=== PATIENT | female | born 1995 | race Hispanic/Latino ===

== ENCOUNTER 2017-08-25 13:44 | Emergency (ER) | payer SELFPAY ==
[2017-08-25 14:23] LABS: Urine Blood 2+ (NEG); Urine Glucose NEGATIVE (NEG); Urine Protein NEGATIVE (NEG)
[2017-08-25 14:30] LABS: Urine Bacteria >50 /HPF (<20); Urine Culture Reflex Order REFLEXED; Urine RBC >50 /HPF (NONE SEEN)
[2017-08-25 15:49] LABS: Absolute Lymphocytes (CBC) 2.7 K/uL (0.7-4.9); Absolute Monocytes 0.4 K/uL (0.1-1.3); Absolute Neutrophil 4.4 K/uL (1.8-8.0); Basophils % 0.5 % (0-1.3); Eosinophils % 3.4 % (0-4.4); Hematocrit 40.7 % (36.0-45.0); Lymphocytes % 34.9 % (15.3-44.8); MCH 29.3 pg (27.0-35.0); MCV 87.6 fL (80-100); MPV 9.2 fL (7.6-11.3); Monocytes % 4.8 % (3.3-12.3); RBC Red Blood Cell Count 4.64 M/uL (3.86-4.86)
[2017-08-25 15:58] LABS: Bicarbonate 26 mEq/L (21-31); Glucose Level 83 mg/dL (65-120); Potassium 3.8 mEq/L (3.6-5.0); Sodium Level 138 mEq/L (135-145)
[2017-08-25 15:59] LABS: BUN Blood Urea Nitrogen 5 mg/dL (6-20); Glomerular Filtration Rate > 90 mL/min (=/>90)
[2017-08-25 16:28] LABS: Urine Bacteria NONE SEEN /HPF (<20); Urine Culture Reflex Order NOT NEEDED; Urine RBC NONE SEEN /HPF (NONE SEEN)
--- NOTE | 2017-08-25 16:31 | EDPHYS ---
Physician Documentation [facility] Name: Rossana Monge Age: 21 yrs Sex: Female : 1995 Arrival Date: 08/25/2017 Time: 13:45 Bed 15 Private MD: ED Physician Ck Liu HPI: 08/25 14:12 This 21 yrs old Female presents to ER via Ambulatory with complaints of rh1 Vaginal Bleeding. 14:12 The patient presents with vaginal bleeding that is moderate, with clots, 1 regular rh1 tampon per hour for the past 2 days, today has "lightened up" and used 1 tampon, reports not currently bleeding. Onset: The symptoms/episode began/occurred 3 day(s) ago. Modifying factors: The symptoms are alleviated by nothing, the symptoms are aggravated by nothing. Associated signs and symptoms: Pertinent positives: cramping, Pertinent negatives: constipation, diarrhea, dyspareunia, dysuria, fever, nausea, urinary frequency, vaginal discharge, vomiting. Severity of symptoms: At their worst the symptoms were mild, in the emergency department the symptoms are unchanged. The patient is sexually active. The patient has not experienced similar symptoms in the past. The patient has not recently seen a physician. Pt. reports LMP 07/25/17, and 3 days ago began with vaginal bleeding. Reports heavier than usual, but she will intermittently have periods that are heavier than others, and felt that this was routine. Bleeding had improved, when today at 1200 after wiping she had approx. 1 cm "piece of meat come out." Reports it was not similar to previous blood clots that she has had out. She was concerned she may be miscarrying, had negative test at home.. 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 - Social history:: Smoking status: Patient/guardian denies using tobacco. ROS: 14:12 Constitutional: Negative for fever, chills, and weight loss. rh1 14:12 ENT: Positive for rhinorrhea, sinus congestion, ongoing for the past 1 week, overall improving. 14:12 Cardiovascular: Negative for chest pain, edema, palpitations. 14:12 Respiratory: Positive for cough, ongoing intermittently for the past 1 week, overall improving, Negative for dyspnea on exertion, shortness of breath, wheezing. 14:12 Abdomen/GI: Negative for abdominal pain, nausea, vomiting, and diarrhea. 14:12 Back: Negative for decreased range of motion, pain at rest, pain with movement, radiated pain. 14:12 : Positive for vaginal bleeding, Negative for urinary symptoms, small amounts, vaginal discharge, vaginal itching. 14:12 Neuro: Negative for altered mental status, dizziness, syncope, near syncope. 14:12 All other systems are negative. Exam: 14:12 Constitutional: This is a well developed, well nourished patient who is awake, alert, rh1 and in no acute distress. Head/Face: Normocephalic, atraumatic. Neck: Trachea midline, and no cervical lymphadenopathy. Supple, full range of motion without nuchal rigidity. No Meningismus. Chest/axilla: Normal chest wall appearance and motion. Nontender with no deformity. No lesions are appreciated. Cardiovascular: Regular rate and rhythm with a normal S1 and S2. No gallops, murmurs, or rubs. No JVD. No pulse deficits. Respiratory: Lungs have equal breath sounds bilaterally, clear to auscultation. No rales, rhonchi or wheezes noted. No increased work of breathing. 14:12 Back: No spinal tenderness. No costovertebral tenderness. Full range of motion. Skin: Warm, dry with normal turgor. Normal color with no rashes, no lesions, and no evidence of cellulitis. MS/ Extremity: Pulses equal, no cyanosis. Neurovascular intact. Full, normal range of motion. 14:12 Abdomen/GI: Inspection: abdomen appears normal, bruising, is not seen, distension, is not seen, Bowel sounds: normal, in all quadrants, active, all quadrants, Palpation: soft, in all quadrants, mild abdominal tenderness, in the suprapubic area, involuntary guarding, is not appreciated, Indicators: McBurney's point is not tender, Porter's sign is negative, Rovsing's sign is negative, Liver: no appreciated palpable abnormalities. 14:12 Neuro: Orientation: is normal, to person, place \\T\\ time. Mentation: is normal, lucid, able to follow commands, Motor: is normal, moves all fours, Gait: is steady, at a normal pace, without difficulty. 15:18 : Pelvic Exam: External exam: is normal, no appreciated Bartholin's cyst, no rh1 erythema, not excoriated, no lesions, Speculum exam: scant bleeding, blood clots in vaginal vault, no tissue in cervix is seen, no tissue in vagina is seen, bimanual exam reveals normal findings, no cervical motion tenderness, uterine tenderness, no adnexa tenderness or masses bilaterally, discharge, bloody, small amount, the nurse was present for the exam. Vital Signs: 13:51 BP 119 / 76; Pulse 74; Resp 19; Temp 97.5; Pulse Ox 100% on R/A; la1 15:00 BP 115 / 72; Pulse 69; Resp 18; Pulse Ox 99% on R/A; ph 16:30 BP 117 / 70; Pulse 72; Resp 18; Temp 98.0; Pulse Ox 98% on R/A; ph MDM: 14:12 Patient medically screened. rh1 16:30 Data reviewed: vital signs, nurses notes, lab test result(s), and as a result, I will rh1 discharge patient. Data interpreted: Pulse oximetry: on room air is 99 %. Interpretation: normal. Counseling: I had a detailed discussion with the patient and/or guardian regarding: the historical points, exam findings, and any diagnostic results supporting the discharge/admit diagnosis, lab results, the need for outpatient follow up, an OB/Gyne specialist, to return to the emergency department if symptoms worsen or persist or if there are any questions or concerns that arise at home. 08/25 13:56 Order name: UA MICROSCOPIC rh1 08/25 14:20 Order name: Urine Dipstick--Ancillary (enter results) bd 08/25 14:20 Order name: Urine --Ancillary (enter results) bd 08/25 14:21 Order name: CBC with Diff rh1 08/25 14:21 Order name: BMP rh1 08/25 14:23 Order name: Urine --Ancillary; Complete Time: 14:27 EDMS 08/25 13:56 Order name: Straight Cath; Complete Time: 15:34 rh1 08/25 13:56 Order name: Urine Test (obtain specimen); Complete Time: 15:34 rh1 08/25 14:23 Order name: Urine Dipstick-Ancillary; Complete Time: 14:27 EDCO 08/25 14:31 Order name: Urine Microscopic Only; Complete Time: 14:38 EDMS 08/25 15:52 Order name: CBC with Automated Diff; Complete Time: 15:58 EDMS 08/25 15:58 Order name: Basic Metabolic Panel; Complete Time: 16:09 EDCO 08/25 16:28 Order name: Urine Microscopic Only; Complete Time: 16:55 EDCO 08/25 16:44 Order name: Urinalysis; Complete Time: 16:55 EDMS 08/25 14:21 Order name: Pelvic Exam Setup; Complete Time: 15:34 rh1 Administered Medications: No medications were administered Disposition: 17:54 Co-signature as Attending Physician, Ck Liu MD. rn Disposition: 08/25/17 16:31 Discharged to Home. Impression: Other abnormal uterine and vaginal bleeding. - Condition is Stable. - Discharge Instructions: Dysmenorrhea. - Medication Reconciliation Form, Thank You Letter, Antibiotic Education, Prescription Opioid Use form. - Follow up: Private Physician; When: 1 - 2 days; Reason: Recheck today's complaints, Continuance of care, Re-evaluation by your physician. Follow up: Emergency Department; When: As needed; Reason: Fever > 102 F, If symptoms return, Trouble breathing, Worsening of condition. - Problem is new. - Symptoms have improved. Signatures: Dispatcher [employer] [facility] Ck Liu MD MD rn Attema, Lee, RN RN la1 Betty Interiano RN RN ph Jones, Rachel, JESSICA OPERATION SPECIALIST rh1 Corrections: (The following items were deleted from the chart) 14:35 14:12 Pt. reports LMP 07/25/17, and 3 days ago began with vaginal bleeding. Reports rh1 heavier than usual, but she will intermittently have periods that are heavier than others, and felt that this was routine. Bleeding had improved, when today at 1200 after wiping she had approx. 1 cm "piece of meat come out." Reports it was not similar to previous blood clots that she has had out. . rh1
--- NOTE | 2017-08-25 16:31 | ER ---
Nurse's Notes [facility] Name: Rossana Monge Age: 21 yrs Sex: Female : 1995 Arrival Date: 08/25/2017 Time: 13:45 Bed 15 Private MD: Diagnosis: Other abnormal uterine and vaginal bleeding Presentation: 08/25 13:50 Presenting complaint: Patient states: LMP 08/02/17, have been having more bleeding than la1 normal menstrual and today I passed something that was about the size of a quarter and I want to know if I am having a miscarriage. Transition of care: patient was not received from another setting of care. Onset of symptoms was August 25, 2017. Care prior to arrival: None. 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 - Social history:: Smoking status: Patient/guardian denies using tobacco. Screenin:28 Abuse screen: Denies threats or abuse. Denies injuries from another. Nutritional ph screening: No deficits noted. Tuberculosis screening: No symptoms or risk factors identified. Fall Risk None identified. Assessment: 14:27 General: Appears in no apparent distress. comfortable, slender, well groomed, Behavior ph is calm, cooperative, appropriate for age. Pain: Denies pain. Neuro: Level of Consciousness is awake, alert, obeys commands, Oriented to person, place, time, situation, Denies weakness dizziness. Cardiovascular: Capillary refill < 3 seconds in bilateral fingers Patient's skin is warm and dry. Respiratory: Airway is compromised Respiratory effort is even, unlabored. GI: No signs and/or symptoms were reported involving the gastrointestinal system. : Reports vaginal bleeding that is with clots, heavy flow Denies cramping pain. Derm: Skin is intact, is healthy with good turgor, Skin is pink, warm \T\ dry. Musculoskeletal: Circulation, motion, and sensation intact. Range of motion: intact in all extremities. 15:34 Reassessment: Patient appears in no apparent distress at this time. Patient and/or ph family updated on plan of care and expected duration. Pain level reassessed. Patient is alert, oriented x 3, equal unlabored respirations, skin warm/dry/pink. Awaiting lab results, no complaints at this time. 16:30 Reassessment: Patient appears in no apparent distress at this time. Patient and/or ph family updated on plan of care and expected duration. Pain level reassessed. Patient is alert, oriented x 3, equal unlabored respirations, skin warm/dry/pink. Pt resting quietly, awaiting discharge. Vital Signs: 13:51 BP 119 / 76; Pulse 74; Resp 19; Temp 97.5; Pulse Ox 100% on R/A; la1 15:00 BP 115 / 72; Pulse 69; Resp 18; Pulse Ox 99% on R/A; ph 16:30 BP 117 / 70; Pulse 72; Resp 18; Temp 98.0; Pulse Ox 98% on R/A; ph ED Course: 13:45 Patient arrived in ED. as 13:51 Triage completed. la1 13:52 Arm band placed on left wrist. la1 13:53 Betty Interiano, JOSEPH is Primary Nurse. ph 13:56 Eladia Beltran, CATTLE INSPECTOR is PHCP. rh1 13:56 Ck Liu MD is Attending Physician. rh1 14:28 Patient has correct armband on for positive identification. Placed in gown. Bed in low ph position. Call light in reach. Side rails up X 1. Pulse ox on. NIBP on. Warm blanket given. 15:10 Inserted saline lock: 20 gauge in right antecubital area, using aseptic technique. ph Blood collected. 15:20 Assist provider with pelvic exam: Set up pelvic tray. Performed by Eladia Beltran NP ph Patient tolerated well. 15:25 Straight cath inserted, using sterile technique, 16 Fr. Specimen obtained. Returned ph clear yellow urine. Patient tolerated well. 16:43 IV discontinued, intact, bleeding controlled, No redness/swelling at site. Pressure ph dressing applied. Administered Medications: No medications were administered Outcome: 16:31 Discharge ordered by MD. rh1 16:44 Patient left the ED. ph 16:44 Discharged to home ambulatory. ph 16:44 Condition: good 16:44 Discharge instructions given to patient, Instructed on discharge instructions, follow up and referral plans. Demonstrated understanding of instructions, follow-up care. Addendum: 08/28/2017 09:19 Addendum: Culture Results: Positive urine culture. Patient was not prescribed i w antibiotics at discharge. Report given to JOSE ALBERTO for further evaluation and then to reel assembler for follow up with patient. Phone call Attempt #1 pt did not answer, voice mail not set up yet. Signatures: Soraida Escalera Irene, RN RN Adan Braga RN RN la1 Betty Interiano RN RN Eladia Beltran, JESSICA CATTLE INSPECTOR 1
[2017-08-25 16:43] LABS: Urine Appearance CLEAR; Urine Bilirubin NEGATIVE (NEG); Urine Blood TRACE (NEG); Urine Color YELLOW; Urine Glucose NEGATIVE (NEG); Urine Microscopic Reflex NO UMIC; Urine Protein NEGATIVE (NEG); Urine Urobilinogen 0.2 mg/dL (0.2-1.0)
[2017-08-25 17:02] VITALS: TEMP 97.5
[2017-08-25 17:05] VITALS: BP 115/72; O2SAT 99
== END 2017-08-25 16:44 | disposition home or self-care (01) ==
LOC: ER 13:44
DX: N93.8 Other specified abnormal uterine and vaginal bleeding (principal)
CPT/HCPCS: 36415; 51702; 80048; 81003; 81015; 81025; 85025; 87077; 87086; 87088; 87186; 99284

== ENCOUNTER 2018-10-19 19:31 | Emergency (ER) | payer SELFPAY ==
--- OUTSIDE RECORDS SUMMARY | 2018-10-19 19:37 | XMS REPORT ---
:1995 Author Organization e[employer] Care Team Providers Name Role Phone Paul Danielito Provider Role Unavailable Allergies, Adverse Reactions, Alerts Substance Reaction Event Type N.K.D.A. Info Not Available Non Drug Allergy Encounters Encounter Location Date Unknown [facility] [place] November 27, 2013 Consult [facility] [place] May 06, 2014 Problems Problem Type Condition ICD-9 Code Onset Dates Condition Status Assessment Fever, unspecified 780.60 Active Assessment Viral infection 079.99 Active Problem H. pylori infection 041.86 Active Medications Medication Code System Code Instructions Start Date End Date Status Dosage Bromfed DM MULTUM 3501 2 mg-10 mg-30 mg/5 May 06, 2014 Active 10 mL mL orally 4 times a day ibuprofen MULTUM 68877 800 mg orally 3 May 06, 2014 Active 1 tab(s) times a day Social History Social History Element Qualifiers Date Reported Drug use: denied. May 06, 2014 Caffeine: no. May 06, 2014 Tobacco Use: . Status: Never Smoker May 06, 2014 Family history Qualifier Description Comment Date Reported Spouse alive Comment not available May 06, 2014 Father alive Comment not available May 06, 2014 Vital Signs Date/Time: May 06, 2014 Height 64 in Blood Pressure Diastolic 77 mm Hg Blood Pressure Systolic 108 mm Hg Oximetry 95 % Temperature 98.6 F Weight 166 lbs Summary Purpose eClinicalWorks Submission
--- OUTSIDE RECORDS SUMMARY | 2018-10-19 19:37 | XMS REPORT ---
:1995 Author Organization [employer] Care Team Providers Name Role Phone PaulDanielito Provider Role Unavailable Encounters Encounter Location Date Unknown [facility] [place] November 27, 2013 Medications Medication Code System Code Instructions Start Date End Date Status Dosage pantoprazole MULTUM 76855 40 mg orally once November 27, Active 1 tab(s) a day 2013 omeprazole MULTUM 18149 40 mg orally once November 23, Inactive 1 cap(s) a day 2013 Social History Social History Element Qualifiers Date Reported Drug use: denied. November 23, 2013 Caffeine: no. November 23, 2013 Tobacco Use: . Status: Never Smoker November 23, 2013 Summary Purpose eClinicalWorks Submission
--- OUTSIDE RECORDS SUMMARY | 2018-10-19 19:37 | XMS REPORT | Continuity of Care Document ---
:1995 Author Organization Interface Problems Problem Status Onset Classification Date Comments Source Date Reported Discharge 11/12/19 11/14/2016 [facility] Diagnosis: 17 Menorrhagia Discharge 11/12/19 11/14/2016 [facility] Diagnosis: 17 Menstrual cramps Discharge 11/12/19 11/14/2016 [facility] Diagnosis: 17 Ovarian cyst, right Discharge 11/12/19 11/14/2016 [facility] Diagnosis: 17 Dysfunctional uterine bleeding ABDOMINAL PAIN Active 11/10/19 [facility] 17 Discharge 05/14/20 05/17/2016 [facility] Diagnosis: 16 related nausea, antepartum Discharge 05/14/20 05/17/2016 [facility] Diagnosis: 16 Vaginal bleeding in Discharge 05/14/20 05/17/2016 [facility] Diagnosis: Acute 16 cystitis during , antepartum Discharge 05/14/20 05/17/2016 [facility] Diagnosis: 16 Infection of urinary tract during . Discharge 05/14/20 05/17/2016 [facility] Diagnosis: 28 16 weeks gestation of 32WKS Active 05/13/20 [facility] GEST/ABDOMINAL 16 PAIN FEVER Active 02/21/20 [facility] 15 ACUTE Active 12/22/19 [facility] PYELONEPHRITIS 15 VOMITING Active 12/22/19 [facility] 15 FEVER / LOWER Active 10/31/19 [facility] BACK PAIN 15 Acute upper Active Diagnosis 07/11/2015 Outpatient respiratory Clinical infection, Care unspecified Nicotine Active Diagnosis 09/15/2015 Outpatient dependence, Clinical cigarettes, Care uncomplicated H. pylori Active Problem 09/15/2015 Outpatient infection Clinical Care Acute vaginitis Active Diagnosis 09/15/2015 Outpatient Clinical Care Female pelvic Active Diagnosis 09/15/2015 Outpatient inflammatory Clinical disease, Care unspecified Amenorrhea, Active Diagnosis 09/15/2015 Outpatient unspecified Clinical Care Fever, Active Diagnosis 05/13/2014 Outpatient unspecified Clinical Care Viral infection Active Diagnosis 05/13/2014 Outpatient Clinical Care UTI (<span Resolved Problem 11/14/2016 [facility] ID="[id number]"> Confirmed</span>) Vaginal bleeding Resolved Problem 11/14/2016 [facility] in Infection of Active Problem 11/14/2016 [facility] urinary tract during . PYELONEPHRITIS Active [facility] NOS Medications Medication Details Route Status Patient Ordering Order Source Instructions Provider Date Acetaminophen 300 1 - 2 tab, Active MG / Codeine PO, Q4H, PRN 2016 [facility] Phosphate 30 MG Pain, X 4 Oral Tablet day, # 50 [Tylenol with tab, 0 Codeine #3] Refill(s) Zofran 8 mg, Route: Inactive IVP, Drug 2016 [facility] form: INJ, ONCE, Dosing Weight 68.182, kg, Priority: STAT, Start date: 11/10/16 22:00:00 CDT, Stop date: 11/10/16 22:00:00 CDT Morphine 4 mg, Route: Inactive IV, ONCE, 2016 [facility] Dosing Weight 68.182, kg, Priority: STAT, Start date: 11/10/16 21:59:00 CDT, Stop date: 11/10/16 21:59:00 CDT Sodium Chloride 250 mL, No Longer 0.9% IV Route: IVPB, Active 2016 [facility] Start date: 11/10/16 21:54:00 CDT, Duration: 30 day, Stop date: 12/10/16 21:53:00 CDT, PRN Line Flush BD Normal Saline 10 mL, Route: No Longer Flush IVP, Drug Active 2016 [facility] Form: INJ, PRN, PRN Line Flush, Start date: 11/10/16 21:53:00 CDT, Duration: 30 day, Stop date: 12/10/16 21:52:00 CDTNotes: (Same as: BD Posiflush) Sodium Chloride 1,000 mL, No Longer 0.154 MEQ/ML Rate: 125 Active 2016 [facility] Injectable ml/hr, Infuse Solution over: 8 hr, Route: IV, Dosing Weight 68.182 kg, Total Volume: 1,000, Start date: 11/10/16 21:49:00 CDT, Duration: 1 doses or times, Stop date: 11/11/16 5:48:00 CDT Saline Flush 0.9% 10 mL, Route: Inactive IVP, Drug 2016 [facility] Form: INJ, Dosing Weight 68.182, kg, PRN, PRN Line Flush, Start date: 11/10/16 21:49:00 CDT, Duration: 30 day, Stop date: 12/10/16 21:48:00 CDT Potassium 20 mEq, 15 Inactive Chloride 1.33 mL, Route: 2015 [facility] MEQ/ML Oral PO, Drug Solution form: LIQ, ONCE, Dosing Weight 71.591, kg, Priority: STAT, Start date: 05/14/16 0:54:00 [employer], Stop date: 05/14/16 0:54:00 CSTNotes: (Same as: Potassium Chloride) Calcium Chloride 1,000 mL, No Longer 0.0014 MEQ/ML / 1,000 ml/hr, Active 2015 [facility] Potassium Infuse Over: Chloride 0.004 1 hr, Route: MEQ/ML / Sodium IV, 1,000, Chloride 0.103 Drug form: MEQ/ML / Sodium INJ, ONCE, Lactate 0.028 Dosing Weight MEQ/ML Injectable 71.591 kg, Solution Start date: 05/13/16 23:53:00 [employer], Stop date: 05/13/16 23:53:00 [employer]PPLY [employer]INEER Ondansetron 4 mg, 2 mL, No Longer Route: IVP, Active 2015 [facility] Drug form: INJ, ONCE, Dosing Weight 71.591, kg, Priority: STAT, Start date: 05/13/16 23:43:00 [employer], Stop date: 05/13/16 23:43:00 CSTNotes: (Same as: Zofran) MEDICATION WASTE Product Size: 4 mg Product Wasted: ___ mg Phenergan 12.5 mg, 0.5 No Longer mL, Route: Active 2015 [facility] IM, Drug form: INJ, ONCE, Dosing Weight 71.591, kg, Priority: STAT, Start date: 05/13/16 23:43:00 [employer] ENGINE[employer], Stop date: 05/13/16 23:43:00 CSTNotes: Do not give IV push. (Same as: Phenergan) Calcium Chloride 500 mL, 500 Inactive 0.0014 MEQ/ML / ml/hr, Infuse 2015 [facility] Potassium Over: 1 hr, Chloride 0.004 Route: IV, MEQ/ML / Sodium 500, Drug Chloride 0.103 form: INJ, MEQ/ML / Sodium ONCE, Dosing Lactate 0.028 Weight 71.591 MEQ/ML Injectable kg, Start Solution date: 05/13/16 23:27:00 [employer] CH[employer] ENG[employer]ER, Stop date: 05/13/16 23:27:00 [employer] MedroxyPROGESTERo 1 tab(s) orally Active 10 mg orally Paul 09/08/ Outpatient ne Acetate once a day [facility] ciprofloxacin 1 tab(s) orally Active 500 mg orally Paul 08/25/ Outpatient every 12 2016 Clinical hours Care ibuprofen 1 tab(s) orally Active 800 mg orally Paul 08/25/ Outpatient 3 times a day 2016 [facility] azithromycin 1 tab(s) orally Active 500 mg orally [facility] 08/25/ Outpatient once a day 2016 Clinical Care Bromfed DM 10 mL orally Active 2 mg-10 mg-30 [facility] 05/19/ Outpatient mg/5 mL 2014 Clinical orally 4 Care times a day promethazine 12.5 12.5 mg=1 Active 12/23/ MH mg oral tablet tab, PO, TID, 2014 [facility] X 5 day, # 15 tab, 0 Refill(s) Ciprofloxacin 500 500 mg=1 tab, Active 12/23/ MH MG Oral Tablet PO, Q12H, X 7 2014 [facility] [Cipro] day, # 14 tab, 0 Refill(s) Ondansetron 4 MG 4 mg=1 tab, Inactive 12/23/ MH Oral Tablet PO, BID, X 5 2014 [facility] [Zofran] day, # 10 tab, 0 Refill(s) cefdinir 300 MG 300 mg=1 cap, Inactive Oral Capsule PO, Q12H, X 2015 [facility] [Omnicef] 14 day, # 28 cap, 0 Refill(s) Azithromycin 500 mg, Inactive Route: IVPB, 2014 [facility] [id number], Dosing Weight 72.727, kg, Start date: 12/23/14 1:00:00, Duration: 2 doses or times, Stop date: 12/23/14 13:00:00Notes : (Same As: Zithromax IV) Phenergan 25 mg, 1 mL, No Longer Route: IM, Active 2014 [facility] Drug form: INJ, Q6H, Dosing Weight 72.727, kg, PRN Nausea & Vomiting, Start date: 12/22/14 22:12:00, Duration: 30 day, Stop date: 01/21/15 22:11:00Notes : Do not give IV push. (Same as: Phenergan) Phenergan 25 mg, Route: Inactive PO, Q6H, 2014 [facility] Dosing Weight 72.727, kg, PRN as needed for nausea/vomiti ng, Start date: 12/22/14 22:07:00, Duration: 30 day, Stop date: 01/21/15 22:06:00 Rocephin 1 gm, Route: No Longer IVPB, Active 2014 [facility] [id number], Dosing Weight 72.727, kg, Start date: 12/22/14 17:00:00, Duration: 30 day, Stop date: 01/20/15 17:00:00Notes : (Same As: Rocephin). Use with 100ml NS mini-bag PLUS and infuse over 30 min MEDICATION WASTE Product Size: 1000 mg Product Wasted: ___ mg azithromycin 500 500 mg, 2 No Longer mg oral tablet tab, Route: Active 2014 [facility] PO, Drug form: TAB, Daily, Dosing Weight 72.727, kg, Start date: 12/22/14 9:00:00, Duration: 2 day, Stop date: 12/23/14 9:00:00Notes: Take 1 hour before or 2 hours after meals. (Same As: Zithromax) potassium 40 mEq, 2 Inactive chloride tab, Route: 2014 [facility] PO, Drug form: ERTAB, ONCE, Dosing Weight 72.727, kg, Start date: 12/21/14 17:23:00, Stop date: 12/21/14 17:23:00Notes : (Same as: K-Dur 20) "Do Not Crush" With food and full glass of water Saline Flush 0.9% 10 ml, Route: No Longer IVP, Drug Active 2014 [facility] Form: INJ, Dosing Weight 72.727, kg, PRN, PRN Line Flush, Start date: 12/21/14 16:24:00, Duration: 30 day, Stop date: 01/20/15 16:23:00Notes : preservative free. Sodium Chloride 1,000 mL, No Longer 0.154 MEQ/ML Rate: 150 Active 2014 [facility] Injectable ml/hr, Infuse Solution over: 6.7 hr, Route: IV, Dosing Weight 72.727 kg, Total Volume: 1,000, Start date: 12/21/14 16:24:00, Duration: 30 day, Stop date: 01/20/15 16:23:00 Ondansetron 4 mg, 2 mL, No Longer Route: IVP, Active 2014 [facility] Drug form: INJ, Q6H, Dosing Weight 72.727, kg, PRN Nausea & Vomiting, Start date: 12/21/14 16:24:00, Duration: 30 day, Stop date: 01/20/15 16:23:00Notes : (Same as: Bryanna) MEDICATION WASTE Product Size: 4 mg Product Wasted: ___ mg Acetaminophen 650 mg, 2 No Longer tab, Route: Active 2014 [facility] PO, Drug form: TAB, Q4H, Dosing Weight 72.727, kg, PRN Pain 1-3/Temp > 100.4 F, Start date: 12/21/14 16:24:00, Duration: 30 day, Stop date: 01/20/15 16:23:00Notes : Do not exceed 4 gm/day. (Same as: Tylenol) Potassium 40 mEq, 2 Inactive Chloride 20 MEQ tab, Route: 2014 [facility] Extended Release PO, Drug Tablet form: ERTAB, ONCE, Dosing Weight 77.273, kg, Priority: STAT, Start date: 12/21/14 14:12:00, Stop date: 12/21/14 14:12:00 Ceftriaxone 1 gm, Route: Inactive IVPB, Drug 2014 [facility] form: PDR/INJ, ONCE, Dosing Weight 77.273, kg, Priority: STAT, Start date: 12/21/14 14:07:00, Stop date: 12/21/14 14:07:00 Motrin 600 mg, Inactive Route: PO, 2014 [facility] Drug form: TAB, ONCE, Dosing Weight 77.273, kg, Priority: STAT, Start date: 12/21/14 14:06:00, Stop date: 12/21/14 14:06:00 Sodium Chloride 1,000 mL, Inactive 0.154 MEQ/ML 1,000 ml/hr, 2014 [facility] Injectable Infuse Over: Solution 1 hr, Route: IV, 1,000, Drug form: INJ, ONCE, Priority: STAT, Dosing Weight 77.273 kg, Start date: 12/21/14 13:01:00, Duration: 1 doses or times, Stop date: 12/21/14 13:01:00 Ondansetron 4 mg, 2 mL, Inactive Route: IVP, 2014 [facility] Drug form: INJ, ONCE, Dosing Weight 77.273, kg, Priority: STAT, Start date: 12/21/14 13:00:00, Stop date: 12/21/14 13:00:00Notes : (Same as: Bryanna) MEDICATION WASTE Product Size: 4 mg Product Wasted: ___ mg Bromfed DM 10 mL orally Active 2 mg-10 mg-30 [facility] 05/06/ Outpatient mg/5 mL 2013 Clinical orally 4 Care times a day ibuprofen 1 tab(s) orally Active 800 mg orally [facility] 05/06/ Outpatient 3 times a day 2013 [facility] pantoprazole 1 tab(s) orally Active 40 mg orally [facility] 11/27/ Outpatient once a day 2013 [facility] omeprazole 1 cap(s) orally No Longer 40 mg orally [facility] 11/23/ Outpatient Active once a day 2013 [facility] Allergies, Adverse Reactions, Alerts Substance Category Reaction Severity Reaction Status Date Comments Source type Reported N.K.D.A. Adverse Info Not Adverse Active Outpatient Reaction Available Reaction 6 Clinical Care Immunizations Immunization Date Given Site Status Last Updated Comments Source Results Order Name Results Value Reference Date Interpretation Comments Source Range BLOOD BANK ABO/Rh O POS 11/11 RESULTS /2016 [facility] CHEM PANEL Lipase Lvl 131 unit/L 73 - 393 11/11 [facility] ELECTROLYT AGAP 10.3 meq/L 10.0 - 11/11 ES 20.0 [facility] ELECTROLYT A/G Ratio 0.9 0.7 - 1.6 11/11 [facility] ELECTROLYT Globulin 3.7 g/dL 2.7 - 4.2 11/11 [facility] ELECTROLYT B/C Ratio 8 6 - 25 11/11 [facility] ELECTROLYT Bili Total 0.3 mg/dL 0.2 - 1.3 11/11 [facility] ELECTROLYT Alk Phos 146 unit/L 39 - 136 11/11 [facility] ELECTROLYT ALT 21 unit/L 0 - 65 11/11 [facility] ELECTROLYT Total 7.1 g/dL 6.4 - 8.4 11/11 Protein [facility] ELECTROLYT CO2 28 meq/L 24 - 32 11/11 [facility] ELECTROLYT Albumin Lvl 3.4 g/dL 3.5 - 5.0 11/11 [facility] ELECTROLYT Calcium Lvl 8.2 mg/dL 8.5 - 10.5 11/11 [facility] ELECTROLYT AST 13 unit/L 0 - 37 11/11 [facility] ELECTROLYT eGFR 123 11/11 Result Comment: The eGFR is calculated using the CKD-EPI formula. In most young, healthy individuals the eGFR will be >90 mL/ min/1.73m2. The eGFR declines with age. An eGFR of 60-89 may be normal in mL/min/1.7 some populations, particularly the elderly, for whom the CKD-EPI formula has not been extensively validated. Use of the eGFR is not recommended in the following populations: [address] Individuals with unstable creatinine concentrations, including patients and those with serious co-morbid conditions. Patients with extremes in muscle mass or diet. The data above are obtained from the National Kidney Disease Education Program (NKDEP) which additionally recommends that when the eGFR is used in patients with extremes of body mass index for purposes of drug dosing, the eGFR should be multiplied by the estimated BMI. ELECTROLYT BUN 6 mg/dL 7 - 22 11/11 [facility] ELECTROLYT Glucose Lvl 71 mg/dL 70 - 99 11/11 [facility] ELECTROLYT Sodium Lvl 139 meq/L 135 - 145 11/11 [facility] ELECTROLYT Creatinine 0.71 mg/dL 0.50 - 11/11 [facility] Lvl 1.40 [facility] ELECTROLYT Potassium 3.3 meq/L 3.5 - 5.1 11/11 [facility] Lvl [facility] ELECTROLYT Chloride Lvl 104 meq/L 95 - 109 11/11 MH ES /2016 [facility] ENDOCRINOL S Preg Negative Negative 11/11 MH OGY /2016 [facility] *NA* (11/10/16 10:08 PM) HEMATOLOGY Platelet 222 K/CMM 133 - 450 11/11 /2016 [facility] HEMATOLOGY MPV 8.8 fL 7.4 - 10.4 11/11 /2016 [facility] HEMATOLOGY MCHC 32.9 g/dL 32.0 - 11/11 MH 36.0 /2016 [facility] HEMATOLOGY RDW 13.4 % 11.5 - 11/11 MH 14.5 /2016 [facility] HEMATOLOGY MCV 86.9 fL 80.0 - 11/11 MH 98.0 /2016 [facility] HEMATOLOGY MCH 28.6 pg 27.0 - 11/11 MH 31.0 [facility] HEMATOLOGY Hct 41.9 % 36.0 - 11/11 MH 48.0 [facility] HEMATOLOGY RBC 4.82 M/CMM 4.20 - 11/11 MH 5.40 /2016 [facility] HEMATOLOGY Hgb 13.8 g/dL 12.0 - 11/11 MH 16.0 [facility] HEMATOLOGY WBC 7.9 K/CMM 3.7 - 10.4 11/11 /2016 [facility] HEMATOLOGY Eosinophils 0.3 K/CMM 0.0 - 0.5 / MH # /2016 [facility] HEMATOLOGY Basophils # 0.0 K/CMM 0.0 - 0.2 11/11 /2016 [facility] HEMATOLOGY Lymphocytes 32.0 % 20.0 - 11/11 MH 40.0 /2016 [facility] HEMATOLOGY Lymphocytes 2.5 K/CMM 1.0 - 5.5 11/11 MH # /2016 [facility] HEMATOLOGY Monocytes # 0.6 K/CMM 0.0 - 0.8 11/11 [facility] HEMATOLOGY Segs-Bands # 4.5 K/CMM 1.5 - 8.1 11/11 /2016 [facility] HEMATOLOGY Eosinophils 3.3 % 0.0 - 4.0 11/11 /2016 [facility] HEMATOLOGY Basophils 0.4 % 0.0 - 1.0 11/11 /2016 [facility] HEMATOLOGY Monocytes 7.5 % 2.0 - 12.0 11/11 /2016 [facility] HEMATOLOGY Segs 56.8 % 45.0 - 11/11 MH 75.0 [facility] URINE AND UA Sq Epi Many /LPF Few /LPF 11/11 MH STOOL /2016 [facility] URINE AND UA WBC 29 /HPF 0 - 5 11/11 STOOL [facility] URINE AND UA Leuk Est Negative Negative 11/11 STOOL [facility] (11/10/16 10:08 PM) URINE AND UA <=1.0 0.1 - 1.0 11/11 STOOL Urobilinogen mg/dL [facility] URINE AND UA Mucus Few /LPF None Seen 11/11 STOOL /LPF /2016 [facility] URINE AND UA RBC 135 /HPF 0 - 2 11/11 [facility] URINE AND UA Color Light Yellow Yellow 11/11 [facility] *NA* (11/10/16 10:08 PM) URINE AND UA pH 6.0 5.0 - 8.0 11/11 [facility] URINE AND UA Turbidity Clear Clear 11/11 [facility] (11/10/16 10:08 PM) URINE AND UA Spec Grav 1.005 <=1.030 11/11 [facility] URINE AND UA Protein Negative Negative 11/11 STOOL mg/dL mg/dL [facility] URINE AND UA Glucose Negative Negative 11/11 STOOL mg/dL mg/dL [facility] URINE AND UA Ketones Negative Negative 11/11 STOOL mg/dL mg/dL [facility] URINE AND UA Bili Negative Negative 11/11 [facility] *NA* (11/10/16 10:08 PM) URINE AND UA Blood Large Negative 11/11 [facility] *ABN* (11/10/16 10:08 PM) URINE AND UA Nitrite Negative Negative 11/11 [facility] (11/10/16 10:08 PM) URINE CHEM U Preg Negative Negative 11/11 [facility] (11/10/16 10:08 PM) Pelvis w Pelvis w Study: Pelvis w Transvag and Pelvis Doppler US 11/10/2016 9: 49 PM CDT 11/10 - Transvag Transvag and - [facility] and Pelvis Pelvis Ordering Physician: Rohan Dale MD Doppler US Doppler US Clinical Indication: Vaginal Bleeding - large uterine bleeding , evaluate for fibroids; pelvic pain. Read by: Winfired Sauceda MD Dictated Date/time: 11/11/16 00:22 Comparison: None Electronically Signed by: Winifred Sauceda MD 11/11/16 00:25 FINAL REPORT TECHNIQUE: Grayscale, color flow Doppler and duplex Doppler ultrasound with spectral waveform analysis of the pelvis is performed. Transabdominal findings: Uterus is normal in size, measuring 8.5 cm in length by 4.7 cm AP by 5.9 cm TR. Myometrial echotexture is grossly normal. The endometrial cavity is empty and the endometrial complex is normal in thickne ss, measuring 6 mm. The urinary bladder is grossly normal in appearance, with no evidence for mural irregularity or intraluminal mass. The left ovary is normal in size and echogenicity, measuring 1.3 x 2.7 x 1.2 cm. The right ovary is normal in size, measuring 4.0 x 2.6 x 2.6 cm. There is a right adnexal cyst measuring 2.1 x 2.5 x 1.8 cm. Blood flow is visualized within both ovaries on color flow imaging. Endovaginal findings: The uterus is normal in size and echotexture. No uterine fibroids are identified. The endometrial cavity is empty and the endometrial complex is normal in thickness, measuring 0.7 cm. A small nabothian cyst is present in the cervix. The right ovary is normal in size and echogenicity, measuring 3.1 x 2.6 x 4.4 cm. A simple right adnexal cyst measures 2.2 x 2.5 x 2.1 cm. It probably represents a dominant follicle. The left ovary is n ormal in size and echogenicity, measuring 2.8 x 1.5 x 1.2 cm. No adnexal mass lesions are visualized. There is arterial and venous blood flow within both ovaries. There is trace free fluid within the cul-de-sac. IMPRESSION: Normal ultrasound examination of the pelvis. SL: [id number] CHEM PANEL BUN 5 mg/dL 7 - 22 05/14 [facility] CHEM PANEL Glucose Lvl 99 mg/dL 70 - 99 05/14 [facility] CHEM PANEL AGAP 11.3 meq/L 10.0 - 05/14 MH 20.0 [facility] CHEM PANEL Calcium Lvl 8.6 mg/dL 8.5 - 10.5 05/14 [facility] CHEM PANEL Chloride Lvl 107 meq/L 95 - 109 05/14 [facility] CHEM PANEL Potassium 3.3 meq/L 3.5 - 5.1 05/14 Lvl [facility] CHEM PANEL Sodium Lvl 139 meq/L 135 - 145 05/14 [facility] CHEM PANEL CO2 24 meq/L 24 - 32 05/14 [facility] CHEM PANEL Creatinine 0.60 mg/dL 0.50 - 05/14 Lvl 1.40 [facility] CHEM PANEL eGFR 133 05/14 Result Comment: The eGFR is calculated using the CKD-EPI formula. In most young, healthy individuals the eGFR will be >90 mL/ min/1.73m2. The eGFR declines with age. An eGFR of 60-89 may be normal in mL/min/1.7 /2016 some populations, particularly the elderly, for whom the CKD-EPI formula has not been extensively validated. Use of the eGFR is not recommended in the following populations: [facility] 3m2 Individuals with unstable creatinine concentrations, including patients and those with serious co-morbid conditions. Patients with extremes in muscle mass or diet. The data above are obtained from the National Kidney Disease Education Program (NKDEP) which additionally recommends that when the eGFR is used in patients with extremes of body mass index for purposes of drug dosing, the eGFR should be multiplied by the estimated BMI. MOLECULAR N gonorrhea Negative Negative 05/14 DIAGNOSTIC by Amp Det [facility] (APT) *NA* (05/14/16 12:04 AM) MOLECULAR Source Endocervix 05/14 DIAGNOSTIC APTIMA [facility] (05/14/16 12:04 AM) MOLECULAR C Negative Negative 05/14 DIAGNOSTIC trachomatis [facility] by Amp Det *NA* (APTIMA) (05/14/16 12:04 AM) URINE AND UA Mucus Few /LPF None Seen 05/14 STOOL /LPF [facility] URINE AND UA Bacteria Occasional None Seen 05/14 STOOL /HPF /HPF /2015 [facility] URINE AND UA RBC null 0 - 2 05/14 STOOL [facility] URINE AND UA Leuk Est Small Negative 05/14 STOOL [facility] *ABN* (05/14/16 12:04 AM) URINE AND UA WBC 5 /HPF 0 - 5 05/14 STOOL [facility] URINE AND UA Sq Epi Occasional Few /LPF 05/14 STOOL /LPF [facility] URINE AND UA Color Light Yellow Yellow 05/14 STOOL [facility] *NA* (05/14/16 12:04 AM) URINE AND UA null 0.1 - 1.0 05/14 STOOL Urobilinogen /2015 [facility] URINE AND UA Nitrite Negative Negative 05/14 STOOL [facility] (05/14/16 12:04 AM) URINE AND UA Blood Negative Negative 05/14 STOOL [facility] (05/14/16 12:04 AM) URINE AND UA Bili Negative Negative 05/14 STOOL [facility] *NA* (05/14/16 12:04 AM) URINE AND UA Ketones Negative Negative 05/14 STOOL mg/dL mg/dL [facility] URINE AND UA Glucose Negative Negative 05/14 STOOL mg/dL mg/dL [facility] URINE AND UA Spec Grav 1.008 <=1.030 05/14 STOOL [facility] URINE AND UA pH 6.0 5.0 - 8.0 05/14 STOOL [facility] URINE AND UA Turbidity Slight Clear 05/14 STOOL [facility] *ABN* (05/14/16 12:04 AM) URINE AND UA Protein Negative Negative 05/14 STOOL mg/dL mg/dL [facility] CHEM PANEL eGFR 136 12/23 Result mL/min/1.7 /2014 Comment: The [facility] 3m2 eGFR is calculated using the modified Gray equation 0.413 x Height (cm) /Serum Creatinine (mg/dL). CHEM PANEL Calcium Lvl 8.1 mg/dL 8.5 - 10.5 12/23 [facility] CHEM PANEL CO2 21 meq/L 24 - 32 12/23 [facility] CHEM PANEL Chloride Lvl 109 meq/L 95 - 109 12/23 [facility] CHEM PANEL Potassium 3.6 meq/L 3.5 - 5.1 12/23 Lvl [facility] CHEM PANEL Sodium Lvl 140 meq/L 135 - 145 12/23 [facility] CHEM PANEL Creatinine 0.5 mg/dL 0.5 - 1.4 12/23 Lvl [facility] CHEM PANEL BUN 3 mg/dL 7 - 22 12/23 [facility] CHEM PANEL Glucose Lvl 86 mg/dL 70 - 99 12/23 [facility] CHEM PANEL AGAP 13.6 meq/L 10.0 - 12/23 20.0 [facility] HEMATOLOGY MPV 9.8 fL 7.4 - 10.4 12/23 [facility] HEMATOLOGY Platelet 161 K/CMM 133 - 450 12/23 /2014 [facility] HEMATOLOGY RDW 13.6 % 11.5 - 12/23 MH 14.5 /2014 [facility] HEMATOLOGY MCHC 33.8 g/dL 32.0 - 12/23 MH 36.0 /2014 [facility] HEMATOLOGY MCV 86.6 fL 80.0 - 12/23 MH 98.0 /2014 [facility] HEMATOLOGY MCH 29.3 pg 27.0 - 12/23 MH 31.0 /2014 [facility] HEMATOLOGY Hct 34.7 % 36.0 - 12/23 MH 48.0 /2014 [facility] HEMATOLOGY Hgb 11.8 g/dL 12.0 - 12/23 MH 16.0 /2014 [facility] HEMATOLOGY WBC 9.1 K/CMM 3.7 - 10.4 12/23 /2014 [facility] HEMATOLOGY RBC 4.01 M/CMM 4.20 - 12/23 MH 5.40 /2014 [facility] CHEM PANEL eGFR 114 12/22 [facility] mL/min/1.7 Comment: The [address] eGFR is calculated using the modified Gray equation 0.413 x Height (cm) /Serum Creatinine (mg/dL). CHEM PANEL Calcium Lvl 7.8 mg/dL 8.5 - 10.5 12/22 [facility] CHEM PANEL Glucose Lvl 86 mg/dL 70 - 99 12/22 [facility] CHEM PANEL Sodium Lvl 137 meq/L 135 - 145 12/22 [facility] CHEM PANEL Creatinine 0.6 mg/dL 0.5 - 1.4 12/22 Lv [facility] CHEM PANEL BUN 7 mg/dL 7 - 22 12/22 [facility] CHEM PANEL Chloride Lvl 106 meq/L 95 - 109 12/22 [facility] CHEM PANEL Potassium 3.5 meq/L 3.5 - 5.1 12/22 MH Lvl [facility] CHEM PANEL AGAP 13.5 meq/L 10.0 - 12/22 MH 20.0 [facility] CHEM PANEL CO2 21 meq/L 24 - 32 12/22 [facility] HEMATOLOGY Lymphocytes 8.7 % 20.0 - 12/22 MH 40.0 [facility] HEMATOLOGY Monocytes 9.3 % 2.0 - 12.0 12/22 [facility] HEMATOLOGY Basophils 0.2 % 0.0 - 1.0 12/22 [facility] HEMATOLOGY Segs-Bands # 10.6 K/CMM 1.5 - 8.1 12/22 /2014 [facility] HEMATOLOGY Lymphocytes 1.1 K/CMM 1.0 - 5.5 12/22 MH # /2014 [facility] HEMATOLOGY Monocytes # 1.2 K/CMM 0.0 - 0.8 12/22 /2014 [facility] HEMATOLOGY Segs 81.8 % 45.0 - 12/22 MH 75.0 /2014 [facility] HEMATOLOGY Platelet 164 K/CMM 133 - 450 12/22 /2014 [facility] HEMATOLOGY RDW 13.3 % 11.5 - 12/22 MH 14.5 /2014 [facility] HEMATOLOGY MCH 29.2 pg 27.0 - 12/22 MH 31.0 /2014 [facility] HEMATOLOGY MCHC 34.8 g/dL 32.0 - 12/22 MH 36.0 /2014 [facility] HEMATOLOGY MCV 83.9 fL 80.0 - 12/22 98.0 /2014 [facility] HEMATOLOGY Hgb 12.5 g/dL 12.0 - 12/22 MH 16.0 /2014 [facility] HEMATOLOGY Hct 36.0 % 36.0 - 12/22 48.0 /2014 [facility] HEMATOLOGY WBC 12.9 K/CMM 3.7 - 10.4 12/22 /2014 [facility] HEMATOLOGY RBC 4.28 M/CMM 4.20 - 12/22 MH 5.40 /2014 [facility] HEMATOLOGY MPV 9.7 fL 7.4 - 10.4 12/22 /2014 [facility] MOLECULAR N gonorrhea Negative Negative 12/21 DIAGNOSTIC by Amp Det /2014 [facility] (APTIMA) *NA* (12/21/14 6:08 PM) MOLECULAR C Positive 4 Negative 12/21 Result DIAGNOSTIC trachomatis Comment: [facility] by Amp Det *ABN* "Significant (APTIMA) Findings (12/21/14 6:08 PM) called to [facility]_at _12/23/2014 13:16__by _CYTHOMAS__.R ead Back OK." MOLECULAR Source Endocervix 12/21 DIAGNOSTIC APTIMA /2014 [facility] *NA* (12/21/14 6:08 PM) CHEM PANEL Lactic Acid 0.7 mMol/L 0.5 - 2.2 12/21 Lvl /2014 [facility] CHEM PANEL Procalcitoni 0.05 ng/mL 0.00 - 12/21 n Lvl 0.10 [facility] CHEM PANEL eGFR 85 12/21 Result mL/min/1.7 /2014 Comment: The [facility] 3m2 eGFR is calculated using the modified Gray equation 0.413 x Height (cm) /Serum Creatinine (mg/dL). CHEM PANEL Globulin 4.3 g/dL 2.0 - 4.0 12/21 [facility] CHEM PANEL A/G Ratio 0.9 0.7 - 1.6 12/21 [facility] CHEM PANEL AGAP 10.1 meq/L 10.0 - 12/21 MH 20.0 [facility] CHEM PANEL B/C Ratio 10 6 - 25 12/21 [facility] CHEM PANEL Alk Phos 132 unit/L 39 - 136 12/21 [facility] CHEM PANEL Bili Total 0.8 mg/dL 0.2 - 1.3 12/21 [facility] CHEM PANEL CO2 25 meq/L 24 - 32 12/21 [facility] CHEM PANEL Potassium 3.1 meq/L 3.5 - 5.1 12/21 MH Lvl [facility] CHEM PANEL Chloride Lvl 103 meq/L 95 - 109 12/21 [facility] CHEM PANEL Calcium Lvl 8.4 mg/dL 8.5 - 10.5 12/21 [facility] CHEM PANEL Total 8.0 g/dL 6.4 - 8.4 12/21 MH Protein [facility] CHEM PANEL Albumin Lvl 3.7 g/dL 3.5 - 5.0 12/21 [facility] CHEM PANEL Creatinine 0.8 mg/dL 0.5 - 1.4 12/21 MH Lvl [facility] CHEM PANEL Sodium Lvl 135 meq/L 135 - 145 12/21 [facility] CHEM PANEL ALT 14 unit/L 0 - 65 12/21 [facility] CHEM PANEL AST 6 unit/L 0 - 37 12/21 [facility] CHEM PANEL BUN 8 mg/dL 7 - 22 12/21 [facility] CHEM PANEL Glucose Lvl 103 mg/dL 70 - 99 12/21 [facility] HEMATOLOGY Hct 42.0 % 36.0 - 12/21 MH 48.0 [facility] HEMATOLOGY Hgb 14.1 g/dL 12.0 - 12/21 MH 16. [facility] HEMATOLOGY RDW 13.4 % 11.5 - 12/21 MH 14. [facility] HEMATOLOGY MCV 85.5 fL 80.0 - 12/21 MH 98.0 [facility] HEMATOLOGY Platelet 196 K/CMM 133 - 450 12/21 /2014 [facility] HEMATOLOGY MPV 9.6 fL 7.4 - 10.4 12/21 /2014 [facility] HEMATOLOGY RBC 4.91 M/CMM 4.20 - 12/21 MH 5.40 /2014 [facility] HEMATOLOGY WBC 17.1 K/CMM 3.7 - 10.4 12/21 /2014 [facility] HEMATOLOGY MCHC 33.7 g/dL 32.0 - 12/21 36.0 /2014 [facility] HEMATOLOGY MCH 28.8 pg 27.0 - 12/21 MH 31.0 /2014 [facility] HEMATOLOGY RBC Morph Normal 12/21 [facility] (12/21/14 1:05 PM) HEMATOLOGY Monocytes 7.3 % 2.0 - 12.0 12/21 /2014 [facility] HEMATOLOGY Eosinophils 0.0 % 0.0 - 4.0 12/21 [facility] HEMATOLOGY Basophils 0.2 % 0.0 - 1.0 12/21 [facility] HEMATOLOGY Segs-Bands # 14.2 K/CMM 1.5 - 8.1 12/21 [facility] HEMATOLOGY Lymphocytes 9.4 % 20.0 - 12/21 40.0 /2014 [facility] HEMATOLOGY Lymphocytes 1.6 K/CMM 1.0 - 5.5 12/21 # /2014 [facility] HEMATOLOGY Monocytes # 1.3 K/CMM 0.0 - 0.8 12/21 [facility] HEMATOLOGY Eosinophils 0.0 K/CMM 0.0 - 0.5 12/21 # /2014 [facility] HEMATOLOGY Basophils # 0.0 K/CMM 0.0 - 0.2 12/21 [facility] HEMATOLOGY Plt Morph Normal 12/21 [facility] (12/21/14 1:05 PM) HEMATOLOGY Segs 83.1 % 45.0 - 12/21 75.0 /2014 [facility] URINE AND UA Bacteria Few /HPF None Seen 12/21 STOOL /HPF /2014 [facility] URINE AND UA Mucus Few /LPF None Seen 12/21 STOOL /LPF /2014 [facility] URINE AND UA WBC 11-20 /HPF None Seen 12/21 STOOL /HPF /2014 [facility] URINE AND UA Sq Epi Few /LPF Few /LPF 12/21 STOOL /2014 [facility] URINE AND UA RBC 3-5 /HPF 0 - 2 12/21 STOOL /2014 [facility] URINE AND UA Blood Large Negative 12/21 STOOL /2014 [facility] *ABN* (12/21/14 1:05 PM) URINE AND UA Bili Small Negative 12/21 [facility] *ABN* (12/21/14 1:05 PM) URINE AND UA Ketones Trace Negative 12/21 STOOL [facility] *ABN* (12/21/14 1:05 PM) URINE AND UA Leuk Est Small Negative 12/21 STOOL [facility] *ABN* (12/21/14 1:05 PM) URINE AND UA Nitrite Negative Negative 12/21 STOOL [facility] (12/21/14 1:05 PM) URINE AND UA 0.2 EU/dL 0.1 - 1.0 12/21 STOOL Urobilinogen [facility] URINE AND UA Turbidity Slight Cloudy Clear 12/21 [facility] (12/21/14 1:05 PM) URINE AND UA Color Yellow Yellow 12/21 STOOL [facility] *NA* (12/21/14 1:05 PM) URINE AND UA pH 6.0 5.0 - 8.0 12/21 [facility] URINE AND UA Glucose Negative Negative 12/21 STOOL [facility] (12/21/14 1:05 PM) URINE AND UA Protein 100 mg/dL Negative 12/21 STOOL mg/dL [facility] URINE AND UA Spec Grav 1.025 <=1.030 12/21 [facility] URINE CHEM U Preg Negative Negative 12/21 [facility] (12/21/14 1:05 PM) Chest 2 Chest 2 HISTORY: Fever. 10/30 - views DX views - [facility] Chest 2 views. Read by: Raimundo Gibson MD Dictated Date/time: 10/30/14 12:43 Electronically Signed by: Raimundo Gibson MD 10/30/14 12:44 FINAL REPORT COMPARISON: No prior. Lungs are clear. Heart size normal. No pleural effusion or pneumothorax. IMPRESSION: Negative SL:14 Vital Signs Vital Sign Value Date Comments Source Heart Rate 71 11/11/2016 [facility] Respitory Rate 16 11/11/2016 [facility] Temperature Oral (F) 98.2 F 11/11/2016 [facility] Systolic (mm Hg) 103 11/11/2016 [facility] Diastolic (mm Hg) 58 11/11/2016 [facility] Heart Rate 72 11/11/2016 [facility] Temperature Oral (F) 98.6 F 11/11/2016 [facility] Systolic (mm Hg) 112 11/11/2016 [facility] Diastolic (mm Hg) 73 11/11/2016 [facility] Respitory Rate 16 11/11/2016 [facility] Heart Rate 93 11/11/2016 [facility] Temperature Oral (F) 98.3 F 11/11/2016 [facility] Respitory Rate 16 11/11/2016 [facility] Systolic (mm Hg) 116 11/11/2016 [facility] Diastolic (mm Hg) 72 11/11/2016 [facility] Height 165.1 cm 11/11/2016 [facility] Weight 68.182 11/11/2016 [facility] BMI Calculated 25.01 11/11/2016 [facility] Systolic (mm Hg) 99 05/14/2016 [facility] Diastolic (mm Hg) 56 05/14/2016 [facility] Systolic (mm Hg) 109 05/14/2016 [facility] Diastolic (mm Hg) 63 05/14/2016 [facility] Systolic (mm Hg) 111 05/14/2016 [facility] Diastolic (mm Hg) 62 05/14/2016 [facility] Height 165.1 cm 05/14/2016 [facility] BMI Calculated 26.26 05/14/2016 [facility] Weight 71.591 05/14/2016 [facility] Respitory Rate 18 05/14/2016 [facility] Heart Rate 90 05/14/2016 [facility] Height 64 09/09/2015 [facility] Diastolic (mm Hg) 71 09/09/2015 [facility] Systolic (mm Hg) 108 09/09/2015 [facility] Temperature Oral (F) 98.2 F 09/09/2015 [facility] Weight 142 09/09/2015 [facility] Height 64 08/26/2015 [facility] Diastolic (mm Hg) 67 08/26/2015 [facility] Systolic (mm Hg) 115 08/26/2015 [facility] Temperature Oral (F) 97.8 F 08/26/2015 [facility] Weight 141 08/26/2015 [facility] Height 64 05/19/2015 [facility] Diastolic (mm Hg) 71 05/19/2015 [facility] Systolic (mm Hg) 96 05/19/2015 [facility] Temperature Oral (F) 98.4 F 05/19/2015 [facility] Weight 144 05/19/2015 [facility] Weight 72.727 02/20/2015 [facility] BMI Calculated 26.68 02/20/2015 [facility] Height 165.1 cm 02/20/2015 [facility] Temperature Oral (F) 99.0 F 02/20/2015 [facility] Systolic (mm Hg) 112 02/20/2015 [facility] Diastolic (mm Hg) 70 02/20/2015 [facility] Heart Rate 96 02/20/2015 [facility] Respitory Rate 18 02/20/2015 [facility] Systolic (mm Hg) 114 12/23/2014 [facility] Diastolic (mm Hg) 68 12/23/2014 [facility] Respitory Rate 18 12/23/2014 [facility] Temperature Oral (F) 98.1 F 12/23/2014 [facility] Heart Rate 70 12/23/2014 [facility] Temperature Oral (F) 98.1 F 12/23/2014 [facility] Systolic (mm Hg) 116 12/23/2014 [facility] Diastolic (mm Hg) 76 12/23/2014 [facility] Heart Rate 62 12/23/2014 [facility] Respitory Rate 18 12/23/2014 [facility] Temperature Oral (F) 99.0 F 12/23/2014 [facility] Systolic (mm Hg) 113 12/23/2014 [facility] Diastolic (mm Hg) 72 12/23/2014 [facility] Heart Rate 76 12/23/2014 [facility] Respitory Rate 18 12/23/2014 [facility] Height 165.1 cm 12/21/2014 [facility] BMI Calculated 26.68 12/21/2014 [facility] Weight 72.727 12/21/2014 [facility] BMI Calculated 28.35 12/21/2014 [facility] Height 165.1 cm 12/21/2014 [facility] Weight 77.273 12/21/2014 [facility] Height 64 05/06/2014 [facility] Diastolic (mm Hg) 77 05/06/2014 [facility] Systolic (mm Hg) 108 05/06/2014 [facility] Temperature Oral (F) 98.6 F 05/06/2014 [facility] Weight 166 05/06/2014 [facility] Encounters Location Location Encounter Encounter Reason Attending ADM DC Status Source Details Type Number For Provider Date Date Visit Outpatient Unknown [id number] 11/27 11/27 [facility]pat[facility] Clinical [id number] /2013 [facility] [id number] Clinical Care Outpatient Unknown [id number] 11/27 11/27 [facility] [id number]- [facility] [place] [id number] Clinical Care Outpatient Unknown [id number] 11/27 11/27 [facility] Clinical [id number] /2013 [facility] [place] [id number] Clinical Care Outpatient Unknown [id number] 11/27 11/27 Outpat[facility] Clinical [id number] [place] [id number] Clinical Care Outpatient Unknown [id number] 11/27 11/27 Outpat[facility] Clinical [id number] /2013 [facility] [place] [id number] Clinical Care Outpatient Consult [id number] 05/06 05/06 Outpat[facility] Clinical [id number] /2013 [facility] [place] [id number] Clinical Care Outpatient Consult [id number] 05/06 05/06 [facility]pat[facility] Clinical [id number]- /2013 [facility] [place] [id number] Clinical Care Outpatient Consult [id number] 05/06 05/06 Outpat[facility] Clinical [id number]- /2013 [facility] [place] [id number] Clinical Care Outpatient Consult [id number] 05/06 05/06 Outpat[facility] Clinical [id number] /2013 [facility] [id number] Clinical Care [facility] Inpatient [id number] Jameel 12/21 12/23 Vincenzo Stuart /2014 [facility] [id number] Caroline 02/20 02/20 [facility] /2014 [facility] Outpatient ENT [id number] 05/19 05/19 Outpatie Clinical Consult [id number] /2014 [facility] [place] [id number] Clinical Care Outpatient ENT [id number] 05/19 05/19 Outpatie Clinical Consult [id number] /2014 [facility] [id number] Clinical Care Outpatient ENT [id number] 05/19 05/19 Outpatie Clinical Consult [id number] /2014 [facility], [facility] [id number] Clinical Care Outpatient ER t rvw [id number] 08/25 08/25 Outpatie Clinical w/ labs [id number]- /2015 [facility] [place] [id number] Clinical Care Outpatient ER t rvw [id number] 08/25 08/25 Outpatie Clinical w/ labs [id number] /2015 [facility], [facility] [id number] Clinical Care Outpatient Labs & T [id number] 09/08 09/08 Outpatie Clinical Rvw [id number] /2015 [facility], [facility] [id number] Clinical Care [facility] Emergency [id number] Messi Araya 05/14 05/14 [facility] Loya /2015 [facility] [id number] Rohan 11/11 11/11 ERMA Dale /2016 [facility] Procedures Procedure Code Date Perfomer Comments Source
--- OUTSIDE RECORDS SUMMARY | 2018-10-19 19:38 | XMS REPORT ---
:1995 Author Organization [employer] Care Team Providers Name Role Phone Paul Danielito Provider Role Unavailable Allergies, Adverse Reactions, Alerts Substance Reaction Event Type N.K.D.A. Info Not Available Non Drug Allergy Encounters Encounter Location Date ER t rvw w/ labs [facility] August 26, 2015 Labs & T Rv[facility] [place] September 09, 2015 Unknown [facility] [place] November [place], 2013 Consult [facility] [place] May 06, 2014 [facility] Consult [facility] [place] May 19, 2015 Problems Problem Type Condition ICD-9 Code Onset Dates Condition Status Assessment Amenorrhea, unspecified N91.2 Active Assessment Female pelvic inflammatory N73.9 Active disease, unspecified Problem H. pylori infection 041.86 Active Assessment Acute vaginitis N76.0 Active Assessment Nicotine dependence, cigarettes, F17.210 Active uncomplicated Medications Medication Code Code Instructions Start End Date Status Dosage System Date MedroxyPROGESTERone MULTUM 7121 10 mg orally September Active 1 tab(s) Acetate once a day 2015 ciprofloxacin MULTUM 08642 500 mg orally August Active 1 tab(s) every 12 hours 2015 ibuprofen MULTUM 71300 800 mg orally 05 August Active 1 tab(s) times a day 2015 Social History Social History Element Qualifiers Date Reported Drug use: denied. September 09, 2015 Caffeine: no. September 09, 2015 Tobacco Use: . Are you a: Current Smoker September 09, 2015 Family history Qualifier Description Comment Date Reported Friend(s) Comment not available September 09, 2015 Spouse alive Comment not available September 09, 2015 Adopted Comment not available September 09, 2015 Reviewed Comment not available September 09, 2015 Maternal Grand Mother Comment not available September 09, 2015 Siblings Comment not available September 09, 2015 Children Comment not available September 09, 2015 Father alive Comment not available September 09, 2015 Maternal aunt Comment not available September 09, 2015 Mother Comment not available September 09, 2015 Paternal uncle Comment not available September 09, 2015 Maternal uncle Comment not available September 09, 2015 Paternal aunt Comment not available September 09, 2015 Daughter(s) Comment not available September 09, 2015 Son(s) Comment not available September 09, 2015 Paternal Grand Mother Comment not available September 09, 2015 Maternal Grand Father Comment not available September 09, 2015 Paternal Grand Father Comment not available September 09, 2015 Vital Signs Date/Time: September 09, 2015 Height 64 in Blood Pressure Diastolic 71 mm Hg Blood Pressure Systolic 108 mm Hg Oximetry 100 % Temperature 98.2 F Weight 142 lbs Results Chlamydia/GC Amplification Urine test Summary Purpose [employer]ClinicalWorks Submission
--- OUTSIDE RECORDS SUMMARY | 2018-10-19 19:38 | XMS REPORT | Summary of Care ---
:1995 Author Organization [facility] Address [address], [place] [address]- Encounter HQ Jil_carol(GERALD) [id number] Date(s): 11/10/16 - 11/11/16 [id number] [place] [address]- Discharge Diagnosis: Menorrhagia Discharge Diagnosis: Menstrual cramps Discharge Diagnosis: Ovarian cyst, right Discharge Diagnosis: Dysfunctional uterine bleeding Discharge Disposition: Home or Self Care Attending Physician: Rohan Dale MD Vital Signs Most recent to oldest [Reference 1 2 3 Range]: Height 165.1 cm (11/10/16 9:20 PM) Temperature Oral [96.4-99.1 DegF] 98.2 DegF 98.6 DegF 98.3 DegF (11/11/16 1:07 AM) (11/10/16 11:07 PM) (11/10/16 9:20 PM) Blood Pressure [90-140/60-90 103/58 mmHg 112/73 mmHg 116/72 mmHg mmHg] (11/11/16 1:07 AM) (11/10/16 11:07 PM) (11/10/16 9:20 PM) Respiratory Rate [14-20 BRMIN] 16 BRMIN 16 BRMIN 16 BRMIN (11/11/16 1:07 AM) (11/10/16 11:07 PM) (11/10/16 9:20 PM) Peripheral Pulse Rate [60-100 71 bpm 72 bpm 93 bpm bpm] (11/11/16 1:07 AM) (11/10/16 11:07 PM) (11/10/16 9:20 PM) Weight 68.182 kg (11/10/16 9:20 PM) Body Mass Index 25.01 m2 (11/10/16 9:20 PM) Problem List Condition Effective Dates Status Health Status Informant Vaginal bleeding in Resolved (Confirmed) Infection of urinary tract during Active .(Confirmed) UTI (urinary tract Resolved infection)(Confirmed) Allergies, Adverse Reactions, Alerts Substance Reaction Severity Status NKDA Active Medications BD Normal Saline Flush 10 mL, Route: IVP, Drug Form: INJ, PRN, PRN Line Flush, Start date: 11/10/16 21: 53:00 CDT, Duration:30 day, Stop date: 12/10/16 21:52:00 CDT Notes: (Same as: BD Posiflush) Start Date: 11/10/16 Stop Date: 11/11/16 Status: Discontinuedmorphine Sulfate 4 mg, Route: IV, ONCE, Dosing Weight 68.182, kg, Priority: STAT, Start date: 01/19 21:59:00 CDT, Stop date: 11/10/16 21:59:00 CDT Start Date: 11/10/16 Stop Date: 11/10/16 Status: CompletedSaline Flush 0.9% 10 mL, Route: IVP, Drug Form: INJ, Dosing Weight 68.182, kg, PRN, PRN Line Flush , Start date: 11/10/16 21:49:00 CDT, Duration: 30 day, Stop date: 12/10/16 21:48 :00 CDT Start Date: 11/10/16 Stop Date: 11/10/16 Status: Discontinuedsodium chloride 0.9% 1000 ml INJ 1,000 mL 1,000 mL, Rate: 125 ml/hr, Infuse over: 8 hr, Route: IV, Dosing Weight 68.182 kg , Total Volume: 1,000, Start date: 11/10/16 21:49:00 CDT, Duration: 1 doses or times, Stop date: 11/11/16 5:48:00 CDT Start Date: 11/10/16 Stop Date: 11/11/16 Status: DiscontinuedSodium Chloride 0.9% IV 250 mL, Route: IVPB, Start date: 11/10/16 21:54:00 CDT, Duration: 30 day, Stop date: 12/10/16 21:53:00 CDT, PRN Line Flush Start Date: 11/10/16 Stop Date: 11/11/16 Status: DiscontinuedTylenol with Codeine #3 oral tablet 1 - 2 tab, PO, Q4H, PRN Pain, X 4 day, # 50 tab, 0 Refill(s) Start Date: 11/11/16 Stop Date: 11/15/16 Status: OrderedZofran 8 mg, Route: IVP, Drug form: INJ, ONCE, Dosing Weight 68.182, kg, Priority: STAT , Start date: 11/10/16 22:00:00 CDT, Stop date: 11/10/16 22:00:00 CDT Start Date: 11/10/16 Stop Date: 11/10/16 Status: Completed Results BLOOD BANK RESULTS Most recent to oldest [Reference Range]: 1 ABO/Rh O POS *Unknown* (11/10/16 10:08 PM) ELECTROLYTES Most recent to oldest [Reference Range]: 1 Sodium Lvl [135-145 mEq/L] 139 mEq/L (11/10/16 10:08 PM) Potassium Lvl [3.5-5.1 mEq/L] 3.3 mEq/L *LOW* (11/10/16 10:08 PM) Chloride Lvl [95-109 mEq/L] 104 mEq/L (11/10/16 10:08 PM) CO2 [24-32 mEq/L] 28 mEq/L (11/10/16 10:08 PM) AGAP [10.0-20.0 mEq/L] 10.3 mEq/L (11/10/16 10:08 PM) CHEM PANEL Most recent to oldest [Reference Range]: 1 Creatinine Lvl [0.50-1.40 mg/dL] 0.71 mg/dL (11/10/16 10:08 PM) eGFR 123 mL/min/1.73m2 1 *NA* (11/10/16 10:08 PM) BUN [7-22 mg/dL] 6 mg/dL *LOW* (11/10/16 10:08 PM) B/C Ratio [6-25] 8 (11/10/16 10:08 PM) Glucose Lvl [70-99 mg/dL] 71 mg/dL (11/10/16 10:08 PM) Total Protein [6.4-8.4 g/dL] 7.1 g/dL (11/10/16 10:08 PM) Albumin Lvl [3.5-5.0 g/dL] 3.4 g/dL *LOW* (11/10/16 10:08 PM) Globulin [2.7-4.2 g/dL] 3.7 g/dL (11/10/16 10:08 PM) A/G Ratio [0.7-1.6] 0.9 (11/10/16 10:08 PM) Calcium Lvl [8.5-10.5 mg/dL] 8.2 mg/dL *LOW* (11/10/16 10:08 PM) ALT [0-65 unit/L] 21 unit/L (11/10/16 10:08 PM) AST [0-37 unit/L] 13 unit/L (11/10/16 10:08 PM) Alk Phos [39-136 unit/L] 146 unit/L *HI* (11/10/16 10:08 PM) Bili Total [0.2-1.3 mg/dL] 0.3 mg/dL (11/10/16 10:08 PM) Lipase Lvl [73-393 unit/L] 131 unit/L (11/10/16 10:08 PM) 1Result Comment: The eGFR is calculated using the CKD-EPI formula. In most young , healthy individualsthe eGFR will be >90 mL/min/1.73m2. The eGFR declines with age. An eGFR of 60-89 may be normal in some populations, particularly the elderly, for whom the CKD-EPI formula has not been extensively validated. Use of the eGFR is not recommended in the following populations: Individuals with unstable creatinine concentrations, including patients and those with serious co-morbid conditions. Patients with extremes in muscle mass or diet. The data above are obtained from the National Kidney Disease Education Program ( NKDEP) which additionally recommends that when the eGFR is used in patients with extremes of body mass index for purposesof drug dosing, the eGFR should be multiplied by the estimated BMI.ENDOCRINOLOGY Most recent to oldest [Reference Range]: 1 S Preg [Negative] Negative *NA* (11/10/16 10:08 PM) URINE CHEM Most recent to oldest [Reference Range]: 1 U Preg [Negative] Negative (11/10/16 10:08 PM) URINE AND STOOL Most recent to oldest [Reference Range]: 1 UA Turbidity [Clear] Clear (11/10/16 10:08 PM) UA Color [Yellow] Light Yellow *NA* (11/10/16 10:08 PM) UA pH [5.0-8.0] 6.0 (11/10/16 10:08 PM) UA Spec Grav [<=1.030] 1.005 (11/10/16 10:08 PM) UA Glucose [Negative mg/dL] Negative mg/dL *NA* (11/10/16 10:08 PM) UA Blood [Negative] Large *ABN* (11/10/16 10:08 PM) UA Ketones [Negative mg/dL] Negative mg/dL *NA* (11/10/16 10:08 PM) UA Protein [Negative mg/dL] Negative mg/dL (11/10/16 10:08 PM) UA Urobilinogen [0.1-1.0 mg/dL] <=1.0 mg/dL *NA* (11/10/16 10:08 PM) UA Bili [Negative] Negative *NA* (11/10/16 10:08 PM) UA Leuk Est [Negative] Negative (11/10/16 10:08 PM) UA Nitrite [Negative] Negative (11/10/16 10:08 PM) UA WBC [0-5 /HPF] 29 /HPF *HI* (11/10/16 10:08 PM) UA RBC [0-2 /HPF] 135 /HPF *HI* (11/10/16 10:08 PM) UA Sq Epi [Few /LPF] Many /LPF *ABN* (11/10/16 10:08 PM) UA Mucus [None Seen /LPF] Few /LPF *NA* (11/10/16 10:08 PM) HEMATOLOGY Most recent to oldest [Reference Range]: 1 WBC [3.7-10.4 K/CMM] 7.9 K/CMM (11/10/16 10:08 PM) RBC [4.20-5.40 M/CMM] 4.82 M/CMM (11/10/16 10:08 PM) Hgb [12.0-16.0 g/dL] 13.8 g/dL (11/10/16 10:08 PM) Hct [36.0-48.0 %] 41.9 % (11/10/16 10:08 PM) MCV [80.0-98.0 fL] 86.9 fL (11/10/16 10:08 PM) MCH [27.0-31.0 pg] 28.6 pg (11/10/16 10:08 PM) MCHC [32.0-36.0 g/dL] 32.9 g/dL (11/10/16 10:08 PM) RDW [11.5-14.5 %] 13.4 % (11/10/16 10:08 PM) Platelet [133-450 K/CMM] 222 K/CMM (11/10/16 10:08 PM) MPV [7.4-10.4 fL] 8.8 fL (11/10/16 10:08 PM) Segs [45.0-75.0 %] 56.8 % (11/10/16 10:08 PM) Lymphocytes [20.0-40.0 %] 32.0 % (11/10/16 10:08 PM) Monocytes [2.0-12.0 %] 7.5 % (11/10/16 10:08 PM) Eosinophils [0.0-4.0 %] 3.3 % (11/10/16 10:08 PM) Basophils [0.0-1.0 %] 0.4 % (11/10/16 10:08 PM) Segs-Bands # [1.5-8.1 K/CMM] 4.5 K/CMM (11/10/16 10:08 PM) Lymphocytes # [1.0-5.5 K/CMM] 2.5 K/CMM (11/10/16 10:08 PM) Monocytes # [0.0-0.8 K/CMM] 0.6 K/CMM (11/10/16 10:08 PM) Eosinophils # [0.0-0.5 K/CMM] 0.3 K/CMM (11/10/16 10:08 PM) Basophils # [0.0-0.2 K/CMM] 0.0 K/CMM (11/10/16 10:08 PM) Immunizations No data available for this section Procedures No data available for this section Social History Social History Type Response Substance Abuse Use: None. Alcohol Never Smoking Status Never smoker; Type: Cigarettes; Exposure to Tobacco Smoke None; Cigarette Smoking Last 365 Days No; Reg Smoking Cessation Counseling Yes Assessment and Plan No data available for this section
--- OUTSIDE RECORDS SUMMARY | 2018-10-19 19:38 | XMS REPORT | Summary of Care ---
:1995 Author Organization [facility] Address [address], [place] [address]- Encounter HQ Magui(GERALD) [id number] Date(s): 12/21/14 - 12/23/14 [facility] [address] [place] [address]- Discharge Disposition: Home Attending Physician: Jameel Stuart MD Admitting Physician: Jameel Stuart MD Vital Signs Most recent to oldest [Reference Range]: 1 2 3 Height 165.1 cm 165.1 cm (12/21/14 3:39 PM) (12/21/14 12:08 PM) Most recent to oldest 1 2 3 [Reference Range]: Temperature Oral [96.8-99.7 98.1 DegF 98.1 DegF 99.0 DegF DegF] (12/23/14 3:58 PM) (12/23/14 12:00 PM) (12/23/14 8:00 AM) Most recent to oldest 1 2 3 [Reference Range]: Blood Pressure [90-138/45-84 114/68 mmHg 116/76 mmHg 113/72 mmHg mmHg] (12/23/14 3:58 PM) (12/23/14 12:00 PM) (12/23/14 8:00 AM) Most recent to oldest 1 2 3 [Reference Range]: Respiratory Rate [14-20 BRMIN] 18 BRMIN 18 BRMIN 18 BRMIN (12/23/14 3:58 PM) (12/23/14 12:00 PM) (12/23/14 8:00 AM) Most recent to oldest 1 2 3 [Reference Range]: Peripheral Pulse Rate [55-90 70 bpm 62 bpm 76 bpm bpm] (12/23/14 3:58 PM) (12/23/14 12:00 PM) (12/23/14 8:00 AM) Most recent to oldest [Reference Range]: 1 2 3 Weight 72.727 kg 77.273 kg (12/21/14 3:39 PM) (12/21/14 12:08 PM) Most recent to oldest [Reference Range]: 1 2 3 Body Mass Index 26.68 m2 28.35 m2 (12/21/14 3:39 PM) (12/21/14 12:08 PM) Problem List Condition Effective Dates Status Health Status Informant UTI (urinary tract Resolved infection)(Confirmed) Allergies, Adverse Reactions, Alerts Substance Reaction Severity Status NKDA Active Medications acetaminophen 650 mg, 2 tab, Route: PO, Drug form: TAB, Q4H, Dosing Weight 72.727, kg, PRN Pain 1-3/Temp > 100.4 F, Start date: 12/21/14 16:24:00, Duration: 30 day, Stop date: 01/20/15 16:23:00 Notes: Do not exceed 4 gm/day. (Same as: Tylenol) Start Date: 12/21/14 Stop Date: 12/23/14 Status: Discontinuedazithromycin + Sodium Chloride 0.9% IV 250 mL 500 mg, Route: IVPB, [id number], Dosing Weight 72.727, kg, Start date: 12/23/14 1: 00:00, Duration: 2 doses or times, Stop date: 12/23/14 13:00:00 Notes: (Same As: Zithromax IV) Start Date: 12/23/14 Stop Date: 12/23/14 Status: Completedazithromycin 500 mg oral tablet 500 mg, 2 tab, Route: PO, Drug form: TAB, Daily, Dosing Weight 72.727, kg, Start date: 12/22/14 9:00:00, Duration: 2 day, Stop date: 12/23/14 9:00:00 Notes: Take 1 hour before or 2 hours after meals.(Same As: Zithromax) Start Date: 12/22/14 Stop Date: 12/23/14 Status: DiscontinuedcefTRIAXone 1 gm, Route: IVPB, Drug form: PDR/INJ, ONCE, Dosing Weight 77.273, kg, Priority : STAT, Start date: 12/21/14 14:07:00, Stop date: 12/21/14 14:07:00 Start Date: 12/21/14 Stop Date: 12/21/14 Status: CompletedCipro 500 mg oral tablet 500 mg=1 tab, PO, Q12H, X 7 day, # 14 tab, 0 Refill(s) Start Date: 12/23/14 Stop Date: 12/30/14 Status: OrderedMotrin 600 mg, Route: PO, Drug form: TAB, ONCE, Dosing Weight 77.273, kg, Priority: STAT, Start date: 12/21/14 14:06:00, Stop date: 12/21/14 14:06:00 Start Date: 12/21/14 Stop Date: 12/21/14 Status: CompletedNS (Bolus) IV 1,000 mL, 1,000 ml/hr, Infuse Over: 1 hr, Route: IV, 1,000, Drug form: INJ, ONCE , Priority: STAT, Dosing Weight 77.273 kg, Start date: 12/21/14 13:01:00, Duration: 1 doses or times, Stop date: 12/21/1512:01:00 Start Date: 12/21/14 Stop Date: 12/21/14 Status: CompletedOmnicef 300 mg oral capsule 300 mg=1 cap, PO, Q12H, X 14 day, # 28 cap, 0 Refill(s) Start Date: 12/23/14 Stop Date: 12/23/14 Status: Discontinuedondansetron 4 mg, 2 mL, Route: IVP, Drug form: INJ, ONCE, Dosing Weight 77.273, kg, Priority : STAT, Start date: 12/21/14 13:00:00, Stop date: 12/21/14 13:00:00 Notes: (Same as: Zofran) MEDICATION WASTE Product Size: 4 mgProduct Wasted: ___ mg Start Date: 12/21/14 Stop Date: 12/21/14 Status: Completedondansetron 4 mg, 2 mL, Route: IVP, Drug form: INJ, Q6H, Dosing Weight 72.727, kg, PRN Nausea & Vomiting, Start date: 12/21/14 16:24:00, Duration: 30 day, Stop date: 01/20/15 16:23:00 Notes: (Same as: Zofran) MEDICATION WASTE Product Size: 4 mgProduct Wasted: ___ mg Start Date: 12/21/14 Stop Date: 12/23/14 Status: DiscontinuedPhenergan 25 mg, 1 mL, Route: IM, Drug form: INJ, Q6H, Dosing Weight 72.727, kg, PRN Nausea & Vomiting, Start date: 12/22/14 22:12:00, Duration: 30 day, Stop date: 01/21/15 22:11:00 Notes: Do not give IV push. (Same as: Phenergan) Start Date: 12/22/14 Stop Date: 12/23/14 Status: DiscontinuedPhenergan 25 mg, Route: PO, Q6H, Dosing Weight 72.727, kg, PRN as needed for nausea/ vomiting, Start date: 12/22/14 22:07:00, Duration: 30 day, Stop date: 01/21/15 22:06:00 Start Date: 12/22/14 Stop Date: 12/22/14 Status: Discontinuedpotassium chloride 40 mEq, 2 tab, Route: PO, Drug form: ERTAB, ONCE, Dosing Weight 72.727, kg, Start date: 12/21/14 17:23:00, Stop date: 12/21/14 17:23:00 Notes: (Same as: K-Dur 20)"Do Not Crush" With food and full glass of water Start Date: 12/21/14 Stop Date: 12/21/14 Status: Discontinuedpotassium chloride 20 mEq oral tablet, extended release 40 mEq, 2 tab, Route: PO, Drug form: ERTAB, ONCE, Dosing Weight 77.273, kg, Priority: STAT, Start date: 12/21/14 14:12:00, Stop date: 12/21/14 14:12:00 Start Date: 12/21/14 Stop Date: 12/21/14 Status: Completedpromethazine 12.5 mg oral tablet 12.5 mg=1 tab, PO, TID, X 5 day, # 15 tab, 0 Refill(s) Start Date: 12/23/14 Stop Date: 12/28/14 Status: OrderedRocephin + Sodium Chloride 0.9% IV 100 mL 1 gm, Route: IVPB, [id number], Dosing Weight 72.727, kg, Start date: 12/22/14 17:00 :00, Duration: 30 day, Stop date: 01/20/15 17:00:00 Notes: (Same As: Rocephin).Use with 100ml NS mini-bag PLUS and infuse over 30 min MEDICATION WASTE Product Size: 1000 mgProduct Wasted: ___ mg Start Date: 12/22/14 Stop Date: 12/23/14 Status: DiscontinuedSaline Flush 0.9% 10 ml, Route: IVP, Drug Form: INJ, Dosing Weight 72.727, kg, PRN, PRN Line Flush , Start date: 12/21/14 16:24:00, Duration: 30 day, Stop date: 01/20/15 16:23:00 Notes: preservative free. Start Date: 12/21/14 Stop Date: 12/23/14 Status: DiscontinuedSodium Chloride 0.9% IV 1,000 mL 1,000 mL, Rate: 150 ml/hr, Infuse over: 6.7 hr, Route: IV, Dosing Weight 72.727 kg, Total Volume: 1,000, Start date: 12/21/14 16:24:00, Duration: 30 day, Stop date: 01/20/15 16:23:00 Start Date: 12/21/14 Stop Date: 12/23/14 Status: DiscontinuedZofran 4 mg oral tablet 4 mg=1 tab, PO, BID, X 5 day, # 10 tab, 0 Refill(s) Start Date: 12/23/14 Stop Date: 12/23/14 Status: Discontinued Results ELECTROLYTES Most recent to oldest 1 2 3 [Reference Range]: Sodium Lvl [135-145 mEq/L] 140 mEq/L 137 mEq/L 135 mEq/L (12/23/14 5:50 AM) (12/22/14 5:43 AM) (12/21/14 1:05 PM) Potassium Lvl [3.5-5.1 3.6 mEq/L 3.5 mEq/L 3.1 mEq/L mEq/L] (12/23/14 5:50 AM) (12/22/14 5:43 AM) *LOW* (12/21/14 1:05 PM) Chloride Lvl [95-109 mEq/L] 109 mEq/L 106 mEq/L 103 mEq/L (12/23/14 5:50 AM) (12/22/14 5:43 AM) (12/21/14 1:05 PM) CO2 [24-32 mEq/L] 21 mEq/L 21 mEq/L 25 mEq/L *LOW* *LOW* (12/21/14 1:05 PM) (12/23/14 5:50 AM) (12/22/14 5:43 AM) AGAP [10.0-20.0 mEq/L] 13.6 mEq/L 13.5 mEq/L 10.1 mEq/L (12/23/14 5:50 AM) (12/22/14 5:43 AM) (12/21/14 1:05 PM) CHEM PANEL Most recent to oldest 1 2 3 [Reference Range]: Creatinine Lvl [0.5-1.4 0.5 mg/dL 0.6 mg/dL 0.8 mg/dL mg/dL] (12/23/14 5:50 AM) (12/22/14 5:43 AM) (12/21/14 1:05 PM) eGFR 136 mL/min/1.73m2 1 114 mL/min/1.73m2 2 85 mL/min/1.73m2 3 *NA* *NA* *NA* (12/23/14 5:50 AM) (12/22/14 5:43 AM) (12/21/14 1:05 PM) BUN [7-22 mg/dL] 3 mg/dL 7 mg/dL 8 mg/dL *LOW* (12/22/14 5:43 AM) (12/21/14 1:05 PM) (12/23/14 5:50 AM) B/C Ratio [6-25] 10 (12/21/14 1:05 PM) Glucose Lvl [70-99 mg/dL] 86 mg/dL 86 mg/dL 103 mg/dL (12/23/14 5:50 AM) (12/22/14 5:43 AM) *HI* (12/21/14 1:05 PM) Total Protein [6.4-8.4 g/dL] 8.0 g/dL (12/21/14 1:05 PM) Albumin Lvl [3.5-5.0 g/dL] 3.7 g/dL (12/21/14 1:05 PM) Globulin [2.0-4.0 g/dL] 4.3 g/dL *HI* (12/21/14 1:05 PM) A/G Ratio [0.7-1.6] 0.9 (12/21/14 1:05 PM) Calcium Lvl [8.5-10.5 mg/dL] 8.1 mg/dL 7.8 mg/dL 8.4 mg/dL *LOW* *LOW* *LOW* (12/23/14 5:50 AM) (12/22/14 5:43 AM) (12/21/14 1:05 PM) ALT [0-65 unit/L] 14 unit/L (12/21/14 1:05 PM) AST [0-37 unit/L] 6 unit/L (12/21/14 1:05 PM) Alk Phos [39-136 unit/L] 132 unit/L (12/21/14 1:05 PM) Bili Total [0.2-1.3 mg/dL] 0.8 mg/dL (12/21/14 1:05 PM) Lactic Acid Lvl [0.5-2.2 0.7 mMol/L mMol/L] (12/21/14 2:29 PM) Procalcitonin Lvl [0.00-0.10 0.05 ng/mL ng/mL] (12/21/14 2:29 PM) 1Result Comment: The eGFR is calculated using the modified Gray equation 0.413 x Height (cm) /Serum Creatinine (mg/dL).2Result Comment: The eGFR is calculated using the modified Gray equation 0.413 x Height (cm) /Serum Creatinine (mg/dL).3Result Comment: The eGFR is calculated using the modified Gray equation 0.413 x Height (cm) /Serum Creatinine (mg/dL).URINE CHEM Most recent to oldest [Reference Range]: 1 2 3 U Preg [Negative] Negative (12/21/14 1:05 PM) URINE AND STOOL Most recent to oldest [Reference Range]: 1 2 3 UA Turbidity [Clear] Slight Cloudy (12/21/14 1:05 PM) UA Color [Yellow] Yellow *NA* (12/21/14 1:05 PM) UA pH [5.0-8.0] 6.0 (12/21/14 1:05 PM) UA Spec Grav [<=1.030] 1.025 (12/21/14 1:05 PM) UA Glucose [Negative] Negative (12/21/14 1:05 PM) UA Blood [Negative] Large *ABN* (12/21/14 1:05 PM) UA Ketones [Negative] Trace *ABN* (12/21/14 1:05 PM) UA Protein [Negative mg/dL] 100 mg/dL *ABN* (12/21/14 1:05 PM) UA Urobilinogen [0.1-1.0 EU/dL] 0.2 EU/dL (12/21/14 1:05 PM) UA Bili [Negative] Small *ABN* (12/21/14 1:05 PM) UA Leuk Est [Negative] Small *ABN* (12/21/14 1:05 PM) UA Nitrite [Negative] Negative (12/21/14 1:05 PM) UA WBC [None Seen /HPF] 11-20 /HPF *ABN* (12/21/14 1:05 PM) UA RBC [0-2 /HPF] 3-5 /HPF *ABN* (12/21/14 1:05 PM) UA Bacteria [None Seen /HPF] Few /HPF (12/21/14 1:05 PM) UA Sq Epi [Few /LPF] Few /LPF (12/21/14 1:05 PM) UA Mucus [None Seen /LPF] Few /LPF (12/21/14 1:05 PM) HEMATOLOGY Most recent to oldest 1 2 3 [Reference Range]: WBC [3.7-10.4 K/CMM] 9.1 K/CMM 12.9 K/CMM 17.1 K/CMM (12/23/14 5:50 AM) *HI* *HI* (12/22/14 5:43 AM) (12/21/14 1:05 PM) RBC [4.20-5.40 M/CMM] 4.01 M/CMM 4.28 M/CMM 4.91 M/CMM *LOW* (12/22/14 5:43 AM) (12/21/14 1:05 PM) (12/23/14 5:50 AM) Hgb [12.0-16.0 g/dL] 11.8 g/dL 12.5 g/dL 14.1 g/dL *LOW* (12/22/14 5:43 AM) (12/21/14 1:05 PM) (12/23/14 5:50 AM) Hct [36.0-48.0 %] 34.7 % 36.0 % 42.0 % *LOW* (12/22/14 5:43 AM) (12/21/14 1:05 PM) (12/23/14 5:50 AM) MCV [80.0-98.0 fL] 86.6 fL 83.9 fL 85.5 fL (12/23/14 5:50 AM) (12/22/14 5:43 AM) (12/21/14 1:05 PM) MCH [27.0-31.0 pg] 29.3 pg 29.2 pg 28.8 pg (12/23/14 5:50 AM) (12/22/14 5:43 AM) (12/21/14 1:05 PM) MCHC [32.0-36.0 g/dL] 33.8 g/dL 34.8 g/dL 33.7 g/dL (12/23/14 5:50 AM) (12/22/14 5:43 AM) (12/21/14 1:05 PM) RDW [11.5-14.5 %] 13.6 % 13.3 % 13.4 % (12/23/14 5:50 AM) (12/22/14 5:43 AM) (12/21/14 1:05 PM) Platelet [133-450 K/CMM] 161 K/CMM 164 K/CMM 196 K/CMM (12/23/14 5:50 AM) (12/22/14 5:43 AM) (12/21/14 1:05 PM) MPV [7.4-10.4 fL] 9.8 fL 9.7 fL 9.6 fL (12/23/14 5:50 AM) (12/22/14 5:43 AM) (12/21/14 1:05 PM) Segs [45.0-75.0 %] 81.8 % 83.1 % *HI* *HI* (12/22/14 5:43 AM) (12/21/14 1:05 PM) Lymphocytes [20.0-40.0 %] 8.7 % 9.4 % *LOW* *LOW* (12/22/14 5:43 AM) (12/21/14 1:05 PM) Monocytes [2.0-12.0 %] 9.3 % 7.3 % (12/22/14 5:43 AM) (12/21/14 1:05 PM) Eosinophils [0.0-4.0 %] 0.0 % (12/21/14 1:05 PM) Basophils [0.0-1.0 %] 0.2 % 0.2 % (12/22/14 5:43 AM) (12/21/14 1:05 PM) Segs-Bands # [1.5-8.1 K/CMM] 10.6 K/CMM 14.2 K/CMM *HI* *HI* (12/22/14 5:43 AM) (12/21/14 1:05 PM) Lymphocytes # [1.0-5.5 1.1 K/CMM 1.6 K/CMM K/CMM] (12/22/14 5:43 AM) (12/21/14 1:05 PM) Monocytes # [0.0-0.8 K/CMM] 1.2 K/CMM 1.3 K/CMM *HI* *HI* (12/22/14 5:43 AM) (12/21/14 1:05 PM) Eosinophils # [0.0-0.5 0.0 K/CMM K/CMM] (12/21/14 1:05 PM) Basophils # [0.0-0.2 K/CMM] 0.0 K/CMM (12/21/14 1:05 PM) RBC Morph Normal (12/21/14 1:05 PM) Plt Morph Normal (12/21/14 1:05 PM) MOLECULAR DIAGNOSTIC Most recent to oldest [Reference Range]: 1 2 3 Source [facility] End[facility]ix *NA* (12/21/14 6:08 PM) N gonorrhea by Amp Det ([facility]) [Negative] Negative *NA* (12/21/14 6:08 PM) C trachomatis by Amp Det ([facility]) [Negative] Positive 4 *ABN* (12/21/14 6:08 PM) 4Result Comment: "Significant Findings called to RONNIEFIDEL_at _12/23/2014 13:16__ by _CYTHOMAS__.Read Back OK." Immunizations No data available for this section Procedures No data available for this section Social History Social History Type Response Substance Abuse Use: None. Alcohol Never Smoking Status Never smoker; Type: Cigarettes; Exposure to Tobacco Smoke None; Cigarette Smoking Last 365 Days No; Reg Smoking Cessation Counseling No Assessment and Plan Extracted from: Title: FMS Progress Note Author: Denia Roberto MD Date: 12/23/14 DISCHARGE SUMMARY PATIENT NAME: Germania Monge : 1995 DATE OF ADMISSION: 12/21/2014 DATE OF DISCHARGE: 2014 ATTENDING PHYSICIAN: Dr. Jameel Stuart HPI: 8 yo F w/no pmhx who presents with N/V, fever, and flank pain. States it started 2 days ago with the back pain, right side more than left. Has had nausea and vomiting since then. Has had increased frequency, but denies dysuria, burning with urination, or pressure. Had a fever at home as well, temperature max of 103. Took tylenol once at home, did not help. Patient is sexually active with 1 partner, has a 2 year old. No history of STD' s. Denies vaginal itching or discharge. DISCHARGE DIAGNOSES: 1) Pyelonephritis 2) Chlamydia cervicitis HOSPITAL COURSE: Pyelonephritis: Pt was febrile to 103 with tachycardia and flank pain. Negative UPT. WBC 17.1->12.9. Pt was given Rocephin 1g in the ED. UCx grew gram negative rods with negative blood cultures. P t was stable throughout this admission and spiked another fever 101 with resolution. Pt had n/v but later tolerated a regular diet, vital signs were stable prior to discharge. Pt was discharged with cipro 500mg Q12 for 7 days. Chlamydia cervicitis: +chlamydia pt given azithromycin 703ien5. CONSULTS: n/a PERTINENT STUDIES:n/a CONDITION: stable DIET: regular diet ACTIVITY: regular MEDS: Please see home medication reconciliation. FOLLOW UP: Please follow up with PCP Dr. Vik Gee in 1 week. PATIENT INSTRUCTIONS: Please take prescribed antibiotics for resolution of symptoms RECOMMENDATIONS FOR PRIMARY CARE PHYSICIAN: If you have any questions about your patient's care please call the [facility] page accelerator operator at [phone] and ask him/her to page me. Denia Roberto M.D. FMS PGY1 #[id number] Extracted from: Title: General Admission H&P * Author: Mejia Ba DO Date: 12/21/14 Impression and Plan 18 yo F w/no pmhx who presents with N/V, fever, and flank pain. 1. Pyelonephritis: UA as above, febrile, with tachycardia and flank pain. Negative UPT. WBC 17.1. Blood pressure stable and tachycardia resolved after IV fluid bolus in ED. Given Rocephin 1g x 1 in ED. Will continue IV antibiotics with Rocephin q24 hours. Tylenol prn pain/fever. Continue IV fluids at 150 cc/hr. Urine culture and blood culture pending. Zofran prn nausea/vomiting. Will check GC/Chlamydi a and vaginal culture since patient is sexually active. 2. Hypokalemia: PO potassium given Dispo: admit to inpatient for IV antibiotics and fluids, discussed with utilization reviewer attending, to be admitted to medicine service Discussed with attending Dr. Valencia, who agrees with the plan. Mejia Ba DO PGY3 [id number]
--- OUTSIDE RECORDS SUMMARY | 2018-10-19 19:38 | XMS REPORT ---
:1995 Author Organization eClinicalWorks Care Team Providers Name Role Phone Danielito Miller Provider Role Unavailable Allergies, Adverse Reactions, Alerts Substance Reaction Event Type N.K.D.A. Info Not Available Non Drug Allergy Encounters Encounter Location Date Unknown [facility] [place] November [place], 2013 [facility] May 06, 2014 [place] [facility] May 19, 2015 Problems Problem Type Condition ICD-9 Code Onset Dates Condition Status Assessment Acute upper respiratory J06.9 Active infection, unspecified Assessment Nicotine dependence, cigarettes, F17.210 Active uncomplicated Problem H. pylori infection 041.86 Active Assessment Acute vaginitis N76.0 Active Assessment Female pelvic inflammatory N73.9 Active disease, unspecified Medications Medication Code System Code Instructions Start Date End Date Status Dosage Bromfed DM MULTUM 3501 2 mg-10 mg-30 mg/5 mL May 19, 2015 Active 10 mL orally 4 times a day Social History Social History Element Qualifiers Date Reported Drug use: denied. May 19, 2015 Caffeine: no. May 19, 2015 Tobacco Use: . Are you a: Current Smoker May 19, 2015 Family history Qualifier Description Comment Date Reported Friend(s) Comment not available May 19, 2015 Spouse alive Comment not available May 19, 2015 Adopted Comment not available May 19, 2015 Reviewed Comment not available May 19, 2015 Maternal Grand Mother Comment not available May 19, 2015 Siblings Comment not available May 19, 2015 Children Comment not available May 19, 2015 Father alive Comment not available May 19, 2015 Maternal aunt Comment not available May 19, 2015 Mother Comment not available May 19, 2015 Paternal uncle Comment not available May 19, 2015 Maternal uncle Comment not available May 19, 2015 Paternal aunt Comment not available May 19, 2015 Daughter(s) Comment not available May 19, 2015 Son(s) Comment not available May 19, 2015 Paternal Grand Mother Comment not available May 19, 2015 Maternal Grand Father Comment not available May 19, 2015 Paternal Grand Father Comment not available May 19, 2015 Vital Signs Date/Time: May 19, 2015 Height 64 in Blood Pressure Diastolic 71 mm Hg Blood Pressure Systolic 96 mm Hg Oximetry 100 % Temperature 98.4 F Weight 144 lbs Summary Purpose eClinicalWorks Submission
--- OUTSIDE RECORDS SUMMARY | 2018-10-19 19:38 | XMS REPORT | Summary of Care ---
:1995 Author Organization [facility] Address [address], [place] [address]- Encounter [facility](FIN) [id number] Date(s): 02/20/15 - 02/20/15 [facility] [address] [place] [address]- Discharge Disposition: Not Seen Attending Physician: Caroline Preston MD Vital Signs Most recent to oldest [Reference Range]: 1 Height 165.1 cm (02/20/15 7:32 AM) Most recent to oldest [Reference Range]: 1 Temperature Oral [96.4-99.1 DegF] 99.0 DegF (02/20/15 7:32 AM) Most recent to oldest [Reference Range]: 1 Blood Pressure [90-140/60-90 mmHg] 112/70 mmHg (02/20/15 7:32 AM) Most recent to oldest [Reference Range]: 1 Respiratory Rate [14-20 BRMIN] 18 BRMIN (02/20/15 7:32 AM) Most recent to oldest [Reference Range]: 1 Peripheral Pulse Rate [60-100 bpm] 96 bpm (02/20/15 7:32 AM) Most recent to oldest [Reference Range]: 1 Weight 72.727 kg (02/20/15 7:32 AM) Most recent to oldest [Reference Range]: 1 Body Mass Index 26.68 m2 (02/20/15 7:32 AM) Problem List Condition Effective Dates Status Health Status Informant UTI (urinary tract Resolved infection)(Confirmed) Allergies, Adverse Reactions, Alerts Substance Reaction Severity Status NKDA Active Medications No data available for this section Results No data available for this section Immunizations No data available for this section Procedures No data available for this section Social History Social History Type Response Substance Abuse Use: None. Alcohol Never Smoking Status Never smoker; Type: Cigarettes; Exposure to Tobacco Smoke None; Cigarette Smoking Last 365 Days No; Reg Smoking Cessation Counseling No Assessment and Plan No data available for this section
--- OUTSIDE RECORDS SUMMARY | 2018-10-19 19:38 | XMS REPORT ---
:1995 Author Organization eClinicalWorks Care Team Providers Name Role Phone Danielito Miller Provider Role Unavailable Allergies, Adverse Reactions, Alerts Substance Reaction Event Type N.K.D.A. Info Not Available Non Drug Allergy Encounters Encounter Location Date ER t rvw w/ labs [facility] [place] August 26, 2015 Unknown [facility] [place] November 27, 2013 [facility] May 06, 2014 ENT Consult [facility] May 19, 2015 Problems Problem Type Condition ICD-9 Code Onset Dates Condition Status Assessment Female pelvic inflammatory N73.9 Active disease, unspecified Assessment Acute vaginitis N76.0 Active Problem H. pylori infection 041.86 Active Assessment Amenorrhea, unspecified N91.2 Active Assessment Nicotine dependence, cigarettes, F17.210 Active uncomplicated Medications Medication Code System Code Instructions Start Date End Date Status Dosage ibuprofen MULTUM 95075 800 mg orally 3 August 25, Active 1 tab(s) times a day 2015 azithromycin MULTUM 57032 500 mg orally August 25August 28, Active 1 tab (s) once a day 2015 2015 ciprofloxacin MULTUM 29579 500 mg orally August 25August 30, Active 1 tab(s) every 12 hours 2015 2015 Social History Social History Element Qualifiers Date Reported Drug use: denied. August 26, 2015 Caffeine: no. August 26, 2015 Tobacco Use: . Are you a: Current Smoker August 26, 2015 Vital Signs Date/Time: August 26, 2015 Height 64 in Blood Pressure Diastolic 67 mm Hg Blood Pressure Systolic 115 mm Hg Oximetry 100 % Temperature 97.8 F Weight 141 lbs Summary Purpose eClinicalWorks Submission
--- OUTSIDE RECORDS SUMMARY | 2018-10-19 19:39 | XMS REPORT | Summary of Care ---
:1995 Author Organization [facility] Address [address] [place] [address]- Encounter [facility](GEARLD) [id number] Date(s): 05/13/16 - 05/14/[address] [address]- Discharge Diagnosis: related nausea, antepartum Discharge Diagnosis: Vaginal bleeding in Discharge Diagnosis: Acute cystitis during , antepartum Discharge Diagnosis: Infection of urinary tract during . Discharge Diagnosis: 28 weeks gestation of Discharge Disposition: Home or Self Care Attending Physician: Messi Araya MD Vital Signs Most recent to oldest 1 2 3 [Reference Range]: Height 165.1 cm (05/13/16 11:00 PM) Blood Pressure 99/56 mmHg 109/63 mmHg 111/62 mmHg [90-140/60-90 mmHg] (05/14/16 1:30 AM) (05/14/16 12:59 AM) (05/14/16 12:29 AM) Respiratory Rate [14-20 18 BRMIN BRMIN] (05/13/16 11:00 PM) Peripheral Pulse Rate 90 bpm [60-100 bpm] (05/13/16 11:00 PM) Weight 71.591 kg (05/13/16 11:00 PM) Body Mass Index 26.26 m2 (05/13/16 11:00 PM) Problem List Condition Effective Dates Status Health Status Informant Vaginal bleeding in Resolved (Confirmed) Infection of urinary tract during Active .(Confirmed) UTI (urinary tract Resolved infection)(Confirmed) Allergies, Adverse Reactions, Alerts Substance Reaction Severity Status NKDA Active Medications Lactated Ringers (Bolus) IV 500 mL, 500 ml/hr, Infuse Over: 1 hr, Route: IV, 500, Drug form: INJ, ONCE, Dosing Weight 71.591 kg,Start date: 05/13/16 23:27:00 MANAGEMENT COORDINATOR, Stop date: 05/13/16 23:27:00 MANAGEMENT COORDINATOR Start Date: 05/13/16 Stop Date: 05/13/16 Status: DiscontinuedLactated Ringers (Bolus) IV 1,000 mL, 1,000 ml/hr, Infuse Over: 1 hr, Route: IV, 1,000, Drug form: INJ, ONCE , Dosing Weight 71.591 kg, Start date: 05/13/16 23:53:00 MANAGEMENT COORDINATOR, Stop date: 23:53:00 MANAGEMENT COORDINATOR Start Date: 05/13/16 Stop Date: 05/14/16 Status: Completedondansetron 4 mg, 2 mL, Route: IVP, Drug form: INJ, ONCE, Dosing Weight 71.591, kg, Priority : STAT, Start date: 05/13/16 23:43:00 MANAGEMENT COORDINATOR, Stop date: 05/13/16 23:43:00 MANAGEMENT COORDINATOR Notes: (Same as: Zofran) MEDICATION WASTE Product Size: 4 mgProduct Wasted: ___ mg Start Date: 05/13/16 Stop Date: 05/14/16 Status: CompletedPhenergan 12.5 mg, 0.5 mL, Route: IM, Drug form: INJ, ONCE, Dosing Weight 71.591, kg, Priority: STAT, Start date: 05/13/16 23:43:00 MANAGEMENT COORDINATOR, Stop date: 05/13/16 23:43:00 MANAGEMENT COORDINATOR Notes: Do not give IV push. (Same as: Phenergan) Start Date: 05/13/16 Stop Date: 05/14/16 Status: Completedpotassium chloride 20 mEq/15 mL oral liquid 20 mEq, 15 mL, Route: PO, Drug form: LIQ, ONCE, Dosing Weight 71.591, kg, Priority: STAT, Start date: 05/14/16 0:54:00 MANAGEMENT COORDINATOR, Stop date: 05/14/16 0:54:00 MANAGEMENT COORDINATOR Notes: (Same as: Potassium Chloride) Start Date: 05/14/16 Stop Date: 05/14/16 Status: Completed Results ELECTROLYTES Most recent to oldest [Reference Range]: 1 Sodium Lvl [135-145 mEq/L] 139 mEq/L (05/14/16 12:04 AM) Potassium Lvl [3.5-5.1 mEq/L] 3.3 mEq/L *LOW* (05/14/16 12:04 AM) Chloride Lvl [95-109 mEq/L] 107 mEq/L (05/14/16 12:04 AM) CO2 [24-32 mEq/L] 24 mEq/L (05/14/16 12:04 AM) AGAP [10.0-20.0 mEq/L] 11.3 mEq/L (05/14/16 12:04 AM) CHEM PANEL Most recent to oldest [Reference Range]: 1 Creatinine Lvl [0.50-1.40 mg/dL] 0.60 mg/dL (05/14/16 12:04 AM) eGFR 133 mL/min/1.73m2 1 *NA* (05/14/16 AM) BUN [7-22 mg/dL] 5 mg/dL *LOW* (05/14/16:04 AM) Glucose Lvl [70-99 mg/dL] 99 mg/dL (05/14/16:04 AM) Calcium Lvl [8.5-10.5 mg/dL] 8.6 mg/dL (05/14/16 12:04 AM) 1Result Comment: The eGFR is calculated using [...] eGFR should be multiplied by the estimated BMI.URINE AND STOOL Most recent to oldest [Reference Range]: 1 UA Turbidity [Clear] Slight *ABN* (05/14/16 12:04 AM) UA Color [Yellow] Light Yellow *NA* (05/14/16:04 AM) UA pH [5.0-8.0] 6.0 (05/14/16 12:04 AM) UA Spec Grav [<=1.030] 1.008 (05/14/16 12:04 AM) UA Glucose [Negative mg/dL] Negative mg/dL *NA* (05/14/16 12:04 AM) UA Blood [Negative] Negative (05/14/16 12:04 AM) UA Ketones [Negative mg/dL] Negative mg/dL *NA* (05/14/16 12:04 AM) UA Protein [Negative mg/dL] Negative mg/dL (05/14/16 12:04 AM) UA Urobilinogen [0.1-1.0 mg/dL] <=1.0 mg/dL *NA* (05/14/16 12:04 AM) UA Bili [Negative] Negative *NA* (05/14/16 12:04 AM) UA Leuk Est [Negative] Small *ABN* (05/14/16 12:04 AM) UA Nitrite [Negative] Negative (05/14/16 12:04 AM) UA WBC [0-5 /HPF] 5 /HPF (05/14/16 12:04 AM) UA RBC [0-2 /HPF] <1 /HPF (05/14/16 12:04 AM) UA Bacteria [None Seen /HPF] Occasional /HPF *NA* (05/14/16 12:04 AM) UA Sq Epi [Few /LPF] Occasional /LPF *NA* (05/14/16 12:04 AM) UA Mucus [None Seen /LPF] Few /LPF *NA* (05/14/16 12:04 AM) MOLECULAR DIAGNOSTIC Most recent to oldest [Reference Range]: 1 Source APTIMA Endocervix (05/14/16 12:04 AM) N gonorrhea by Amp Det (APTIMA) [Negative] Negative *NA* (05/14/16 12:04 AM) C trachomatis by Amp Det (APTIMA) [Negative] Negative *NA* (05/14/16 12:04 AM) Immunizations No data available for this section [...]
--- OUTSIDE RECORDS SUMMARY | 2018-10-19 19:39 | XMS REPORT ---
:1995 [facility] Address [address] [place] [address] [place] [address] Care Team Providers Name Role Phone Unavailable Unavailable Unavailable Problems This patient has no known problems. Allergies, Adverse Reactions, Alerts This patient has no known allergies or adverse reactions. Medications This patient has no known medications.
[2018-10-19] MEDS ORDERED: LIDOCAINE 1% MPF 5 ML VIAL ONE (20:26)
[2018-10-19] MEDS ORDERED: TETANUS & DIPHTHERIA TOX,ADULT 0.5 ML VIAL ONE (20:27)
--- NOTE | 2018-10-19 21:43 | EDPHYS ---
Physician Documentation [facility] Name: Rossana Monge Age: 22 yrs Sex: Female : 1995 Arrival Date: 10/19/2018 Time: 19:34 Bed 9 Private MD: ED Physician Gallo Davies HPI: 10/19 21:40 This 22 yrs old Female presents to ER via Ambulatory with complaints of Thumb pm1 laceration. 21:40 Onset: The symptoms/episode began/occurred today, 6 hour(s) ago. Associated signs and pm1 symptoms: Pertinent negatives: numbness, tingling. Modifying factors: The patient symptoms are alleviated by pressure, the patient symptoms are aggravated by bending finger causes it to bleed. The patient has not experienced similar symptoms in the past. The patient has not recently seen a physician. DISTRIBUTING CLERK: 21:55 LMP N/A - wh Historical: - Allergies: 21:55 No Known Allergies; wh - Immunization history:: Adult Immunizations not up to date. - Social history:: Smoking status: Patient/guardian denies using tobacco. - Ebola Screening: : Patient negative for fever greater than or equal to 101.5 degrees Fahrenheit, and additional compatible Ebola Virus Disease symptoms Patient denies exposure to infectious person. ROS: 21:40 Constitutional: Negative for fever, chills, and weight loss, Eyes: Negative for injury, pm1 pain, redness, and discharge, ENT: Negative for injury, pain, and discharge, Neck: Negative for injury, pain, and swelling, Cardiovascular: Negative for chest pain, palpitations, and edema, Respiratory: Negative for shortness of breath, cough, wheezing, and pleuritic chest pain, Abdomen/GI: Negative for abdominal pain, nausea, vomiting, diarrhea, and constipation, Back: Negative for injury and pain, : Negative for injury, bleeding, discharge, and swelling. 21:40 Skin: Negative for injury, rash, and discoloration, Neuro: Negative for headache, weakness, numbness, tingling, and seizure. 21:40 MS/extremity: Positive for laceration, of the dorsal aspect of proximal phalanx of right thumb, Negative for decreased range of motion, deformity. Exam: 21:40 Constitutional: This is a well developed, well nourished patient who is awake, alert, pm1 and in no acute distress. Head/Face: Normocephalic, atraumatic. Eyes: Pupils equal round and reactive to light, extra-ocular motions intact. Lids and lashes normal. Conjunctiva and sclera are non-icteric and not injected. Cornea within normal limits. Periorbital areas with no swelling, redness, or edema. ENT: Nares patent. No nasal discharge, no septal abnormalities noted. Tympanic membranes are normal and external auditory canals are clear. Oropharynx with no redness, swelling, or masses, exudates, or evidence of obstruction, uvula midline. Mucous membranes moist. Neck: Trachea midline, no thyromegaly or masses palpated, and no cervical lymphadenopathy. Supple, full range of motion without nuchal rigidity, or vertebral point tenderness. No Meningismus. Chest/axilla: Normal chest wall appearance and motion. Nontender with no deformity. No lesions are appreciated. Cardiovascular: Regular rate and rhythm with a normal S1 and S2. No gallops, murmurs, or rubs. Normal PMI, no JVD. No pulse deficits. Respiratory: Lungs have equal breath sounds bilaterally, clear to auscultation and percussion. No rales, rhonchi or wheezes noted. No increased work of breathing, no retractions or nasal flaring. Abdomen/GI: Soft, non-tender, with normal bowel sounds. No distension or tympany. No guarding or rebound. No evidence of tenderness throughout. Back: No spinal tenderness. No costovertebral tenderness. Full range of motion. 21:40 Skin: Appearance: normal except for affected area, injury, laceration(s), the wound is approximately 1.5 cm(s), of the dorsal aspect of proximal phalanx of right thumb. Vital Signs: 20:30 BP 108 / 69; Pulse 78; Resp 18; Temp 98.6; Pulse Ox 98% ; wh Laceration: 21:41 Wound Repair of 1cm ( 0.4in ) subcutaneous laceration to palmar aspect of proximal jmm phalanx of right thumb. Distal neuro/vascular/tendon intact. Anesthesia: Local anesthetic administered with 1 mls of 1% lidocaine. Wound prep: Simple cleansing with betadine by pr. Skin closed with 2 5-0 Prolene using simple sutures and sterile technique. Patient tolerated well. MDM: 19:57 Patient medically screened. pm1 21:40 Counseling: I had a detailed discussion with the patient and/or guardian regarding: the pm1 historical points, exam findings, and any diagnostic results supporting the discharge/admit diagnosis, the need for outpatient follow up, to return to the emergency department if symptoms worsen or persist or if there are any questions or concerns that arise at home. 22:00 Data reviewed: vital signs. Data interpreted: Pulse oximetry: on room air is 98 %. pm1 Interpretation: normal. 10/19 19:57 Order name: Prolene, Sutures; Complete Time: 20:18 pm1 10/19 19:57 Order name: Dressing - Wound; Complete Time: 20:18 pm1 10/19 19:57 Order name: Gloves, Sterile; Complete Time: 20:18 pm1 10/19 19:57 Order name: Setup Suture Tray; Complete Time: 20:18 pm1 Administered Medications: 21:30 Drug: Lidocaine (1 %) 5 ml {Note: Administered by Mickail .} Volume: 5 ml; Route: wh Infiltration; 22:15 Follow up: Response: No adverse reaction 21:47 Drug: Tetanus-Diphtheria Toxoid Adult 0.5 ml {General Internal Medicine Doctor: [employer]. Exp: 08/02/2020. Lot #: [id number]. } Route: IM; Site: right deltoid; 22:15 Follow up: Response: No adverse reaction Disposition: 10/19/18 21:42 Discharged to Home. Impression: Laceration without foreign body of right thumb without damage to nail. - Condition is Stable. - Discharge Instructions: Laceration Care, Adult. - Prescriptions for Keflex 500 mg Oral Capsule - take 1 capsule by ORAL route every 12 hours for 10 days; 20 capsule. - Medication Reconciliation Form, Thank You Letter, Antibiotic Education, Prescription Opioid Use form. - Follow up: Emergency Department; When: As needed; Reason: Worsening of condition. Follow up: Private Physician; When: 10 - 14 days; Reason: Recheck today's complaints, Continuance of care, Staple/Suture removal, Re-evaluation by your physician. - Problem is new. - Symptoms have improved. Addendum: 10/22/2018 06:38 Co-signature as Attending Physician, Gallo Davies MD I agree with the assessment and t w4 plan of care. Signatures: Corey Hightower PA PA jmm Marinas, Patrick, BOBTAIL DRIVER BOBTAIL DRIVER pm1 Jodi De Dios Terrence, MD MD tw4 Corrections: (The following items were deleted from the chart) 10/19 21:42 21:42 10/19/2018 21:42 Discharged to Home. Impression: Laceration without foreign body pm1 of right thumb without damage to nail. Condition is Stable. Forms are Medication Reconciliation Form, Thank You Letter, Antibiotic Education, Prescription Opioid Use. Follow up: Emergency Department; When: As needed; Reason: Worsening of condition. Follow up: Private Physician; When: 2 - 3 days; Reason: Recheck today's complaints, Continuance of care, Re-evaluation by your physician. Problem is new. Symptoms have improved. pm1 22:15 21:42 10/19/2018 21:42 Discharged to Home. Impression: Laceration without foreign body wh of right thumb without damage to nail. Condition is Stable. Discharge Instructions: Laceration Care, Adult. Prescriptions for Keflex 500 mg Oral Capsule - take 1 capsule by ORAL route every 12 hours for 10 days; 20 capsule. and Forms are Medication Reconciliation Form, Thank You Letter, Antibiotic Education, Prescription Opioid Use. Follow up: Emergency Department; When: As needed; Reason: Worsening of condition. Follow up: Private Physician; When: 10 - 14 days; Reason: Recheck today's complaints, Continuance of care, Staple/Suture removal, Re-evaluation by your physician. Problem is new. Symptoms have improved. pm1
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
[2018-10-19 22:37] VITALS: BP 108/69; TEMP 98.6; O2SAT 98
== END 2018-10-19 22:15 | disposition home or self-care (01) ==
LOC: ER 19:31
PROC: 0JQJ0ZZ Repair Right Hand Subcutaneous Tissue and Fascia, Open Approach (ICD-10-PCS; principal; 2018-10-19)
DX: S61.011A Laceration without foreign body of right thumb without damage to nail, initial encounter (principal); Z23 Encounter for immunization
CPT/HCPCS: 90471; 90714; 99284

== ENCOUNTER 2019-05-20 11:42 | Emergency (ER) | payer SELFPAY ==
--- OUTSIDE RECORDS SUMMARY | 2019-05-20 11:44 | XMS REPORT ---
:1995 [facility] Address [address] [place] [address] [place] [id number] Care Team Providers Name Role Phone Unavailable Unavailable Unavailable Problems This patient has no known problems. Allergies, Adverse Reactions, Alerts This patient has no known allergies or adverse reactions. Medications This patient has no known medications.
[2019-05-20 13:49] LABS: Urine Blood 3+ (NEG); Urine Glucose NEGATIVE (NEG); Urine Protein NEGATIVE (NEG); Urine Specific Gravity 1.015 (1.005-1.030); Urine pH 6.5 (5.0-7.0)
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
--- NOTE | 2019-05-20 15:03 | EDPHYS ---
Physician Documentation [facility] Name: Rossana Monge Age: 23 yrs Sex: Female : 1995 Arrival Date: 05/20/2019 Time: 11:44 Bed 14 Private MD: ED Physician Mikel Bowden HPI: 05/20 13:14 This 23 yrs old Female presents to ER via Ambulatory with complaints of Back jmm Pain. 13:14 The patient presents with pain that is acute. Onset: The symptoms/episode jmm began/occurred gradually. The pain radiates to the pelvis. Associated signs and symptoms: Pertinent negatives: fever. Modifying factors: The patient symptoms are alleviated by nothing, the patient symptoms are aggravated by any movement. This is a 23 year old female with no chronic medical conditions that presents to the ED with complaints of lower back pain, pelvic pain, irregular vaginal bleeding. Patient denies vaginal discharge. . 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 - Social history:: Smoking status: Patient/guardian denies using tobacco. - Ebola Screening: : No symptoms or risks identified at this time. ROS: 13:14 Constitutional: Negative for fever, chills, and weight loss, Cardiovascular: Negative jmm for chest pain, palpitations, and edema, Respiratory: Negative for shortness of breath, cough, wheezing, and pleuritic chest pain. 13:14 Abdomen/GI: Positive for abdominal pain. 13:14 Back: Positive for pain at rest. 13:14 : Positive for pelvic pain. 13:14 All other systems are negative. Exam: 13:14 Constitutional: This is a well developed, well nourished patient who is awake, alert, jmm and in no acute distress. Head/Face: atraumatic. Eyes: EOMI, no conjunctival erythema appreciated ENT: Moist Mucus Membranes Neck: Trachea midline, Supple Chest/axilla: Normal chest wall appearance and motion. Cardiovascular: Regular rate and rhythm. No edema appreciated Respiratory: Normal respirations, no respiratory distress appreciated Back: Normal ROM Skin: General appearance color normal MS/ Extremity: Moves all extremities, no obvious deformities appreciated, no edema noted to the lower extremities Neuro: Awake and alert, normal gait Psych: Behavior is normal, Mood is normal, Patient is cooperative and pleasant 14:59 : Pelvic Exam: External exam: is normal, Speculum exam: normal findings, bimanual [facility] exam reveals no cervical motion tenderness, no adnexal tenderness on right, no adnexal tenderness on left. Vital Signs: 12:03 BP 126 / 83; Pulse 68; Resp 16; Temp 97.5; Pulse Ox 100% on R/A; Weight 62.6 kg; Height hb 5 ft. 5 in. (165.10 cm); Pain 5/10; 15:00 BP 118 / 79; Pulse 59; Resp 18; Pulse Ox 100% on R/A; em 12:03 Body Mass Index 22.96 (62.60 kg, 165.10 cm) hb MDM: 12:42 Patient medically screened. [facility] 14:59 Data reviewed: vital signs, nurses notes. [facility] 14:59 Counseling: I had a detailed discussion with the patient and/or guardian regarding: the [facility] historical points, exam findings, and any diagnostic results supporting the discharge/admit diagnosis, lab results, the need for outpatient follow up, to return to the emergency department if symptoms worsen or persist or if there are any questions or concerns that arise at home. ED course: Patient is alert and non toxic in appearance in the ED. Patient advised to follow up with [employer] [facility] and otherwise given strict return precautions. Patient understood and agrees with the plan of care. . 05/20 13:20 Order name: GC (GONORR/CHLAMYDIA) Probe [facility] 05/20 13:20 Order name: Wet Prep [facility] 05/20 13:41 Order name: Urine Dipstick--Ancillary (enter results) 05/20 13:41 Order name: Urine --Ancillary (enter results) 05/20 13:50 Order name: Urine --Ancillary; Complete Time: 13:55 [facility] 05/20 13:50 Order name: Urine Dipstick-Ancillary; Complete Time: 13:55 [facility] 05/20 13:07 Order name: Urine Dipstick-Ancillary (obtain specimen); Complete Time: 13:42 [facility] 05/20 13:07 Order name: Urine Test (obtain specimen); Complete Time: 13:42 [facility] 05/20 13:20 Order name: Pelvic Exam Setup; Complete Time: 13:42 [facility] 05/20 15:20 Order name: Wet Prep; Complete Time: 15:20 EDHI Administered Medications: 15:14 Drug: AZITHromycin 1 grams Route: PO; em 15:35 Follow up: Response: No adverse reaction em 15:14 Drug: Flagyl 2 grams Route: PO; em 15:35 Follow up: Response: No adverse reaction em 15:15 Drug: Rocephin (cefTRIAXone) 250 mg Route: IM; Site: left gluteus; em 15:35 Follow up: Response: No adverse reaction em Disposition: 18:46 Co-signature as Attending Physician, Mikel Bowden MD I agree with the assessment and [facility] plan of care. Disposition: 05/20/19 15:01 Discharged to Home. Impression: Pelvic and perineal pain. - Condition is Stable. - Discharge Instructions: Abdominal Pain, Adult, Pelvic Pain, Female. - Medication Reconciliation Form, Thank You Letter, Antibiotic Education, Prescription Opioid Use, Work release form form. - Follow up: Private Physician; When: 2 - 3 days; Reason: Recheck today's complaints, Continuance of care, Re-evaluation by your physician. Signatures: Dispatcher [employer] Mikel Fry MD MD cha Mickail, Joel, PA PA Gopal Hudson, HEARING AND SPEECH ASSISTANT HEARING AND SPEECH ASSISTANT em Jessie Benson, JOSEPH RN Corrections: (The following items were deleted from the chart) 15:37 15:01 05/20/2019 15:01 Discharged to Home. Impression: Pelvic and perineal pain. em Condition is Stable. Forms are Medication Reconciliation Form, Thank You Letter, Antibiotic Education, Prescription Opioid Use. Follow up: Private Physician; When: 2 - 3 days; Reason: Recheck today's complaints, Continuance of care, Re-evaluation by your physician. [facility]
[2019-05-20] MEDS ORDERED: AZITHROMYCIN 250 MG TAB ONE (15:09)
[2019-05-20] MEDS ORDERED: metroNIDAZOLE 500 MG TABLET ONE (15:10)
[2019-05-20] MEDS ORDERED: LIDOCAINE 1% MPF 2 ML AMPULE ONE (15:10)
[2019-05-20] MEDS ORDERED: CEFTRIAXONE 250 MG/VIAL ONE (15:10)
[2019-05-20 16:20] VITALS: TEMP 97.5; O2SAT 100
[2019-05-20 16:21] VITALS: BP 118/79
[2019-05-22 21:02] LABS: C.trachomatis RNA,TMA Not Detected (Not Detected)
== END 2019-05-20 15:37 | disposition home or self-care (01) ==
LOC: ER 11:42
DX: R10.2 Pelvic and perineal pain (principal)
CPT/HCPCS: 81003; 81025; 87210; 87490; 87590; 96372; 99283; J0696; J2001

== ENCOUNTER 2019-08-20 05:04 | Emergency (ER) | payer SELFPAY ==
--- OUTSIDE RECORDS SUMMARY | 2019-08-20 05:07 | XMS REPORT ---
:1995 [facility] [address] [place] [address] [place] [id number] Care Team Providers Name Role Phone Unavailable Unavailable Unavailable Problems This patient has no known problems. Allergies, Adverse Reactions, Alerts This patient has no known allergies or adverse reactions. Medications This patient has no known medications.
[2019-08-20 05:50] LABS: Absolute Lymphocytes (CBC) 2.1 K/uL (0.7-4.9); Basophils % 0.4 % (0-1.3); Hematocrit 40.2 % (36.0-45.0); Lymphocytes % 17.7 % (15.3-44.8); MPV 9.2 fL (7.6-11.3); RBC Red Blood Cell Count 4.51 M/uL (3.86-4.86)
[2019-08-20 05:58] LABS: Albumin 3.5 g/dL (3.4-5.0); Bilirubin Direct 0.1 mg/dL (0-0.2); Bilirubin Total 0.2 mg/dL (0.2-1.0); Potassium 3.6 mmol/L (3.5-5.1); Protein, Total 6.7 g/dL (6.4-8.2)
[2019-08-20] MEDS ORDERED: ONDANSETRON 4 MG/2 ML VIAL ONE (06:09)
--- NOTE | 2019-08-20 07:09 | ER ---
[facility]'s Notes [facility] Name: Rossana Monge Age: 23 yrs Sex: Female : 1995 Arrival Date: 08/20/2019 Time: 05:05 Bed 15 Private MD: Diagnosis: Gastritis, unspecified, without bleeding Presentation: 08/19 05:20 Chief complaint: Patient states: woke up from abdominal pain. Pt C/O epigastric pain wh with nausea and vomiting. Coronavirus screen: The patient has NOT traveled to a country currently being monitored by the [facility] within the last 14 days. Ebola Screen: Patient negative for fever greater than or equal to 101.5 degrees Fahrenheit, and additional compatible Ebola Virus Disease symptoms Patient denies exposure to infectious person. Initial Sepsis Screen: Does the patient meet any 2 criteria? No. Patient's initial sepsis screen is negative. Does the patient have a suspected source of infection? Yes: Acute abdominal pain. Risk Assessment: Do you want to hurt yourself or someone else? Patient reports no desire to harm self or others. 05:20 Method Of Arrival: Ambulatory 05:20 Acuity: SHERRIE 3 05:56 Onset of symptoms was August 20, 2019. 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 - Social history:: Smoking status: Patient reports the use of cigarette tobacco products. Screenin:44 Abuse screen: Denies threats or abuse. Denies injuries from another. Nutritional screening: No deficits noted. Tuberculosis screening: No symptoms or risk factors identified. Fall Risk None identified. Assessment: 05:45 General: Appears in no apparent distress. Behavior is calm, cooperative, appropriate for age. Pain: Complains of pain in epigastric area Pain does not radiate. Pain currently is 8 out of 10 on a pain scale. Pain began 2 hours ago. Neuro: Level of Consciousness is awake, alert, obeys commands, Oriented to person, place, time, situation, Appropriate for age. Cardiovascular: Denies chest pain, Heart tones S1 S2. Respiratory: Airway is patent Respiratory effort is even, unlabored, Respiratory pattern is regular, symmetrical, Breath sounds are clear bilaterally. GI: Abdomen is flat, non-distended, Bowel sounds present X 4 quads. Abd is soft and non tender X 4 quads. Reports upper abdominal pain, nausea, vomiting. : No signs and/or symptoms were reported regarding the genitourinary system. EENT: No signs and/or symptoms were reported regarding the EENT system. Derm: Skin is intact, is healthy with good turgor, Skin is pink, warm \T\ dry. normal. Musculoskeletal: Circulation, motion, and sensation intact. 06:48 Reassessment: Patient appears in no apparent distress at this time. No changes from previously documented assessment. Patient and/or family updated on plan of care and expected duration. Pain level reassessed. Patient is alert, oriented x 3, equal unlabored respirations, skin warm/dry/pink. 07:24 Reassessment: Patient appears in no apparent distress at this time. Patient and/or rb1 family updated on plan of care and expected duration. Pain level reassessed. Patient is alert, oriented x 3, equal unlabored respirations, skin warm/dry/pink. Vital Signs: 05:20 BP 116 / 70; Pulse 88; Resp 18; Temp 99; Pulse Ox 100% ; Weight 68.04 kg; Height 5 ft. 5 in. (165.10 cm); Pain 8/10; 06:30 BP 103 / 67; Pulse 71; Resp 18; Pulse Ox 99% on R/A; wh 07:24 BP 109 / 62; Pulse 70; Resp 16; Pulse Ox 99% on R/A; rb1 05:20 Body Mass Index 24.96 (68.04 kg, 165.10 cm) ED Course: 05:05 Patient arrived in ED. cl3 05:19 Gallo Davies MD is Attending Physician. tw4 05:20 Jodi De Dios is Primary Nurse. 05:38 Inserted saline lock: 20 gauge in right antecubital area, using aseptic technique. dh4 05:43 Triage completed. 05:46 Arm band placed on right wrist. 05:56 Patient has correct armband on for positive identification. Bed in low position. Call light in reach. Side rails up X 1. Pulse ox on. NIBP on. 07:07 Lozada, Mat, MD is Referral Physician. tw4 07:07 Conrad Caraballo MD is Referral Physician. tw4 07:24 No provider procedures requiring assistance completed. IV discontinued, intact, rb1 bleeding controlled, No redness/swelling at site. Pressure dressing applied. Administered Medications: 06:10 Drug: Zofran (Ondansetron) 4 mg Route: IVP; Site: right antecubital; 07:18 Drug: ProTONIX 40 mg Route: IVP; Site: right antecubital; 07:26 Follow up: Response: Medication administered at discharge. rb1 Outcome: 07:07 Discharge ordered by . tw4 07:24 Discharged to home ambulatory. rb1 07:24 Condition: stable 07:24 Discharge instructions given to patient, Instructed on discharge instructions, follow up and referral plans. medication usage, Demonstrated understanding of instructions, follow-up care, medications, Prescriptions given X 2. 07:27 Patient left the ED. rb1 Signatures: Ratna Irene, RN RN rb1 Jodi De Dios Gallo Davies MD MD 4 Bhavik Lock 3 Shaq Hernadez 4
--- NOTE | 2019-08-20 07:09 | EDPHYS ---
Physician Documentation [facility] Name: Rossana Monge Age: 23 yrs Sex: Female : 1995 Arrival Date: 08/20/2019 Time: 05:05 Bed 15 Private MD: ED Physician Gallo Davies HPI: 08/19 06:16 This 23 yrs old Female presents to ER via Ambulatory with complaints of tw4 Abdominal Pain. 06:16 The patient presents with abdominal pain. Onset: The symptoms/episode began/occurred tw4 today. The symptoms do not radiate. Associated signs and symptoms: Pertinent positives: nausea, vomiting, and diarrhea. The symptoms are described as sharp. Modifying factors: The symptoms are alleviated by nothing, the symptoms are aggravated by movement. Severity of pain: At its worst the pain was moderate in the emergency department the pain is unchanged. The patient has not experienced similar symptoms in the past. 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 - Social history:: Smoking status: Patient reports the use of cigarette tobacco products. ROS: 06:16 Constitutional: Negative for fever, chills, and weight loss, Neck: Negative for injury, tw4 pain, and swelling, Cardiovascular: Negative for chest pain, palpitations, and edema, Respiratory: Negative for shortness of breath, cough, wheezing, and pleuritic chest pain, Abdomen/GI: Negative for abdominal pain, nausea, vomiting, diarrhea, and constipation, Back: Negative for injury and pain, Neuro: Negative for headache, weakness, numbness, tingling, and seizure, Psych: Negative for depression, anxiety, suicide ideation, homicidal ideation, and hallucinations. Exam: 06:16 Constitutional: This is a well developed, well nourished patient who is awake, alert, tw4 and in no acute distress. Head/Face: Normocephalic, atraumatic. Chest/axilla: Normal chest wall appearance and motion. Nontender with no deformity. No lesions are appreciated. Cardiovascular: Regular rate and rhythm with a normal S1 and S2. No gallops, murmurs, or rubs. Normal PMI, no JVD. No pulse deficits. Respiratory: Lungs have equal breath sounds bilaterally, clear to auscultation and percussion. No rales, rhonchi or wheezes noted. No increased work of breathing, no retractions or nasal flaring. 06:16 Back: No spinal tenderness. No costovertebral tenderness. Full range of motion. MS/ Extremity: Pulses equal, no cyanosis. Neurovascular intact. Full, normal range of motion. Neuro: Awake and alert, GCS 15, oriented to person, place, time, and situation. Cranial nerves II-XII grossly intact. Motor strength 5/5 in all extremities. Sensory grossly intact. Cerebellar exam normal. Normal gait. 06:16 Abdomen/GI: Inspection: abdomen appears normal, Bowel sounds: normal, Palpation: moderate abdominal tenderness, in the left upper quadrant. Vital Signs: 05:20 BP 116 / 70; Pulse 88; Resp 18; Temp 99; Pulse Ox 100% ; Weight 68.04 kg; Height 5 ft. 5 in. (165.10 cm); Pain 8/10; 06:30 BP 103 / 67; Pulse 71; Resp 18; Pulse Ox 99% on R/A; wh 07:24 BP 109 / 62; Pulse 70; Resp 16; Pulse Ox 99% on R/A; rb1 05:20 Body Mass Index 24.96 (68.04 kg, 165.10 cm) MDM: 05:25 Patient medically screened. 06:16 Data reviewed: vital signs, nurses notes. Medication response: Zofran relieved the tw4 patient's nausea. 08/19 05:24 Order name: Basic Metabolic Panel; Complete Time: 07:05 08/19 07:05 Interpretation: Normal except: CL 111; GFR 87; CA 7.8. [facility] 08/19 05:24 Order name: CBC with Diff; Complete Time: 07:05 08/19 07:06 Interpretation: Normal except: WBC 11.8. [facility] 08/19 05:24 Order name: Creatinine for Radiology; Complete Time: 07:05 08/19 07:06 Interpretation: Within normal limits: CRE 0.82. [facility] 08/19 05:24 Order name: Hepatic Function; Complete Time: 07:05 08/19 07:06 Interpretation: Normal except: AST 13; ALK 136. tw4 08/19 05:24 Order name: Lipase; Complete Time: 07:05 08/19 07:06 Interpretation: Normal except: LIP 150. tw4 08/19 05:51 Order name: Urine Dipstick--Ancillary (enter results) mw2 08/19 05:24 Order name: IV Saline Lock; Complete Time: 05:57 08/19 05:24 Order name: Labs collected and sent; Complete Time: 05:57 08/19 05:24 Order name: Urine Dipstick-Ancillary (obtain specimen); Complete Time: 05:57 08/19 05:24 Order name: Urine Test (obtain specimen); Complete Time: 05:57 08/19 05:51 Order name: Urine --Ancillary (enter results) 2 Administered Medications: 06:10 Drug: Zofran (Ondansetron) 4 mg Route: IVP; Site: right antecubital; 07:18 Drug: ProTONIX 40 mg Route: IVP; Site: right antecubital; 07:26 Follow up: Response: Medication administered at discharge. rb1 Disposition: 08/20/19 07:07 Discharged to Home. Impression: Gastritis, unspecified, without bleeding. - Condition is Stable. - Discharge Instructions: Gastritis, Adult, [id number]. - Prescriptions for Protonix 40 mg Oral Tablet - take 1 tablet by ORAL route once daily; 30 tablet. Zofran 4 mg Oral Tablet - take 1 tablet by ORAL route every 12 hours As needed; 6 tablet. - Medication Reconciliation Form, Thank You Letter, Antibiotic Education, Prescription Opioid Use form. - Follow up: Private Physician; When: Upon discharge from the Emergency Department; Reason: Recheck today's complaints, Continuance of care, Re-evaluation by your physician. Follow up: Mat Lozada MD; When: Upon discharge from the Emergency Department; Reason: Recheck today's complaints, Continuance of care, Re-evaluation by your physician. Follow up: Conrad Caraballo MD; When: Upon discharge from the Emergency Department; Reason: Recheck today's complaints, Continuance of care, Re-evaluation by your physician. - Problem is new. - Symptoms have improved. Signatures: Dispatcher [employer] EDMS Ratna Irene, RN RN rb1 Jodi De Dios Terrence, MD MD tw4 Corrections: (The following items were deleted from the chart) 07:27 07:07 08/20/2019 07:07 Discharged to Home. Impression: Gastritis, unspecified, without rb1 bleeding. Condition is Stable. Forms are Medication Reconciliation Form, Thank You Letter, Antibiotic Education, Prescription Opioid Use. Follow up: Private Physician; When: Upon discharge from the Emergency Department; Reason: Recheck today's complaints, Continuance of care, Re-evaluation by your physician. Follow up: Mat Lozada; When: Upon discharge from the Emergency Department; Reason: Recheck today's complaints, Continuance of care, Re-evaluation by your physician. Follow up: Conrad Caraballo; When: Upon discharge from the Emergency Department; Reason: Recheck today's complaints, Continuance of care, Re-evaluation by your physician. Problem is new. Symptoms have improved. tw4
[2019-08-20] MEDS ORDERED: PANTOPRAZOLE 40 MG INJ ONE (07:17)
[2019-08-20 07:34] VITALS: TEMP 99
[2019-08-20 07:34] LABS: Urine Blood TRACE (NEG); Urine Glucose NEGATIVE (NEG); Urine Protein NEGATIVE (NEG); Urine Specific Gravity >1.030 (1.005-1.030); Urine pH 5.5 (5.0-7.0)
[2019-08-20 07:35] VITALS: O2SAT 99
[2019-08-20 07:37] VITALS: BP 109/62
== END 2019-08-20 07:27 | disposition home or self-care (01) ==
LOC: ER 05:04
DX: K29.70 Gastritis, unspecified, without bleeding (principal); F17.210 Nicotine dependence, cigarettes, uncomplicated
CPT/HCPCS: 36415; 80048; 80076; 81003; 81025; 83690; 85025; 96374; 96375; 99284; C9113; J2405

== ENCOUNTER 2019-11-21 15:24 | Emergency (ER) | payer OTHER, SELFPAY ==
--- OUTSIDE RECORDS SUMMARY | 2019-11-21 15:29 | XMS REPORT | Continuity of Care Document ---
:1995 Author Organization [employer] Care Team Providers Name Role Phone [employer] Now Unavailable Un available Problems Problem Status Onset Classification Date Comments Sourc e Date Reported Excessive and 11/12/19 11/14/2016 [facility] frequent 17 menstruation with regular cycle Dysmenorrhea, 11/12/19 11/14/2016 [facility] unspecified 17 Unspecified 11/12/19 [facility], 17 right side Other specified 11/12/19 11/14/2016 [facility] abnormal uterine 17 and vaginal bleeding ABDOMINAL PAIN Active 11/10/19 [facility] 17 Discharge 05/14/20 05/17/[address] [facility] est Diagnosis: 16 related nausea, antepartum Discharge 05/14/20 05/17/[address] [facility] est Diagnosis: 16 Vaginal bleeding in Discharge 05/14/20 05/17/[address] [facility] est Diagnosis: Acute 16 cystitis during , antepartum Discharge 05/14/20 05/17/[address] [facility] est Diagnosis: 16 Infection of urinary tract during . Discharge 05/14/20 05/17/[address] [facility] est Diagnosis: 28 16 weeks gestation of 32WKS Active 05/13/[address] [facility] [address] GEST/ABDOMINAL 16 PAIN FEVER Active 02/21/[address] [facility] [address] 15 VOMITING Active 12/22/[address] [facility] [address] 15 ACUTE Active 12/22/[address] [facility] [address] PYELONEPHRITIS 15 FEVER / LOWER Active 10/31/19 [facility] BACK PAIN 15 Fever, Active Diagnosis 05/13/2014 Outpatien t unspecified Clinical Care Viral infection Active Diagnosis 05/13/2014 Out patient Clinical Care H. 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 Clinica l disease, Care unspecified Acute vaginitis Active Diagnosis 09/15/2015 Out patient Clinical Care Amenorrhea, Active Diagnosis 09/15/2015 Outpati ent unspecified Clinical Care Nicotine Active Diagnosis 09/15/2015 Outpatien t dependence, Clinical cigarettes, Care uncomplicated Acute upper [facility], Care unspecified Urinary tract Resolved Problem 11/14/2016 [facility] infectious disease (disorder) Antepartum Resolved Problem 11/14/2016 [facility] hemorrhage (disorder) Urinary tract Active Problem 11/14/2016 [facility] infection in (disorder) PYELONEPHRITIS Active So [facility] NOS Medications Medication Details Route Status Patient Ordering Order Source Instructions Provider Date Acetaminophen 300 1 - 2 tab, Active MG / Codeine PO, Q4H, PRN 2016 [facility] est Phosphate 30 MG Pain, X 4 Oral Tablet day, # 50 [Tylenol with tab, 0 Codeine #3] Refill(s) Zofran 8 mg, Route: Inactive IVP, Drug 2016 [facility] form: INJ, ONCE, Dosing Weight 68.182, kg, Priority: STAT, Start date: 11/10/16 22:00:00 CDT, Stop date: 11/10/16 22:00:00 CDT Morphine 4 mg, Route: Inactive IV, ONCE, 2016 [facility] Dosing Weight 68.182, kg, Priority: STAT, Start date: 11/10/16 21:59:00 CDT, Stop date: 11/10/16 21:59:00 CDT Sodium Chloride 250 mL, No Longer 0.9% IV Route: IVPB, Active 2016 [facility] Start date: 11/10/16 21:54:00 CDT, Duration: 30 day, Stop date: 12/10/16 21:53:00 CDT, PRN Line Flush BD Normal Saline Notes: (Same No Longer Flush as: BD Active 2016 [facility] Posiflush) Sodium Chloride 1,000 mL, No Longer 0.154 MEQ/ML Rate: 125 Active 2016 [facility] Injectable ml/hr, Infuse Solution over: 8 hr, Route: IV, Dosing Weight 68.182 kg, Total Volume: 1,000, Start date: 11/10/16 21:49:00 CDT, Duration: 1 doses or times, Stop date: 11/11/16 5:48:00 CDT Saline Flush 0.9% 10 mL, Route: Inactive IVP, Drug 2016 [facility] Form: INJ, Dosing Weight 68.182, kg, PRN, PRN Line Flush, Start date: 11/10/16 21:49:00 CDT, Duration: 30 day, Stop date: 12/10/16 21:48:00 CDT Potassium Notes: (Same Inactive Chloride 1.33 as: Potassium 2015 [facility] MEQ/ML Oral Chloride) Solution Calcium Chloride 1,000 mL, No Longer 0.0014 MEQ/ML / 1,000 ml/hr, Active 2015 [facility] Potassium Infuse Over: Chloride 0.004 1 hr, Route: MEQ/ML / Sodium IV, 1,000, Chloride 0.103 Drug form: MEQ/ML / Sodium INJ, ONCE, Lactate 0.028 Dosing Weight MEQ/ML Injectable 71.591 kg, Solution Start date: 05/13/16 23:53:00 [employer], Stop date: 05/13/16 23:53:00 [employer] Ondansetron Notes: (Same No Longer as: Zofran) Active 2015 [facility] MEDICATION WASTE Product Size: 4 mg Product Wasted: ___ mg Phenergan Notes: Do not No Longer give IV push. 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: 05/13/16 23:27:00 [employer] MedroxyPROGESTERo 1 tab(s) orally Active 10 mg orally Paul 09/08/ Outpatient ne Acetate once a day 2015 Clinical Care ibuprofen 1 tab(s) orally Active 800 mg orally Paul 08/25/ Outpati ent 3 times a day 2015 Clinical Care azithromycin 1 tab(s) orally Active 500 mg orally Paul 08/25/ Outp atient once a day 2015 Clinical Care ciprofloxacin 1 tab(s) orally Active 500 mg orally Paul 08/25/ Out patient every 12 2016 Clinical hours Care Bromfed DM 10 mL orally Active 2 mg-10 mg-30 Paul 05/19/ Outpati ent mg/5 mL 2014 Clinical orally 4 Care times a day promethazine 12.5 12.5 mg = 1 Active mg oral tablet tab, PO, TID, 2014 [facility] X 5 day, # 15 tab, 0 Refill(s) Ciprofloxacin 500 500 mg = 1 Active MG Oral Tablet tab, PO, 2014 [facility] t [Cipro] Q12H, X 7 day, # 14 tab, 0 Refill(s) Ondansetron 4 MG 4 mg = 1 tab, Inactive Oral Tablet PO, BID, X 5 [address] [facility] [address] [Zofran] day, # 10 tab, 0 Refill(s) cefdinir 300 MG 300 mg = 1 Inactive Oral Capsule cap, PO, 2014 [facility] [Omnicef] Q12H, X 14 day, # 28 cap, 0 Refill(s) Azithromycin Notes: (Same Inactive As: Zithromax 2014 [facility] IV) Phenergan Notes: Do not No Longer give IV push. Active 2014 [facility] (Same as: Phenergan) Phenergan 25 mg, Route: Inactive PO, Q6H, 2014 [facility] Dosing Weight 72.727, kg, PRN as needed for nausea/vomiti ng, Start date: 12/22/14 22:07:00, Duration: 30 day, Stop date: 01/21/15 22:06:00 Rocephin Notes: (Same No Longer As: Active 2014 [facility] Rocephin). Use with 100ml NS mini-bag PLUS and infuse over 30 min MEDICATION WASTE Product Size: 1000 mg Product Wasted: ___ mg azithromycin 500 Notes: Take 1 No Longer mg oral tablet hour before Active 2014 [facility] or 2 hours after meals. (Same As: Zithromax) potassium Notes: (Same Inactive chloride as: K-Dur ) 2014 [facility] "Do Not Crush" With food and full glass of water Saline Flush 0.9% Notes: No Longer preservative Active 2014 [facility] free. Sodium Chloride 1,000 mL, No Longer 0.154 MEQ/ML Rate: 150 Active 2014 [facility] Injectable ml/hr, Infuse Solution over: 6.7 hr, Route: IV, Dosing Weight 72.727 kg, Total Volume: 1,000, Start date: 12/21/14 16:24:00, Duration: 30 day, Stop date: 01/20/15 16:23:00 Ondansetron Notes: (Same No Longer as: Zofran) Active 2014 [facility] MEDICATION WASTE Product Size: 4 mg Product Wasted: ___ mg Acetaminophen Notes: Do not No Longer exceed 4 Active 2014 [facility] gm/day. (Same as: Tylenol) Potassium 40 mEq, 2 Inactive Chloride 20 MEQ tab, Route: 2014 [facility] Extended Release PO, Drug Tablet form: ERTAB, ONCE, Dosing Weight 77.273, kg, Priority: STAT, Start date: 12/21/14 14:12:00, Stop date: 12/21/14 14:12:00 Ceftriaxone 1 gm, Route: Inactive IVPB, Drug 2014 [facility] form: PDR/INJ, ONCE, Dosing Weight 77.273, kg, Priority: STAT, Start date: 12/21/14 14:07:00, Stop date: 12/21/14 14:07:00 Motrin 600 mg, Inactive Route: PO, 2014 [facility] Drug form: TAB, ONCE, Dosing Weight 77.273, kg, Priority: STAT, Start date: 12/21/14 14:06:00, Stop date: 12/21/14 14:06:00 Sodium Chloride 1,000 mL, Inactive 0.154 MEQ/ML 1,000 ml/hr, 2014 [facility] Injectable Infuse Over: Solution 1 hr, Route: IV, 1,000, Drug form: INJ, ONCE, Priority: STAT, Dosing Weight 77.273 kg, Start date: 12/21/14 13:01:00, Duration: 1 doses or times, Stop date: 12/21/14 13:01:00 Ondansetron Notes: (Same Inactive as: Bryanna) 2014 [facility] MEDICATION WASTE Product Size: 4 mg Product Wasted: ___ mg Bromfed DM 10 mL orally Active 2 mg-10 mg-30 Paul 05/06/ Outpati ent mg/5 mL 2013 Clinical orally 4 Care times a day ibuprofen 1 tab(s) orally Active 800 mg orally Paul 05/06/ Outpati ent 3 times a day 2013 Clinical Care pantoprazole 1 tab(s) orally Active 40 mg orally Paul 11/27/ Outpa tient once a day 2013 Clinical Care omeprazole 1 cap(s) orally No Longer 40 mg orally Paul 11/23/ Outpa tient Active once a day 2013 Clinical Care Allergies, Adverse Reactions, Alerts Substance Category Reaction Severity Reaction Status Date Comments S ource type Reported N.K.D.A. Adverse Info Not Adverse Active Outp atient Reaction Available Reaction 6 Clin ical Care Immunizations No Data Provided for This Section Results Order Name Results Value Reference Date Interpretation Comments Althea rce Range BLOOD BANK ABO/Rh O POS 11/11 [facility] CHEM PANEL Lipase Lvl 131 73 - 393 11/11 [facility] ELECTROLYT AGAP 10.3 10.0 - 11/11 ES 20.0 [facility] ELECTROLYT A/G Ratio 0.9 0.7 - 1.6 11/11 [facility] ELECTROLYT Globulin 3.7 2.7 - 4.2 11/11 [facility] ELECTROLYT B/C Ratio 8 6 - 25 11/11 [facility] ELECTROLYT Bili Total 0.3 0.2 - 1.3 11/11 [facility] ELECTROLYT Alk Phos 146 39 - 136 11/11 [facility] ELECTROLYT ALT 21 0 - 65 11/11 [facility] ELECTROLYT Total 7.1 6.4 - 8.4 11/11 ES [facility] ELECTROLYT CO2 28 24 - 32 11/11 [facility] ELECTROLYT Albumin Lvl 3.4 3.5 - 5.0 11/11 [facility] ELECTROLYT Calcium Lvl 8.2 8.5 - 10.5 11/11 [facility] ELECTROLYT AST 13 0 - 37 11/11 [facility] ELECTROLYT eGFR 123 06/09 Result Comment: The [facility] eGFR is calculated using the CKD-EPI formula. In most young, healthy individuals the eGFR will be >90 mL/min/1.73m2 . The eGFR declines with age. An eGFR of 60-89 may be normal in some populations, particularly the elderly, for whom the CKD-EPI formula has not been extensively validated. Use of the eGFR is not recommended in the following populations:< br/>
Brandie viduals with unstable creatinine concentration s, including patients and those with serious co-morbid conditions.<b r/>
Patie nts with extremes in muscle mass or diet.

The data above are obtained from the National Kidney Disease Education Program (NKDEP) which additionally recommends that when the eGFR is used in patients with extremes of body mass index for purposes of drug dosing, the eGFR should be multiplied by the estimated BMI. ELECTROLYT BUN 6 7 - 22 11/11 [facility] ELECTROLYT Glucose Lvl 71 70 - 99 11/11 [facility] ELECTROLYT Sodium Lvl 139 135 - 145 11/11 [facility] ELECTROLYT Creatinine 0.71 0.50 - 11/11 [facility] Lvl 1.40 [facility] ELECTROLYT Potassium 3.3 3.5 - 5.1 11/11 [facility] Lvl [facility] ELECTROLYT Chloride Lvl 104 95 - 109 11/11 [facility] ENDOCRINOL S Preg Negative Negative 11/11 OGY *NA* /2016 [facility] (11/10/16 10:08 PM) HEMATOLOGY Platelet 222 133 - 450 11/11 [facility] HEMATOLOGY MPV 8.8 7.4 - 10.4 11/11 [facility] HEMATOLOGY MCHC 32.9 32.0 - 11/11 36.0 [facility] HEMATOLOGY RDW 13.4 11.5 - 11/11 14.5 [facility] HEMATOLOGY MCV 86.9 80.0 - 11/11 98.0 [facility] HEMATOLOGY MCH 28.6 27.0 - 11/11 MH 31.0 [facility] HEMATOLOGY Hct 41.9 36.0 - 11/11 48.0 [facility] HEMATOLOGY RBC 4.82 4.20 - 11/11 MH 5.40 [facility] HEMATOLOGY Hgb 13.8 12.0 - 11/11 MH 16.0 /2016 [facility] HEMATOLOGY WBC 7.9 3.7 - 10.4 11/11 /2016 [facility] HEMATOLOGY Eosinophils 0.3 0.0 - 0.5 11/11 MH # /2017 [facility] HEMATOLOGY Basophils # 0.0 0.0 - 0.2 11/11 [facility] HEMATOLOGY Lymphocytes 32.0 20.0 - 11/11 MH 40.0 /2016 [facility] HEMATOLOGY Lymphocytes 2.5 1.0 - 5.5 11/11 MH # /2017 [facility] HEMATOLOGY Monocytes # 0.6 0.0 - 0.8 11/11 [facility] HEMATOLOGY Segs-Bands # 4.5 1.5 - 8.1 11/11 [facility] HEMATOLOGY Eosinophils 3.3 0.0 - 4.0 11/11 [facility] HEMATOLOGY Basophils 0.4 0.0 - 1.0 11/11 [facility] HEMATOLOGY Monocytes 7.5 2.0 - 12.0 11/11 [facility] HEMATOLOGY Segs 56.8 45.0 - 11/11 MH 75.0 /2016 [facility] URINE AND UA Sq Epi Many /LPF Few /LPF 11/11 STOOL [facility] URINE AND UA WBC 29 0 - 5 11/11 STOOL [facility] URINE AND UA Leuk Est Negative Negative 11/11 [facility] (11/10/16 10:08 PM) /2016 [facility] est URINE AND UA <=1.0 0.1 - 1.0 11/11 [facility]OL Urobilinogen mg/dL /2016 [facility] URINE AND UA Mucus Few /LPF None Seen 11/11 [facility]OL /LPF /2016 [facility] URINE AND UA RBC 135 0 - 2 11/11 STOOL [facility] URINE AND UA Color Light Yellow Yellow 11/11 [facility]OL *NA* /2016 [facility] (11/10/16 10:08 PM) URINE AND UA pH 6.0 5.0 - 8.0 11/11 STOOL [facility] URINE AND UA Turbidity Clear Clear 11/11 [facility] (11/10/16 10:08 PM) /[facility] Spec Grav 1.005 <=1.030 11/11 STOOL [facility] URINE AND UA Protein Negative Negative 11/11 [facility]OL mg/dL mg/dL [facility] URINE AND UA Glucose Negative Negative 11/11 [facility] mg/dL mg/dL [facility] URINE AND UA Ketones Negative Negative 11/11 [facility]OL mg/dL mg/dL [facility] URINE AND UA Bili Negative Negative 11/11 STOOL *NA* /2016 [facility] (11/10/16 10:08 PM) URINE AND UA Blood Large Negative 11/11 [facility]OOL *ABN* /2016 [facility] (11/10/16 10:08 PM) URINE AND UA Nitrite Negative Negative 11/11 [facility] (11/10/16 10:08 PM) [facility] URINE CHEM U Preg Negative Negative 11/11 (11/10/16 10:08 PM) [facility] est CHEM PANEL BUN 5 7 - 22 05/14 [facility] CHEM PANEL Glucose Lvl 99 70 - 99 05/14 [facility] CHEM PANEL AGAP 11.3 10.0 - 05/14 MH 20.0 [facility] CHEM PANEL Calcium Lvl 8.6 8.5 - 10.5 05/14 [facility] CHEM PANEL Chloride Lvl 107 95 - 109 05/14 [facility] CHEM PANEL Potassium 3.3 3.5 - 5.1 05/14 MH Lvl [facility] CHEM PANEL Sodium Lvl 139 135 - 145 05/14 [facility] CHEM PANEL CO2 24 24 - 32 05/14 [facility] CHEM PANEL Creatinine 0.60 0.50 - 05/14 MH Lvl 1.40 [facility] CHEM PANEL eGFR 133 05/14 Comment: The [facility] eGFR is calculated using the CKD-EPI formula. In most young, healthy individuals the eGFR will be >90 mL/min/1.73m2 . The eGFR declines with age. An eGFR of 60-89 may be normal in some populations, particularly the elderly, for whom the CKD-EPI formula has not been extensively validated. Use of the eGFR is not recommended in the following populations:< br/>
Brandie viduals with unstable creatinine concentration s, including patients and those with serious co-morbid conditions.<b r/>
Patie nts with extremes in muscle mass or diet.

The data above are obtained from the National Kidney Disease Education Program (NKDEP) which additionally recommends that when the eGFR is used in patients with extremes of body mass index for purposes of drug dosing, the eGFR should be multiplied by the estimated BMI. MOLECULAR N gonorrhea Negative Negative 05/14 DIAGNOSTIC by Amp Det *NA* [facility] ([facility]) (05/14/16 12:04 AM) MOLECULAR Source Endocervix 05/14 DIAGNOSTIC [facility] (05/14/16 12:04 AM) /2015 [facility] MOLECULAR C Negative Negative 05/14 DIAGNOSTIC trachomatis *NA* [facility] by Amp Det (05/14/16 12:04 AM) ([facility]) URINE AND UA Mucus Few /LPF None Seen 05/14 STOOL /LPF /2015 [facility] URINE AND UA Bacteria Occasional None Seen 05/14 STOOL /HPF /HPF /2015 [facility] URINE AND UA RBC <1 0 - 2 05/14 STOOL [facility] URINE AND UA Leuk Est Small Negative 05/14 STOOL *ABN* [facility] (05/14/16 12:04 AM) URINE AND UA WBC 5 0 - 5 05/14 STOOL [facility] URINE AND UA Sq Epi Occasional Few /LPF 05/14 STOOL /LPF [facility] URINE AND UA Color Light Yellow Yellow 05/14 STOOL *NA* [facility] (05/14/16 12:04 AM) URINE AND UA <=1.0 0.1 - 1.0 05/14 STOOL Urobilinogen /2015 [facility] URINE AND UA Nitrite Negative Negative 05/14 [facility] (05/14/16 12:04 AM) [facility] URINE AND UA Blood Negative Negative 05/14 [facility] (05/14/16 12:04 AM) [facility] URINE AND UA Bili Negative Negative 05/14 [facility]OL *NA* [facility] (05/14/16 12:04 AM) URINE AND UA Ketones Negative Negative 05/14 [facility] mg/dL mg/dL [facility] URINE AND UA Glucose Negative Negative 05/14 [facility] mg/dL mg/dL [facility] URINE AND UA Spec Grav 1.008 <=1.030 05/14 STOOL [facility] URINE AND UA pH 6.0 5.0 - 8.0 05/14 STOOL [facility] URINE AND UA Turbidity Slight Clear 05/14 STOOL *ABN* [facility] (05/14/16 12:04 AM) URINE AND UA Protein Negative Negative 05/14 STOOL mg/dL mg/dL [facility] CHEM PANEL eGFR 136 12/23 Result Comment: The [facility] eGFR is calculated using the modified Gray equation 0.413 x Height (cm) /Serum Creatinine (mg/dL). CHEM PANEL Calcium Lvl 8.1 8.5 - 10.5 12/23 [facility] CHEM PANEL CO2 21 24 - 32 12/23 [facility] CHEM PANEL Chloride Lvl 109 95 - 109 12/23 [facility] CHEM PANEL Potassium 3.6 3.5 - 5.1 12/23 [facility] CHEM PANEL Sodium Lvl 140 135 - 145 12/23 [facility] CHEM PANEL Creatinine 0.5 0.5 - 1.4 12/23 [facility] CHEM PANEL BUN 3 7 - 22 12/23 [facility] CHEM PANEL Glucose Lvl 86 70 - 99 12/23 [facility] CHEM PANEL AGAP 13.6 10.0 - 12/23 20.0 [facility] HEMATOLOGY MPV 9.8 7.4 - 10.4 12/23 [facility] HEMATOLOGY Platelet 161 133 - 450 12/23 [facility] HEMATOLOGY RDW 13.6 11.5 - 12/23 MH 14.5 /2014 [facility] HEMATOLOGY MCHC 33.8 32.0 - 12/23 MH 36.0 /2014 [facility] HEMATOLOGY MCV 86.6 80.0 - 12/23 MH 98.0 /2014 [facility] HEMATOLOGY MCH 29.3 27.0 - 12/23 MH 31.0 /2014 [facility] HEMATOLOGY Hct 34.7 36.0 - 12/23 MH 48.0 /2014 [facility] HEMATOLOGY Hgb 11.8 12.0 - 12/23 MH 16.0 [facility] HEMATOLOGY WBC 9.1 3.7 - 10.4 12/23 [facility] HEMATOLOGY RBC 4.01 4.20 - 12/23 MH 5.40 /2014 [facility] CHEM PANEL eGFR 114 12/22 Result Comment: The [facility] eGFR is calculated using the modified Gray equation 0.413 x Height (cm) /Serum Creatinine (mg/dL). CHEM PANEL Calcium Lvl 7.8 8.5 - 10.5 12/22 [facility] CHEM PANEL Glucose Lvl 86 70 - 99 12/22 [facility] CHEM PANEL Sodium Lvl 137 135 - 145 12/22 [facility] CHEM PANEL Creatinine 0.6 0.5 - 1.4 12/22 [facility] CHEM PANEL BUN 7 7 - 22 12/22 [facility] CHEM PANEL Chloride Lvl 106 95 - 109 12/22 MH /2014 [facility] CHEM PANEL Potassium 3.5 3.5 - 5.1 12/22 MH Lvl /2014 [facility] CHEM PANEL AGAP 13.5 10.0 - 12/22 MH 20.0 [facility] CHEM PANEL CO2 21 24 - 32 12/22 /2014 [facility] HEMATOLOGY Lymphocytes 8.7 20.0 - 12/22 MH 40.0 /2014 [facility] HEMATOLOGY Monocytes 9.3 2.0 - 12.0 12/22 /2014 [facility] HEMATOLOGY Basophils 0.2 0.0 - 1.0 12/22 /2014 [facility] HEMATOLOGY Segs-Bands # 10.6 1.5 - 8.1 12/22 [facility] HEMATOLOGY Lymphocytes 1.1 1.0 - 5.5 12/22 MH # /2014 [facility] HEMATOLOGY Monocytes # 1.2 0.0 - 0.8 12/22 [facility] HEMATOLOGY Segs 81.8 45.0 - 12/22 MH 75.0 /2014 [facility] HEMATOLOGY Platelet 164 133 - 450 12/22 /2014 [facility] HEMATOLOGY RDW 13.3 11.5 - 12/22 MH 14.5 /2014 [facility] HEMATOLOGY MCH 29.2 27.0 - 12/22 MH 31.0 /2014 [facility] HEMATOLOGY MCHC 34.8 32.0 - 12/22 MH 36.0 /2014 [facility] HEMATOLOGY MCV 83.9 80.0 - 12/22 MH 98.0 /2014 [facility] HEMATOLOGY Hgb 12.5 12.0 - 12/22 MH 16.0 /2014 [facility] HEMATOLOGY Hct 36.0 36.0 - 12/22 MH 48.0 /2014 [facility] HEMATOLOGY WBC 12.9 3.7 - 10.4 12/22 /2014 [facility] HEMATOLOGY RBC 4.28 4.20 - 12/22 MH 5.40 /2014 [facility] HEMATOLOGY MPV 9.7 7.4 - 10.4 12/22 /2014 [facility] MOLECULAR N gonorrhea Negative Negative 12/21 DIAGNOSTIC by Amp Det *NA* /2014 [facility] (APTIMA) (12/21/14 6:08 PM) MOLECULAR C Positive 4 Negative 12/21 Result DIAGNOSTIC trachomatis *ABN* /2014 Comment: Vandana t by Amp Det (12/21/14 6:08 PM) "Significan t (APTIMA) Findings called to PENNY_at _12/23/2014 13:16__by _CYTHOMAS__.R ead Back OK." MOLECULAR Source Endocervix 12/21 DIAGNOSTIC APTIMA *NA* /2014 [facility] (12/21/14 6:08 PM) CHEM PANEL Lactic Acid 0.7 0.5 - 2.2 12/21 MH Lvl [facility] CHEM PANEL Procalcitoni 0.05 0.00 - 12/21 n Lvl 0.10 [facility] CHEM PANEL eGFR 85 12/21 Result Comment: The [facility] eGFR is calculated using the modified Gray equation 0.413 x Height (cm) /Serum Creatinine (mg/dL). CHEM PANEL Globulin 4.3 2.0 - 4.0 12/21 [facility] CHEM PANEL A/G Ratio 0.9 0.7 - 1.6 12/21 [facility] CHEM PANEL AGAP 10.1 10.0 - 12/21 MH 20.0 [facility] CHEM PANEL B/C Ratio 10 6 - 25 12/21 [facility] CHEM PANEL Alk Phos 132 39 - 136 12/21 [facility] CHEM PANEL Bili Total 0.8 0.2 - 1.3 12/21 [facility] CHEM PANEL CO2 25 24 - 32 12/21 [facility] CHEM PANEL Potassium 3.1 3.5 - 5.1 12/21 MH Lvl [facility] CHEM PANEL Chloride Lvl 103 95 - 109 12/21 [facility] CHEM PANEL Calcium Lvl 8.4 8.5 - 10.5 12/21 [facility] CHEM PANEL Total 8.0 6.4 - 8.4 12/21 [facility] CHEM PANEL Albumin Lvl 3.7 3.5 - 5.0 12/21 [facility] CHEM PANEL Creatinine 0.8 0.5 - 1.4 12/21 MH Lvl [facility] CHEM PANEL Sodium Lvl 135 135 - 145 12/21 [facility] CHEM PANEL ALT 14 0 - 65 12/21 [facility] CHEM PANEL AST 6 0 - 37 12/21 [facility] CHEM PANEL BUN 8 7 - 22 12/21 [facility] CHEM PANEL Glucose Lvl 103 70 - 99 12/21 [facility] HEMATOLOGY Hct 42.0 36.0 - 12/21 MH 48.0 /2014 [facility] HEMATOLOGY Hgb 14.1 12.0 - 12/21 MH 16.0 /2014 [facility] HEMATOLOGY RDW 13.4 11.5 - 12/21 MH 14.5 /2014 [facility] HEMATOLOGY MCV 85.5 80.0 - 12/21 MH 98.0 /2014 [facility] HEMATOLOGY Platelet 196 133 - 450 12/21 /2014 [facility] HEMATOLOGY MPV 9.6 7.4 - 10.4 12/21 /2014 [facility] HEMATOLOGY RBC 4.91 4.20 - 12/21 MH 5.40 /2014 [facility] HEMATOLOGY WBC 17.1 3.7 - 10.4 12/21 /2014 [facility] HEMATOLOGY MCHC 33.7 32.0 - 12/21 MH 36.0 /2014 [facility] HEMATOLOGY MCH 28.8 27.0 - 12/21 MH 31.0 /2014 [facility] HEMATOLOGY RBC Morph Normal 12/21 (12/21/14 1:05 PM) /2014 [facility] HEMATOLOGY Monocytes 7.3 2.0 - 12.0 12/21 /2014 [facility] HEMATOLOGY Eosinophils 0.0 0.0 - 4.0 12/21 /2014 [facility] HEMATOLOGY Basophils 0.2 0.0 - 1.0 12/21 /2014 [facility] HEMATOLOGY Segs-Bands # 14.2 1.5 - 8.1 12/21 /2014 [facility] HEMATOLOGY Lymphocytes 9.4 20.0 - 12/21 40.0 /2014 [facility] HEMATOLOGY Lymphocytes 1.6 1.0 - 5.5 12/21 MH # /2014 [facility] HEMATOLOGY Monocytes # 1.3 0.0 - 0.8 12/21 /2014 [facility] HEMATOLOGY Eosinophils 0.0 0.0 - 0.5 12/21 # /2014 [facility] HEMATOLOGY Basophils # 0.0 0.0 - 0.2 12/21 /2014 [facility] HEMATOLOGY Plt Morph Normal 12/21 (12/21/14 1:05 PM) /2014 [facility] HEMATOLOGY Segs 83.1 45.0 - 12/21 MH 75.0 /2014 [facility] URINE AND UA Bacteria Few /HPF None Seen 12/21 STOOL /HPF /2014 [facility] URINE AND UA Mucus Few /LPF None Seen 12/21 STOOL /LPF /2014 [facility] URINE AND UA WBC 11-20 /HPF None Seen 12/21 STOOL /HPF /2014 [facility] URINE AND UA Sq Epi Few /LPF Few /LPF 12/21 STOOL /2014 [facility] URINE AND UA RBC 3-5 /HPF 0 - 2 12/21 STOOL /2014 [facility] URINE AND UA Blood Large Negative 12/21 STOOL *ABN* /2014 [facility] (12/21/14 1:05 PM) URINE AND UA Bili Small Negative 12/21 STOOL *ABN* /2014 [facility] (12/21/14 1:05 PM) URINE AND UA Ketones Trace Negative 12/21 STOOL *ABN* /2014 [facility] (12/21/14 1:05 PM) URINE AND UA Leuk Est Small Negative 12/21 STOOL *ABN* /2014 [facility] (12/21/14 1:05 PM) URINE AND UA Nitrite Negative Negative 12/21 STOOL (12/21/14 1:05 PM) /2014 [facility] est URINE AND UA 0.2 0.1 - 1.0 12/21 STOOL Urobilinogen /2014 [facility] URINE AND UA Turbidity Slight Cloudy Clear 12/21 STOOL (12/21/14 1:05 PM[facility] Color Yellow Yellow 12/21 STOOL *NA* /2014 [facility] (12/21/14 1:05 PM) URINE AND UA pH 6.0 5.0 - 8.0 12/21 STOOL /2014 [facility] URINE AND UA Glucose Negative Negative 12/21 STOOL (12/21/14 1:05 PM) [facility] Protein 100 mg/dL Negative 12/21 STOOL mg/dL /2014 [facility] URINE AND UA Spec Grav 1.025 <=1.030 12/21 STOOL [facility] URINE CHEM U Preg Negative Negative 12/21 (12/21/14 1:05 PM) [facility] est Pathology Reports No Data Provided for This Section Diagnostic Reports Report Value Date Source Pelvis w Transvag and Study: Pelvis w Transvag and Pelvis Doppler US 11/10/2016 9:49 PM CDT 11/10/2016 [facility] Pelvis Doppler US Ordering Physician: Rohan odonnell MD Clinical Indication: Vaginal Bleeding - large uterine bleeding , evaluate for fibroids; pelvic pain. Comparison: None TECHNIQUE: Grayscale, color flow Dopple r and duplex Doppler ultrasound with spectral waveform analysis of the pelvis is performed. Transabdominal findings: Uterus is normal in size, me asuring 8.5 cm in length by 4.7 cm AP by 5.9 cm TR. Myometrial echotexture is grossly normal. The endometrial cavity is empty and the endometrial complex is normal in thickne ss, measuring 6 mm. The urin bryn bladder is grossly normal in appearance, with no evidence for mural irregularity or intraluminal mass. The left ovary is normal in size and echogenicity, measuring 1.3 x 2.7 x 1.2 cm. The right ovar y is normal in size, measuring 4.0 x [...] ovary is n ormal in size and echogenici ty, measuring 2.8 x 1.5 x 1.2 cm. No adnexal mass lesions are visualized. There is arterial and venous blood flow within both ovaries. There is trace free fluid within the cul-de-sac. IMPRESSION: Normal ultrasound examination of the pelvis. SL: [id number] Chest 2 views DX HISTORY: Fever. 10/30/2014 [facility] Chest 2 views. COMPARISON: No prior. Lungs are clear. Heart size normal. No pleural e ffusion or pneumothorax. IMPRESSION: Negative SL:14 Consultation Notes No Data Provided for This Section Discharge Summaries No Data Provided for This Section History and Physicals No Data Provided for This Section Vital Signs Vital Sign Value Date Comments Source Heart Rate 71 11/11/2016 [facility] Respitory Rate 16 11/11/2016 [facility] Temperature Oral (F) 98.2 F 11/11/2016 [facility] Systolic (mm Hg) 103 11/11/2016 [facility] t Diastolic (mm Hg) 58 11/11/[address] [facility] [address] Heart Rate 72 11/11/2016 [facility] Temperature Oral (F) 98.6 F 11/11/2016 [facility] Systolic (mm Hg) 112 11/11/[facility] Diastolic (mm Hg) 73 11/11/[address] Respitory Rate 16 11/11/2016 [facility] Heart Rate 93 11/11/2016 [facility] Temperature Oral (F) 98.3 F 11/11/2016 [facility] Respitory Rate 16 11/11/2016 [facility] Systolic (mm Hg) 116 11/11/2016 [facility] Diastolic (mm Hg) 72 11/11/[address] [facility] [address] Height 165.1 cm 11/11/2016 [facility] Weight 68.182 11/11/2016 [facility] BMI Calculated 25.01 11/11/2016 [facility] Systolic (mm Hg) 99 05/14/[facility] Diastolic (mm Hg) 56 05/14/[address] [facility] [address] Systolic (mm Hg) 109 05/14/2016 [facility] Diastolic (mm Hg) 63 05/14/[address] [facility] [address] Systolic (mm Hg) 111 05/14/2016 [facility] Diastolic (mm Hg) 62 05/14/[address] [facility] [address] Height 165.1 cm 05/14/2016 [facility] BMI Calculated 26.26 05/14/2016 [facility] Weight 71.591 05/14/2016 [facility] Respitory Rate 18 05/14/2016 [facility] Heart Rate 90 05/14/2016 [facility] Height 64 09/09/2015 [facility] Diastolic (mm Hg) 71 09/09/2015 [facility] Systolic (mm Hg) 108 09/09/2015 [facility] Temperature Oral (F) 98.2 F 09/09/2015 [facility] Weight 142 09/09/2015 [facility] Height 64 08/26/2015 [facility] Diastolic (mm Hg) 67 08/26/2015 [facility] Systolic (mm Hg) 115 08/26/2015 [facility] Temperature Oral (F) 97.8 F 08/26/2015 [facility] Weight 141 08/26/2015 [facility] Height 64 05/19/2015 [facility] Diastolic (mm Hg) 71 05/19/2015 [facility] Systolic (mm Hg) 96 05/19/2015 [facility] Temperature Oral (F) 98.4 F 05/19/2015 [facility] Weight 144 05/19/2015 [facility] Weight 72.727 02/20/2015 [facility] BMI Calculated 26.68 02/20/2015 [facility] Height 165.1 cm 02/20/2015 [facility] Temperature Oral (F) 99.0 F 02/20/2015 [facility] Systolic (mm Hg) 112 02/20/2015 [facility] t Diastolic (mm Hg) 70 02/20/[address] [facility] [address] Heart Rate 96 02/20/2015 [facility] Respitory Rate 18 02/20/2015 [facility] Systolic (mm Hg) 114 12/23/2014 [facility] t Diastolic (mm Hg) 68 12/23/[address] [facility] [address] Respitory Rate 18 12/23/2014 [facility] Temperature Oral (F) 98.1 F 12/23/2014 [facility] Heart Rate 70 12/23/2014 [facility] Temperature Oral (F) 98.1 F 12/23/2014 [facility] Systolic (mm Hg) 116 12/23/[facility] Diastolic (mm Hg) 76 12/23/[address] [facility] [address] Heart Rate 62 12/23/2014 [facility] Respitory Rate 18 12/23/2014 [facility] Temperature Oral (F) 99.0 F 12/23/2014 [facility] Systolic (mm Hg) 113 12/23/[facility] Diastolic (mm Hg) 72 12/23/[address] [facility] [address] Heart Rate 76 12/23/2014 [facility] Respitory Rate 18 12/23/2014 [facility] Height 165.1 cm 12/21/2014 [facility] BMI Calculated 26.68 12/21/2014 [facility] Weight 72.727 12/21/2014 [facility] BMI Calculated 28.35 12/21/2014 [facility] Height 165.1 cm 12/21/2014 [facility] Weight 77.273 12/21/2014 [facility] Height 64 05/06/2014 [facility] Diastolic (mm Hg) 77 05/06/2014 [facility] Systolic (mm Hg) 108 05/06/2014 [facility] Temperature Oral (F) 98.6 F 05/06/2014 [facility] Weight 166 05/06/2014 [facility] Encounters Location Location Encounter Encounter Reason Attending [facility] Details Type Number For Provider Date Date Visit Outpatient Unknown [id number] 11/27 11/27 [id number] [id number] [facility] Outpatient Unknown [id number] 11/27 11/27 [facility] [id number] [facility] [id number] [facility] Outpatient Unknown [id number] 11/27 11/27 [facility] [id number] [facility] [id number] [facility] Outpatient Unknown [id number] 11/27 11/27 [facility] [id number] [place] [place] [id number] [facility] Outpatient Unknown [id number] 11/27 11/27 [facility] [id number] [place] [place] [id number] [facility] Outpatient Consult [id number] 05/06 05/06 [facility] [id number] [facility] [id number] [facility] Outpatient Consult [id number] 05/06 05/06 [facility] [id number] [facility] [place] [id number] [facility] Outpatient Consult [id number] 05/06 05/06 [facility] [id number] [place] [place] [id number] [facility] Outpatient Consult [id number] 05/06 05/06 [facility] [id number] [place] [place] [id number] [facility]ical Care [facility] Inpatient [id number] Jameel 12/21 12/23 [facility] [place] /2014 [facility] [id number] Caroline 02/20 02/20 [facility] /2014 [facility] Outpatient ENT [id number] 05/19 05/19 [facility]pat[facility] Clinical Consult [id number] /[facility] [place] [id number] [facility] Outpatient ENT [id number] 05/19 05/19 [facility] Consult [id number] /[facility] [place] [id number] [facility] Outpatient ENT [id number] 05/19 05/19 [facility] Consult [id number] [place] [facility] [place] [id number] [facility] Outpatient ER t rvw [id number] 08/25 08/25 [facility] w/ labs [id number] /[place] [facility] [place] [id number] [facility] Outpatient ER t rvw [id number] 08/25 08/25 [facility] w/ labs [id number] /2015 [facility] [place] [id number] [facility] Outpatient Labs & T [id number] 09/08 09/08 [facility] Rvw [id number] /2015 [facility], NIMA [id number] Cl inical Care [facility] Emergency [id number] Messi Araya 05/14 05/14 [place] /2015 [facility] [id number] Rohan 11/11 11/11 [place] /2016 [facility] Procedures No Data Provided for This Section Assessment and Plan Assessment and Plan Date Source Extracted from:Title: FMS Progress Note 12/23/2014 [facility] Author: Denia Roberto MD Date: 12/23/14 DISCHARGE [...] had increased frequency, but denies dysuria, burning w ith urination, or pressure. Had a fever at home as well, temperature max of 103. Took tylenol once at home, did not help. Patient is sexually active with 1 partne r, has a 2 year old. No history of STD's. Denies vaginal itching or discharge. DISCHARGE DIAGNOSES: 1) Pyelonephritis 2) Chlamydia cervicitis HOSPITAL COURSE: Pyelonephritis: Pt was febrile to 103 [address] th tachycardia and flank pain. Negative UPT. WBC 17.1->12.9. Pt was given Rocephin 1g in the ED. UCx grew gram negative rods with negative blood cultures. Pt was stable throughout this admission and spiked another fever 101 with resolution. Pt had n/v but later tolerated a regular diet, vital signs were stable prior to discharge. Pt was discharged with cipro 500mg Q12 for 7 days. Chlamydia cervicitis: +chlamydia pt given azithromycin 500mg x2. CONSULTS: n/a PERTINENT STUDIES:n/a CONDITION: stable DIET: regular diet ACTIVITY: regular MEDS: Please see home medication reconciliation. FOLLOW UP: Please follow up with PCP Dr. Vik Gee in 1 week. PATIENT INSTRUCTIONS: Please take prescr ibed antibiotics for resolution of symptoms RECOMMENDATIONS FOR PRIMARY CARE PHYSICI AN: If you have any questions about your patient's care please call the [facility] page rubber flap tuber machine operator at [phone] and ask him/her to page me. Denia Roberto M.D. FMS PGY1 #[id number] Extracted from:Title: General Admission H&P * Author: Mejia Ba DO Date: 12/21/14 Impression and Plan 18 yo F w/no pmhx who presents with N/V, fever, and flank pa in. 1. Pyelonephritis: UA as above, febrile, with tachycardia and flank pain. Negative UPT. WBC 17.1. Blood pressure stable and tachycardia resolved after IV fluid bolus in ED. Given Rocephin 1g x 1 in ED. Will continue IV antibiotics with Roceph in q24 hours. Tylenol prn pain/fever. Continue IV fluids at 150 cc/hr. Urine culture and blood culture pending. Zofran prn nausea/vomiting. Will check GC/Chlamydi a and vaginal culture since patient is sexually active. 2. Hypokalemia: PO potassium given Dispo: admit to inpatient for IV antibio tics and fluids, discussed with office administration attending, to be admitted to medicine service Discussed with attending Dr. Valencia, who agrees with the goyo n. Mejia Ba, DO PGY3 [id number] Plan of Care No Data Provided for This Section Social History Social History Date Source Social History ElementQualifiersDate Reported 09/09/2015 [facility] Drug use: denied. September 09, 2015 Caffeine: no. September 09, 2015 Tobacco Use: . Are you a: Current Smoker September 09, 2015 Social History TypeResponse 12/21/2014 [facility] Substance Abuse Use: None. Alcohol Never Smoking Status Never smoker; Type: Cigarettes; Exposure to Tobacco Smoke None; Cigarette Smoking Last 365 Days No; Reg Smoking Cessation Counseling Yes Family History Value Date Source QualifierDescriptionCommentDate Reported 09/15/2015 Outpatient Clinical Care Friend(s) Comment not available September 09, 2015 [...] Father Comment not available September 09, 2015 QualifierDescriptionCommentDate Reported 07/11/2015 Outpatient Clinical Care Friend(s) Comment not available May 19, 2015 [...] Father Comment not available May 19, 2015 QualifierDescriptionCommentDate Reported 05/13/2014 Outpatient Clinical Care Spouse alive Comment not available May 06, 2014 Father alive Comment not available May 06, 2014 Advance Directives No Data Provided for This Section Functional Status No Data Provided for This Section
--- OUTSIDE RECORDS SUMMARY | 2019-11-21 15:31 | XMS REPORT | Continuity of Care Document ---
:1995 Author Organization [facility] t Address [address] [place] [address] Care Team Providers Name Role Phone Marcus aDle Attending Clinician Noman Araya Attending Clinician Kd Preston Attending Clinician Hue Stuart Attending Clinician Hue Stuart Admitting Clinician Problems Condition Condition Condition Status Onset Resolution Last Treating Co mments Source Name Details Category Date Date Treatment Clinician Date ABDOMINAL Diagnosis Active 2017-07-13 Memoria PAIN 607 16:50:00 l 12:00: Vincenzo ABDOMINAL 00 PAIN Active 11/09/2016 [facility]WKS Diagnosis Active 2015-062016-05-13 Mem oria GEST/ABDOM 2-09 22:49:00 l INAL PAIN 32WKS 00:00: Jonas n GEST/ABDOM 00 INAL PAIN Active 05/13/2016 [facility] FEVER Diagnosis Active 2015-02-20 Mem oria 02-20 11:42:00 l FEVER 05:00: Hallie 00 Active 02/20/2015 [facility] VOMITING Diagnosis Active 2014-12-21 M emoria 12-21 13:05:00 l VOMITING 00:00: Jonas n 00 Active 12/21/2014 [facility] ACUTE Diagnosis Active 2015-04-08 Mem oria PYELONEPHR 12-21 08:56:00 l ITIS ACUTE 00:00: Vincenzo PYELONEPHR 00 ITIS Active 12/21/2014 [facility] FEVER / Diagnosis Active 2014-11-20 Ut moria LOWER BACK 5-28 15:08:00 l PAIN FEVER / 00:00: Vincenzo LOWER BACK 00 PAIN Active 10/30/2014 [facility] Urinary Problem Resolve 2016-11-14 Mem oria tract d 03:11:23 l infectious Urinary Her moreno disease tract (disorder) infectious disease (disorder) Resolved Problem 11/14/2016 [facility] Antepartum Problem Resolve 2016-11-14 Memoria hemorrhage d 03:11:23 l (disorder) Jonas n Antepartum hemorrhage (disorder) Resolved Problem 11/14/2016 [facility] Fever, Diagnosis Active 2014-05-13 Mem oria unspecifie 03:06:49 l d Fever, Vincenzo unspecifie d Active Diagnosis 05/13/2014 [facility] Viral Diagnosis Active 2014-05-13 Mem oria infection 03:06:49 l Viral Vnicenzo infection Active Diagnosis 05/13/2014 [facility] H. pylori Problem Active 2015-09-15 Me moria infection 02:11:30 l H. Hallie pylori infection Active Problem 09/15/2015 [facility] Female Diagnosis Active 2015-09-15 Mem oria pelvic 02:11:30 l inflammato Female Herm chandler ry pelvic disease, inflammato unspecifie ry d disease, unspecifie d Active Diagnosis 09/15/2015 [facility] Acute Diagnosis Active 2015-09-15 Mem oria vaginitis 02:11:30 l Acute Vincenzo vaginitis Active Diagnosis 09/15/2015 [facility] Amenorrhea Diagnosis Active 2015-09-15 Memoria , 02:11:30 l unspecifie Jonas n d Amenorrhea , unspecifie d Active Diagnosis 09/15/2015 [facility] Nicotine Diagnosis Active 2015-09-15 M emoria dependence 02:11:30 l , Nicotine Jonas n cigarettes dependence , , uncomplica cigarettes hanna , uncomplica hanna Active Diagnosis 09/15/2015 [facility] Acute Diagnosis Active 2015-07-11 Mem oria upper 03:04:31 l respirator Acute Megan nn y upper infection, respirator unspecifie y d infection, unspecifie d Active Diagnosis 07/11/2015 [facility] Urinary Problem Active 2016-11-14 Michael mani tract 03:11:23 l infection Urinary Herm chandler in tract infection (disorder) in (disorder) Active Problem 11/14/2016 [facility] PYELONEPHR Diagnosis Active 2015-04-08 Memoria ITIS NOS 08:56:00 l Hallie PYELONEPHR ITIS NOS Active [facility] Excessive Problem 2016-2016-11-14 2016-11-14 Memoria and 11-11 03:11:23 03:11:23 l frequent 05:00: Hallie menstruati Excessive 00 on with and regular frequent cycle menstruati on with regular cycle 11/11/2016 11/14/2016 [facility] Dysmenorrh Problem 2016-2016-11-14 2016-11-14 Memoria ea, 11-11 03:11:23 03:11:23 l unspecifie 05:00: Jonas n d Dysmenorrh 00 ea, unspecifie d 11/11/2016 11/14/2016 [facility] Unspecifie Problem 2016-2016-11-14 2016-11-14 Memoria d ovarian 11-11 03:11:23 03:11:23 l cyst, 05:00: Vincenzo right side Unspecifie 00 d ovarian cyst, right side 11/11/2016 11/14/2016 [facility] Other Problem 2016-2016-11-14 2016-11-14 M emoria specified 11-11 03:11:23 03:11:23 l abnormal Other 05:00: Vincenzo uterine specified 00 and abnormal vaginal uterine bleeding and vaginal bleeding 7 11/14/2016 [facility] Discharge Problem 2015-062016-05-17 2016-05-17 Memoria Diagnosis: 2-10 02:10:22 02:10:22 l 06:00: Hallie related Discharge 00 nausea, Diagnosis: antepartum related nausea, antepartum 05/14/2016 05/17/2016 [facility] Discharge Problem 2015-062016-05-17 2016-05-17 Memoria Diagnosis: 2-10 02:10:22 02:10:22 l Vaginal 06:00: Vincenzo bleeding Discharge 00 in Diagnosis: Vaginal bleeding in 05/14/2016 05/17/2016 [facility] Discharge Problem 2015-062016-05-17 2016-05-17 Memoria Diagnosis: 2-10 02:10:22 02:10:22 l Acute 06:00: Vincenzo cystitis Discharge 00 during Diagnosis: , Acute antepartum cystitis during , antepartum 05/14/2016 05/17/2016 [facility] Discharge Problem 2015-062016-05-17 2016-05-17 Memoria Diagnosis: 2-10 02:10:22 02:10:22 l Infection 06:00: Hallie of urinary Discharge 00 tract Diagnosis: during Infection . of urinary tract during . 05/14/2016 05/17/2016 [facility] Discharge Problem 2016-2016-05-17 2016-05-17 Memoria Diagnosis: 2-10 02:10:22 02:10:22 l 28 weeks 06:00: Vincenzo gestation Discharge 00 of Diagnosis: 28 weeks gestation of 05/14/2016 05/17/2016 [facility] Allergies, Adverse Reactions, Alerts Allergy Allergy Status Severity Reaction(s) Onset Inactive Treating Comm ents Source Name Type Date Date Clinician NMarekA. N.KulwinderA. Active Info Not Michael mani Available 06 l 00:00: Hallie 00 Family History Family Member Diagnosis Comments Start Date Stop Date Source Unknown Family Family History 2014-05-13 2014-05-13 Memori al Hallie Member 03:06:49 03:06:49 Social History Social Habit Start Date Stop Date Quantity Comments Source Druguse: 2015-09-09 2015-09-09 [facility] nn 00:00:00 00:00:00 Social History 2014-12-21 2014-12-21 [facility] ermann 20:44:11 20:44:11 Medications Ordered Filled Start Stop Current Ordering Indication Dosage Frequency Signature Comments Components Source Medication Medication Date Date Medication? Clinician (SIG) Name Name Acetaminoph Yes 1 - 2 tab, Memoria en 300 MG / 11-11 PO, Q4H, l Codeine 05:55: PRN Pain, Megan nn Phosphate 00 X 4 day, # 30 MG Oral 50 tab, 0 Tablet Refill(s) [Tylenol with Codeine #3] Zofran 2016-0 No 8 mg, Memoria 11-11 Route: l 03:00: IVP, Drug form: INJ, ONCE, Dosing Weight 68.182, kg, Priority: STAT, Start date: 11/10/16 22:00:00 CDT, Stop date: 11/10/16 22:00:00 CDT Morphine 2016-0 No 4 mg, Memoria 11-11 Route: IV, l 02:59: ONCE, Dosing Weight 68.182, kg, Priority: STAT, Start date: 11/10/16 21:59:00 CDT, Stop date: 11/10/16 21:59:00 CDT Sodium 2016- No 250 mL, Memoria Chloride 11-11 Route: l 0.9% IV 02:54: IVPB, Vincenzo 00 Start date: 11/10/16 21:54:00 CDT, Duration: 30 day, Stop date: 12/10/16 21:53:00 CDT, PRN Line Flush BD Normal No Notes: Memori a Saline 11-11 (Same as: l Flush 02:53: BD Vincenzo 00 Posiflush) Sodium No 1,000 mL, Memori a Chloride 11-11 Rate: 125 l 0.154 02:49: ml/hr, Vincenzo MEQ/ML 00 Infuse Injectable over: 8 Solution hr, Route: IV, Dosing Weight 68.182 kg, Total Volume: 1,000, Start date: 11/10/16 21:49:00 CDT, Duration: 1 doses or times, Stop date: 11/11/16 5:48:00 CDT Saline No 10 mL, Memoria Flush 0.9% 11-11 Route: l 02:49: IVP, Drug Vincenzo 00 Form: INJ, Dosing Weight 68.182, kg, PRN, PRN Line Flush, Start date: 11/10/16 21:49:00 CDT, Duration: 30 day, Stop date: 12/10/16 21:48:00 CDT Potassium 2015-06 No Notes: Memori a Chloride 2-10 (Same as: l 1.33 MEQ/ML 06:54: Potassium H ermann Oral 00 Chloride) Solution Calcium 2015-06 No 1,000 mL, Memor ia Chloride 2-10 1,000 l 0.0014 05:53: ml/hr, Hallie MEQ/ML / 00 Infuse Potassium Over: 1 Chloride hr, Route: 0.004 IV, 1,000, MEQ/ML / Drug form: Sodium INJ, ONCE, Chloride Dosing 0.103 Weight MEQ/ML / 71.591 kg, Sodium Start Lactate date: 0.028 05/13/16 MEQ/ML 23:53:00 Injectable ENTRY LEVEL RECEPTIONIST, Stop Solution date: 05/13/16 23:53:00 ENTRY LEVEL RECEPTIONIST Ondansetron 2015-06 No Notes: Michael mani 2-10 (Same as: l 05:43: Zofran) MEDICATION WASTE Product Size: 4 mg Product Wasted: ___ mg Phenergan 2015-06 No Notes: Do Mem oria 2-10 not give l 05:43: IV push. (Same as: Phenergan) Calcium 2015-06 No 500 mL, Memoria Chloride 2-10 500 ml/hr, l 0.0014 05:27: Infuse Vincenzo MEQ/ML / 00 Over: 1 Potassium hr, Route: Chloride IV, 500, 0.004 Drug form: MEQ/ML / INJ, ONCE, Sodium Dosing Chloride Weight 0.103 71.591 kg, MEQ/ML / Start Sodium date: Lactate 05/13/16 0.028 23:27:00 MEQ/ML ENTRY LEVEL RECEPTIONIST, Stop Injectable date: Solution 05/13/16 23:27:00 ENTRY LEVEL RECEPTIONIST MedroxyPROG Yes Danielito 1 tab(s) Memoria ESTERone 4-06 Paul l Acetate 00:00: ibuprofen Yes Danielito 1 tab(s) Me moria 3-23 Paul l 00:00: azithromyci Yes Danielito 1 tab(s) Memoria n 3-23 Paul l 00:00: ciprofloxac Yes Danielito 1 tab(s) Memoria in 3-23 Paul l 00:00: Bromfed DM 2014-06 Yes Danielito 10 mL Michael mani 2-15 Paul l 00:00: promethazin Yes 12.5 mg = M emoria e 12.5 mg 7-21 1 tab, PO, l oral tablet 20:28: TID, X 5 He rmann day, # 15 tab, 0 Refill(s) Ciprofloxac Yes 500 mg = 1 Memoria in 500 MG 7-21 tab, PO, l Oral Tablet 20:28: Q12H, X 7 H ermann [Cipro] day, # 14 tab, 0 Refill(s) Ondansetron No 4 mg = 1 Me moria 4 MG Oral 7-21 tab, PO, l Tablet 19:46: BID, X 5 Vincenzo [Zofran] 00 day, # 10 tab, 0 Refill(s) cefdinir No 300 mg = 1 Mem oria 300 MG Oral 7-21 cap, PO, l Capsule 19:46: Q12H, X 14 Herm chandler [Omnicef] day, # 28 cap, 0 Refill(s) Azithromyci No Notes: Michael mani n 7-21 (Same As: l 06:00: Zithromax Vincenzo 00 IV) Phenergan No Notes: Do Mem oria 7-21 not give l 03:12: IV push. Vincenzo 00 (Same as: Phenergan) Phenergan No 25 mg, Memori a 7-21 Route: PO, l 03:07: Q6H, Hallie 00 Dosing Weight 72.727, kg, PRN as needed for nausea/vom iting, Start date: 12/22/14 22:07:00, Duration: 30 day, Stop date: 01/21/15 22:06:00 Rocephin No Notes: Memoria 7-20 (Same As: l 22:00: Rocephin). Use with 100ml NS mini-bag PLUS and infuse over 30 min MEDICATION WASTE Product Size: 1000 mg Product Wasted: ___ mg azithromyci No Notes: Michael mani n 500 mg 7-20 Take 1 l oral tablet 14:00: hour Jonas n 00 before or 2 hours after meals. (Same As: Zithromax) potassium No Notes: Memori a chloride 7-19 (Same as: l 22:23: K-Dur 20) "Do Not Crush" With food and full glass of water Saline No Notes: Memoria Flush 0.9% 7-19 preservati l 21:24: ve free. Hallie 00 Sodium No 1,000 mL, Memori a Chloride 7-19 Rate: 150 l 0.154 21:24: ml/hr, Hallie MEQ/ML 00 Infuse Injectable over: 6.7 Solution hr, Route: IV, Dosing Weight 72.727 kg, Total Volume: 1,000, Start date: 12/21/14 16:24:00, Duration: 30 day, Stop date: 01/20/15 16:23:00 Ondansetron No Notes: Michael mani 12-21 (Same as: l 21:24: Zofran) Vincenzo 00 MEDICATION WASTE Product Size: 4 mg Product Wasted: ___ mg Acetaminoph No Notes: Do M emoria en 12-21 not exceed l 21:24: 4 gm/day. Vincenzo 00 (Same as: Tylenol) Potassium No 40 mEq, 2 Mem oria Chloride 20 12-21 tab, l MEQ 19:12: Route: PO, Vincenzo Extended 00 Drug form: Release ERTAB, Tablet ONCE, Dosing Weight 77.273, kg, Priority: STAT, Start date: 12/21/14 14:12:00, Stop date: 12/21/14 14:12:00 Ceftriaxone No 1 gm, Memor ia 12-21 Route: l 19:07: IVPB, Drug Vincenzo 00 form: PDR/INJ, ONCE, Dosing Weight 77.273, kg, Priority: STAT, Start date: 12/21/14 14:07:00, Stop date: 12/21/14 14:07:00 Motrin No 600 mg, Memoria 12-21 Route: PO, l 19:06: Drug form: Vincenzo 00 TAB, ONCE, Dosing Weight 77.273, kg, Priority: STAT, Start date: 12/21/14 14:06:00, Stop date: 12/21/14 14:06:00 Sodium 0 No 1,000 mL, Memori a Chloride 12-21 1,000 l 0.154 18:01: ml/hr, Vincenzo MEQ/ML 00 Infuse Injectable Over: 1 Solution hr, Route: IV, 1,000, Drug form: INJ, ONCE, Priority: STAT, Dosing Weight 77.273 kg, Start date: 12/21/14 13:01:00, Duration: 1 doses or times, Stop date: 12/21/14 13:01:00 Ondansetron 0 No Notes: Michael mani 12-21 (Same as: l 18:00: Zofran) Vincenzo 00 MEDICATION WASTE Product Size: 4 mg Product Wasted: ___ mg Bromfed DM 2013-06 Yes Danielito 10 mL Michael mani 2-02 Paul l 00:00: Vincenzo 00 ibuprofen 2013-06 Yes Danielito 1 tab(s) Me moria 2-02 Paul l 00:00: Hallie 00 pantoprazol Yes Danielito 1 tab(s) Memoria e 6-25 Paul l 00:00: Vincenzo 00 omeprazole No Danielito 1 cap(s) M emoria 6-21 Paul l 00:00: Vincenzo 00 Vital Signs Vital Name Observation Time Observation Value Comments Source Heart Rate 2016-11-11 06:07:00 [facility] Hallie Respitory Rate 2016-11-11 06:07:00 Memori al Vincenzo Temperature Oral (F) 2016-11-11 06:07:00 98.2 F [facility] Systolic (mm Hg) 2016-11-11 06:07:00 Michael rial Vincenzo Diastolic (mm Hg) 2016-11-11 06:07:00 Mem orial Vincenzo Heart Rate 2016-11-11 04:07:00 [facility] Temperature Oral (F) 2016-11-11 04:07:00 98.6 F [facility] Hallie Systolic (mm Hg) 2016-11-11 04:07:00 Michael rial Hallie Diastolic (mm Hg) 2016-11-11 04:07:00 Mem orial Hallie Respitory Rate 2016-11-11 04:07:00 Memori al Hallie Heart Rate 2016-11-11 02:20:00 [facility] Temperature Oral (F) 2016-11-11 02:20:00 98.3 F [facility] Hallie Respitory Rate 2016-11-11 02:20:00 Memori al Hallie Systolic (mm Hg) 2016-11-11 02:20:00 Michael rial Vincenzo Diastolic (mm Hg) 2016-11-11 02:20:00 Mem orial Vincenzo Height 2016-11-11 02:20:00 165.1 cm [facility] Hallie Weight 2016-11-11 02:20:00 [facility] BMI Calculated 2016-11-11 02:20:00 Memori al Hallie Systolic (mm Hg) 2016-05-14 07:30:00 Michael rial Hallie Diastolic (mm Hg) 2016-05-14 07:30:00 Mem orial Vincenzo Systolic (mm Hg) 2016-05-14 06:59:00 Michael rial Vincenzo Diastolic (mm Hg) 2016-05-14 06:59:00 Mem orial Hallie Systolic (mm Hg) 2016-05-14 06:29:00 Michael rial Vincenzo Diastolic (mm Hg) 2016-05-14 06:29:00 Mem orial Hallie Height 2016-05-14 05:00:00 165.1 cm [facility] BMI Calculated 2016-05-14 05:00:00 Memori al Hallie Weight 2016-05-14 05:00:00 [facility] Respitory Rate 2016-05-14 05:00:00 Memori al Hallie Heart Rate 2016-05-14 05:00:00 [facility] Hallie Height 2015-09-09 17:00:00 [facility] Diastolic (mm Hg) 2015-09-09 17:00:00 Mem orial Hallie Systolic (mm Hg) 2015-09-09 17:00:00 Michael rial Vincenzo Temperature Oral (F) 2015-09-09 17:00:00 98.2 F [facility] Weight 2015-09-09 17:00:00 [facility] Hallie Height 2015-08-26 17:00:00 [facility] Hallie Diastolic (mm Hg) 2015-08-26 17:00:00 Mem orial Vincenzo Systolic (mm Hg) 2015-08-26 17:00:00 Michael rial Vincenzo Temperature Oral (F) 2015-08-26 17:00:00 97.8 F [facility] Vnicenzo Weight 2015-08-26 17:00:00 [facility] Height 2015-05-19 20:00:00 [facility] Hallie Diastolic (mm Hg) 2015-05-19 20:00:00 Mem orial Vincenzo Systolic (mm Hg) 2015-05-19 20:00:00 Michael rial Hallie Temperature Oral (F) 2015-05-19 20:00:00 98.4 F [facility] Hallie Weight 2015-05-19 20:00:00 [facility] Weight 2015-02-20 12:32:00 [facility] BMI Calculated 2015-02-20 12:32:00 Memori al Vinc[place] Height 2015-02-20 12:32:00 165.1 cm [facility] Hallie Temperature Oral (F) 2015-02-20 12:32:00 99.0 F [facility] Hallie Systolic (mm Hg) 2015-02-20 12:32:00 Michael rial Vincenzo Diastolic (mm Hg) 2015-02-20 12:32:00 Mem orial Vincenzo Heart Rate 2015-02-20 12:32:00 [facility] Hallie Respitory Rate 2015-02-20 12:32:00 Memori al Vincenzo Systolic (mm Hg) 2014-12-23 20:58:00 Michael rial Hallie Diastolic (mm Hg) 2014-12-23 20:58:00 Mem orial Hallie Respitory Rate 2014-12-23 20:58:00 Memori al Vincenzo Temperature Oral (F) 2014-12-23 20:58:00 98.1 F [facility] Heart Rate 2014-12-23 20:58:00 [facility] Temperature Oral (F) 2014-12-23 17:00:00 98.1 F [facility] Hallie Systolic (mm Hg) 2014-12-23 17:00:00 Michael rial Vincenzo Diastolic (mm Hg) 2014-12-23 17:00:00 Mem orial Vincenzo Heart Rate 2014-12-23 17:00:00 [facility] Respitory Rate 2014-12-23 17:00:00 Memori al Hallie Temperature Oral (F) 2014-12-23 13:00:00 99.0 F [facility] Hallie Systolic (mm Hg) 2014-12-23 13:00:00 Michael rial Hallie Diastolic (mm Hg) 2014-12-23 13:00:00 Mem orial Vincenzo Heart Rate 2014-12-23 13:00:00 [facility] Respitory Rate 2014-12-23 13:00:00 Memori al Vincenzo Height 2014-12-21 20:39:00 165.1 cm [facility] BMI Calculated 2014-12-21 20:39:00 Memori al Hallie Weight 2014-12-21 20:39:00 [facility] Hallie BMI Calculated 2014-12-21 17:08:00 Memori al Vincenzo Height 2014-12-21 17:08:00 165.1 cm [facility] Weight 2014-12-21 17:08:00 [facility] Hallie Height 2014-05-06 22:45:00 [facility] Hallie Diastolic (mm Hg) 2014-05-06 22:45:00 Mem orial Vincenzo Systolic (mm Hg) 2014-05-06 22:45:00 Michael rial Vincenzo Temperature Oral (F) 2014-05-06 22:45:00 98.6 F [facility] Weight 2014-05-06 22:45:00 [facility] Procedures This patient has no known procedures. Encounters Start End Encounter Admission Attending Care Care Encounter Source Date/Time Date/Time Type Type Clinicians Facility Department ID 2016-11-10 2016-11-11 Outpatient Suyapa [facility] [id number] 21:15:00 01:10:00 Rohan 04 Iva 2016-05-13 2016-05-14 Outpatient Quiana [facility] [id number] 22:34:00 01:44:00 Messi Tineo 2015-09-09 2015-09-09 Outpatient Outpatien Outpatient [id number] [facility] 12:00:00 12:00:00 t Clinical Eron booker Clinical Care, PA Care, PA 2015-08-26 2015-08-26 Outpatient Outpatien Outpatient [id number] [facility] 12:00:00 12:00:00 t Clinical Eron booker Clinical Care, PA Care, PA 2015-05-19 2015-05-19 Outpatient Outpatien Outpatient [id number] [facility] 14:00:00 14:00:00 t Clinical Eron booker Clinical Care, PA Care, PA 2015-02-20 2015-02-20 Outpatient Arsh [facility] [id number] 07:28:00 09:10:00 Caroline bailey 02 A 2014-12-21 2014-12-23 Outpatient Narciso [facility] [id number] 12:07:00 16:35:00 Jameel Roaa 01 2014-05-06 2014-05-06 Outpatient Outpatien Outpatient [id number] [facility] 16:45:00 16:45:00 t Clinical Eron booker Clinical Care, PA Care, PA 2013-11-27 2013-11-27 Outpatient Outpatien Outpatient [id number] [facility] 10:44:00 10:44:00 t Clinical Eron booker Clinical Care, PA Care, PA Results Test Description Test Time Test Comments Results Result [facility] e Comments CHEM PANEL 2016-11-11 131 [facility] 03:08:00 Hallie ELECTROLYTES 2016-11-11 10.3 [facility] 03:08:00 Vincenzo ELECTROLYTES 2016-11-11 0.9 [facility] 03:08:00 Hallie ELECTROLYTES 2016-11-11 3.7 [facility] 03:08:00 Hallie ELECTROLYTES 2016-11-11 8 [facility] 03:08:00 Vincenzo ELECTROLYTES 2016-11-11 0.3 [facility] 03:08:00 Hallie ELECTROLYTES 2016-11-11 146 [facility] 03:08:00 Hallie ELECTROLYTES 2016-11-11 21 [facility] 03:08:00 Hallie ELECTROLYTES 2016-11-11 7.1 [facility] 03:08:00 Vincenzo ELECTROLYTES 2016-11-11 28 [facility] 03:08:00 Vincenzo ELECTROLYTES 2016-11-11 3.4 [facility] 03:08:00 Hallie ELECTROLYTES 2016-11-11 8.2 [facility] 03:08:00 Hallie ELECTROLYTES 2016-11-11 13 [facility] 03:08:00 Hallie ELECTROLYTES 2016-11-11 123 [facility] 03:08:00 Vincenzo ELECTROLYTES 2016-11-11 6 [facility] 03:08:00 Vincenzo ELECTROLYTES 2016-11-11 71 [facility] 03:08:00 Vincenzo ELECTROLYTES 2016-11-11 139 [facility] 03:08:00 Hallie ELECTROLYTES 2016-11-11 0.71 [facility] 03:08:00 Hallie ELECTROLYTES 2016-11-11 3.3 [facility] 03:08:00 Hallie ELECTROLYTES 2016-11-11 104 [facility] 03:08:00 Vincenzo ENDOCRINOLOGY 2016-11-11 Negative [facility] 03:08:00 *NA*(11/10/16 Hallie 10:08 PM) HEMATOLOGY 2016-11-11 222 [facility] 03:08:00 Vincenzo HEMATOLOGY 2016-11-11 8.8 [facility] 03:08:00 Hallie HEMATOLOGY 2016-11-11 32.9 [facility] 03:08:00 Vincenzo HEMATOLOGY 2016-11-11 13.4 [facility] 03:08:00 Hallie HEMATOLOGY 2016-11-11 86.9 [facility] 03:08:00 Hallie HEMATOLOGY 2016-11-11 03:08:00 Test Item Value Reference Range Interpretation Comme nts MCH (test code = MCH) 28.6 pg 27.0-31.0 [facility] [id number] 03:08:0041.9[facility] HermannHEMATOLOGY 2016-11-11 03:08:004.82[facility] [id number] 03:08:0013.8[facility] [id number] 03:08:007.9[facility] WglhssvXVRAQFPPZR3152-64-28 03:08:000.3[facility] IfbssgaFVNZXTEMNI2201-50-93 03:08:000.0[facility] [id number] 03:08:0032.0[facility] TbupgflKOYKGKKYTN8713-15-74 03:08:00 2.5[facility] ElvgydkEOKUKPLXSW7353-08-86 03:08:000.6[facility] HermannHEMATOLOGY 2016-11-11 03:08:004.5[facility] WxxhlwiUIGXKAVTFS1011-58-72 03:08:003.3[facility] HgjsvxwSFCIVTPJME8086-31-91 03:08:000.4[facility] LhfqffyERMZYZQZGG2580-07-92 03:08:007.5[facility] [id number] 03:08:0056.8[facility] URINE AND [id number] 03:08:0029[facility]annURINE AND [id number] 03:08:00Negative (11/10/16 10:08 PM)[facility] [id number] 03:08:07703Kbxppsaw HermannURINE AND [id number] 03:08:00Light Yellow *NA*(11/10/16 10:08 PM)[facility] [id number] 03:08:006.0 [facility] [id number] 03:08:00Clear (11/10/16 10:08 PM) [facility] [id number] 03:08:001.005[facility] AND [id number] 03:08:00Negative *NA*(11/10/16 10:08 PM)[facility] [id number] 03:08:00Large *ABN*(11/10/16 10:08 PM)[facility] [id number] 03:08:00Negative (11/10/16 10:08 PM)[facility] CHEM 2016-11-11 03:08:00Negative (11/10/16 10:08 PM)[facility] HermannCHEM PANEL 2016-05-14 06:04:005[facility] HermannCHEM [id number] 06:04:0099[facility]annCHEM [id number] 06:04:0011.3[facility] HermannCHEM [id number] 06:04:008.6[facility]annCHEM [id number] 06:04:81054Twragmzb HermannCHEM [id number] 06:04:003.3[facility]annCHEM [id number] 06:04:98084 [facility]annCHE[facility] [id number] 06:04:0024[facility] HermannCHEM PANEL 2016-05-14 06:04:000.60[facility]annCHEM [id number] 06:04:06247Uzrqteka HermannMOLECULAR [id number] 06:04:00Negative *NA*(05/14/16 12:04 AM) [facility]annMOLECULAR [id number] 06:04:00Endocervix (05/14/16 12:04 AM)[facility]annMOLECULAR [id number] 06:04:00Negative *NA*(05/14/16 12:04 AM)[facility] [id number] 06:04:00<1 [facility] [id number] 06:04:00Small *ABN*(05/14/16 12:04 AM) [facility] [id number] 06:04:005[facility] AND [id number] 06:04:00Light Yellow *NA*(05/14/16 12:04 AM)[facility] URINE AND [id number] 06:04:00<=1.0[facility]ann[facility] AND STOOL 2016-05-14 06:04:00Negative (05/14/16 12:04 AM)[facility] STOOL 2016-05-14 06:04:00Negative (05/14/16 12:04 AM)[facility] STOOL 2016-05-14 06:04:00Negative *NA*(05/14/16 12:04 AM)[facility] AND [id number] 06:04:001.008[facility] SZLGS4477-82-50 06:04:00 6.0[facility] BCHYX3935-13-61 06:04:00Slight *ABN*(05/14/16 12:04 AM)[facility]annCHEM FUXUH8247-54-68 10:50:44031Xrbmpvgl HermannCHEM PANEL 2014-12-23 10:50:008.1[facility]annCHEM PWMEO8194-06-18 10:50:0021[facility]annCHEM YVQPQ1627-43-43 10:50:78568Npwobfcz HermannCHEM UWQSC6673-30-91 10:50:003.6[facility]annCHE[facility] DJURI3645-69-61 10:50:43929Kwgbujqu HermannCHEM FVFRN5966-26-82 10:50:000.5[facility]annCHEM IWCOP5148-34-66 10:50:003 [facility]annCHEM BPHHN3262-88-10 10:50:0086[facility]annCHEM PANEL 2014-12-23 10:50:0013.6[facility] TwlkggqUZXPWFCLJN5171-67-45 10:50:009.8[facility] IjvzissHJWNVOYXLV1371-87-69 10:50:40571Txbephnh EcvtcfzQDWMHDDXUZ2308-53-96 10:50:0013.6[facility] WkemycgDZGOJCLMWZ5451-11-08 10:50:0033.8[facility] KVZYDSVEMM9643-39-91 10:50:0086.6[facility] XuvwewwKNZUVOXMVT1480-65-28 10:50:00 Test Item Value Reference Range Interpretation Comments MCH (test code = MCH) 29.3 pg 27.0-31.0 [facility] EiygltnCIWYRHEDKS9247-73-37 10:50:0034.7[facility]annHEMATOLOGY 2014-12-23 10:50:0011.8[facility] VssjysdNZCENVYDMF3199-23-16 10:50:009.1[facility] ApfmetpJZQLGAVAII5468-56-11 10:50:004.01[facility]annCHEM MZARS9485-52-49 10:43:74019Ikwvktbq HermannCHEM KPSQJ5596-64-09 10:43:007.8[facility]annCHEM WJYEU1711-59-75 10:43:0086[facility]annCHEM LDEHK7302-18-28 10:43:51523 [facility]annCHEM FXECU0882-96-13 10:43:000.6[facility] HermannCHEM PANEL 2014-12-22 10:43:007[facility] HermannCHEM KPUWA4591-60-02 10:43:45487Zwjfzlfy HermannCHEM IMVND8349-73-64 10:43:003.5[facility] HermannCHEM ZOLYT2273-20-54 10:43:0013.5[facility] HermannCHEM NSGPH7211-69-29 10:43:0021[facility]ie GJNTKZQOCY9076-90-67 10:43:008.7[facility] HxonbinYKCLQVHYWR1290-91-99 10:43:009.3 [facility] UfnzwhvZNPNFGHHJJ0291-40-27 10:43:000.2[facility] HermannHEMATOLOGY 2014-12-22 10:43:0010.6[facility] JjkfzwvEPOAJXYEIJ8043-26-84 10:43:001.1[facility] SlgdlndMZZGKDUFPQ9832-54-11 10:43:001.2[facility] PxhsjayVPXMWPGKYB8644-02-19 10:43:0081.8[facility] EigoifjRIDLGZOASJ8493-76-73 10:43:08645Pawvexbi Hallie HANRSCYXLQ4399-95-58 10:43:0013.3[facility] FmnotkwPIKTIQZUQL5936-18-20 10:43:00 Test Item Value Reference Range Interpretation Comments MCH (test code = MCH) 29.2 pg 27.0-31.0 [facility] JtcmmcaJBFTECFSMZ2764-26-72 10:43:0034.8[facility] HermannHEMATOLOGY 2014-12-22 10:43:0083.9[facility] NdypjgbEKFFAFKXRT1424-30-05 10:43:0012.5[facility] JrvhzenJNISDNALKU1033-70-73 10:43:0036.0[facility] VnxwqjcDUBAHZOPLD6203-92-83 10:43:0012.9[facility] HjxmfyfGKGDTWEUGS8395-34-22 10:43:004.28[facility] OTQSWROLCV3759-33-71 10:43:009.7[facility] HermannMOLECULAR UTWWOIOZWA4400-24-93 23:08:00Negative *NA*(12/21/14 6:08 PM)[facility] HermannMOLECULAR DIAGNOSTIC 2014-12-21 23:08:00Positive 4*ABN*(12/21/14 6:08 PM)[facility] HermannMOLECULAR RFNPGANALP9458-56-22 23:08:00Endocervix *NA*(12/21/14 6:08 PM)[facility] CHEM TDUKI3926-18-21 19:29:000.7[facility] HermannCHEM HVOLX9903-90-69 19:29:00 0.05[facility] HermannCHEM AIWNQ8117-40-37 18:05:0085[facility] HermannCHEM PANEL 2014-12-21 18:05:004.3[facility] HermannCHEM HPSDW4335-43-35 18:05:000.9[facility] HermannCHEM RSSDI8674-46-95 18:05:0010.1[facility]annCHEM TWFDO1659-30-29 18:05:0010[facility] HermannCHEM NIJSK9614-85-95 18:05:58637Heusoxhy HermannCHEM PFBEB1338-19-42 18:05:000.8[facility] HermannCHEM EFVDR4483-76-31 18:05:0025 [facility]annCHEM KAKTM2967-93-56 18:05:003.1[facility] HermannCHEM PANEL 2014-12-21 18:05:14117Kvephquh HermannCHEM OCAHY3368-82-62 18:05:008.4[facility]annCHEM LZDXL5386-20-87 18:05:008.0[facility]annCHEM AOWBS9784-93-42 18:05:003.7[facility]annCHEM JXASO8234-30-79 18:05:000.8[facility] HermannCHEM LNGEL2831-05-22 18:05:92695Eueyjjpe HermannCHEM RPXJW1535-80-93 18:05:0014 [facility]annCHEM SDWLU9860-04-08 18:05:006[facility] HermannCHEM PANEL 2014-12-21 18:05:008[facility] HermannCHEM MTXFP2658-48-57 18:05:35918Yqhobfrj GtyqjyaQBLGLKBIQN8203-51-82 18:05:0042.0[facility] ObpuorkNGESOVJOII5131-51-60 18:05:0014.1[facility] WbgcpesVNNEAMVCSA7199-72-46 18:05:0013.4[facility] VXIPFTOXRM7155-96-88 18:05:0085.5[facility] NtavimjQQDQLUAZFM9867-59-55 18:05:00 196[facility] KdfgbfkQUFLJQNMHD5137-17-15 18:05:009.6[facility] HermannHEMATOLOGY 2014-12-21 18:05:004.91[facility] NapknuaCFKTYDPRVN0515-84-77 18:05:0017.1[facility] OqbuqobRSEJWJTQLY7994-45-60 18:05:0033.7[facility] ZfungrcJISHXYEOQL3532-99-01 18:05:00 Test Item Value Reference Range Interpretation Comments MCH (test code = MCH) 28.8 pg 27.0-31.0 [facility] QodhwsrDESVSWPXYH4354-13-14 18:05:00Normal (12/21/14 1:05 PM)[facility] BxraxqyEUYJQORVXR1755-74-89 18:05:007.3[facility] RfdnmnoPPWAXCAQXI7178-30-40 18:05:000.0[facility] MryeqpaLOGDOJWGJT8520-25-24 18:05:000.2[facility] DPMIJBILXT0073-70-74 18:05:0014.2[facility] JqaqraeWELPXYBEDV7183-96-79 18:05:00 9.4[facility] IqygwvaYGWVRSYHZF1101-75-29 18:05:001.6[facility] HermannHEMATOLOGY 2014-12-21 18:05:001.3[facility] XfheocbILZQFTOKSC1881-33-62 18:05:000.0[facility] JnoeycgNUKNMFZSLY1672-78-53 18:05:000.0[facility] AtcjucoULKWBBCMCS7433-23-39 18:05:00Normal (12/21/14 1:05 PM)[facility] RbmcmyjKKPATEBOMX6678-47-36 18:05:00 83.1[facility] HermannURINE AND WIMYH1902-09-06 18:05:00Large *ABN*(12/21/14 1:05 PM)[facility]annURINE AND GENJZ3560-31-88 18:05:00Small *ABN*(12/21/14 1:05 PM)[facility]annUR[facility] AND KDKNW1482-80-72 18:05:00Trace *ABN*(12/21/14 1:05 PM)[facility] AND HHXMJ8246-62-71 18:05:00Small *ABN*(12/21/14 1:05 PM)[facility] AND VZCMO4504-52-22 18:05:00Negative (12/21/14 1:05 PM) [facility] AND QNFGU5711-81-77 18:05:000.2[facility]annUR[facility] AND MLGCT0602-49-30 18:05:00Slight Cloudy (12/21/14 1:05 PM)[facility] AND ISFYM2189-46-90 18:05:00Yellow *NA*(12/21/14 1:05 PM)[facility] AND QWCKD0449-05-73 18:05:00 Test Item Value Reference Range Interpretation Comments UA pH (test code = UA pH) 6.0 1 5.0-8.0 [facility] AND NWJWJ4141-49-09 18:05:00Negative (12/21/14 1:05 PM) [facility] AND LAOLA7298-32-56 18:05:00 Test Item Value Reference Range Interpretation Comments UA Spec Grav (test code = UA Spec 1.025 1 Grav) [facility]annURINE OPJU9039-40-06 18:05:00Negative (12/21/14 1:05 PM)[facility]endo[facility] Loya
--- NOTE | 2019-11-21 18:07 | ER ---
Nurse's Notes [facility] Name: Rossana Monge Age: 23 yrs Sex: Female : 1995 Arrival Date: 11/21/2019 Time: 15:26 Bed 19 Private MD: Diagnosis: Acute pharyngitis Presentation: 11/20 15:33 Chief complaint: Patient states: Fatigue, N/V, low grade fever and headache that began ss yesterday evening. Pt denies headache or fever this morning, but now has an itchy throat. Pt reports she has been around a person who has recently been diagnosed with Covid-19. Coronavirus screen: Patient denies a cough. Patient denies shortness of breath or difficulty breathing. Patient denies measured and/or subjective temperature greater than 100.4F prior to today's visit. Patient denies travel on a cruise ship or to a country the [facility] currently lists as an affected area. Patient reports contact with known and/or suspected case of COVID-19. Ebola Screen: Patient denies exposure to infectious person. Patient denies travel to an Ebola-affected area in the 21 days before illness onset. Initial Sepsis Screen: Does the patient meet any 2 criteria? No. Patient's initial sepsis screen is negative. Does the patient have a suspected source of infection? No. Patient's initial sepsis screen is negative. Risk Assessment: Do you want to hurt yourself or someone else? Patient reports no desire to harm self or others. Onset of symptoms was November 21, 2019. 15:33 Method Of Arrival: Ambulatory ss 15:33 Acuity: SHERRIE 3 ss Historical: - Allergies: 15:37 No Known Allergies; ss - Home Meds: 15:37 None [Active]; ss - PMHx: 15:37 None; ss - PSHx: 15:37 None; ss - Immunization history:: Adult Immunizations unknown. - Social history:: Smoking status: Patient reports the use of cigarette tobacco products, denies chronic smoking, but will smoke occasionally. Screenin:30 Abuse screen: Denies threats or abuse. Denies injuries from another. Nutritional jl7 screening: No deficits noted. Tuberculosis screening: No symptoms or risk factors identified. Fall Risk None identified. Assessment: 16:00 General: Appears in no apparent distress. uncomfortable, Behavior is calm, cooperative, jl7 appropriate for age. Pain: Denies pain. Neuro: Level of Consciousness is awake, alert, obeys commands, Oriented to person, place, time, situation. Cardiovascular: Patient's skin is warm and dry. Respiratory: Airway is patent Respiratory effort is even, unlabored, Respiratory pattern is regular, symmetrical. GI: Abdomen is non-distended, Reports nausea, vomiting. EENT: Throat is clear. Derm: Skin is pink, warm \T\ dry. 17:00 Reassessment: Patient appears in no apparent distress at this time. No changes from jl7 previously documented assessment. Patient and/or family updated on plan of care and expected duration. Pain level reassessed. Patient is alert, oriented x 3, equal unlabored respirations, skin warm/dry/pink. 18:00 Reassessment: Patient appears in no apparent distress at this time. No changes from jl7 previously documented assessment. Patient and/or family updated on plan of care and expected duration. Pain level reassessed. Patient is alert, oriented x 3, equal unlabored respirations, skin warm/dry/pink. Vital Signs: 15:33 BP 119 / 80; Pulse 83; Resp 16; Temp 98.3(TE); Pulse Ox 100% on R/A; Weight 68.04 kg; Height 5 ft. 5 in. (165.10 cm); Pain 0/10; 17:30 BP 119 / 81; Pulse 73; Resp 16; Pulse Ox 99% ; jl7 18:00 BP 106 / 80; Pulse 72; Resp 16; Pulse Ox 100% ; jl7 15:33 Body Mass Index 24.96 (68.04 kg, 165.10 cm) ED Course: 15:26 Patient arrived in ED. ag5 15:37 Triage completed. 15:37 Arm band placed on left wrist. 16:01 Mikel Koenig PA is PHCP. cp 16:01 Carlos Buckley MD is Attending Physician. cp 16:58 Danny Rashid RN is Primary Nurse. 7 17:22 Flu and/or RSV swab sent to lab. Strep swab sent to lab. COVID-19 swab sent to lab. jl7 17:30 Patient has correct armband on for positive identification. Bed in low position. Call [facility] light in reach. Side rails up X 1. Pulse ox on. NIBP on. 18:25 No provider procedures requiring assistance completed. Patient did not have IV access jl7 during this emergency room visit. Administered Medications: No medications were administered Outcome: 18:06 Discharge ordered by . angela 18:25 Discharged to home ambulatory. jl7 18:25 Condition: stable 18:25 Discharge instructions given to patient, Instructed on discharge instructions, follow up and referral plans. Demonstrated understanding of instructions, follow-up care. 18:25 Patient left the ED. jl7 Addendum: 11/25/2019 14:21 Addendum: Other pt notified of negative COVID-19 swab results. Pt advised to remain in d m5 isolation until she is symptom free for 3 days and to return to the ED if symptoms worsen. Signatures: Marisa Marrero, RN RN dm5 Dimple Fenton RN RN Mikel Oquendo, Danny Estrada cp, RN RN jl7 Sindi Alfonso [facility]
--- NOTE | 2019-11-21 18:07 | EDPHYS ---
Physician Documentation [facility] Name: Rossana Monge Age: 23 yrs Sex: Female : 1995 Arrival Date: 11/21/2019 Time: 15:26 Bed 19 Private MD: ED Physician Carlos Buckley HPI: 11/20 16:25 This 23 yrs old Female presents to ER via Ambulatory with complaints of Fever, cp Nausea/Vomiting, Weakness. 16:25 The patient reports fever, not measured (subjective). Onset: The symptoms/episode cp began/occurred yesterday. Associated signs and symptoms: Pertinent positives: sore throat, body aches. Historical: - Allergies: 15:37 No Known Allergies; ss - Home Meds: 15:37 None [Active]; ss - PMHx: 15:37 None; ss - PSHx: 15:37 None; ss - Immunization history:: Adult Immunizations unknown. - Social history:: Smoking status: Patient reports the use of cigarette tobacco products, denies chronic smoking, but will smoke occasionally. ROS: 16:30 Constitutional: Positive for body aches, Negative for fever, poor PO intake. cp 16:30 Respiratory: Negative for cough, shortness of breath, wheezing. cp 16:30 Eyes: Negative for injury, pain, redness, and discharge. cp 16:30 ENT: Positive for sore throat, Negative for drainage from ear(s), ear pain, difficulty cp swallowing, difficulty handling secretions. 16:30 Cardiovascular: Negative for chest pain. 16:30 Abdomen/GI: Negative for abdominal pain, diarrhea, constipation, active vomiting. 16:30 : Negative for urinary symptoms. 16:30 All other systems are negative. Exam: 16:35 Constitutional: The patient appears in no acute distress, alert, awake, non-toxic, well cp developed, well nourished. 16:35 Head/Face: Normocephalic, atraumatic. cp 16:35 Eyes: Periorbital structures: appear normal, Conjunctiva: normal, no exudate, no injection, Lids and lashes: appear normal, bilaterally. 16:35 ENT: External ear(s): are unremarkable, Nose: is normal, Mouth: Lips: moist, Oral mucosa: moist, Posterior pharynx: Airway: no evidence of obstruction, patent, Tonsils: no enlargement, no exudate, swelling, is not appreciated, erythema, that is mild. 16:35 Neck: Lymph nodes: no appreciated lymphadenopathy. 16:35 Chest/axilla: Inspection: normal, Palpation: is normal, no crepitus, no tenderness. 16:35 Cardiovascular: Rate: normal, Rhythm: regular. 16:35 Respiratory: the patient does not display signs of respiratory distress, Respirations: normal, no use of accessory muscles, no retractions, labored breathing, is not present, Breath sounds: are clear throughout, no decreased breath sounds, no stridor, no wheezing. 16:35 Abdomen/GI: Exam negative for discomfort, distension, guarding, Inspection: abdomen appears normal. 16:35 Skin: no rash present. Vital Signs: 15:33 BP 119 / 80; Pulse 83; Resp 16; Temp 98.3(TE); Pulse Ox 100% on R/A; Weight 68.04 kg; ss Height 5 ft. 5 in. (165.10 cm); Pain 0/10; 17:30 BP 119 / 81; Pulse 73; Resp 16; Pulse Ox 99% ; jl7 18:00 BP 106 / 80; Pulse 72; Resp 16; Pulse Ox 100% ; jl7 15:33 Body Mass Index 24.96 (68.04 kg, 165.10 cm) ss MDM: 16:03 Patient medically screened. cp 16:30 Differential diagnosis: viral Infection, bacterial infection, bronchitis, pneumonia cp UTI, gastroenteritis, meningitis. 18:05 Data reviewed: vital signs, nurses notes, lab test result(s), and as a result, I will cp discharge patient. 18:05 Counseling: I had a detailed discussion with the patient and/or guardian regarding: the cp historical points, exam findings, and any diagnostic results supporting the discharge/admit diagnosis, lab results, to return to the emergency department if symptoms worsen or persist or if there are any questions or concerns that arise at home. ED course: VSS. Patient instructed to self quarantine with family while awaiting results of COVID-19 testing. 11/20 16:23 Order name: COVID-19 cp 11/20 16:23 Order name: Flu cp 11/20 16:23 Order name: Strep cp 11/20 17:59 Order name: Throat Culture EDMS 11/20 16:23 Order name: Labs collected and sent; Complete Time: 16:58 cp 11/20 16:23 Order name: O2 Per Protocol; Complete Time: 16:58 cp Administered Medications: No medications were administered Disposition: 11/21 14:55 Co-signature as Attending Physician, Carlos Buckley MD I agree with the assessment and kdr plan of care. Disposition: 11/21/19 18:06 Discharged to Home. Impression: Acute pharyngitis. - Condition is Stable. - Discharge Instructions: Sore Throat. - Prescriptions for Ibuprofen 800 mg Oral Tablet - take 1 tablet by ORAL route every 8 hours As needed take with food; 30 tablet. - Medication Reconciliation Form, Thank You Letter, Antibiotic Education, Prescription Opioid Use form. - Follow up: Private Physician; When: 2 - 3 days; Reason: Worsening of condition. - Problem is new. - Symptoms have improved. Signatures: Dispatcher [employer] EDND Carlos Buckley MD MD [facility] Dimple Fenton RN RN ss Mikel Koenig PA PA cp Danny Rashid RN RN jl7 Corrections: (The following items were deleted from the chart) 11/20 18:25 18:06 11/21/2019 18:06 Discharged to Home. Impression: Acute pharyngitis. Condition is jl7 Stable. Forms are Medication Reconciliation Form, Thank You Letter, Antibiotic Education, Prescription Opioid Use. Follow up: Private Physician; When: 2 - 3 days; Reason: Worsening of condition. Problem is new. Symptoms have improved. cp
[2019-11-21 18:38] VITALS: TEMP 98.3
[2019-11-21 18:41] VITALS: BP 106/80; O2SAT 100
== END 2019-11-21 18:25 | disposition home or self-care (01) ==
LOC: ER 15:24
DX: J02.9 Acute pharyngitis, unspecified (principal); Z20.828 Contact with and (suspected) exposure to other viral communicable diseases; Z72.0 Tobacco use
CPT/HCPCS: 87070; 87081; 87804 ×2; 99283; U0001

== ENCOUNTER 2019-12-18 11:55 | Emergency (ER) | payer SELFPAY ==
--- OUTSIDE RECORDS SUMMARY | 2019-12-18 12:32 | XMS REPORT | Continuity of Care Document ---
:1995 Author Organization [employer] Care Team Providers Name Role Phone [employer] Unavailable Un available Problems Problem Status Onset Classification Date Comments Sourc e Date Reported Excessive and 11/12/19 11/14/2016 [facility] frequent 17 menstruation with regular cycle Dysmenorrhea, 11/12/19 11/14/2016 [facility] unspecified 17 Unspecified 11/12/19 [facility], [facility] right side Other specified 11/12/19 11/14/2016 [facility] abnormal uterine 17 and vaginal bleeding ABDOMINAL PAIN Active 11/10/19 [facility] 17 Discharge 05/14/20 05/17/2016 [facility] est Diagnosis: 16 related nausea, antepartum Discharge 05/14/20 05/17/2016 [facility] est Diagnosis: 16 Vaginal bleeding in Discharge 05/14/20 05/17/2016 [facility] est Diagnosis: Acute 16 cystitis during , antepartum Discharge 05/14/20 05/17/2016 [facility] est Diagnosis: 16 Infection of urinary tract during . Discharge 05/14/20 05/17/2016 [facility] est Diagnosis: 28 16 weeks gestation of 32WKS Active 05/13/[address] [facility] [address] GEST/ABDOMINAL 16 PAIN FEVER Active 02/21/[address] [facility] [address] 15 VOMITING Active 12/22/[address] [facility] [address] 15 ACUTE Active 12/22/[address] [facility] [address] PYELONEPHRITIS 15 FEVER / LOWER Active 10/31/19 [facility] BACK PAIN 15 Fever, Active Diagnosis [...] Care uncomplicated Acute upper Active Diagnosis 07/11/2015 [facility] ent respiratory Clinical infection, Care unspecified Urinary tract Resolved Problem 11/14/2016 [facility] infectious disease (disorder) Antepartum Resolved Problem 11/14/2016 [facility] hemorrhage (disorder) Urinary tract Active Problem 11/14/2016 So [facility] infection in (disorder) PYELONEPHRITIS Active So [facility] NOS Medications Medication Details Route Status Patient Ordering Order Source Instructions Provider Date Acetaminophen 300 1 - 2 tab, Active MG / Codeine PO, Q4H, PRN 2016 [facility] est Phosphate 30 MG Pain, X 4 Oral Tablet day, # 50 [Tylenol with tab, 0 Codeine #3] Refill(s) Zofran 8 mg, Route: Inactive IVP, Drug 2016 [facility] form: INJ, ONCE, Dosing Weight 68.182, kg, Priority: STAT, Start date: 11/10/16 22:00:00 CDT, Stop date: 11/10/16 22:00:00 CDT Morphine 4 mg, Route: Inactive IV, ONCE, 2016 [facility] Dosing Weight 68.182, kg, Priority: STAT, Start date: 11/10/16 21:59:00 CDT, Stop date: 11/10/16 21:59:00 CDT Sodium Chloride 250 mL, No Longer 0.9% IV Route: IVPB, Active 2016 [facility] Start date: 11/10/16 21:54:00 CDT, Duration: 30 day, Stop date: 12/10/16 21:53:00 CDT, PRN Line Flush BD Normal Saline Notes: (Same No Longer Flush as: BD Active 2016 [facility] Posiflush) Sodium Chloride 1,000 mL, No Longer 0.154 MEQ/ML Rate: 125 Active 2016 [facility] Injectable ml/hr, Infuse Solution over: 8 hr, Route: IV, Dosing Weight 68.182 kg, Total Volume: 1,000, Start date: 11/10/16 21:49:00 CDT, Duration: 1 doses or times, Stop date: 11/11/16 5:48:00 CDT Saline Flush 0.9% 10 mL, Route: Inactive IVP, Drug 2016 [facility] Form: INJ, Dosing Weight 68.182, kg, PRN, [...] 71.591 kg, Solution Start date: 05/13/16 23:53:00 PHYSICAL THERAPY INSTRUCTOR, Stop date: 05/13/16 23:53:00 PHYSICAL THERAPY INSTRUCTOR Ondansetron Notes: (Same No Longer as: Zofran) Active 2015 [facility] MEDICATION WASTE Product Size: 4 mg Product Wasted: ___ mg Phenergan Notes: Do not No Longer give IV push. Active 2015 [facility] (Same as: Phenergan) Calcium Chloride 500 mL, 500 Inactive 0.0014 MEQ/ML / ml/hr, Infuse 2015 [facility] Potassium Over: 1 hr, Chloride 0.004 Route: IV, MEQ/ML / Sodium 500, Drug Chloride 0.103 form: INJ, MEQ/ML / Sodium ONCE, Dosing Lactate 0.028 Weight 71.591 MEQ/ML Injectable kg, Start Solution date: 05/13/16 23:27:00 PHYSICAL THERAPY INSTRUCTOR, Stop date: 05/13/16 23:27:00 PHYSICAL THERAPY INSTRUCTOR MedroxyPROGESTERo 1 tab(s) orally Active 10 mg [...] Active MG Oral Tablet tab, PO, 2014 [facility] t [Cipro] Q12H, X 7 day, # 14 tab, 0 Refill(s) Ondansetron 4 MG 4 mg = 1 tab, Inactive Oral Tablet PO, BID, X [address] [facility] [address] [Zofran] day, # 10 tab, 0 Refill(s) cefdinir 300 MG 300 mg = 1 Inactive Oral Capsule cap, PO, 2014 [facility] [Omnicef] Q12H, X 14 day, # 28 cap, 0 Refill(s) Azithromycin Notes: (Same Inactive As: Zithromax 2014 [facility] IV) Phenergan Notes: Do not No Longer give IV push. Active 2014 [facility] (Same as: Phenergan) Phenergan 25 mg, Route: Inactive PO, Q6H, 2014 [facility] Dosing Weight 72.727, kg, PRN as needed for nausea/vomiti ng, Start date: 12/22/14 22:07:00, Duration: 30 day, Stop date: 01/21/15 22:06:00 Rocephin Notes: (Same No Longer As: Active 2014 [facility] Rocephin). Use with 100ml NS mini-bag PLUS and infuse over 30 min MEDICATION WASTE Product Size: 1000 mg Product Wasted: ___ mg azithromycin 500 Notes: Take 1 No Longer mg oral tablet hour before Active 2014 [facility] or 2 hours after meals. (Same As: Zithromax) potassium Notes: (Same Inactive chloride as: K-Dur ) 2014 [facility] "Do Not Crush" With food and full glass of water Saline Flush 0.9% Notes: No Longer preservative Active 2014 [facility] free. Sodium Chloride 1,000 mL, No Longer 0.154 MEQ/ML Rate: 150 Active 2014 [facility] Injectable ml/hr, Infuse Solution over: 6.7 hr, Route: IV, Dosing Weight 72.727 kg, Total Volume: 1,000, Start date: 12/21/14 16:24:00, Duration: 30 day, Stop date: 01/20/15 16:23:00 Ondansetron Notes: (Same No Longer as: Zofran) Active 2014 [facility] MEDICATION WASTE Product Size: 4 mg Product Wasted: ___ mg Acetaminophen Notes: Do not No Longer exceed 4 Active 2014 [facility] gm/day. (Same as: Tylenol) Potassium 40 mEq, 2 Inactive Chloride 20 MEQ tab, Route: 2014 [facility] PO, Drug Tablet form: ERTAB, ONCE, Dosing Weight 77.273, kg, Priority: STAT, Start date: 12/21/14 14:12:00, Stop date: 12/21/14 14:12:00 Ceftriaxone 1 gm, Route: Inactive IVPB, Drug 2014 [facility] form: PDR/INJ, ONCE, Dosing Weight 77.273, kg, Priority: STAT, Start date: 12/21/14 14:07:00, Stop date: 12/21/14 14:07:00 Motrin 600 mg, Inactive Route: PO, 2014 [facility] Drug form: TAB, ONCE, Dosing Weight 77.273, kg, Priority: STAT, Start date: 12/21/14 14:06:00, Stop date: 12/21/14 14:06:00 Sodium Chloride 1,000 mL, Inactive 0.154 MEQ/ML 1,000 ml/hr, 2014 [facility] Injectable Infuse Over: Solution 1 hr, Route: IV, 1,000, Drug form: INJ, ONCE, Priority: STAT, Dosing Weight 77.273 kg, Start date: 12/21/14 13:01:00, Duration: 1 doses or times, Stop date: 12/21/14 13:01:00 Ondansetron Notes: (Same Inactive as: Bryanna) 2014 [facility] MEDICATION WASTE Product Size: 4 mg Product [...] Range BLOOD BANK ABO/Rh O POS 11/11 [facility] CHEM PANEL Lipase Lvl 131 73 - 393 11/11 [facility] ELECTROLYT AGAP 10.3 10.0 - 11/11 ES 20.0 [facility] ELECTROLYT A/G Ratio 0.9 0.7 - 1.6 11/11 [facility] ELECTROLYT Globulin 3.7 2.7 - 4.2 11/11 [facility] ELECTROLYT B/C Ratio 8 6 - 25 11/11 [facility] ELECTROLYT Bili Total 0.3 0.2 - 1.3 11/11 [facility] ELECTROLYT Alk Phos 146 39 - 136 11/11 [facility] ELECTROLYT ALT 21 0 - 65 11/11 [facility] ELECTROLYT Total 7.1 6.4 - 8.4 11/11 ES [facility] ELECTROLYT CO2 28 24 - 32 11/11 [facility] ELECTROLYT Albumin Lvl 3.4 3.5 - 5.0 11/11 [facility] ELECTROLYT Calcium Lvl 8.2 8.5 - 10.5 11/11 [facility] ELECTROLYT AST 13 0 - 37 11/11 [facility] ELECTROLYT eGFR 123 06/09 Result Comment: The [facility] eGFR is calculated using the CKD-EPI formula. [...] ELECTROLYT BUN 6 7 - 22 11/11 [facility] ELECTROLYT Glucose Lvl 71 70 - 99 11/11 [facility] ELECTROLYT Sodium Lvl 139 135 - 145 11/11 [facility] ELECTROLYT Creatinine 0.71 0.50 - 11/11 [facility] Lvl 1.40 [facility] ELECTROLYT Potassium 3.3 3.5 - 5.1 11/11 [facility] Lvl [facility] ELECTROLYT Chloride Lvl 104 95 - 109 11/11 [facility] ENDOCRINOL S Preg Negative Negative 11/11 OGY *NA* /2016 [facility] (11/10/16 10:08 PM) HEMATOLOGY Platelet 222 133 - 450 11/11 [facility] HEMATOLOGY MPV 8.8 7.4 - 10.4 11/11 [facility] HEMATOLOGY MCHC 32.9 32.0 - 11/11 36.0 [facility] HEMATOLOGY RDW 13.4 11.5 - 11/11 14.5 [facility] HEMATOLOGY MCV 86.9 80.0 - 11/11 98.0 [facility] HEMATOLOGY MCH 28.6 27.0 - 11/11 MH 31.0 [facility] HEMATOLOGY Hct 41.9 36.0 - 11/11 48.0 [facility] HEMATOLOGY RBC 4.82 4.20 - 11/11 MH 5.40 [facility] HEMATOLOGY Hgb 13.8 12.0 - 11/11 MH 16.0 /2016 [facility] HEMATOLOGY WBC 7.9 3.7 - 10.4 11/11 /2016 [facility] HEMATOLOGY Eosinophils 0.3 0.0 - 0.5 11/11 MH # /2017 [facility] HEMATOLOGY Basophils # 0.0 0.0 - 0.2 11/11 [facility] HEMATOLOGY Lymphocytes 32.0 20.0 - 11/11 MH 40.0 /2016 [facility] HEMATOLOGY Lymphocytes 2.5 1.0 - 5.5 11/11 MH # /2017 [facility] HEMATOLOGY Monocytes # 0.6 0.0 - 0.8 11/11 [facility] HEMATOLOGY Segs-Bands # 4.5 1.5 - 8.1 11/11 [facility] HEMATOLOGY Eosinophils 3.3 0.0 - 4.0 11/11 [facility] HEMATOLOGY Basophils 0.4 0.0 - 1.0 11/11 [facility] HEMATOLOGY Monocytes 7.5 2.0 - 12.0 11/11 [facility] HEMATOLOGY Segs 56.8 45.0 - 11/11 MH 75.0 /2016 [facility] URINE AND UA Sq Epi Many /LPF Few /LPF 11/11 STOOL [facility] URINE AND UA WBC 29 0 - 5 11/11 STOOL [facility] URINE AND UA Leuk Est Negative Negative 11/11 STOOL (11/10/16 10:08 PM) /2016 [facility] est URINE AND UA <=1.0 0.1 - 1.0 11/11 STOOL Urobilinogen mg/dL /2016 [facility] URINE AND UA Mucus Few /LPF None Seen 11/11 STOOL /LPF /2016 [facility] URINE AND UA RBC 135 0 - 2 11/11 STOOL [facility] URINE AND UA Color Light Yellow Yellow 11/11 STOOL *NA* /2016 [facility] (11/10/16 10:08 PM) URINE AND UA pH 6.0 5.0 - 8.0 11/11 STOOL [facility] URINE AND UA Turbidity Clear Clear 11/11 STOOL (11/10/16 10:08 PM) /[facility] Spec Grav 1.005 <=1.030 11/11 STOOL [facility] URINE AND UA Protein Negative Negative 11/11 STOOL mg/dL mg/dL [facility] URINE AND UA Glucose Negative Negative 11/11 STOOL mg/dL mg/dL [facility] URINE AND UA Ketones Negative Negative 11/11 STOOL mg/dL mg/dL [facility] URINE AND UA Bili Negative Negative 11/11 STOOL *NA* /2016 [facility] (11/10/16 10:08 PM) URINE AND UA Blood Large Negative 11/11 STOOL *ABN* /2016 [facility] (11/10/16 10:08 PM) URINE AND UA Nitrite Negative Negative 11/11 STOOL (11/10/16 10:08 PM) [facility] URINE CHEM U Preg Negative Negative 11/11 (11/10/16 10:08 PM) [facility] est CHEM PANEL BUN 5 7 - 22 05/14 [facility] CHEM PANEL Glucose Lvl 99 70 - 99 05/14 [facility] CHEM PANEL AGAP 11.3 10.0 - 05/14 MH 20.0 [facility] CHEM PANEL Calcium Lvl 8.6 8.5 - 10.5 05/14 [facility] CHEM PANEL Chloride Lvl 107 95 - 109 05/14 [facility] CHEM PANEL Potassium 3.3 3.5 - 5.1 05/14 MH Lvl [facility] CHEM PANEL Sodium Lvl 139 135 - 145 05/14 [facility] CHEM PANEL CO2 24 24 - 32 05/14 [facility] CHEM PANEL Creatinine 0.60 0.50 - 05/14 MH Lvl 1.40 [facility] CHEM PANEL eGFR 133 05/14 Comment: The [facility] eGFR is calculated using the CKD-EPI formula. [...] Negative 05/14 DIAGNOSTIC by Amp Det *NA* [facility] ([facility]) (05/14/16 12:04 AM) MOLECULAR Source [facility] 05/14 DIAGNOSTIC [facility] (05/14/16 12:04 AM) /2015 [facility] MOLECULAR C Negative Negative 05/14 DIAGNOSTIC trachomatis *NA* [facility] by Amp Det (05/14/16 12:04 AM) ([facility]) URINE AND UA Mucus Few /LPF None Seen 05/14 STOOL /LPF /2015 [facility] URINE AND UA Bacteria Occasional None Seen 05/14 STOOL /HPF /HPF /2015 [facility] URINE AND UA RBC <1 0 - 2 05/14 STOOL [facility] URINE AND UA Leuk Est Small Negative 05/14 STOOL *ABN* [facility] (05/14/16 12:04 AM) URINE AND UA WBC 5 0 - 5 05/14 STOOL [facility] URINE AND UA Sq Epi Occasional Few /LPF 05/14 STOOL /LPF [facility] URINE AND UA Color Light Yellow Yellow 05/14 STOOL *NA* [facility] (05/14/16 12:04 AM) URINE AND UA <=1.0 0.1 - 1.0 05/14 STOOL Urobilinogen /2015 [facility] URINE AND UA Nitrite Negative Negative 05/14 STOOL (05/14/16 12:04 AM) [facility] URINE AND UA Blood Negative Negative 05/14 STOOL (05/14/16 12:04 AM) [facility] URINE AND UA Bili Negative Negative 05/14 STOOL *NA* [facility] (05/14/16 12:04 AM) URINE AND UA Ketones Negative Negative 05/14 STOOL mg/dL mg/dL [facility] URINE AND UA Glucose Negative Negative 05/14 STOOL mg/dL mg/dL [facility] URINE AND UA Spec Grav 1.008 <=1.030 05/14 STOOL [facility] URINE AND UA pH 6.0 5.0 - 8.0 05/14 STOOL [facility] URINE AND UA Turbidity Slight Clear 05/14 STOOL *ABN* [facility] (05/14/16 12:04 AM) URINE AND UA Protein Negative Negative 05/14 STOOL mg/dL mg/dL [facility] CHEM PANEL eGFR 136 12/23 Result Comment: The [facility] eGFR is calculated using the modified Gray equation 0.413 x Height (cm) /Serum Creatinine (mg/dL). CHEM PANEL Calcium Lvl 8.1 8.5 - 10.5 12/23 [facility] CHEM PANEL CO2 21 24 - 32 12/23 [facility] CHEM PANEL Chloride Lvl 109 95 - 109 12/23 [facility] CHEM PANEL Potassium 3.6 3.5 - 5.1 12/23 [facility] CHEM PANEL Sodium Lvl 140 135 - 145 12/23 [facility] CHEM PANEL Creatinine 0.5 0.5 - 1.4 12/23 [facility] CHEM PANEL BUN 3 7 - 22 12/23 [facility] CHEM PANEL Glucose Lvl 86 70 - 99 12/23 [facility] CHEM PANEL AGAP 13.6 10.0 - 12/23 20.0 [facility] HEMATOLOGY MPV 9.8 7.4 - 10.4 12/23 [facility] HEMATOLOGY Platelet 161 133 - 450 12/23 [facility] HEMATOLOGY RDW 13.6 11.5 - 12/23 MH 14.5 /2014 [facility] HEMATOLOGY MCHC 33.8 32.0 - 12/23 MH 36.0 /2014 [facility] HEMATOLOGY MCV 86.6 80.0 - 12/23 MH 98.0 /2014 [facility] HEMATOLOGY MCH 29.3 27.0 - 12/23 MH 31.0 /2014 [facility] HEMATOLOGY Hct 34.7 36.0 - 12/23 MH 48.0 /2014 [facility] HEMATOLOGY Hgb 11.8 12.0 - 12/23 MH 16.0 [facility] HEMATOLOGY WBC 9.1 3.7 - 10.4 12/23 [facility] HEMATOLOGY RBC 4.01 4.20 - 12/23 MH 5.40 /2014 [facility] CHEM PANEL eGFR 114 12/22 Result Comment: The [facility] eGFR is calculated using the modified Gray equation 0.413 x Height (cm) /Serum Creatinine (mg/dL). CHEM PANEL Calcium Lvl 7.8 8.5 - 10.5 12/22 [facility] CHEM PANEL Glucose Lvl 86 70 - 99 12/22 [facility] CHEM PANEL Sodium Lvl 137 135 - 145 12/22 [facility] CHEM PANEL Creatinine 0.6 0.5 - 1.4 12/22 [facility] CHEM PANEL BUN 7 7 - 22 12/22 [facility] CHEM PANEL Chloride Lvl 106 95 - 109 12/22 MH /2014 [facility] CHEM PANEL Potassium 3.5 3.5 - 5.1 12/22 MH Lvl /2014 [facility] CHEM PANEL AGAP 13.5 10.0 - 12/22 MH 20.0 [facility] CHEM PANEL CO2 21 24 - 32 12/22 /2014 [facility] HEMATOLOGY Lymphocytes 8.7 20.0 - 12/22 MH 40.0 /2014 [facility] HEMATOLOGY Monocytes 9.3 2.0 - 12.0 12/22 /2014 [facility] HEMATOLOGY Basophils 0.2 0.0 - 1.0 12/22 /2014 [facility] HEMATOLOGY Segs-Bands # 10.6 1.5 - 8.1 12/22 [facility] HEMATOLOGY Lymphocytes 1.1 1.0 - 5.5 12/22 MH # /2014 [facility] HEMATOLOGY Monocytes # 1.2 0.0 - 0.8 12/22 [facility] HEMATOLOGY Segs 81.8 45.0 - 12/22 MH 75.0 /2014 [facility] HEMATOLOGY Platelet 164 133 - 450 12/22 /2014 [facility] HEMATOLOGY RDW 13.3 11.5 - 12/22 MH 14.5 /2014 [facility] HEMATOLOGY MCH 29.2 27.0 - 12/22 MH 31.0 /2014 [facility] HEMATOLOGY MCHC 34.8 32.0 - 12/22 MH 36.0 /2014 [facility] HEMATOLOGY MCV 83.9 80.0 - 12/22 MH 98.0 /2014 [facility] HEMATOLOGY Hgb 12.5 12.0 - 12/22 MH 16.0 /2014 [facility] HEMATOLOGY Hct 36.0 36.0 - 12/22 MH 48.0 /2014 [facility] HEMATOLOGY WBC 12.9 3.7 - 10.4 12/22 /2014 [facility] HEMATOLOGY RBC 4.28 4.20 - 12/22 MH 5.40 /2014 [facility] HEMATOLOGY MPV 9.7 7.4 - 10.4 12/22 /2014 [facility] MOLECULAR N gonorrhea Negative Negative 12/21 DIAGNOSTIC by Amp Det *NA* /2014 [facility] ([facility]) (12/21/14 6:08 PM) MOLECULAR C Positive 4 Negative 12/21 Result DIAGNOSTIC trachomatis *ABN* /2014 Comment: [facility] by A[facility] Det (12/21/14 6:08 PM) "Significan t ([facility]) Findings called to PENNY_at _12/23/2014 13:16__by _CYTHOMAS__.R ead Back OK." MOLECULAR Source [facility] 12/21 DIAGNOSTIC [facility] *NA* /2014 [facility] (12/21/14 6:08 PM) CHEM PANEL Lactic Acid 0.7 0.5 - 2.2 12/21 MH Lvl [facility] CHEM PANEL Procalcitoni 0.05 0.00 - 12/21 n Lvl 0.10 [facility] CHEM PANEL eGFR 85 12/21 Result Comment: The [facility] eGFR is calculated using the modified Gray equation 0.413 x Height (cm) /Serum Creatinine (mg/dL). CHEM PANEL Globulin 4.3 2.0 - 4.0 12/21 [facility] CHEM PANEL A/G Ratio 0.9 0.7 - 1.6 12/21 [facility] CHEM PANEL AGAP 10.1 10.0 - 12/21 MH 20.0 [facility] CHEM PANEL B/C Ratio 10 6 - 25 12/21 [facility] CHEM PANEL Alk Phos 132 39 - 136 12/21 [facility] CHEM PANEL Bili Total 0.8 0.2 - 1.3 12/21 [facility] CHEM PANEL CO2 25 24 - 32 12/21 [facility] CHEM PANEL Potassium 3.1 3.5 - 5.1 12/21 MH Lvl [facility] CHEM PANEL Chloride Lvl 103 95 - 109 12/21 [facility] CHEM PANEL Calcium Lvl 8.4 8.5 - 10.5 12/21 [facility] CHEM PANEL Total 8.0 6.4 - 8.4 12/21 [facility] CHEM PANEL Albumin Lvl 3.7 3.5 - 5.0 12/21 [facility] CHEM PANEL Creatinine 0.8 0.5 - 1.4 12/21 MH Lvl [facility] CHEM PANEL Sodium Lvl 135 135 - 145 12/21 [facility] CHEM PANEL ALT 14 0 - 65 12/21 [facility] CHEM PANEL AST 6 0 - 37 12/21 [facility] CHEM PANEL BUN 8 7 - 22 12/21 [facility] CHEM PANEL Glucose Lvl 103 70 - 99 12/21 [facility] HEMATOLOGY Hct 42.0 36.0 - 12/21 MH 48.0 /2014 [facility] HEMATOLOGY Hgb 14.1 12.0 - 12/21 MH 16.0 /2014 [facility] HEMATOLOGY RDW 13.4 11.5 - 12/21 MH 14.5 /2014 [facility] HEMATOLOGY MCV 85.5 80.0 - 12/21 MH 98.0 /2014 [facility] HEMATOLOGY Platelet 196 133 - 450 12/21 /2014 [facility] HEMATOLOGY MPV 9.6 7.4 - 10.4 12/21 /2014 [facility] HEMATOLOGY RBC 4.91 4.20 - 12/21 MH 5.40 /2014 [facility] HEMATOLOGY WBC 17.1 3.7 - 10.4 12/21 /2014 [facility] HEMATOLOGY MCHC 33.7 32.0 - 12/21 MH 36.0 /2014 [facility] HEMATOLOGY MCH 28.8 27.0 - 12/21 MH 31.0 /2014 [facility] HEMATOLOGY RBC Morph Normal 12/21 (12/21/14 1:05 PM) /2014 [facility] HEMATOLOGY Monocytes 7.3 2.0 - 12.0 12/21 /2014 [facility] HEMATOLOGY Eosinophils 0.0 0.0 - 4.0 12/21 /2014 [facility] HEMATOLOGY Basophils 0.2 0.0 - 1.0 12/21 /2014 [facility] HEMATOLOGY Segs-Bands # 14.2 1.5 - 8.1 12/21 /2014 [facility] HEMATOLOGY Lymphocytes 9.4 20.0 - 12/21 40.0 /2014 [facility] HEMATOLOGY Lymphocytes 1.6 1.0 - 5.5 12/21 MH # /2014 [facility] HEMATOLOGY Monocytes # 1.3 0.0 - 0.8 12/21 /2014 [facility] HEMATOLOGY Eosinophils 0.0 0.0 - 0.5 12/21 # /2014 [facility] HEMATOLOGY Basophils # 0.0 0.0 - 0.2 12/21 /2014 [facility] HEMATOLOGY Plt Morph Normal 12/21 (12/21/14 1:05 PM) /2014 [facility] HEMATOLOGY Segs 83.1 45.0 - 12/21 MH 75.0 /2014 [facility] URINE AND UA Bacteria Few /HPF None Seen 12/21 STOOL /HPF /2014 [facility] URINE AND UA Mucus Few /LPF None Seen 12/21 STOOL /LPF /2014 [facility] URINE AND UA WBC 11-20 /HPF None Seen 12/21 STOOL /HPF /2014 [facility] URINE AND UA Sq Epi Few /LPF Few /LPF 12/21 STOOL /2014 [facility] URINE AND UA RBC 3-5 /HPF 0 - 2 12/21 STOOL /2014 [facility] URINE AND UA Blood Large Negative 12/21 STOOL *ABN* /2014 [facility] (12/21/14 1:05 PM) URINE AND UA Bili Small Negative 12/21 STOOL *ABN* /2014 [facility] (12/21/14 1:05 PM) URINE AND UA Ketones Trace Negative 12/21 STOOL *ABN* /2014 [facility] (12/21/14 1:05 PM) URINE AND UA Leuk Est Small Negative 12/21 STOOL *ABN* /2014 [facility] (12/21/14 1:05 PM) URINE AND UA Nitrite Negative Negative 12/21 STOOL (12/21/14 1:05 PM) /2014 [facility] [facility] URINE AND UA 0.2 0.1 - 1.0 12/21 STOOL Urobilinogen /2014 [facility] URINE AND UA Turbidity Slight Cloudy Clear 12/21 STOOL (12/21/14 1:05 PM[facility] Color Yellow Yellow 12/21 STOOL *NA* /2014 [facility] (12/21/14 1:05 PM) URINE AND UA pH 6.0 5.0 - 8.0 12/21 STOOL /2014 [facility] URINE AND UA Glucose Negative Negative 12/21 STOOL (12/21/14 1:05 PM[facility] Protein 100 mg/dL Negative 12/21 STOOL mg/dL /2014 [facility] URINE AND UA Spec Grav 1.025 <=1.030 12/21 STOOL [facility] URINE CHEM U Preg Negative Negative 12/21 (12/21/14 1:05 PM) [facility] est Pathology Reports No Data Provided for This Section Diagnostic Reports Report Value Date Source Pelvis w Transvag and Study: Pelvis w Transvag and Pelvis Doppler US 11/10/2016 9:49 PM CDT 11/10/2016 [facility] Pelvis Doppler US Ordering Physician: Rohan odonnell [...] Normal ultrasound examination of the pelvis. SL: [id number] Chest 2 views DX HISTORY: Fever. 10/30/2014 [facility] Chest 2 views. COMPARISON: No prior. Lungs are clear. Heart size normal. No pleural e ffusion or pneumothorax. IMPRESSION: Negative SL:14 Consultation Notes No Data Provided for This Section Discharge Summaries No Data Provided for This Section History and Physicals No Data Provided for This Section Vital Signs Vital Sign Value Date Comments Source Heart Rate 71 11/11/2016 [facility] Respitory Rate 16 11/11/2016 [facility] Temperature Oral (F) 98.2 F 11/11/[place] Systolic (mm Hg) 103 11/11/2016 [facility] t Diastolic (mm Hg) 58 11/11/[address] [facility] [address] Heart Rate 72 11/11/2016 [facility] Temperature Oral (F) 98.6 F 11/11/2016 [place] [facility] Systolic (mm Hg) 112 11/11/2016 [place] Diastolic (mm Hg) 73 11/11/[address] Respitory Rate 16 11/11/2016 [facility] Heart Rate 93 11/11/2016 [facility] Temperature Oral (F) 98.3 F 11/11/2016 [facility] Respitory Rate 16 11/11/2016 [facility] Systolic (mm Hg) 116 11/11/2016 [place] [facility] Diastolic (mm Hg) 72 11/11/[address] [facility] [address] Height 165.1 cm 11/11/2016 [facility] Weight 68.182 11/11/2016 [facility] BMI Calculated 25.01 11/11/2016 [facility] Systolic (mm Hg) 99 05/14/2016 [facility] Diastolic (mm Hg) 56 05/14/[address] [facility] [address] Systolic (mm Hg) 109 05/14/2016 [place] [facility] Diastolic (mm Hg) 63 05/14/[address] [facility] [address] Systolic (mm Hg) 111 05/14/2016 [facility] Diastolic (mm Hg) 62 05/14/[address] [facility] [address] Height 165.1 cm 05/14/2016 [facility] BMI Calculated 26.26 05/14/2016 [facility] Weight 71.591 05/14/2016 [facility] Respitory Rate 18 05/14/2016 [facility] Heart Rate 90 05/14/2016 [facility] Height 64 09/09/2015 [facility] [...] [facility]patient [facility] Weight 72.727 02/20/2015 [facility] BMI Calculated 26.68 02/20/2015 [facility] Height 165.1 cm 02/20/2015 [facility] Temperature Oral (F) 99.0 F 02/20/2015 [facility] Systolic (mm Hg) 112 02/20/2015 [facility] t Diastolic (mm Hg) 70 02/20/[address] [facility] [address] Heart Rate 96 02/20/2015 [facility] Respitory Rate 18 02/20/2015 [facility] Systolic (mm Hg) 114 12/23/2014 [facility] t Diastolic (mm Hg) 68 12/23/[address] [facility] [address] Respitory Rate 18 12/23/2014 [facility] Temperature Oral (F) 98.1 F 12/23/2014 [place] Heart Rate 70 12/23/2014 [facility] Temperature Oral (F) 98.1 F 12/23/2014 [facility] Systolic (mm Hg) 116 12/23/2014 [facility] Diastolic (mm Hg) 76 12/23/[address] [facility] [address] Heart Rate 62 12/23/2014 [facility] Respitory Rate 18 12/23/2014 [facility] Temperature Oral (F) 99.0 F 12/23/2014 [facility] Systolic (mm Hg) 113 12/23/2014 [facility] Diastolic (mm Hg) 72 12/23/[address] [facility] [address] Heart Rate 76 12/23/2014 [facility] Respitory Rate 18 12/23/2014 [facility] Height 165.1 cm 12/21/2014 [facility] BMI Calculated 26.68 12/21/2014 [facility] Weight 72.727 12/21/2014 [facility] BMI Calculated 28.35 12/21/2014 [facility] Height 165.1 cm 12/21/2014 [facility] Weight 77.273 12/21/2014 [facility] Height 64 05/06/2014 [facility] Diastolic (mm Hg) 77 05/06/2014 [facility] Systolic (mm Hg) 108 05/06/2014 [facility] Temperature Oral (F) 98.6 F 05/06/2014 [facility] Weight 166 05/06/2014 [facility] Encounters Location Location Encounter Encounter Reason Attending ADM ND Stat Source Details Type Number For Provider Date Date Visit Outpatient Unknown [id number] 11/27 11/27 [id number] [place] [id number] [facility] Outpatient Unknown [id number] 11/27 11/27 [facility] [id number] [facility] [place] [id number] [facility] Outpatient Unknown [id number] 11/27 11/27 [facility] [id number] [facility] [place] [id number] [facility] Outpatient Unknown [id number] 11/27 11/27 [facility] [id number] [facility] [id number] [facility] Outpatient Unknown [id number] 11/27 11/27 [facility] [id number]- [place] [id number] [facility] Outpatient Consult [id number] 05/06 05/06 [facility] [id number] [facility] [place] [id number] [facility] Outpatient Consult [id number] 05/06 05/06 [facility] [id number] [facility] [place] [id number] [facility] Outpatient Consult [id number] 05/06 05/06 [facility] [id number]- [facility] [id number] [facility] Outpatient Consult [id number] 05/06 05/06 [facility] [id number] /[facility] [id number] Cl inical Care [facility] Inpatient [id number] Jameel 12/21 12/23 ERMA Stuart /2014 [facility] [id number] Caroline 02/20 02/20 [facility]2014 [facility] Outpatient ENT [id number] 05/19 05/19 Outpatie Clinical Consult [id number] /[facility] [place] [id number] [facility] Outpatient ENT [id number] 05/19 05/19 [facility]pat[facility] Clinical Consult [id number] /[facility] [id number] [facility] Outpatient ENT [id number] 05/19 05/19 [facility]pat[facility] Clinical Consult [id number] /2014 [facility] [id number] [facility] Outpatient ER t rvw [id number] 08/25 08/25 Outpat[facility] Clinical w/ labs [id number]- /[place] [facility] [id number] [facility] Outpatient ER t rvw [id number] 08/25 08/25 [facility]pat[facility] Clinical w/ labs [id number]- /2015 [facility] [id number] [facility] Outpatient Labs & T [id number] 09/08 09/08 [facility]pat[facility] Clinical Rvw [id number]- /2015 [facility], NIMA [id number] Cl inical Care [facility] Emergency [id number] Messi Araya 05/14 05/14 [place] /2015 [facility] [id number] Rohan 11/11 11/11 [place] /2016 [facility] Procedures No Data Provided for This Section Assessment and Plan Assessment and Plan Date Source Extracted from:Title: FMS Progress Note 12/23/2014 [facility] Author: Denia Roberto MD Date: 12/23/14 DISCHARGE [...] about your patient's care please call the [facility] page 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 Denia Roberto M.D. FMS PGY1 #[id number] Extracted from:Title: General Admission H&P * Author: [...] IV antibio tics and fluids, discussed with transfer station attendant attending, to be admitted to medicine service Discussed with attending Dr. Valencia, who agrees with the goyo n. Mejia Ba, DO PGY3 [id number] Plan of Care No Data Provided for This Section Social History Social History Date Source Social History ElementQualifiersDate Reported 09/09/2015 [facility] Drug use: denied. September 09, 2015 Caffeine: no. September 09, 2015 Tobacco Use: . Are you a: Current Smoker September 09, 2015 Social History TypeResponse 12/21/2014 [facility] Substance Abuse Use: None. Alcohol Never Smoking [...]
--- OUTSIDE RECORDS SUMMARY | 2019-12-18 12:35 | XMS REPORT | Continuity of Care Document ---
:1995 Author Organization [facility] t Address [address] [place] [address] Care Team Providers Name Role Phone Marcus Dale Attending Clinician Noman Araya Attending Clinician Kd [...] n GEST/ABDOM 00 INAL PAIN Active 05/13/2016 [facility] FEVER Diagnosis Active 2015-02-20 Mem oria 18 11:42:00 l FEVER 05:00: [place] 00 Active 02/20/2015 [facility] VOMITING Diagnosis Active 2014-12-21 M emoria 12-21 13:05:00 l VOMITING 00:00: Jonas n 00 Active 12/21/2014 [facility] ACUTE Diagnosis Active 2015-04-08 Mem oria PYELONEPHR 12-21 08:56:00 l ITIS ACUTE 00:00: [place] PYELONEPHR 00 ITIS Active 12/21/2014 [facility] FEVER / Diagnosis Active 2014-11-20 In moria LOWER BACK -28 15:08:00 l PAIN FEVER / 00:00: [place] LOWER BACK 00 PAIN Active 10/30/2014 [facility] Urinary Problem Resolve 2016-11-14 Mem oria tract d 03:11:23 l infectious Urinary Her moreno disease tract (disorder) infectious disease (disorder) Resolved Problem 11/14/2016 [facility] Antepartum Problem Resolve 2016-11-14 Memoria hemorrhage d 03:11:23 l (disorder) Jonas n Antepartum hemorrhage (disorder) Resolved Problem 11/14/2016 [facility] Fever, Diagnosis Active 2014-05-13 Mem oria unspecifie 03:06:49 l d Fever, [place] unspecifie d Active Diagnosis 05/13/2014 [facility] Viral Diagnosis Active 2014-05-13 Mem oria infection 03:06:49 l Viral [place] infection Active Diagnosis 05/13/2014 [facility] H. pylori Problem Active 2015-09-15 Me moria infection 02:11:30 l H. [place] pylori infection Active Problem 09/15/2015 [facility]patient [facility] Female Diagnosis Active 2015-09-15 Mem oria pelvic 02:11:30 l inflammato Female Herm chandler ry pelvic disease, inflammato unspecifie ry d disease, unspecifie d Active Diagnosis 09/15/2015 [facility] Acute Diagnosis Active 2015-09-15 Mem oria vaginitis 02:11:30 l Acute [place] vaginitis Active Diagnosis 09/15/2015 Outpatient Clinical Care [...] infection (disorder) in (disorder) Active Problem 11/14/2016 [facility] PYELONEPHR Diagnosis Active 2015-04-08 Memoria ITIS NOS 08:56:00 l [place] PYELONEPHR ITIS NOS Active [facility] Excessive Problem 2016-2016-11-14 2016-11-14 Memoria and 11-11 03:11:23 03:11:23 l frequent 05:00: [place] menstruati Excessive 00 on with and regular frequent cycle menstruati on with regular cycle 11/11/2016 11/14/2016 [facility] Dysmenorrh Problem 2016-2016-11-14 2016-11-14 Memoria ea, 11-11 03:11:23 03:11:23 l unspecifie 05:00: Jonas n d Dysmenorrh 00 ea, unspecifie d 11/11/2016 11/14/2016 [facility] Unspecifie Problem 2016-2016-11-14 2016-11-14 Memoria d ovarian 11-11 03:11:23 03:11:23 l cyst, 05:00: [place] right side Unspecifie 00 d ovarian cyst, right side 11/11/2016 11/14/2016 [facility] Other Problem 2016-11-14 2016-11-14 M emoria specified 11-11 03:11:23 03:11:23 l abnormal Other 05:00: [place] uterine specified 00 and abnormal vaginal uterine bleeding and vaginal bleeding 11/14/2016 [facility] Discharge Problem 2015-062016-05-17 2016-05-17 Memoria Diagnosis: 2-10 02:10:22 02:10:22 l 06:00: [place] related Discharge 00 nausea, Diagnosis: antepartum related nausea, antepartum 05/14/2016 05/17/2016 [facility] Discharge Problem 2015-062016-05-17 2016-05-17 Memoria Diagnosis: 2-10 02:10:22 02:10:22 l Vaginal 06:00: [place] bleeding Discharge 00 in Diagnosis: Vaginal bleeding in 05/14/2016 05/17/2016 [facility] Discharge Problem 2015-062016-05-17 2016-05-17 Memoria Diagnosis: 2-10 02:10:22 02:10:22 l Acute 06:00: [place] cystitis Discharge 00 during Diagnosis: , Acute antepartum cystitis during , antepartum 05/14/2016 05/17/2016 [facility] Discharge Problem 2016-2016-05-17 2016-05-17 Memoria Diagnosis: 2-10 02:10:22 02:10:22 l Infection 06:00: [place] of urinary Discharge 00 tract Diagnosis: during Infection . of urinary tract during . 05/14/2016 05/17/2016 [facility] Discharge Problem 2015-062016-05-17 2016-05-17 Memoria Diagnosis: 2-10 02:10:22 02:10:22 l 28 weeks 06:00: [place] gestation Discharge 00 of Diagnosis: 28 weeks gestation of 05/14/2016 05/17/2016 [facility] Allergies, Adverse Reactions, Alerts Allergy Allergy Status Severity Reaction(s) Onset Inactive Treating Comm ents Source Name Type Date Date Clinician NMarekA. N.KulwinderA. Active Info Not Michael mani Available 4-06 l 00:00: [place] 00 Family History Family Member Diagnosis Comments Start Date Stop Date Source Unknown Family Family History 2014-05-13 2014-05-13 Memori al [place] Member 03:06:49 03:06:49 Social History Social Habit Start Date Stop Date Quantity Comments Source Druguse: 2015-09-09 2015-09-09 [facility] Megan nn 00:00:00 00:00:00 Social History 2014-12-21 2014-12-21 [facility] ermann 20:44:11 20:44:11 Medications Ordered Filled Start Stop Current Ordering Indication Dosage Frequency Signature Comments Components Source Medication Medication Date Date Medication? Clinician (SIG) Name Name Acetaminoph Yes 1 - 2 tab, Memoria en 300 MG / 09 PO, Q4H, l Codeine 05:55: PRN Pain, [...] CDT, Stop date: 11/10/16 21:59:00 CDT Sodium 2016-0 No 250 mL, Memoria Chloride 11-11 Route: l 0.9% IV 02:54: IVPB, [place] 00 Start date: 11/10/16 21:54:00 CDT, Duration: 30 day, Stop date: 12/10/16 21:53:00 CDT, PRN Line Flush BD Normal 2016- No Notes: Memori a Saline 11-11 (Same as: l Flush 02:53: BD [place] Posiflush) Sodium No 1,000 mL, Memori a Chloride 11-11 Rate: 125 l 0.154 02:49: ml/hr, [place] MEQ/ML 00 Infuse Injectable over: 8 Solution hr, Route: IV, Dosing Weight 68.182 kg, Total Volume: 1,000, Start date: 11/10/16 21:49:00 CDT, Duration: 1 doses or times, Stop date: 11/11/16 5:48:00 CDT Saline 2016- No 10 mL, Memoria Flush 0.9% 11-11 Route: l 02:49: IVP, Drug Form: INJ, Dosing Weight 68.182, kg, PRN, PRN Line Flush, Start date: 11/10/16 21:49:00 CDT, Duration: 30 day, Stop date: 12/10/16 21:48:00 CDT Potassium 2015-06 No Notes: Memori a Chloride 2-10 (Same as: l 1.33 MEQ/ML 06:54: Potassium H ermann Oral 00 Chloride) Solution Calcium 2015-06 No 1,000 mL, Memor ia Chloride 2-10 1,000 l 0.0014 05:53: ml/hr, [place] MEQ/ML / 00 Infuse Potassium Over: 1 Chloride hr, Route: 0.004 IV, 1,000, MEQ/ML / Drug form: Sodium INJ, ONCE, Chloride Dosing 0.103 Weight MEQ/ML / 71.591 kg, Sodium Start Lactate date: 0.028 05/13/16 MEQ/ML 23:53:00 Injectable [employer], Stop Solution date: 05/13/16 23:53:00 [employer] Ondansetron 2015-06 No Notes: Michael mani 2-10 (Same as: l 05:43: Zofran) MEDICATION WASTE Product Size: 4 mg Product Wasted: ___ mg Phenergan 2015-06 No Notes: Do Mem oria 2-10 not give l 05:43: IV push. (Same as: Phenergan) Calcium 2015-06 No 500 mL, Memoria Chloride 2-10 500 ml/hr, l 0.0014 05:27: Infuse [place] MEQ/ML / 00 Over: 1 Potassium hr, Route: Chloride IV, 500, 0.004 Drug form: MEQ/ML / INJ, ONCE, Sodium Dosing Chloride Weight 0.103 71.591 kg, MEQ/ML / Start Sodium date: Lactate 05/13/16 0.028 23:27:00 MEQ/ML [employer], Stop Injectable date: Solution 05/13/16 23:27:00 [employer] MedroxyPROG Yes Danielito 1 tab(s) Memoria ESTERone [...] PO, l Tablet 19:46: BID, X 5 [place] [Zofran] 00 day, # 10 tab, 0 Refill(s) cefdinir No 300 mg = 1 Mem oria 300 MG Oral 7-21 cap, PO, l Capsule 19:46: Q12H, X 14 Herm chandler [Omnicef] 00 day, # 28 cap, 0 Refill(s) Azithromyci No Notes: Michael mani n 7-21 (Same As: l 06:00: Zithromax [place] IV) Phenergan No Notes: Do Mem oria 7-21 not give l 03:12: IV push. [place] 00 (Same as: Phenergan) Phenergan No 25 mg, Memori a 7-21 Route: PO, l 03:07: Q6H, [place] 00 Dosing Weight 72.727, kg, PRN as [...] 0.9% 7-19 preservati l 21:24: ve free. [place] 00 Sodium No 1,000 mL, Memori a Chloride 7-19 Rate: 150 l 0.154 21:24: ml/hr, [place] MEQ/ML 00 Infuse Injectable over: 6.7 Solution hr, Route: IV, Dosing Weight 72.727 kg, Total Volume: 1,000, Start date: 12/21/14 16:24:00, Duration: 30 day, Stop date: 01/20/15 16:23:00 Ondansetron No Notes: Michael mani 12-21 (Same as: l 21:24: Zofran) [place] MEDICATION WASTE Product Size: 4 mg Product Wasted: ___ mg Acetaminoph No Notes: Do M emoria en 12-21 not exceed l 21:24: 4 gm/day. [place] 00 (Same as: Tylenol) Potassium No 40 mEq, 2 Mem oria Chloride 20 12-21 tab, l MEQ 19:12: Route: PO, [place] Extended 00 Drug form: Release ERTAB, Tablet ONCE, Dosing Weight 77.273, kg, Priority: STAT, Start date: 12/21/14 14:12:00, Stop date: 12/21/14 14:12:00 Ceftriaxone No 1 gm, Memor ia 12-21 Route: l 19:07: IVPB, Drug [place] 00 form: PDR/INJ, ONCE, Dosing Weight 77.273, kg, Priority: STAT, Start date: 12/21/14 14:07:00, Stop date: 12/21/14 14:07:00 Motrin No 600 mg, Memoria 12-21 Route: PO, l 19:06: Drug form: [place] 00 TAB, ONCE, Dosing Weight 77.273, kg, Priority: STAT, Start date: 12/21/14 14:06:00, Stop date: 12/21/14 14:06:00 Sodium No 1,000 mL, Memori a Chloride 12-21 1,000 l 0.154 18:01: ml/hr, [place] MEQ/ML 00 Infuse Injectable Over: 1 Solution hr, Route: IV, 1,000, Drug form: INJ, ONCE, Priority: STAT, Dosing Weight 77.273 kg, Start date: 12/21/14 13:01:00, Duration: 1 doses or times, Stop date: 12/21/14 13:01:00 Ondansetron No Notes: Michael mani 12-21 (Same as: l 18:00: Zofran) [place] 00 MEDICATION WASTE Product Size: 4 mg Product Wasted: ___ mg Bromfed DM 2013-06 Yes Danielito 10 mL Michael mani 2-02 Paul l 00:00: [place] 00 ibuprofen 2013-06 Yes Danielito 1 tab(s) Me moria 2-02 Paul l 00:00: [place] 00 pantoprazol Yes Danielito 1 tab(s) Memoria e 6-25 Paul l 00:00: [place] 00 omeprazole No Danielito 1 cap(s) M emoria 6-21 Paul l 00:00: [place] 00 Vital Signs Vital Name Observation Time Observation Value Comments Source Heart Rate 2016-11-11 06:07:00 [facility] [place] Respitory Rate 2016-11-11 06:07:00 Memori al [place] Temperature Oral (F) 2016-11-11 06:07:00 98.2 F [facility] [place] Systolic (mm Hg) 2016-11-11 06:07:00 Michael rial [place] Diastolic (mm Hg) 2016-11-11 06:07:00 Mem orial [place] Heart Rate 2016-11-11 04:07:00 [facility] [place] Temperature Oral (F) 2016-11-11 04:07:00 98.6 F [facility] [place] Systolic (mm Hg) 2016-11-11 04:07:00 Michael rial [place] Diastolic (mm Hg) 2016-11-11 04:07:00 Mem orial [place] Respitory Rate 2016-11-11 04:07:00 Memori al [place] Heart Rate 2016-11-11 02:20:00 [facility] [place] Temperature Oral (F) 2016-11-11 02:20:00 98.3 F [facility] [place] Respitory Rate 2016-11-11 02:20:00 Memori al [place] Systolic (mm Hg) 2016-11-11 02:20:00 Michael rial [place] Diastolic (mm Hg) 2016-11-11 02:20:00 Mem orial [place] Height 2016-11-11 02:20:00 165.1 cm [facility] [place] Weight 2016-11-11 02:20:00 [facility] [place] BMI Calculated 2016-11-11 02:20:00 Memori al [place] Systolic (mm Hg) 2016-05-14 07:30:00 Michael rial [place] Diastolic (mm Hg) 2016-05-14 07:30:00 Mem orial [place] Systolic (mm Hg) 2016-05-14 06:59:00 Michael rial [place] Diastolic (mm Hg) 2016-05-14 06:59:00 Mem orial [place] Systolic (mm Hg) 2016-05-14 06:29:00 Michael rial [place] Diastolic (mm Hg) 2016-05-14 06:29:00 Mem orial [place] Height 2016-05-14 05:00:00 165.1 cm [facility] [place] BMI Calculated 2016-05-14 05:00:00 Memori al [place] Weight 2016-05-14 05:00:00 [facility] [place] Respitory Rate 2016-05-14 05:00:00 Memori al [place] Heart Rate 2016-05-14 05:00:00 [facility] [place] Height 2015-09-09 17:00:00 [facility] [place] Diastolic (mm Hg) 2015-09-09 17:00:00 Mem orial [place] Systolic (mm Hg) 2015-09-09 17:00:00 Michael rial [place] Temperature Oral (F) 2015-09-09 17:00:00 98.2 F [facility] [place] Weight 2015-09-09 17:00:00 [facility] [place] Height 2015-08-26 17:00:00 [facility] [place] Diastolic (mm Hg) 2015-08-26 17:00:00 Mem orial [place] Systolic (mm Hg) 2015-08-26 17:00:00 Michael rial [place] Temperature Oral (F) 2015-08-26 17:00:00 97.8 F [facility] [place] Weight 2015-08-26 17:00:00 [facility] [place] Height 2015-05-19 20:00:00 [facility] [place] Diastolic (mm Hg) 2015-05-19 20:00:00 Mem orial [place] Systolic (mm Hg) 2015-05-19 20:00:00 Michael rial [place] Temperature Oral (F) 2015-05-19 20:00:00 98.4 F [facility] [place] Weight 2015-05-19 20:00:00 [facility] [place] Weight 2015-02-20 12:32:00 [facility] [place] BMI Calculated 2015-02-20 12:32:00 Memori al [place] Height 2015-02-20 12:32:00 165.1 cm [facility] [place] Temperature Oral (F) 2015-02-20 12:32:00 99.0 F [facility] [place] Systolic (mm Hg) 2015-02-20 12:32:00 Michael rial [place] Diastolic (mm Hg) 2015-02-20 12:32:00 Mem orial [place] Heart Rate 2015-02-20 12:32:00 [facility] [place] Respitory Rate 2015-02-20 12:32:00 Memori al [place] Systolic (mm Hg) 2014-12-23 20:58:00 Michael rial [place] Diastolic (mm Hg) 2014-12-23 20:58:00 Mem orial [place] Respitory Rate 2014-12-23 20:58:00 Memori al [place] Temperature Oral (F) 2014-12-23 20:58:00 98.1 F [facility] [place] Heart Rate 2014-12-23 20:58:00 [facility] [place] Temperature Oral (F) 2014-12-23 17:00:00 98.1 F [facility] [place] Systolic (mm Hg) 2014-12-23 17:00:00 Michael rial [place] Diastolic (mm Hg) 2014-12-23 17:00:00 Mem orial [place] Heart Rate 2014-12-23 17:00:00 [facility] [place] Respitory Rate 2014-12-23 17:00:00 Memori al [place] Temperature Oral (F) 2014-12-23 13:00:00 99.0 F [facility] [place] Systolic (mm Hg) 2014-12-23 13:00:00 Michael rial [place] Diastolic (mm Hg) 2014-12-23 13:00:00 Mem orial [place] Heart Rate 2014-12-23 13:00:00 [facility] [place] Respitory Rate 2014-12-23 13:00:00 Memori al [place] Height 2014-12-21 20:39:00 165.1 cm [facility] [place] BMI Calculated 2014-12-21 20:39:00 Memori al [place] Weight 2014-12-21 20:39:00 [facility] [place] BMI Calculated 2014-12-21 17:08:00 Memori al [place] Height 2014-12-21 17:08:00 165.1 cm [facility] [place] Weight 2014-12-21 17:08:00 [facility] [place] Height 2014-05-06 22:45:00 [facility] [place] Diastolic (mm Hg) 2014-05-06 22:45:00 Mem orial [place] Systolic (mm Hg) 2014-05-06 22:45:00 Michael riatamera [place] Temperature Oral (F) 2014-05-06 22:45:00 98.6 F [facility] [place] Weight 2014-05-06 22:45:00 [facility] [place] Procedures This patient has no known procedures. Encounters Start End Encounter Admission Attending Care Care Encounter Source Date/Time Date/Time Type Type Clinicians Facility Department ID 2016-11-10 2016-11-11 Outpatient Suyapa [facility] [id number] 21:15:00 01:10:00 Rohan 04 Marcus 2016-05-13 2016-05-14 Outpatient Quiana [facility] [id number] 22:34:00 01:44:00 Messi Tineo 2015-09-09 2015-09-09 Outpatient Outpatien Outpatient [id number] [facility] 12:00:00 12:00:00 t Clinical alRosy booker Clinical Care, PA Care, PA 2015-08-26 2015-08-26 Outpatient Outpatien Outpatient [id number] [facility] 12:00:00 12:00:00 t Clinical alRosy booker Clinical Care, PA Care, PA 2015-05-19 2015-05-19 Outpatient Outpatien Outpatient [id number] [facility]inic 14:00:00 14:00:00 t Clinical alRosy booker Clinical Care, PA Care, PA 2015-02-20 2015-02-20 Outpatient Xanderthonggaldino [facility] [id number] 07:28:00 09:10:00 Caroline bailey 02 A 2014-12-21 2014-12-23 Outpatient Narciso [facility] [id number] 12:07:00 16:35:00 Jameel Swann 01 2014-05-06 2014-05-06 Outpatient Outpatien Outpatient [id number] [facility]inic 16:45:00 16:45:00 t Clinical Eron booker Clinical Care, PA Care, PA 2013-11-27 2013-11-27 Outpatient Outpatien Outpatient [id number] [facility]inic 10:44:00 10:44:00 t Clinical alWjesús ks Clinical Care, PA Care, PA Results Test Description Test Time Test Comments Results Result [facility] e Comments CHEM PANEL 2016-11-11 131 [facility] 03:08:00 [place] ELECTROLYTES 2016-11-11 10.3 [facility] 03:08:00 [place] ELECTROLYTES 2016-11-11 0.9 [facility] 03:08:00 [place] ELECTROLYTES 2016-11-11 3.7 [facility] 03:08:00 [place] ELECTROLYTES 2016-11-11 8 [facility] 03:08:00 [place] ELECTROLYTES 2016-11-11 0.3 [facility] 03:08:00 [place] ELECTROLYTES 2016-11-11 146 [facility] 03:08:00 [place] ELECTROLYTES 2016-11-11 21 [facility] 03:08:00 [place] ELECTROLYTES 2016-11-11 7.1 [facility] 03:08:00 [place] ELECTROLYTES 2016-11-11 28 [facility] 03:08:00 [place] ELECTROLYTES 2016-11-11 3.4 [facility] 03:08:00 [place] ELECTROLYTES 2016-11-11 8.2 [facility] 03:08:00 [place] ELECTROLYTES 2016-11-11 13 [facility] 03:08:00 [place] ELECTROLYTES 2016-11-11 123 [facility] 03:08:00 [place] ELECTROLYTES 2016-11-11 6 [facility] 03:08:00 [place] ELECTROLYTES 2016-11-11 71 [facility] 03:08:00 [place] ELECTROLYTES 2016-11-11 139 [facility] 03:08:00 [place] ELECTROLYTES 2016-11-11 0.71 [facility] 03:08:00 [place] ELECTROLYTES 2016-11-11 3.3 [facility] 03:08:00 [place] ELECTROLYTES 2016-11-11 104 [facility] 03:08:00 [place] ENDOCRINOLOGY 2016-11-11 Negative [facility] 03:08:00 *NA*(11/10/16 [place] 10:08 PM) HEMATOLOGY 2016-11-11 222 [facility] 03:08:00 [place] HEMATOLOGY 2016-11-11 8.8 [facility] 03:08:00 [place] HEMATOLOGY 2016-11-11 32.9 [facility] 03:08:00 [place] HEMATOLOGY 2016-11-11 13.4 [facility] 03:08:00 [place] HEMATOLOGY 2016-11-11 86.9 [facility] 03:08:00 [place] HEMATOLOGY 2016-11-11 03:08:00 Test Item Value Reference Range Interpretation Comme nts MCH (test code = MCH) 28.6 pg 27.0-31.0 [facility] RhacohgHIEUNEZYYG7013-68-48 03:08:0041.9[facility]annHEMATOLOGY 2016-11-11 03:08:004.82[facility] EmeixujEUOMXBJTWY6156-14-65 03:08:0013.8[facility] BawsyozAAONOWGBJS2240-34-68 03:08:007.9[facility] YsrpddeILYDGBYYXP9346-97-40 03:08:000.3[facility] TlkymjcLLWTQIZLYJ0576-34-31 03:08:000.0[facility] [place] QWNKOHKUOP4927-32-59 03:08:0032.0[facility] VbmpnmuHTZVQOYJGO9546-29-07 03:08:00 2.5[facility] TbjqcodMOJTXXQCDN6164-16-88 03:08:000.6[facility] HermannHEMATOLOGY 2016-11-11 03:08:004.5[facility] SyahzwhJOAEILCDIM8855-54-09 03:08:003.3[facility] RoygeaiSUMMQRSBFT5881-43-41 03:08:000.4[facility] YsaexdqMCYNCWVRVS7321-58-89 03:08:007.5[facility] AfwglaoXJGWBXNWZK7605-53-77 03:08:0056.8[facility] [place] URINE AND IDDTA4968-05-95 03:08:0029[facility]annURINE AND MVWKZ0210-21-47 03:08:00Negative (11/10/16 10:08 PM)[facility] AND TEXYQ4141-34-37 03:08:93914Ytiefohi HermannURINE AND FBSKC1714-92-61 03:08:00Light Yellow *NA*(11/10/16 10:08 PM)[facility] BXDAV5316-29-36 03:08:006.0 [facility] UUVXM0346-92-11 03:08:00Clear (11/10/16 10:08 PM) [facility] NRKAB7829-34-53 03:08:001.005[facility] AND LZMMU6471-38-11 03:08:00Negative *NA*(11/10/16 10:08 PM)[facility] [id number] 03:08:00Large *ABN*(11/10/16 10:08 PM)[facility] [id number] 03:08:00Negative (11/10/16 10:08 PM)[facility] CHEM 2016-11-11 03:08:00Negative (11/10/16 10:08 PM)[facility] HermannCHEM PANEL 2016-05-14 06:04:005[facility] HermannCHEM ZSJGG0315-82-89 06:04:0099[facility] HermannCHEM HJSTT3769-04-84 06:04:0011.3[facility] HermannCHEM KZWWP2366-39-12 06:04:008.6[facility] HermannCHEM MGVFY1742-99-58 06:04:72917Lxriqtfv HermannCHEM WPLRP3583-33-15 06:04:003.3[facility] HermannCHEM LONUM1429-67-61 06:04:00907 [facility]annCHEM ZGQVZ6851-21-00 06:04:0024[facility] HermannCHEM PANEL 2016-05-14 06:04:000.60[facility] HermannCHEM JNDIH1277-01-75 06:04:62471Zfcbluow HermannMOLECULAR UDKFHIVZJJ7809-44-03 06:04:00Negative *NA*(05/14/16 12:04 AM) [facility]annMOLECULAR WJEUQXOGRX5095-03-00 06:04:00Endocervix (05/14/16 12:04 AM)[facility] HermannMOLECULAR MJMZQXZWBM4509-75-81 06:04:00Negative *NA*(05/14/16 12:04 AM)[facility] [id number] 06:04:00<1 [facility] [id number] 06:04:00Small *ABN*(05/14/16 12:04 AM) [facility] YDBAF6054-67-94 06:04:005[facility] AND NWVFN0744-65-84 06:04:00Light Yellow *NA*(05/14/16 12:04 AM)[facility] URINE AND HTFZN6501-53-08 06:04:00<=1.0[facility]ann[facility] AND STOOL 2016-05-14 06:04:00Negative (05/14/16 12:04 AM)[facility] STOOL 2016-05-14 06:04:00Negative (05/14/16 12:04 AM)[facility] STOOL 2016-05-14 06:04:00Negative *NA*(05/14/16 12:04 AM)[facility] AND PBLMQ8694-80-70 06:04:001.008[facility] AND GHCCY7424-14-22 06:04:00 6.0[facility] AND EYCKQ5497-49-61 06:04:00Slight *ABN*(05/14/16 12:04 AM)[facility] HermannCHEM DUIBE3726-26-69 10:50:13286Ruemajzj HermannCHEM PANEL 2014-12-23 10:50:008.1[facility] HermannCHEM KSXYM4136-96-55 10:50:0021[facility] HermannCHEM MYZTA6221-62-72 10:50:30596Jjxjesmm HermannCHEM LSSMF8049-53-25 10:50:003.6[facility] HermannCHEM NQLHW5115-29-50 10:50:14578Gfxuouia HermannCHEM KCJXR1399-61-84 10:50:000.5[facility] HermannCHEM SONAN0691-60-75 10:50:003 [facility] HermannCHEM LLFYJ9065-86-93 10:50:0086[facility] HermannCHEM PANEL 2014-12-23 10:50:0013.6[facility] GlwgajuZTAMLQXCDC6037-30-51 10:50:009.8[facility] VedskaxOBFHCDTDWN7681-99-61 10:50:89139Bcbvcekf DntoljoQIAKAQLSGS0313-17-46 10:50:0013.6[facility] QfsorscLEDBBYYNGB9521-18-09 10:50:0033.8[facility] YOHZQRIJBH7360-17-21 10:50:0086.6[facility] BrruqocPVIOUUCOOX8734-00-02 10:50:00 Test Item Value Reference Range Interpretation Comments MCH (test code = MCH) 29.3 pg 27.0-31.0 [facility] VlukpynKPOGRSDNHR0730-14-87 10:50:0034.7[facility] HermannHEMATOLOGY 2014-12-23 10:50:0011.8[facility] GjketdkXMTLMIURRW5943-20-43 10:50:009.1[facility] WdfggyuYDPXCOVNEN7362-98-96 10:50:004.01[facility] HermannCHEM KZUNL4062-80-24 10:43:97095Gjfsdarq HermannCHEM MOJMT1761-07-73 10:43:007.8[facility] HermannCHEM YMTDX0936-93-47 10:43:0086[facility] HermannCHEM RFRQE4329-66-45 10:43:72376 [facility]annCHEM YFLOW1162-95-20 10:43:000.6[facility] HermannCHEM PANEL 2014-12-22 10:43:007[facility] HermannCHEM OPZMC7961-27-84 10:43:11164Tbctpjdt HermannCHEM LICTQ2083-35-69 10:43:003.5[facility] HermannCHEM MGELG8988-29-79 10:43:0013.5[facility] HermannCHEM BPHUW1328-25-43 10:43:0021[facility] [place] RRKBFNWFJH9415-43-04 10:43:008.7[facility] DmohjjlFVJAPYTXRP2194-10-13 10:43:009.3 [facility] XszotkpYMEOQNWONK1381-69-28 10:43:000.2[facility] HermannHEMATOLOGY 2014-12-22 10:43:0010.6[facility] OtaqrbzJUWAPNGIUS4268-06-94 10:43:001.1[facility] EcuvrihGAEJNGVHYU6860-87-88 10:43:001.2[facility] ZknflnnAJSALWNPOZ7676-10-45 10:43:0081.8[facility] EligwmaQWLNYRDCCC1371-43-92 10:43:36697Rneroeyh Vincenzo WBLSFGVWAI2974-76-98 10:43:0013.3[facility] YlfckbdVGQLNRHOGZ9526-72-63 10:43:00 Test Item Value Reference Range Interpretation Comments MCH (test code = MCH) 29.2 pg 27.0-31.0 [facility] ZlnysdmLCGKCNUPMH0445-15-30 10:43:0034.8[facility] HermannHEMATOLOGY 2014-12-22 10:43:0083.9[facility] EjjbwvtGZIOHGWOLI7885-11-70 10:43:0012.5[facility] ZcgjtiiNEYGZAUXIK3826-81-34 10:43:0036.0[facility] PipnrowZRTGANPUGD4483-71-60 10:43:0012.9[facility] IdxdardSYPISTSYSG2769-55-04 10:43:004.28[facility] WFYXZTLQBS0131-45-66 10:43:009.7[facility] HermannMOLECULAR FHTAUWTYHG9616-89-13 23:08:00Negative *NA*(12/21/14 6:08 PM)[facility] HermannMOLECULAR DIAGNOSTIC 2014-12-21 23:08:00Positive 4*ABN*(12/21/14 6:08 PM)[facility] HermannMOLECULAR VHZZYLOTXD6651-92-71 23:08:00Endocervix *NA*(12/21/14 6:08 PM)[facility] CHEM EYJNI8236-64-63 19:29:000.7[facility] HermannCHEM QHXPH4674-64-73 19:29:00 0.05[facility] HermannCHEM WUMQH9164-12-41 18:05:0085[facility] HermannCHEM PANEL 2014-12-21 18:05:004.3[facility] HermannCHEM JUYVN8194-93-65 18:05:000.9[facility] HermannCHEM OWMDP1289-11-28 18:05:0010.1[facility] HermannCHEM TTBXO4971-48-68 18:05:0010[facility] HermannCHEM SCHSZ6861-69-21 18:05:68450Iwrwrciv HermannCHEM NINTU7023-27-76 18:05:000.8[facility] HermannCHEM JPAQH7150-93-19 18:05:0025 [facility]annCHEM OBFVZ3292-32-81 18:05:003.1[facility] HermannCHEM PANEL 2014-12-21 18:05:46593Wfguclmr HermannCHEM DFRIX3552-17-00 18:05:008.4[facility] HermannCHEM OCABB1534-72-99 18:05:008.0[facility] HermannCHEM JPDWT9476-23-89 18:05:003.7[facility] HermannCHEM OGPBS9157-19-29 18:05:000.8[facility] HermannCHEM OYLYY3005-12-48 18:05:29299Wcmrvpet HermannCHEM MHTZB9399-23-39 18:05:0014 [facility]annCHEM TURTT5524-30-17 18:05:006[facility]annCHEM PANEL 2014-12-21 18:05:008[facility] HermannCHEM YCSWF6838-66-07 18:05:01081Kjbrnjfr TuahhgmGNGPXFHBNO2530-17-43 18:05:0042.0[facility] FskmliiJNUUXAVWPZ0010-21-02 18:05:0014.1[facility] AxqsfdhULUGWTYGGO8287-61-32 18:05:0013.4[facility] [id number] 18:05:0085.5[facility] ZlzgqrwHSKWXLSGOS3420-17-36 18:05:00 196[facility] UrjsaflDEWFFKQBEO8501-18-57 18:05:009.6[facility]ann[facility]MATOLOGY 2014-12-21 18:05:004.91[facility] TqzobrnSWHERLLENN2327-33-04 18:05:0017.1[facility] NoabgpeGZRVTBHLNS4958-73-94 18:05:0033.7[facility] MwseimaITBZBQIHTF7632-56-46 18:05:00 Test Item Value Reference Range Interpretation Comments MCH (test code = MCH) 28.8 pg 27.0-31.0 [facility] HdxwqujIYMHJVJKEJ4632-57-08 18:05:00Normal (12/21/14 1:05 PM)[facility] LouyjjuGFHIFDFYON7152-29-54 18:05:007.3[facility] KijiyftENBWPXIFQZ8259-00-94 18:05:000.0[facility] TswiqnlJYOWXNCORD5772-06-01 18:05:000.2[facility]en[facility] XUAGIHWWJV3945-14-69 18:05:0014.2[facility] UyxnlnsIJXTRYAGDZ9008-12-12 18:05:00 9.4[facility] UwfusxwNRMOCLKXHO3387-29-71 18:05:001.6[facility]ann[facility]MATOLOGY 2014-12-21 18:05:001.3[facility] OzwbkwhNROYDPTQYT8450-49-59 18:05:000.0[facility] BjyollaBRIZHNDZGK3792-14-22 18:05:000.0[facility] PuuhjchPCLXZUTBBN4609-65-21 18:05:00Normal (12/21/14 1:05 PM)[facility] QfdjdhyGMADOSNTJR9960-13-83 18:05:00 83.1[facility] [id number] 18:05:00Large *ABN*(12/21/14 1:05 PM)[facility] UYRJK4026-02-56 18:05:00Small *ABN*(12/21/14 1:05 PM)[facility] [id number] 18:05:00Trace *ABN*(12/21/14 1:05 PM)[facility] [id number] 18:05:00Small *ABN*(12/21/14 1:05 PM)[facility] [id number] 18:05:00Negative (12/21/14 1:05 PM) [facility] [id number] 18:05:000.2[facility] GQNUF7744-87-24 18:05:00Slight Cloudy (12/21/14 1:05 PM)[facility] [id number] 18:05:00Yellow *NA*(12/21/14 1:05 PM)[facility] [id number] 18:05:00 Test Item Value Reference Range Interpretation Comments UA pH (test code = UA pH) 6.0 1 5.0-8.0 [facility] [id number] 18:05:00Negative (12/21/14 1:05 PM) [facility] [id number] 18:05:00 Test Item Value Reference Range Interpretation Comments UA Spec Grav (test code = UA Spec 1.025 1 Grav) [facility] [id number] 18:05:00Negative (12/21/14 1:05 PM)[facility] L[facility]
[2019-12-18 12:36] LABS: Absolute Lymphocytes (CBC) 2.7 K/uL (0.7-4.9); Basophils % 0.4 % (0-1.3); Hematocrit 44.4 % (36.0-45.0); Lymphocytes % 26.7 % (15.3-44.8); MPV 9.1 fL (7.6-11.3); RBC Red Blood Cell Count 4.94 M/uL (3.86-4.86)
[2019-12-18 13:04] LABS: BUN Blood Urea Nitrogen 6 mg/dL (7-18); Bicarbonate 27 mmol/L (21-32); Glucose Level 88 mg/dL (74-106); HCG, Quantitative 688 mIU/mL (1-3); Potassium 3.9 mmol/L (3.5-5.1); Sodium Level 141 mmol/L (136-145)
[2019-12-18 13:27] LABS: Urine Blood 3+ (NEG); Urine Glucose NEGATIVE (NEG); Urine Protein NEGATIVE (NEG); Urine Specific Gravity 1.015 (1.005-1.030)
--- NOTE | 2019-12-18 14:04 | RAD REPORT ---
EXAM DESCRIPTION: US - Transvaginal OB - 12/18/2019 1:44 pm CLINICAL HISTORY: vaginal bleeding, pelvic pain, COMPARISON: Transvaginal OB dated 11/23/2015 TECHNIQUE: Endovaginal sonography performed. FINDINGS: No intrauterine gestational sac or sac remnant identifiable. No hematoma, mass or focal en dometrial finding. There is no myometrial mass. The endometrium- myometrium interface is normal. No blood or abnormal fluid collection in the cul de sac. No adnexal mass identifiable. A 13 millimete r left ovarian cyst is present. Ovaries are normal in size and show normal blood flow in the stroma. IMPRESSION: No intrauterine gestational sac or sac remnant. As detailed above, no acute or suspicious finding seen. Follow-up sonography can be performed if seri al beta HCG values indicate ongoing .
--- NOTE | 2019-12-18 14:10 | EDPHYS ---
Physician Documentation [facility] Name: Rossana Monge Age: 23 yrs Sex: Female : 1995 Arrival Date: 12/18/2019 Time: 11:58 Bed 14 Private MD: ED Physician Ck Liu HPI: 12/17 12:18 This 23 yrs old Female presents to ER via Ambulatory with complaints of jmm Vaginal Bleeding, 7 WKS PREG.. 12:18 The patient presents with vaginal bleeding that is. Onset: The symptoms/episode jmm began/occurred acutely, this morning. Modifying factors: The symptoms are alleviated by nothing, the symptoms are aggravated by nothing. Associated signs and symptoms: Pertinent negatives: fever. This is a 23 year old female with no chronic medical conditions that presents to the ED with complaints of pelvic pain, vaginal bleeding beginning this morning. Patient is . 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 - Social history:: Smoking status: Patient/guardian denies using tobacco, but has a distant history of tobacco abuse. ROS: 12:18 Constitutional: Negative for fever, chills, and weight loss, Cardiovascular: Negative jmm for chest pain, palpitations, and edema, Respiratory: Negative for shortness of breath, cough, wheezing, and pleuritic chest pain. 12:18 Abdomen/GI: Positive for abdominal pain. 12:18 Back: Positive for pain with movement. 12:18 : Positive for vaginal bleeding. 12:18 All other systems are negative. Exam: 12:18 Constitutional: This is a well developed, well nourished patient who is awake, alert, jmm and in no acute distress. Head/Face: atraumatic. Eyes: EOMI, no conjunctival erythema appreciated ENT: Moist Mucus Membranes Neck: Trachea midline, Supple Chest/axilla: Normal chest wall appearance and motion. Cardiovascular: Regular rate and rhythm. No edema appreciated Respiratory: Normal respirations, no respiratory distress appreciated Abdomen/GI: Non distended, soft Back: Normal ROM Skin: General appearance color normal MS/ Extremity: Moves all extremities, no obvious deformities appreciated, no edema noted to the lower extremities Neuro: Awake and alert, normal gait Psych: Behavior is normal, Mood is normal, Patient is cooperative and pleasant Vital Signs: 12:14 BP 118 / 77; Pulse 70; Resp 15 S; Temp 99.2(TE); Pulse Ox 100% on R/A; Weight 72.12 kg ca1 (R); Height 5 ft. 5 in. (165.10 cm) (R); 13:41 BP 122 / 74; Pulse 69; Resp 16; Temp 98.0; Pulse Ox 99% on R/A; ph 12:14 Body Mass Index 26.46 (72.12 kg, 165.10 cm) ca1 MDM: 12:18 Patient medically screened. [facility] 14:07 Data reviewed: vital signs, nurses notes. Counseling: I had a detailed discussion with daniela the patient and/or guardian regarding: the historical points, exam findings, and any diagnostic results supporting the discharge/admit diagnosis, lab results, radiology results, the need for outpatient follow up, to return to the emergency department if symptoms worsen or persist or if there are any questions or concerns that arise at home. ED course: Patient is advised to follow up with obgyn on Monday for reevaluation. US negative for ectopic. Patient is otherwise given strict return precautions. Patient understood and agrees with the plan of care. . 12/17 12:19 Order name: Quantitative Hcg; Complete Time: 13:07 [facility] 12/17 12:19 Order name: Abo/rh Typing; Complete Time: 12:53 [facility] 12/17 12:19 Order name: Basic Metabolic Panel; Complete Time: 13:07 [facility] 12/17 12:19 Order name: CBC with Diff; Complete Time: 12:38 [facility] 12/17 12:34 Order name: Urine Dipstick--Ancillary (enter results); Complete Time: 13:28 12/17 12:34 Order name: Urine --Ancillary (enter results); Complete Time: 13:28 12/17 12:19 Order name: Urine Test (obtain specimen); Complete Time: 12:28 [facility] 12/17 12:19 Order name: IV Saline Lock; Complete Time: 12:28 [facility] 12/17 12:19 Order name: Labs collected and sent; Complete Time: 12:28 [facility] 12/17 12:19 Order name: NPO; Complete Time: 12: [facility] 12/17 12:19 Order name: Urine Dipstick-Ancillary (obtain specimen); Complete Time: 12:28 [facility] 12/17 13:29 Order name: Transvaginal OB; Complete Time: 14:07 EDMD Administered Medications: No medications were administered Disposition: 16:06 Co-signature as Attending Physician, Ck Liu MD. rn Disposition: 12/18/19 14:10 Discharged to Home. Impression: Threatened . - Condition is Stable. - Discharge Instructions: Threatened Miscarriage, Vaginal Bleeding During , First Trimester, Pelvic Rest. - Medication Reconciliation Form, Thank You Letter, Antibiotic Education, Prescription Opioid Use form. - Follow up: Private Physician; When: 2 - 3 days; Reason: Recheck today's complaints, Continuance of care, Re-evaluation by your physician. Signatures: Dispatcher [employer] [facility] Corey Hightower PA PA [facility] Ck Liu MD MD rn Hall, Patricia, RN RN ph Acob, Bee RN RN [facility] Corrections: (The following items were deleted from the chart) 13:29 12:49 1st Trimest Single 1st Fetus+US.RAD.BRZ ordered. [facility] 14:33 14:10 12/18/2019 14:10 Discharged to Home. Impression: Threatened . Condition ph is Stable. Forms are Medication Reconciliation Form, Thank You Letter, Antibiotic Education, Prescription Opioid Use. Follow up: Private Physician; When: 2 - 3 days; Reason: Recheck today's complaints, Continuance of care, Re-evaluation by your physician. [facility]
--- NOTE | 2019-12-18 14:10 | ER ---
Nurse's Notes [facility] Name: Rossana Monge Age: 23 yrs Sex: Female : 1995 Arrival Date: 12/18/2019 Time: 11:58 Bed 14 Private MD: Diagnosis: Threatened Presentation: 12/17 12:14 Chief complaint: Patient states: Cramping and vaginal bleeding since this morning, ca1 bright red with clots. 7 wks. Coronavirus screen: Proceed with normal triage. Patient denies a cough. Patient denies shortness of breath or difficulty breathing. Patient denies measured and/or subjective temperature greater than 100.4F prior to today's visit. Patient denies travel on a cruise ship or to a country the [facility] currently lists as an affected area. Patient denies contact with known and/or suspected case of COVID-19. Ebola Screen: Patient negative for fever greater than or equal to 101.5 degrees Fahrenheit, and additional compatible Ebola Virus Disease symptoms Patient denies exposure to infectious person. Patient denies travel to an Ebola-affected area in the 21 days before illness onset. No symptoms or risks identified at this time. Initial Sepsis Screen: Does the patient meet any 2 criteria? No. Patient's initial sepsis screen is negative. Does the patient have a suspected source of infection? No. Patient's initial sepsis screen is negative. Risk Assessment: Do you want to hurt yourself or someone else? Patient reports no desire to harm self or others. Onset of symptoms was December 18, 2019. 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 - Social history:: Smoking status: Patient/guardian denies using tobacco, but has a distant history of tobacco abuse. Screenin:29 Abuse screen: Denies threats or abuse. Denies injuries from another. Nutritional ca1 screening: No deficits noted. Tuberculosis screening: No symptoms or risk factors identified. Fall Risk IV access (20 points). Assessment: 13:00 General: Appears in no apparent distress. comfortable, slender, well groomed, Behavior ph is calm, cooperative, appropriate for age, Denies fever, feeling ill. Pain: Complains of pain in suprapubic area. Neuro: Level of Consciousness is awake, alert, obeys commands, Oriented to person, place, time, situation. Cardiovascular: Capillary refill < 3 seconds in bilateral fingers Patient's skin is warm and dry. Respiratory: Airway is patent Respiratory effort is even, unlabored. : Reports cramping, vaginal bleeding that is with clots, moderate flow. Derm: Skin is intact, is healthy with good turgor, Skin is pink, warm \T\ dry. Musculoskeletal: Circulation, motion, and sensation intact. Range of motion: intact in all extremities. 13:21 Reassessment: Pt taken to US via wheelchair. ph 13:41 Reassessment: Patient appears in no apparent distress at this time. Patient and/or ph family updated on plan of care and expected duration. Pain level reassessed. Patient is alert, oriented x 3, equal unlabored respirations, skin warm/dry/pink. 14:30 Reassessment: Patient appears in no apparent distress at this time. Patient and/or ph family updated on plan of care and expected duration. Pain level reassessed. Patient is alert, oriented x 3, equal unlabored respirations, skin warm/dry/pink. Pt instructed to follow up w/ EARLY MORNING BABYSITTER, d/c home. Vital Signs: 12:14 BP 118 / 77; Pulse 70; Resp 15 S; Temp 99.2(TE); Pulse Ox 100% on R/A; Weight 72.12 kg ca1 (R); Height 5 ft. 5 in. (165.10 cm) (R); 13:41 BP 122 / 74; Pulse 69; Resp 16; Temp 98.0; Pulse Ox 99% on R/A; ph 12:14 Body Mass Index 26.46 (72.12 kg, 165.10 cm) ca1 ED Course: 11:58 Patient arrived in ED. bp1 12:01 Corey Hightower PA is PHCP. jmm 12:01 Ck Liu MD is Attending Physician. jmm 12:16 Triage completed. ca1 12:17 Arm band placed on right wrist. ca1 12:28 No provider procedures requiring assistance completed. Initial lab(s) drawn, by la, ca1 sent to lab. Urine collected: clean catch specimen, clear. Inserted saline lock: 20 gauge in right antecubital area, using aseptic technique. Blood collected. 12:29 Patient has correct armband on for positive identification. Placed in gown. Bed in low ca1 position. Call light in reach. Side rails up X 1. Pulse ox on. NIBP on. Warm blanket given. 12:33 Betty Interiano, RN is Primary Nurse. ph 13:45 Transvaginal OB In Process Unspecified. EDMS 14:33 IV discontinued, intact, bleeding controlled, No redness/swelling at site. Pressure ph dressing applied. Administered Medications: No medications were administered Outcome: 14:10 Discharge ordered by . [facility] 14:32 Discharged to home ambulatory. ph 14:32 Condition: good 14:32 Discharge instructions given to patient, Instructed on discharge instructions, follow up and referral plans. Demonstrated understanding of instructions, follow-up care. 14:33 Patient left the ED. ph Signatures: Dispatcher [employer] EDMS Corey Hightower PA PA Betty Interiano, RN RN ph Bee Angela RN RN [facility] Maida Leon bp1
[2019-12-18 14:43] VITALS: BP 122/74; TEMP 98; O2SAT 99
== END 2019-12-18 14:33 | disposition home or self-care (01) ==
LOC: ER 11:55
DX: O20.0 Threatened abortion (principal)
CPT/HCPCS: 36415; 76817; 80048; 81003; 81025; 84702; 85025; 86900; 86901; 99284

== ENCOUNTER 2020-06-16 08:12 | Emergency (ER) | payer OTHER, SELFPAY ==
--- OUTSIDE RECORDS SUMMARY | 2020-06-16 08:22 | XMS REPORT | Continuity of Care Document ---
:1995 Author Organization [email or web address] Care Team Providers Name Role Phone [email or web address] Unavailable Un available Problems Problem Status Onset Classification Date Comments Sourc e Date Reported Fever, Active Diagnosis 05/13/2014 Outpatien t unspecified Clinical Care Viral infection Active Diagnosis 05/13/2014 Out patient Clinical C are H. pylori Active Problem 09/15/2015 Outpatien t infection Clinical C are Female pelvic Active Diagnosis 09/15/2015 Outpa tient inflammatory Clinica l Care disease, unspecified Acute vaginitis Active Diagnosis 09/15/2015 Out patient Clinical C are Amenorrhea, Active Diagnosis 09/15/2015 Outpati ent unspecified Clinical Care Nicotine Active Diagnosis 09/15/2015 Outpatien t dependence, Clinical Care cigarettes, uncomplicated Acute upper Active Diagnosis 07/11/2015 Outpati ent respiratory Clinical Care infection, unspecified Medications Medication Details Route Status Patient Ordering Order Source Instructions Provider Date MedroxyPROGESTERone 1 tab(s) orally Active 10 mg orally Paul 09/08/ Outpatient Acetate once a day 2015 Clinical Care ibuprofen 1 tab(s) orally Active 800 mg orally Paul 08/25/ Outpati ent 3 times a day 2015 Clinical Care azithromycin 1 tab(s) orally Active 500 mg orally Paul 08/25/ Outp atient once a day 2015 Clinical Care ciprofloxacin 1 tab(s) orally Active 500 mg orally Paul 08/25/ Out patient every 2015 Clinical hours Care Bromfed DM 10 mL orally Active 2 mg-10 mg-30 Paul 05/19/ Outpati ent mg/5 mL 2014 Clinical orally 4 Care times a day Bromfed DM 10 mL orally Active 2 [...] Clinical Care omeprazole 1 cap(s) orally No 40 mg orally Paul 11/23/ Outpati ent Longer once a day 2013 Clinical Active Care Allergies, Adverse Reactions, Alerts Substance Category Reaction Severity Reaction Status Date Comments S ource type Reported N.K.D.A. Adverse Info Not Adverse Active Outp atient Reaction Available Reaction 6 Clin ical Care Immunizations No Data Provided for This Section Results No Data Provided for This Section Pathology Reports No Data Provided for This Section Diagnostic Reports No Data Provided for This Section Consultation Notes No Data Provided for This Section Discharge Summaries No Data Provided for This Section History and Physicals No Data Provided for This Section Vital Signs Vital Sign Value Date Comments Source Height 64 09/09/2015 Outpatient Clin ical Care [...] Weight 144 05/19/2015 Outpatient Clin ical Care Height 64 05/06/2014 Outpatient Clin ical Care Diastolic (mm Hg) 77 05/06/2014 Outpatient Clinical Care Systolic (mm Hg) 108 05/06/2014 Outpatient Clinical Care Temperature Oral (F) 98.6 F 05/06/2014 Outpati ent Clinical Care Weight 166 05/06/2014 Outpatient Clin ical Care Encounters Location Location Encounter Encounter Reason Attending ADM HI Stat Source Details Type Number For Provider Date Date Visit Outpatient Unknown [id number] 11/27 11/27 O utpatient Clinical [id number] /2013 [facility] [id number] Care [id number] Outpatient Unknown [id number] 11/27 11/27 O utpatient Clinical [id number] /2013 Clin ical [facility], [facility] [id number] Care [id number] Outpatient Unknown [id number] 11/27 11/27 O utpatient Clinical [id number] Clin ical Care, [facility] [id number] Care [id number] Outpatient Unknown [id number] 11/27 11/27 O utpatient Clinical [id number] /2013 Clin ical Care, [facility] [id number] Care [id number] Outpatient Unknown [id number] 11/27 11/27 O utpatient Clinical [id number]- Clin ical Care, [facility] [id number] Care [id number] Outpatient Consult [id number] 05/06 05/06 O utpatient Clinical [id number]- Clin ical Care, [facility] [id number] Care [id number] Outpatient Consult [id number] 05/06 05/06 O utpatient Clinical [id number] Clin ical Care, [facility] [id number] Care [id number] Outpatient Consult [id number] 05/06 05/06 O utpatient Clinical [id number] Clin ical Care, [facility] [id number] Care [id number] Outpatient Consult [id number] 05/06 05/06 O utpatient Clinical [id number]- Clin ical Care, [facility] [id number] Care [id number] Outpatient ENT [id number] 05/19 05/19 Ou tpatient Clinical Consult [id number] Cli nical Care, [facility] [id number] Care [id number] Outpatient ENT [id number] 05/19 05/19 Ou tpatient Clinical Consult [id number] Cli nical Care, [facility] [id number] Care [id number] Outpatient ENT [id number] 05/19 05/19 Ou tpatient Clinical Consult [id number] Cli nical Care, [facility] [id number] Care [id number] Outpatient ER t rvw [id number] 08/25 08/25 Outpatient Clinical w/ labs [id number] Cli nical Care, [place] [id number] Care [id number] Outpatient ER t rvw [id number] 08/25 08/25 Outpatient Clinical w/ labs [id number] Cli nical Care, [place] [id number] Care [id number] Outpatient Labs & T [id number] 09/08 09/08 Outpatient Clinical Rvw [id number] Clin ical Care, [place] [id number] Care [id number] Procedures No Data Provided for This Section Assessment and Plan No Data Provided for This Section Plan of Care No Data Provided for This Section Social History Social History Date Source Social History ElementQualifiersDate Reported 09/09/2015 Outpatient Clinical Care Drug use: denied. September 09, 2015 Caffeine: no. September 09, 2015 Tobacco Use: . Are you a: Current Smoker September 09, 2015 Family History Value Date Source QualifierDescriptionCommentDate Reported [...]
--- OUTSIDE RECORDS SUMMARY | 2020-06-16 08:23 | XMS REPORT | Summary of Care ---
:1995 Author Organization [facility] Address [address] [place] [address] Care Team Providers Name Role Phone Laine Grant Primary Care Provider Reason for Visit Reason Comments CHLAMYDIA GONNORHEA Encounter Details Date Type Department Care Team Description 05/20/2020 [facility]phone [facility] Justina CHL AMYABELINOA; GONNORHEA [facility] [address] [facility] [address] [place] [address] [address] [place] [address] [phone] Allergies No Known Allergiesdocumented as of this encounter (statuses as of 05/20/2020) Medications Medication Sig Dispensed Refills Start Date End Date Status LACTOBACILLUS COMBO Take by mouth. 0 Active NO.6 (PROBIOTIC COMPLEX ORAL) norgestimate-ethinyl Take 1 tablet by 1 Package 2 05/19/2020 Active estradioL (ORTHO mouth daily. TRI-CYCLEN LO, 28,) 0.18/0.215/0.25 mg-25 mcg tabletIndications: Encounter for initial prescription of contraceptive pills azithromycin 500 mg Take 2 tablets 2 tablet 0 05/20/202005/05 Active tabletIndications: by mouth once Chlamydia trachomatis now for 1 dose. infection of lower genitourinary sites, Gonorrhea documented as of this encounter (statuses as of 05/20/2020) Active Problems Problem Noted Date GBS (group B streptococcus) UTI complicating 12/20/2019 Overview: [place] at next visit Susceptible to varicella (non-immune), currently pregn ant 12/19/2019 Overview: Address pp Rubella non-immune status, antepartum 12/19/2019 Overview: Address pp Supervision of high-risk 12/18/2019 Vaginal bleeding in 12/18/2019 Tobacco use in 12/18/2019 Overview: Reports quit x1 week ago Over weight 12/18/2019 Multiparity 12/18/2019 documented as of this encounter (statuses as of 05/20/2020) Resolved Problems Problem Noted Date Resolved Date Liveborn , of bradley , born in hospital by 07/12/2016 08/29/2016 vaginal delivery (spontaneous vaginal delivery) 07/12/201608/29 Not immune to rubella 07/12/2016 08/29/2016 Ruptured, membranes, premature 07/10/2016 8 Premature rupture of membranes (PROM), onset of labor within 07/10/2016 09/08/2017 24 hours, antepartum, UTI in , third trimester 07/10/20162016 36 weeks gestation of 07/07/2016 09/09/19 18 Threatened premature labor in third trimester 07/07/2016 09/08/2017 Immune to varicella 06/28/2016 09/08/2017 Rubella immune 06/28/2016 07/10/2016 Rib pain on right side 06/28/2016 09/08/2017 Flu vaccine need-current this pg 03/03/2016 017 Overview: Received today Anxiety 03/03/2016 09/08/2017 Supervision of high-risk with insufficient prenata l 12/25/2015 06/28/2016 care UTI in , antepartum, first trimester-12/03/15 mixed 12/25/2015 08/29/2016 nichole, no need AUGUSTA Chlamydia trachomatis infection of lower genitourinary 12/0308/29/2016 sites-[place] today-negative; repeat at 36 weeks Overview: [place] today-negative; repeat at 36 weeks documented as of this encounter (statuses as of 05/20/2020) Immunizations Name Administration Dates Next Due HPV9 09/08/2017 Influenza Virus Vaccine Quad IM 3+ YRS 03/03/2016 TDAP 05/18/2016 documented as of this encounter Social History Tobacco Use Types Packs/Day Years Used Date Former Smoker Cigarettes 09/08/2014 - 0 12/10/2019 Smokeless Tobacco: Never Used Comments: 4 cigarretes per day Alcohol Use Drinks/Week oz/Week Comments Yes 0 Standard drinks or equivalent 0.0 social Sex Assigned at Date Recorded Not on file COVID-19 Exposure Response Date Recorded In the last month, have you been in contact with No / Unsure 05/19/2020 2:08 PM NAVIGATING OFFICER someone who was confirmed or suspected to have Coronavirus / COVID-19? documented as of this encounter Last Filed Vital Signs Not on filedocumented in this encounter Miscellaneous Notes Telephone Encounter - Crissy Clements LVN - 05/20/2020 4:32 PM CSTChristopherrula Monge is a 24 year old female Attempted to call patient, no answer, no vm setup. elephone Encounter - Justina Ruiz WHCNP - 05/20/2020 4:18 PM CSTPlease notify the patient of her positive STI results. chla/gonPlease notify the patient her medication has been sent to her pharmacy on file. She should complete the entire course.Please advise her onsafe sex practices and to remain abstinent for at least 1-2 weeks post treatment. Her partner can betreated and tested per protocol. If she is not she will need a [place]UG[place]A in 3 months, and advise her on HIV testing if she has not recently been tested. CATRACHO Garrido 05/20/2020 4:18 PM GATING OFFICER documented in this encounter Plan of Treatment Date Type Specialty Care Team Description 08/17/2020 Office Visit [facility] Ruiz WHCNP [address] [place], [place] [address] [phone] 12/17/2020 Office Visit [facility] Navarro Ruiz WHCNP [address] [place], [place] [address] [phone] Name Type Priority Associated Diagnoses Order S chedule GC & CHLAMYDIA LAB Routine Chlamydia trachomatis Expe cted: 08/18/2020, AMPLIFIED ASSAY infection of lower s: 05/20/2021 genitourinary si erwin Gonorrhea Health Maintenance Due Date Last Done Comments VARICELLA VACCINES (1 of 2 - 1997 2-dose childhood series) MENINGOCOCCAL B VACCINES (1 2006 of 2 - Risk Bexsero 2-dose series) HPV VACCINES (2 - 3-dose 10/06/2017 09/08/2017 series) PAP SMEAR 2017 INFLUENZA VACCINE (#1) 2020 03/03/2016 CHLAMYDIA SCREENING 12/17/2020 12/18/2019, 09/08/2017, 07/05/2016, Additional history exists Depression Screening 12/17/2020 12/18/2019, 12/18/2019 DTaP,Tdap,and Td Vaccines (2 05/18/2026 05/18/2016 - Td) PNEUMOCOCCAL 0-64 YEARS Aged Out No longe r eligible COMBINED SERIES based on patient 's age to complete this topic documented as of this encounter Results Not on filedocumented in this encounter Visit Diagnoses Diagnosis Chlamydia trachomatis infection of lower genitourinary sites - Primary Gonorrhea Gonococcal infection (acute) of lower ge nitourinary tract documented in this encounter Insurance Payer Benefit Plan Subscriber ID Effective Phone Address Typ e / Group Dates [facility] [id number] 2020-Pres [phone] Medicaid WOMEN ent [address] [place] [address] documented as of this encounter
--- OUTSIDE RECORDS SUMMARY | 2020-06-16 08:23 | XMS REPORT | Summary of Care ---
:1995 Author Organization [facility] Address [address] [place] [address] Care Team Providers Name Role Phone Laine Grant Primary Care Provider Reason for Visit Reason Comments CHLAMYDIA GONNORHEA Encounter Details Date Type Department Care Team Description [facility] Justina CHL AMYABELINOA; GONNORHEA [facility], [facility] [address] [facility] [address] [place] [address] [address] [place] [address] [phone] Allergies No Known Allergiesdocumented as of this [...] with No / Unsure 05/19/2020 2:08 PM BROOM HANDLE DIPPER someone who was confirmed or suspected to have Coronavirus / COVID-19? documented as of this encounter Last Filed Vital Signs Not on filedocumented in this encounter Miscellaneous Notes Telephone Encounter - Justina Ruiz WHCNP - 05/20/2020 4:18 PM BROOM HANDLE DIPPER Please notify the patient of her positive STI results. romel/[email or web address] notify the patient her medication has been [...] been tested. CATRACHO Garrido 05/20/2020 4:18 PM M HANDLE DIPPER documented in this encounter Plan of Treatment Date Type Specialty Care Team Description 08/17/2020 Office Visit [facility] Navarro Ruiz [facility]CNP [address] [place], [place] [address] [phone] 12/17/2020 Office Visit [facility] Navarro Ruiz [facility]CNP [address] [place], [place] [address] [phone] Name Type Priority Associated Diagnoses Order S [...] Address Typ e / Group Dates [facility] [id number] 2020-Pres [phone] Medicaid WOMEN ent [address] [place] [address] documented as of this encounter
--- OUTSIDE RECORDS SUMMARY | 2020-06-16 08:23 | XMS REPORT | Continuity of Care Document ---
:1995 Author Organization [facility] t Address [address] [place] [address] Care Team Providers Name Role Phone Visit, Nurse Attending Clinician Unavailable Problems Condition Condition Condition Status Onset Resolution Last Treating Co mments Source Name Details Category Date Date Treatment Clinician Date Fever, Diagnosis Active 2014-05-13 Mem oria unspecifie 03:06:49 l d Fever, [place] unspecifie d Active Diagnosis 05/13/2014 Outpatient Clinical Care Viral Diagnosis Active 2014-05-13 Mem oria infection 03:06:49 l Viral [place] infection Active Diagnosis 05/13/2014 Outpatient Clinical Care H. pylori Problem Active 2015-09-15 Me moria infection 02:11:30 l H. [place] pylori infection Active Problem 09/15/2015 Outpatient Clinical [...] d Active Diagnosis 07/11/2015 Outpatient Clinical Care Allergies, Adverse Reactions, Alerts Allergy Allergy Status Severity Reaction(s) Onset Inactive Treating Comm ents Source Name Type Date Date Clinician Jacqueline Phillips Active Info Not Michael mani Available 4-06 l 00:00: [place] 00 Family History Family Member Diagnosis Comments Start Date Stop Date Source Unknown Family Family History 2014-05-13 2014-05-13 Memori al [place] Member 03:06:49 03:06:49 Social History Social Habit Start Date Stop Date Quantity Comments Source Druguse: 2015-09-09 00:00:00 2015-09-09 Memor ial [place] 00:00:00 Medications Ordered Filled Start Stop Current Ordering Indication Dosage Frequency Signature Comments Components Source Medication Medication Date Date Medication? Clinician (SIG) Name Name MedroxyPROG Yes Danielito 1 tab(s) Memoria ESTERone 4-06 Paul l Acetate 00:00: [place] ibuprofen 2015-0 Yes Danielito 1 tab(s) Me moria 3-23 Paul l 00:00: [place] azithromyci 2015-0 Yes Danielito 1 tab(s) Memoria n 3-23 Paul l 00:00: [place] ciprofloxac 2015-0 Yes Danielito 1 tab(s) Memoria in 3-23 Paul l 00:00: [place] 00 Bromfed DM 2015-1 Yes Danielito 10 mL Michael mani 2-15 Paul l 00:00: [place] 00 Bromfed DM 2014-1 Yes Danielito 10 mL Michael mani 2-02 Paul l 00:00: [place] 00 ibuprofen 2013-1 Yes Danielito 1 tab(s) Me moria 2-02 Paul l 00:00: [place] pantoprazol 2013-0 Yes Danielito 1 tab(s) Memoria e 6-25 Paul l 00:00: [place] omeprazole 2013-0 No Danielito 1 cap(s) M emoria 6-21 Paul l 00:00: [place] 00 Vital Signs Vital Name Observation Time Observation Value Comments Source Height 2015-09-09 17:00:00 [facility] [place] Diastolic (mm Hg) 2015-09-09 17:00:00 Mem orial [place] Systolic (mm Hg) 2015-09-09 17:00:00 Michael rial [place] Temperature Oral (F) 2015-09-09 17:00:00 98.2 F [facility] [place] Weight 2015-09-09 17:00:00 [facility] [place] Height 2015-08-26 17:00:00 [facility] [place] Diastolic (mm Hg) 2015-08-26 17:00:00 Mem orial [place] Systolic (mm Hg) 2015-08-26 17:00:00 Michael rial [place] Temperature Oral (F) 2015-08-26 17:00:00 97.8 F [facility] [place] Weight 2015-08-26 17:00:00 [facility] [place] Height 2015-05-19 20:00:00 [facility] [place] Diastolic (mm Hg) 2015-05-19 20:00:00 Mem orial [place] Systolic (mm Hg) 2015-05-19 20:00:00 Michael rial [place] Temperature Oral (F) 2015-05-19 20:00:00 98.4 F [facility] [place] Weight 2015-05-19 20:00:00 [facility] [place] Height 2014-05-06 22:45:00 [facility] [place] Diastolic (mm Hg) 2014-05-06 22:45:00 Mem orial [place] Systolic (mm Hg) 2014-05-06 22:45:00 Michael rial [place] Temperature Oral (F) 2014-05-06 22:45:00 98.6 F [facility] [place] Weight 2014-05-06 22:45:00 [facility] Procedures This patient has no known procedures. Encounters Start End Encounter Admission Attending Care Care Encounter Source Date/Time Date/Time Type Type Clinicians Facility Department ID 2020-05-21 2020-05-21 Nurse Visit, [facility] [id number] 13:49:36 14:14:57 Visit [facility] LEATHER WHITENER [id number] Nurse REGIONAL [id number] MATERNAL [id number] & CHILD [address] [place] [address] 2015-09-09 2015-09-09 Outpatient Outpatien Outpatient [id number] [facility] 12:00:00 12:00:00 t Clinical alRosy booker Clinical Care, PA Care, PA 2015-08-26 2015-08-26 Outpatient Outpatien Outpatient [id number] [facility] 12:00:00 12:00:00 t Enrrique booker Clinical Care, PA Care, PA 2015-05-19 2015-05-19 Outpatient Outpatien Outpatient [id number] [facility] 14:00:00 14:00:00 t Enrrique booker Clinical Care, PA Care, PA 2014-05-06 2014-05-06 Outpatient Outpatien Outpatient [id number] [facility] 16:45:00 16:45:00 t Enrrique booker Clinical Care, PA Care, PA 2013-11-27 2013-11-27 Outpatient Outpatien Outpatient [id number] [facility] 10:44:00 10:44:00 t Enrrique booker Clinical Care, PA Care, PA Results This patient has no known results.
--- OUTSIDE RECORDS SUMMARY | 2020-06-16 08:24 | XMS REPORT | Summary of Care ---
:1995 Author Organization [facility] Address [address] [place] [address] Care Team Providers Name Role Phone Laine Grant Primary Care Provider Reason for Visit Reason Comments STD Testing Encounter Details Date Type Department Care Team Description 05/19/2020 Office Visit [facility]- Justina Ruiz Ot er general counseling and advice for contraceptive management (Primary Dx); CATRACHO Cisse Screen for STD (sexually transmitted dis ease); [address] [place] [address] Chlamydia trachomatis infection of lower genitourinary sites; Street NICHELLE A Encounter for initial prescription of co ntraceptive pills [place], [place] [id number] [phone] Allergies No Known Allergiesdocumented as of this encounter (statuses as of 05/20/2020) Medications Medication Sig Dispensed Refills Start Date End Date Status LACTOBACILLUS COMBO Take by 0 Active NO.6 (PROBIOTIC mouth. COMPLEX ORAL) norgestimate-ethiny Take 1 1 Package 2 05/19/2020 Active l estradioL (ORTHO tablet by TRI-CYCLEN LO, 28,) mouth daily. 0.18/0.215/0.25 mg-25 mcg tabletIndications: Encounter for initial prescription of contraceptive pills norgestimate-ethiny Take 1 1 Package 3 09/08/2017 Discontinued l estradiol (ORTHO tablet by 0 ( Reorder) TRI-CYCLEN LO, 28,) mouth daily. 0.18/0.215/0.25 mg-25 mcg tabletIndications: Encounter for initial prescription of contraceptive pills azithromycin 500 mg Take 2 2 tablet 0 05/19/2020 tabletIndications: tablets by 0 Chlamydia mouth once trachomatis now for 1 infection of lower dose. genitourinary sites documented as of this encounter (statuses as [...] with No / Unsure 05/19/2020 2:08 PM DISTRIBUTION CENTER ADMINISTRATOR someone who was confirmed or suspected to have Coronavirus / COVID-19? documented as of this encounter Last Filed Vital Signs Vital Sign Reading Time Taken Comments Blood Pressure 117/67 05/19/2020 2:09 PM DISTRIBUTION CENTER ADMINISTRATOR Pulse 67 05/19/2020 2:09 PM DISTRIBUTION CENTER ADMINISTRATOR Temperature 36.1 C (97 F) 05/19/2020 2:09 PM DISTRIBUTION CENTER ADMINISTRATOR Respiratory Rate 16 05/19/2020 2:09 PM DISTRIBUTION CENTER ADMINISTRATOR Oxygen Saturation - - Inhaled Oxygen Concentration - - Weight 70.4 kg (155 lb 3 oz) 05/19/2020 2:09 PM DISTRIBUTION CENTER ADMINISTRATOR Height 160 cm (5' 3") 05/19/2020 2:09 PM DISTRIBUTION CENTER ADMINISTRATOR Body Mass Index 27.49 05/19/2020 2:09 PM DISTRIBUTION CENTER ADMINISTRATOR documented in this encounter Progress Notes Justina Ruiz, WHMARIMARP - 05/19/2020 1:45 PM CST Chief complaint: Chief Complaint Patient presents with STD Testing HPI: the patient is here today with reports that her partner recently was diagnosed with chlamydia. She reports the last time she engaged in intercourse with this partner was on last week and she reports her called her on yesterday to tell her he was tested positive for chlamydia. She reports she is as ymptomatic on today. She reports her last intercourse as 05/10/20, and states she started her menses 05/13/20, and she desires to start ocp for control. Histories OB History Para Term AB Living 3 2 2 1 2 SAB TAB Ectopic Multiple Live Births 1 0 2 # Outcome Date GA Lbr Aram/2nd Weight Sex Delivery Anes PTL Lv 3 SAB 12/25/19 8w5d 2 Term 07/11/16 37w0d 5 lb 12 oz (2.608 kg) F VAGINAL EPI MARK Comments: Maternal Age: 19 years old, G 2, P 2 Mother's Blood Type: O+ Baby's Blood Type: B+, SYLVIE negative Maternal Serological Test: Negative Maternal Group B Strep Screening: positive Adequate Treatment: PCN received Complications: Maternal hx of chlamydia, anxiety PROM 19 hours prior to delivery with clear fluid. Labor Complications: none problems: Early hypoglycemia resolved with early feeding OAE: passed Hepatitis B Vaccine: Most Recent Immunizations Administered Date(s) Administered Hep B, Adol or Pedi Dosage 07/11/2016 [place] screen drawn, results pending. CCHD screen: passed 1 Term 03/07/13 40w0d 7 lb 6 oz (3.345 kg) F NORMAL SPONT EPI N MARK Past Medical History: Diagnosis Date Anxiety 03/03/2016 Does not take any medication. Family History Problem Relation Age of Onset Diabetes Mother pre diabetic Hypertension Mother pre hypertensive Cancer Maternal Grandmother Arthritis NoFHx Asthma NoFHx defects NoFHx Breast Cancer NoFHx Colon Cancer NoFHx Ovarian Cancer NoFHx Uterine Cancer NoFHx Depression NoFHx Genetic NoFHx Heart NoFHx High cholesterol NoFHx Mental retardation NoFHx Neurological NoFHx Osteoporosis NoFHx Psychiatry NoFHx Other - see comments NoFHx Family Status Relation Name Status Mo Alive Fa Alive MGMo (Not Specified) NoFHx (Not Specified) No past surgical history on file. 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 Social Needs Financial resource strain: Not on file Food insecurity Worry: Not on file Inability: Not on file Transportation needs Medical: Not on file Non-medical: Not on file Tobacco Use Smoking status: Former Smoker Types: Cigarettes Start date: 09/08/2014 Quit date: 12/10/2019 Years since quittin.4 Smokeless tobacco: Never Used Tobacco comment: 4 cigarretes per day Substance and Sexual Activity Alcohol use: Yes Alcohol/week: 0.0 standard drinks Comment: social Drug use: No Sexual activity: Yes Partners: Male control/protection: None, Condom Comment: last sexual intercourse 12/16/2019 Lifestyle Physical activity Days per week: Not on file Minutes per session: Not on file Stress: Not on file Relationships Social connections Talks on phone: Not on file Gets together: Not on file Attends voodoo service: Not on file Active member of club or organization: Not on file Attends meetings of clubs or organizations: Not on file Relationship status: Not on file Intimate partner violence Fear of current or ex partner: Not on file Emotionally abused: Not on file Physically abused: Not on file Forced sexual activity: Not on file Other Topics Concern Service Not Asked Blood Transfusions Not Asked Caffeine Concern Not Asked Occupational Exposure Not Asked Hobby Hazards Not Asked Sleep Concern Not Asked Stress Concern Not Asked Weight Concern Not Asked Special Diet Not Asked Back Care Not Asked Exercise Not Asked Bike Helmet Not Asked Seat Belt Yes Self-Exams Not Asked Social History Narrative Denies domestic or physical violence within the home Roman Catholic Preference: Cheondoism No cats in the home Social History Substance and Sexual Activity Sexual Activity Yes Partners: Male control/protection: None, Condom Comment: last sexual intercourse 12/16/2019 Labs Labs are pending. and No visits with results within 3 Month(s) from this visit. Latest known visit with results is: Field Director Visit on 01/08/2020 Component Date Value BETA HCG 01/08/2020 <2.39 Radiology No new radiology. Allergies Rossana has No Known Allergies. Medications Rossana has a current medication list which includes the following prescription(s): l.acid/b.bifidum/b.animal/fos and norgestimate-ethinyl estradiol. Review of Systems Constitutional: Negative. HENT: Negative. Eyes: Negative. Respiratory: Negative. Breasts: Negative. Cardiovascular: Negative. Gastrointestinal: Negative. Genitourinary: Negative. Musculoskeletal: Negative. Skin: Negative. Neurological: Negative. Psychiatric/Behavioral: Negative. Endocrine: Endocrine negative BP 117/67 (BP Location: Right arm, Patient Position: Sitting, BP CUFF SIZE: Adult Medium) | Pulse 67 | Temp 36.1 C (97 F) (Oral) | Resp 16 | Ht 5' 3" (1.6 m) | Wt 155 lb 3 oz (70.4 kg) | LMP 05/13/2020 (Approximate) | BMI 27.49 kg/m Pregravid BMI: Could not be calculated Physical Exam Vitals reviewed. Constitutional: She is oriented to person, place, and time. She appears well- developed and well-nourished. Her body habitus is normal. Cardiovascular: Regular rate and rhythm. No peripheral edema present. Pulmonary/Chest: Normal inspiratory effort. Neuro/Psychiatric: She has a normal mood and affect. She is oriented to person, place, and time. Skin: Skin normal. No lesion, no rash and no ulceration present. Assessment/Plan Return to clinic in 7 months for WWE or sooner as needed Return to clinic in 3 months for ocp follow up Contraceptive management Comment: desires ocp Plan: ocp sent to pharmacy on file Screen for STD (sexually transmitted disease) (primary encounter diagnosis) Comment: as ordered Plan: GC & CHLAMYDIA AMPLIFIED ASSAY, HIV 1/2 AG-AB WITH REFLEX, TRICHOMONAS AMPLIFIED ASSAY Chlamydia trachomatis infection of lower genitourinary sites Comment: as ordered Plan: azithromycin 500 mg tablet This visit did not involve counseling and coordination that comprised more than 50% of the visit time. CATRACHO Garrido 05/19/2020 2:47 PM RIBUTION CENTER ADMINISTRATOR documented in this encounter Plan of Treatment Date Type Specialty Care Team Description 08/17/2020 Office Visit [facility] Navarro Ruiz [facility] [address], [place] [address] [phone] 12/17/2020 Office Visit [facility] Navarro Ruiz [facility] [address], [place] [address] [phone] Health Maintenance Due Date Last Done Comments [...] this topic documented as of this encounter Procedures Procedure Name Priority Date/Time Associated Diagnosis Comme nts POCT TEST Routine 05/19/2020 4:22 Encounter for ini tial Results for this PM DISTRIBUTION CENTER ADMINISTRATOR prescription of procedure ar e in contraceptive pills the resu lts section. TRICHOMONAS Routine 05/19/2020 3:01 Screen for STD Results f or this AMPLIFIED ASSAY PM DISTRIBUTION CENTER ADMINISTRATOR (sexually transmitted pro cedure are in disease) the results section. GC & CHLAMYDIA Routine 05/19/2020 3:01 Screen for STD Results for this AMPLIFIED ASSAY PM DISTRIBUTION CENTER ADMINISTRATOR (sexually transmitted pro cedure are in disease) the results section. HIV 1/2 AG-AB WITH Routine 05/19/2020 2:59 Screen for STD Res ults for this REFLEX PM DISTRIBUTION CENTER ADMINISTRATOR (sexually transmitted proced ure are in disease) the results section. documented in this encounter Results POCT TEST (05/19/2020 4:22 PM DISTRIBUTION CENTER ADMINISTRATOR) Pathologist Sig nature POCT PREG Negative On board controls acceptable Yes with C Line POCT PREG LOT # POCT PREG TEST DATE Specimen Urine - URINE, CLEAN CATCH TRICHOMONAS AMPLIFIED ASSAY (05/19/2020 3:01 PM DISTRIBUTION CENTER ADMINISTRATOR) Pathologist Sig nature Trichomonas Nucleic Negative Negative [facility] Acid SERVICES Specimen Urine - Urine, First Catch (First Void) Narrative Performed At Reliable results are dependent on adequate specimen [facility] collection. A positive result obtained from a patient after therap eutic treatment cannot be interpreted as indicating the pres ence of viable organisms. For patients on whom a false po sitive result may have adverse psychosocial impact, retesting is advised. Indeterminate: Unable to generate a valid test result on this specimen. Please submit a new specimen for repe at testing if clinically indicated. Trichomonas nucleic acid amplification testing (NAAT) has not been validated for medico-legal specimens (sexual abuse in wanda-pubertal and pre-pubertal children, sexual ass brandee, and legal cases). Wet mount with microscopic observa tion and culture for Trichomonas vaginalis from clinically appropriate sites are the methods of cho ice in these cases. Results from this testing should be interpreted in conjunction with other laboratory and clinical data available to the clinician. Performing Organization Address City/[facility] Facilitycode Phone Number [facility] CLIA: [id number] [place] [address] [place] [address] GC & CHLAMYDIA AMPLIFIED ASSAY (05/19/2020 3:01 PM DISTRIBUTION CENTER ADMINISTRATOR) Pathologist Sig nature C. trachomatis Positive (A) Negative [facility] Nucleic Acid SERVICES N. gonorrhoeae Positive (A) Negative [facility] Nucleic Acid SERVICES Specimen Urine - Urine, First Catch (First Void) Narrative Performed At [facility] results are dependent on adequate specimen [facility] collection. A positive result obtained from a patient after therap eutic treatment cannot be interpreted as indicating the pres ence of viable organisms. For patients on whom a false po sitive result may have adverse psychosocial impact, retesting is advised. Indeterminate: Unable to generate a valid test result on this specimen. Please submit a new specimen for repe at testing if clinically indicated. Chlamydia trachomatis/Neisseria gonorrhoeae nucleic ac id amplification testing (NAAT) has not been validated fo r medico-legal specimens (sexual abuse in wanda-pubertal and pre-pubertal children, sexual assault, and legal cases ). Culture for Chlamydia trachomatis and/or Neisseria gonorrhoeae from clinically appropriate sites is the m ethod of choice in these cases. Results from this testing should be interpreted in conjunction with other laboratory and clinical data available to the clinician. For females in general, a urine specimen is a second-l ine option because it is considered less sensitive than a cervical swab for Chlamydia trachomatis and/or Neisser ia gonorrhoeae NAAT. Performing Organization Address City/[facility]/Zipcode Phone Number [facility] CLIA: [id number] [place] [address] [place] [address] HIV 1/2 AG-AB WITH REFLEX (05/19/2020 2:59 PM DISTRIBUTION CENTER ADMINISTRATOR) Pathologist [facility] HIV 1/2 Ag-Ab with Negative Negative [facility] Reflex SERVICES HIV Semi-quantitative 0.12 [facility] Specimen Blood Narrative Performed At Non-reactive for HIV-1 antigen and HIV-1/HIV-2 antibod ies. [facility] No laboratory evidence of HIV infection. Repeat in 2-4 weeks if acute HIV infection is suspected. Performing Organization Address City/State/Zipcode Phone Number [facility] CLIA: [id number] [place] [address] [place] [address] documented in this encounter Visit Diagnoses Diagnosis Other general counseling and advice for contraceptive management - Primary Screen for STD (sexually transmitted dis ease) Screening examination for venereal disea se Chlamydia trachomatis infection of lower genitourinary sites Encounter for initial prescription of co ntraceptive pills General counseling for prescription of o ral contraceptives documented in this encounter Insurance Payer Benefit Plan Subscriber ID Effective Phone Address Typ e / Group Dates [facility] [id number] 2020-Pres [phone] Medicaid WOMEN ent [address] [place] [address] documented as of this encounter
--- OUTSIDE RECORDS SUMMARY | 2020-06-16 08:24 | XMS REPORT | Summary of Care ---
:[address] [facility] Address [address] [place] [address] Care Team Providers Name Role Phone Laine Grant Primary Care Provider Reason for Visit Reason Comments STD Testing Encounter Details Date Type Department Care Team Description 05/19/2020 Office Visit [facility]- Justina Ruiz Ot er general counseling and advice for contraceptive management (Primary Dx); CATRACHO Cisse Screen for STD (sexually transmitted dis ease); [address] Chlamydia trachomatis infection of lower genitourinary sites; Street [address] Encounter for initial prescription of co ntraceptive pills [place], [place] [id number] [phone] Allergies No Known Allergiesdocumented as of this [...] with No / Unsure 05/19/2020 2:08 PM MULTIMEDIA COORDINATOR someone who was confirmed or suspected to have Coronavirus / COVID-19? documented as of this encounter Last Filed Vital Signs Vital Sign Reading Time Taken Comments Blood Pressure 117/67 05/19/2020 2:09 PM MULTIMEDIA COORDINATOR Pulse 67 05/19/2020 2:09 PM MULTIMEDIA COORDINATOR Temperature 36.1 C (97 F) 05/19/2020 2:09 PM MULTIMEDIA COORDINATOR Respiratory Rate 16 05/19/2020 2:09 PM MULTIMEDIA COORDINATOR Oxygen Saturation - - Inhaled Oxygen Concentration - - Weight 70.4 kg (155 lb 3 oz) 05/19/2020 2:09 PM MULTIMEDIA COORDINATOR Height 160 cm (5' 3") 05/19/2020 2:09 PM MULTIMEDIA COORDINATOR Body Mass Index 27.49 05/19/2020 2:09 PM MULTIMEDIA COORDINATOR documented in this encounter Progress Notes Justina [...] Hep B, Adol or Pedi Dosage 07/11/2016 [place] screen drawn, results pending. CCHD screen: passed [...] file Gets together: Not on file Attends hindu service: Not on file Active member of [...] domestic or physical violence within the home Sikh Preference: Congregation No cats in the home Social History Substance and Sexual Activity Sexual Activity Yes Partners: Male control/protection: None, Condom Comment: last sexual intercourse 12/16/2019 Labs Labs are pending. and No visits with results within 3 Month(s) from this visit. Latest known visit with results is: Mill Roll Rewinder Visit on 01/08/2020 Component Date Value BETA [...] visit time. CATRACHO Garrido 05/19/2020 2:47 PM IMEDIA COORDINATOR documented in this encounter Plan of Treatment Date Type Specialty Care Team Description 08/17/2020 Office Visit [facility] Navarro Ruiz [facility] [address] [place], [place] [address] [phone] 12/17/2020 Office Visit [facility] Navarro Ruiz [facility] [address], [place] [address] [phone] Health Maintenance Due Date Last Done Comments [...] for ini tial Results for this PM MULTIMEDIA COORDINATOR prescription of procedure ar e in contraceptive pills the resu lts section. TRICHOMONAS Routine 05/19/2020 3:01 Screen for STD Results f or this AMPLIFIED ASSAY PM MULTIMEDIA COORDINATOR (sexually transmitted pro cedure are in disease) the results section. GC & CHLAMYDIA Routine 05/19/2020 3:01 Screen for STD Results for this AMPLIFIED ASSAY PM MULTIMEDIA COORDINATOR (sexually transmitted pro cedure are in disease) the results section. HIV 1/2 AG-AB WITH Routine 05/19/2020 2:59 Screen for STD Res ults for this REFLEX PM MULTIMEDIA COORDINATOR (sexually transmitted proced ure are in disease) the results section. documented in this encounter Results POCT TEST (05/19/2020 4:22 PM MULTIMEDIA COORDINATOR) Pathologist Sig nature POCT PREG Negative On board controls acceptable Yes with C Line POCT PREG LOT # POCT PREG TEST DATE Specimen Urine - URINE, CLEAN CATCH TRICHOMONAS AMPLIFIED ASSAY (05/19/2020 3:01 PM MULTIMEDIA COORDINATOR) Pathologist Sig nature Trichomonas Nucleic Negative Negative [facility] [[email or web address] LABORAT[facility] Acid SERVICES Specimen Urine - Urine, First Catch (First Void) Narrative Performed At Reliable results are dependent on adequate specimen [facility] collection. A positive result [...] validated for medico-legal specimens (sexual abuse in wadna-pubertal and pre-pubertal children, sexual ass brandee, and legal cases). Wet mount with microscopic observa tion and culture for Trichomonas vaginalis from clinically appropriate sites are the methods of cho ice in these cases. Results from this testing should be interpreted in conjunction with other laboratory and clinical data available to the clinician. Performing Organization Address City/[facility] Phone Number [facility] [[email or web address] CLIA: [id number] [place] [address] [place] [address] GC & CHLAMYDIA AMPLIFIED ASSAY (05/19/2020 3:01 PM MULTIMEDIA COORDINATOR) Pathologist Sig nature C. trachomatis Positive (A) Negative [facility] [[email or web address] Nucleic Acid SERVICES N. gonorrhoeae Positive (A) Negative [facility] [[email or web address] LAB[facility] Nucleic Acid SERVICES Specimen Urine - Urine, First Catch (First Void) Narrative Performed At [facility] results are dependent on adequate specimen [facility] collection. A positive result [...] Neisser ia gonorrhoeae NAAT. Performing Organization Address City/[facility]/Zipcode Phone Number [facility] [[email or web address] CLIA: [id number] [place] [address] [place] [address] HIV 1/2 AG-AB WITH REFLEX (05/19/2020 2:59 PM MULTIMEDIA COORDINATOR) Pathologist [facility] HIV 1/2 Ag-Ab with Negative Negative [facility] [[email or web address] LABORATORY Reflex SERVICES HIV Semi-quantitative 0.12 [facility] [[email or web address] LAB[facility]ORY SERVICES Specimen Blood Narrative Performed At Non-reactive for HIV-1 antigen and HIV-1/HIV-2 antibod ies. [facility] [[email or web address] LABORATORY SERVICES No laboratory evidence of HIV infection. Repeat in 2-4 weeks if acute HIV infection is suspected. Performing Organization Address City/State/Zipcode Phone Number [facility] [[email or web address] SERVICES CLIA: [id number] [place] [address] [place] [address] documented in this encounter Visit Diagnoses Diagnosis [...] Address Typ e / Group Dates [facility] [id number] 2020-Pres [phone] Medicaid WOMEN ent [address] [place] [address] documented as of this encounter
--- OUTSIDE RECORDS SUMMARY | 2020-06-16 08:24 | XMS REPORT | Summary of Care ---
:1995 Author Organization [facility] Address [address] [place] [address] Care Team Providers Name Role Phone Laine Grant Primary Care Provider Reason for Visit Reason Comments NURSE VISIT Encounter Details Date Type Department Care Team Description 05/21/2020 Nurse Visit [facility] Ru[facility], [facility] [address] [place] [address] Sexually transmitted [place] Visit, [facility] Nurse disease (STD) (Primary [address]) [place] [address] Allergies No Known Allergiesdocumented as of this encounter (statuses as of 05/21/2020) Medications Medication Sig Dispensed Refills Start Date End Date Status LACTOBACILLUS COMBO NO.6 Take by mouth. 0 Active (PROBIOTIC COMPLEX ORAL) norgestimate-ethinyl Take 1 tablet by 1 Package 2 05/19/2020 Active estradioL (ORTHO mouth daily. TRI-CYCLEN LO, 28,) 0.18/0.215/0.25 mg-25 mcg tabletIndications: Encounter for initial prescription of contraceptive pills Hospital, Clinic, or Other Ordered Dose Route Frequency Start Date End Date Status Facility Administered Medication cefTRIAXone (ROCEPHIN) 250 mg IM ONCE 05/21/20202019 Ended injection 250 mg documented as of this encounter (statuses as of 05/21/2020) Active Problems Problem Noted Date GBS (group [...] as of this encounter (statuses as of 05/21/2020) Resolved Problems Problem Noted Date Resolved Date [...] as of this encounter (statuses as of 05/21/2020) Immunizations Name Administration Dates Next Due HPV9 [...] been in contact with No / Unsure 05/21/2020 1:54 PM J2EE SOFTWARE ENGINEER someone who was confirmed or suspected to have Coronavirus / COVID-19? documented as of this encounter Last Filed Vital Signs Vital Sign Reading Time Taken Comments Blood Pressure 118/72 05/21/2020 1:55 PM J2EE SOFTWARE ENGINEER Pulse 64 05/21/2020 1:55 PM J2EE SOFTWARE ENGINEER Temperature 36.6 C (97.8 F) 05/21/2020 1:55 PM J2EE SOFTWARE ENGINEER Respiratory Rate 16 05/21/2020 1:55 PM J2EE SOFTWARE ENGINEER Oxygen Saturation - - Inhaled Oxygen Concentration - - Weight 70.5 kg (155 lb 7 oz) 05/21/2020 1:55 PM J2EE SOFTWARE ENGINEER Height 165.1 cm (5' 5") 05/21/2020 1:55 PM J2EE SOFTWARE ENGINEER Body Mass Index 25.87 05/21/2020 1:55 PM J2EE SOFTWARE ENGINEER documented in this encounter Progress Notes Claudio Monge RN - 05/21/2020 3:00 PM CSTPt in clinic for STD treatment for Gonorrhea. Pt states she took oral antibiotic for Chlamydia on Monday as prescribed. Pt states she her sexual partner has gotten treatment, but they are not together anymore. Medication administered per provider order-see MAR. Pt tolerated vaccine. No rash or reaction noted. Educated patient she should complete the entire course, advised patient to practice safe sex practices and to remain abstinent for at least 1-2 weeks post treatment. Advised [place] appointment in 3 months. Pt verbalized understanding. J2EE SOFTWARE ENGINEER documented in this encounter Plan of Treatment Date Type Specialty Care Team Description 08/17/2020 Office Visit [facility] Navarro Ruiz, [facility] [address] [place], [place] [address] [phone] 12/17/2020 Office Visit [facility] Navarro Ruiz [facility] [address] [facility], [place] [address] [phone] Health Maintenance Due Date Last Done Comments VARICELLA VACCINES (1 of 2 - 1997 2-dose childhood series) MENINGOCOCCAL B VACCINES (1 2006 of 2 - Risk Bexsero 2-dose series) HPV VACCINES (2 - 3-dose 10/06/2017 09/08/2017 series) PAP SMEAR 2017 INFLUENZA VACCINE (#1) 2020 03/03/2016 Depression Screening 12/17/2020 12/18/2019, 12/18/2019 CHLAMYDIA SCREENING 05/19/2021 05/19/2020, 12/18/2019, 09/08/2017, Additional history exists DTaP,Tdap,and Td Vaccines (2 05/18/2026 05/18/2016 - Td) PNEUMOCOCCAL 0-64 YEARS Aged Out No longe r eligible COMBINED SERIES based on patient 's age to complete this topic documented as of this encounter Results Not on filedocumented in this encounter Visit Diagnoses Diagnosis Sexually transmitted disease (STD) - [facility] Venereal disease, unspecified documented in this encounter Administered Medications Medication Order MAR Action Action Date Dose Rate Site cefTRIAXone (ROCEPHIN) Given 05/21/2020 2:14 PM 250 mg Left Upper Quad. injection 250 mg J2EE SOFTWARE ENGINEER Gluteus 250 mg, Intramuscular, ONCE, 1 dose, Michelle 05/21/20 at 1515, CORBY, Reason for Anti-Infective: Documented Infection, Documented Infection Site: Other, Other site: genitorurinary, Duration of Therapy: Other (see Comments) documented in this encounter Insurance Payer Benefit Plan Subscriber ID Effective Phone Address Typ e / Group Dates [facility] [id number] 2020-Pres [phone] Medicaid WOMEN ent [address] [place] [address] documented as of this encounter
--- OUTSIDE RECORDS SUMMARY | 2020-06-16 08:24 | XMS REPORT | Summary of Care ---
:1995 Author Organization [facility] Address [address] [place] [address] Care Team Providers Name Role Phone Laine Grant Primary Care Provider Reason for Visit Reason Comments CHLAMYDIA GONNORHEA Encounter Details Date Type Department Care Team Description 05/20[facility]2020 [facility] Justina [facility] AMYABELINOA; GONNORHEA [facility], [facility] [address] [facility] [address] [place] [address] [address] [place] [address] [phone] Allergies No Known Allergiesdocumented as of this [...] with No / Unsure 05/19/2020 2:08 PM GROCERY CLERK CHECKING someone who was confirmed or suspected to have Coronavirus / COVID-19? documented as of this encounter Last Filed Vital Signs Not on filedocumented in this encounter Miscellaneous Notes Telephone Encounter - Crissy Clements LVN - 05/20/2020 4:45 PM CSTNotified the patient of her positive STI results chlamydia and gonorrhea. Notified the patient her medication has been sent to her pharmacy on file and needed to have NV for injection. Educated patient she should complete the entire course, advised patient to practice safe sex practices and to remain abstinent for at least 1-2 weeks post treatment. Patient stated her partner was already treated. Advised patient on HIV testing if she has not recently been tested. Advised [place] appointment in 3 months. Pt verbalized understanding. ERY CLERK CHECKING Telephone Encounter - Crissy Clements LVN - 05/20/2020 4:32 PM CSTRossana Leigh Monge is a 24 year old female [...] been tested. CATRACHO Garrido 05/20/2020 4:18 PM ERY CLERK CHECKING documented in this encounter Plan of Treatment Date Type Specialty Care Team Description 05/21/2020 Nurse Visit [facility] Visit, Zev Nurse 08/17/2020 Office Visit [facility] Ruiz [facility] [address], [place] [address] [phone] 12/17/2020 Office Visit [facility] Ruiz, [facility] [address] [place], [place] [address] [phone] Name Type Priority Associated Diagnoses Order S [...] Address Typ e / Group Dates [facility] [id number] 2020-Pres [phone] Medicaid WOMEN ent [address] [place] [address] documented as of this encounter
--- OUTSIDE RECORDS SUMMARY | 2020-06-16 08:24 | XMS REPORT | Summary of Care ---
:1995 Author Organization [facility] Address [address] [place] [address] Care Team Providers Name Role Phone Laine Grant Primary Care Provider Reason for Visit Reason Comments NURSE VISIT Encounter Details Date Type Department Care Team Description 05/21/2020 Nurse Visit [facility]ish Ruiz, [facility] [address] [place] [address] Sexually transmitted [place] Visit, [facility] Nurse disease (STD) (Primary [address] [place] [address] Allergies No Known Allergiesdocumented as [...] with No / Unsure 05/21/2020 1:54 PM ALLERGIST/IMMUNOLOGIST PHYSICIAN someone who was confirmed or suspected to have Coronavirus / COVID-19? documented as of this encounter Last Filed Vital Signs Vital Sign Reading Time Taken Comments Blood Pressure 118/72 05/21/2020 1:55 PM ALLERGIST/IMMUNOLOGIST PHYSICIAN Pulse 64 05/21/2020 1:55 PM ALLERGIST/IMMUNOLOGIST PHYSICIAN Temperature 36.6 C (97.8 F) 05/21/2020 1:55 PM ALLERGIST/IMMUNOLOGIST PHYSICIAN Respiratory Rate 16 05/21/2020 1:55 PM ALLERGIST/IMMUNOLOGIST PHYSICIAN Oxygen Saturation - - Inhaled Oxygen Concentration - - Weight 70.5 kg (155 lb 7 oz) 05/21/2020 1:55 PM ALLERGIST/IMMUNOLOGIST PHYSICIAN Height 165.1 cm (5' 5") 05/21/2020 1:55 PM ALLERGIST/IMMUNOLOGIST PHYSICIAN Body Mass Index 25.87 05/21/2020 1:55 PM ALLERGIST/IMMUNOLOGIST PHYSICIAN documented in this encounter Progress Notes Claudio [...] appointment in 3 months. Pt verbalized understanding. RGIST/IMMUNOLOGIST PHYSICIAN documented in this encounter Plan of Treatment Date Type Specialty Care Team Description 08/17/2020 Office Visit [facility] Navarro Ruiz, [place] [address] [place], [place] [address] [phone] 12/17/2020 Office Visit [facility] Navarro Ruiz [facility] [address] [facility], [place] [address] [phone] Health Maintenance Due Date Last Done Comments [...] Diagnoses Diagnosis Sexually transmitted disease (STD) - [facility] Venereal disease, unspecified documented in this encounter Administered Medications Medication Order MAR Action Action Date Dose Rate Site cefTRIAXone (ROCEPHIN) Given 05/21/2020 2:14 PM 250 mg Left Upper Quad. injection 250 mg ALLERGIST/IMMUNOLOGIST PHYSICIAN Gluteus 250 mg, Intramuscular, ONCE, 1 dose, Michelle 05/21/20 at 1515, [place], Reason for Anti-Infective: Documented Infection, Documented Infection Site: Other, Other site: genitorurinary, Duration of Therapy: Other (see Comments) documented in this encounter Insurance Payer Benefit Plan Subscriber ID Effective Phone Address Typ e / Group Dates [facility] [id number] 2020-Pres [phone] Medicaid WOMEN ent [address] [place] [address] documented as of this encounter
[2020-06-16 11:49] LABS: SARS-COV-2 RT PCR POSITIVE (NEGATIVE)
--- NOTE | 2020-06-16 11:55 | EDPHYS ---
Physician Documentation [facility] Name: Rossana Monge Age: 24 yrs Sex: Female : 1995 Arrival Date: 06/16/2020 Time: 08:14 Bed 23 Private MD: ED Physician Mikel Bowden HPI: 06/16 10:40 This 24 yrs old Female presents to ER via Ambulatory with complaints of Body kb Aches, Sore Throat. 10:40 The patient or guardian reports flu symptoms, myalgias. Onset: The symptoms/episode kb began/occurred yesterday. Severity of symptoms: At their worst the symptoms were moderate, in the emergency department the symptoms are unchanged. Modifying factors: The symptoms are alleviated by nothing, the symptoms are aggravated by nothing. Associated signs and symptoms: Pertinent positives: sore throat, Pertinent negatives: chest pain, diarrhea, ear ache, fever, nausea, rhinorrhea, vomiting. The patient has not experienced similar symptoms in the past. The patient has not recently seen a physician. Historical: - Allergies: 08:38 No Known Allergies; ss - Home Meds: 08:38 Control [Active]; ss - PMHx: 08:38 None; ss - PSHx: 08:38 None; ss - Immunization history:: Adult Immunizations up to date. - Social history:: Smoking status: Patient reports the use of cigarette tobacco products, 1 pp week. ROS: 10:39 Cardiovascular: Negative for chest pain, palpitations, and edema, Respiratory: Negative kb for shortness of breath, cough, wheezing, and pleuritic chest pain, Abdomen/GI: Negative for abdominal pain, nausea, vomiting, diarrhea, and constipation, MS/Extremity: Negative for injury and deformity, Skin: Negative for injury, rash, and discoloration, Neuro: Negative for headache, weakness, numbness, tingling, and seizure. 10:39 Constitutional: Positive for body aches, malaise. 10:39 ENT: Positive for sore throat. Exam: 10:39 Constitutional: This is a well developed, well nourished patient who is awake, alert, kb and in no acute distress. Head/Face: Normocephalic, atraumatic. ENT: Nares patent. No nasal discharge, no septal abnormalities noted. Tympanic membranes are normal and external auditory canals are clear. Oropharynx with no redness, swelling, or masses, exudates, or evidence of obstruction, uvula midline. Mucous membranes moist. Neck: Trachea midline, no thyromegaly or masses palpated, and no cervical lymphadenopathy. Supple, full range of motion without nuchal rigidity, or vertebral point tenderness. No Meningismus. Chest/axilla: Normal chest wall appearance and motion. Nontender with no deformity. No lesions are appreciated. Cardiovascular: Regular rate and rhythm with a normal S1 and S2. No gallops, murmurs, or rubs. Normal PMI, no JVD. No pulse deficits. Respiratory: Lungs have equal breath sounds bilaterally, clear to auscultation and percussion. No rales, rhonchi or wheezes noted. No increased work of breathing, no retractions or nasal flaring. Abdomen/GI: Soft, non-tender, with normal bowel sounds. No distension or tympany. No guarding or rebound. No evidence of tenderness throughout. Skin: Warm, dry with normal turgor. Normal color with no rashes, no lesions, and no evidence of cellulitis. MS/ Extremity: Pulses equal, no cyanosis. Neurovascular intact. Full, normal range of motion. Neuro: Awake and alert, GCS 15, oriented to person, place, time, and situation. Cranial nerves II-XII grossly intact. Motor strength 5/5 in all extremities. Sensory grossly intact. Cerebellar exam normal. Normal gait. Vital Signs: 08:35 BP 117 / 70; Pulse 64; Resp 16; Temp 98.1(TE); Pulse Ox 99% on R/A; Weight 68.04 kg; ss Height 5 ft. 5 in. (165.10 cm); Pain 8/10; 08:35 Body Mass Index 24.96 (68.04 kg, 165.10 cm) ss MDM: 10:23 Patient medically screened. areli 10:38 Data reviewed: vital signs, nurses notes. Data interpreted: Pulse oximetry: on room air kb is 99 %. Interpretation: normal. 11:53 Counseling: I had a detailed discussion with the patient and/or guardian regarding: the kb historical points, exam findings, and any diagnostic results supporting the discharge/admit diagnosis, lab results, the need for outpatient follow up, a family practitioner, to return to the emergency department if symptoms worsen or persist or if there are any questions or concerns that arise at home. 06/16 09:05 Order name: Strep kb 06/16 11:49 Order name: COVID-19/FLU A+B; Complete Time: 11:52 EDMS Administered Medications: No medications were administered Disposition: 18:38 Co-signature as Attending Physician, Mikel Bowden MD I agree with the assessment and areli plan of care. Disposition: 06/16/20 11:53 Discharged to Home. Impression: Coronavirus infection, unspecified. - Condition is Stable. - Discharge Instructions: Viral Respiratory Infection, Myxv-Vh-Rzrh, COVID-19. - Medication Reconciliation Form, Thank You Letter, Antibiotic Education, Prescription Opioid Use form. - Follow up: Emergency Department; When: As needed; Reason: Worsening of condition. Follow up: Private Physician; When: 2 - 3 days; Reason: Recheck today's complaints, Continuance of care, Re-evaluation by your physician. Signatures: Dispatcher [employer] EDPR Zandra Bergeron, AMERICO SILVA-Mikel Fuller MD MD cha Smirch, Shelby, RN RN ss Cindy Olvera RN RN vg1 Corrections: (The following items were deleted from the chart) 10:40 10:39 Constitutional: This is a well developed, well nourished patient who is awake, kb alert, and in no acute distress. Head/Face: Normocephalic, atraumatic. Chest/axilla: Normal chest wall appearance and motion. Nontender with no deformity. No lesions are appreciated. Cardiovascular: Regular rate and rhythm with a normal S1 and S2. No gallops, murmurs, or rubs. Normal PMI, no JVD. No pulse deficits. Respiratory: Lungs have equal breath sounds bilaterally, clear to auscultation and percussion. No rales, rhonchi or wheezes noted. No increased work of breathing, no retractions or nasal flaring. Abdomen/GI: Soft, non-tender, with normal bowel sounds. No distension or tympany. No guarding or rebound. No evidence of tenderness throughout. Skin: Warm, dry with normal turgor. Normal color with no rashes, no lesions, and no evidence of cellulitis. MS/ Extremity: Pulses equal, no cyanosis. Neurovascular intact. Full, normal range of motion. Neuro: Awake and alert, GCS 15, oriented to person, place, time, and situation. Cranial nerves II-XII grossly intact. Motor strength 5/5 in all extremities. Sensory grossly intact. Cerebellar exam normal. Normal gait. kb 10:49 09:06 CORONAVIRUS+MR.LAB.BRZ ordered. EDMS EDMS 10:55 09:05 Influenza Screen (A \T\ B)+BA.LAB.BRZ ordered. EDMS EDMS 12:10 11:53 06/16/2020 11:53 Discharged to Home. Impression: Coronavirus infection, vg1 unspecified. Condition is Stable. Forms are Medication Reconciliation Form, Thank You Letter, Antibiotic Education, Prescription Opioid Use. Follow up: Emergency Department; When: As needed; Reason: Worsening of condition. Follow up: Private Physician; When: 2 - 3 days; Reason: Recheck today's complaints, Continuance of care, Re-evaluation by your physician. kb
--- NOTE | 2020-06-16 11:55 | ER ---
Nurse's Notes [facility] Name: Rossana Monge Age: 24 yrs Sex: Female : 1995 Arrival Date: 06/16/2020 Time: 08:14 Bed 23 Private MD: Diagnosis: Coronavirus infection, unspecified Presentation: 06/16 08:35 Chief complaint: Patient states: Sore throat, cough and body aches that began ss yesterday. No fever. Coronavirus screen: Client denies travel out of the [place] in the last 14 days. Client presents with at least one sign or symptom that may indicate coronavirus-19. Standard/surgical mask placed on the client. Ebola Screen: Patient denies exposure to infectious person. Patient denies travel to an Ebola-affected area in the 21 days before illness onset. Initial Sepsis Screen: Does the patient meet any 2 criteria? No. Patient's initial sepsis screen is negative. Does the patient have a suspected source of infection? No. Patient's initial sepsis screen is negative. Risk Assessment: Do you want to hurt yourself or someone else? Patient reports no desire to harm self or others. Onset of symptoms was June 15, 2020. 08:35 Method Of Arrival: Ambulatory ss 08:35 Acuity: SHERRIE 4 ss Historical: - Allergies: 08:38 No Known Allergies; ss - Home Meds: 08:38 Control [Active]; ss - PMHx: 08:38 None; ss - PSHx: 08:38 None; ss - Immunization history:: Adult Immunizations up to date. - Social history:: Smoking status: Patient reports the use of cigarette tobacco products, 1 pp week. Screenin:07 Abuse screen: Denies threats or abuse. Denies injuries from another. Nutritional ss screening: No deficits noted. Tuberculosis screening: Never had TB. Fall Risk None identified. Assessment: 12:09 General: Appears in no apparent distress. comfortable, Behavior is calm, cooperative. vg1 Pain: Denies pain. Neuro: Level of Consciousness is awake, alert, obeys commands, Oriented to person, place, time, situation. Cardiovascular: Patient's skin is warm and dry. Respiratory: Airway is patent Respiratory effort is even, unlabored, Respiratory pattern is regular, symmetrical. GI: No signs and/or symptoms were reported involving the gastrointestinal system. : No signs and/or symptoms were reported regarding the genitourinary system. EENT: Throat is pink. Derm: Skin is intact, is healthy with good turgor. Musculoskeletal: Circulation, motion, and sensation intact. Vital Signs: 08:35 BP 117 / 70; Pulse 64; Resp 16; Temp 98.1(TE); Pulse Ox 99% on R/A; Weight 68.04 kg; ss Height 5 ft. 5 in. (165.10 cm); Pain 8/10; 08:35 Body Mass Index 24.96 (68.04 kg, 165.10 cm) ED Course: 08:14 Patient arrived in ED. as 08:37 Triage completed. ss 08:38 Arm band placed on right wrist. ss 09:04 Zandra Bergeron FNP-C is [facility]. kb 09:04 Mikel Bowden MD is Attending Physician. kb 12:05 Cindy Olvera, RN is Primary Nurse. vg1 12:07 Patient has correct armband on for positive identification. Bed in low position. Call ss light in reach. 12:07 No provider procedures requiring assistance completed. Patient did not have IV access ss during this emergency room visit. Administered Medications: No medications were administered Outcome: 11:53 Discharge ordered by MD. kb 12:10 Discharged to home ambulatory. vg1 12:10 Condition: stable 12:10 Discharge instructions given to patient, Instructed on discharge instructions, follow up and referral plans. Demonstrated understanding of instructions, follow-up care. 12:10 Patient left the ED. vg1 Signatures: Zandra Bergeron FNP-C FNP-Ckb Martinez, Amelia as Smirch, Shelby, RN RN Cindy Olvera, JOSEPH RN vg1
[2020-06-16 12:14] VITALS: BP 117/70; TEMP 98.1; O2SAT 99
== END 2020-06-16 12:10 | disposition home or self-care (01) ==
LOC: ER 08:12
DX: U07.1 COVID-19 (principal); F17.210 Nicotine dependence, cigarettes, uncomplicated
CPT/HCPCS: 0240U; 87081; 99281

== ENCOUNTER 2020-08-03 23:59 | Emergency (ER) | payer OTHER ==
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
[2020-08-04 01:47] VITALS: BP 115/72; TEMP 97.9; O2SAT 99
--- OUTSIDE RECORDS SUMMARY | 2020-08-04 01:56 | XMS REPORT | Continuity of Care Document ---
:1995 Author Organization [facility] t Address [address] [place] [id number] Care Team Providers Name Role Phone Visit, Nurse Attending Clinician Unavailable Problems Condition Condition Condition Status Onset Resolution Last Treating Co mments Source Name Details Category Date Date Treatment Clinician Date Fever, Diagnosis Active 2014-05-13 Mem oria unspecifie 03:06:49 l d Fever, [place] unspecifie d Active Diagnosis 05/13/2014 Outpatient Clinical Care Viral Diagnosis Active 2014-05-13 Mem oria infection 03:06:49 l Viral [place] infection Active Diagnosis 05/13/2014 Outpatient Clinical Care H. pylori Problem Active 2015-09-15 Me moria infection 02:11:30 l H. [place] pylori infection Active Problem 09/15/2015 Outpatient Clinical Care Female Diagnosis Active 2015-09-15 Mem [facility] pelvic 02:11:30 l inflammato Female Herm chandler ry pelvic disease, inflammato unspecifie ry d disease, unspecifie d Active Diagnosis 09/15/2015 Outpatient Clinical Care Acute Diagnosis Active 2015-09-15 Mem oria vaginitis 02:11:30 l Acute [place] vaginitis Active Diagnosis 09/15/2015 Outpatient Clinical Care [...] Not Michael mani Available 4-06 l 00:00: 00 Family History Family Member Diagnosis Comments Start Date Stop Date Source Unknown Family Family History 2015-09-15 2015-09-15 Memori al [place] Member 02:11:30 02:11:30 Social History Social Habit Start Date Stop Date Quantity Comments Source Druguse: 2015-09-09 00:00:00 2015-09-09 Memor ial [place] 00:00:00 Medications Ordered Filled Start Stop Current Ordering Indication Dosage Frequency Signature Comments Components Source Medication Medication Date Date Medication? Clinician (SIG) Name Name MedroxyPROG Yes Danielito 1 tab(s) Memoria ESTERone 4-06 Paul l Acetate 00:00: [place] ibuprofen 2015-0 Yes Danielito 1 tab(s) Me moria 3-23 Paul l 00:00: [place] azithromyci 2015-0 Yes Danielito 1 tab(s) Memoria n 3-23 Paul l 00:00: [place] ciprofloxac 2015-0 Yes Danielito 1 tab(s) Memoria in 3-23 Paul l 00:00: [place] 00 Bromfed DM 2015-1 Yes Danielito 10 mL Michael mani 2-15 Paul l 00:00: [place] 00 Bromfed DM 2014-1 Yes Danielito 10 mL Michael mani 2-02 Paul l 00:00: [place] 00 ibuprofen 2013-1 Yes Danielito 1 tab(s) Me moria 2-02 Paul l 00:00: [place] pantoprazol 2013-0 Yes Danielito 1 tab(s) Memoria e 6-25 Paul l 00:00: [place] omeprazole 2013-0 No Danielito 1 cap(s) M emoria 6-21 Paul l 00:00: [place] 00 Vital Signs Vital Name Observation Time Observation Value Comments Source Height 2015-09-09 17:00:00 [facility] [place] Diastolic (mm Hg) 2015-09-09 17:00:00 Mem orial [place] Systolic (mm Hg) 2015-09-09 17:00:00 Michael rial [place] Temperature Oral (F) 2015-09-09 17:00:00 98.2 F [facility] [place] Weight 2015-09-09 17:00:00 [facility] [place] Height 2015-08-26 17:00:00 [facility] [place] Diastolic (mm Hg) 2015-08-26 17:00:00 Mem orial [place] Systolic (mm Hg) 2015-08-26 17:00:00 Michael rial [place] Temperature Oral (F) 2015-08-26 17:00:00 97.8 F [facility] [place] Weight 2015-08-26 17:00:00 [facility] [place] Height 2015-05-19 20:00:00 [facility] [place] Diastolic (mm Hg) 2015-05-19 20:00:00 Mem orial [place] Systolic (mm Hg) 2015-05-19 20:00:00 Michael rial [place] Temperature Oral (F) 2015-05-19 20:00:00 98.4 F [facility] [place] Weight 2015-05-19 20:00:00 [facility] [place] Height 2014-05-06 22:45:00 [facility] [place] Diastolic (mm Hg) 2014-05-06 22:45:00 Mem orial [place] Systolic (mm Hg) 2014-05-06 22:45:00 Michael rial [place] Temperature Oral (F) 2014-05-06 22:45:00 98.6 F [facility] [place] Weight 2014-05-06 22:45:00 [facility] [place] Procedures This patient has no known procedures. Encounters Start End Encounter Admission Attending Care Care Encounter Source Date/Time Date/Time Type Type Clinicians Facility Department ID 2020-05-21 2020-05-21 Nurse Visit, [facility] [id number] 13:49:36 14:14:57 Visit [facility] TERRAPIN FISHER [id number] Nurse REGIONAL [id number] MATERNAL [id number] & CHILD [address] [place] [address] 2015-09-09 2015-09-09 Outpatient Outpatien Outpatient [id number] [...]
== END 2020-08-04 00:59 | disposition home or self-care (01) ==
LOC: ER 23:59
DX: S29.012A Strain of muscle and tendon of back wall of thorax, initial encounter (principal); S20.219A Contusion of unspecified front wall of thorax, initial encounter; V49.59XA Passenger injured in collision with other motor vehicles in traffic accident, initial encounter
CPT/HCPCS: 99283

== ENCOUNTER 2021-03-18 08:43 | Inpatient (IN) | payer OTHER ==
[2021-03-18] MEDS ORDERED: PENICILLIN 5 MU in NA CHLORIDE 0.9% 100 ML IV ONE (09:43)
[2021-03-18] MEDS ORDERED: BUTORPHANOL 1 MG/ML INJ IV PRN (09:43)
[2021-03-18] MEDS ORDERED: PROMETHAZINE INJ 25 MG/ML AMP IM PRN (09:43)
[2021-03-18] MEDS ORDERED: CARBOPROST TROME 250 MCG/ML IM PRN (09:43)
[2021-03-18] MEDS ORDERED: METHYLERGONOVINE 0.2MG/ML AMP IM PRN (09:43)
[2021-03-18] MEDS ORDERED: Ringers Lactate 1,000 ML IV PRN (09:43)
[2021-03-18] MEDS ORDERED: OXYTOCIN/LR 20 UNIT/1,000 ML BAG IV SCH ×2 (10:00→14:00)
[2021-03-18] MEDS ORDERED: Ringers Lactate 1,000 ML IV SCH (10:00)
[2021-03-18] MEDS ORDERED: BUPIVACAINE 0.25% PF 10 ML VIAL IV PRN (10:44)
[2021-03-18] MEDS ORDERED: FENTANYL/BUPIVACAINE/NS/PF 200 MCG/100 ML BAG EP PRN (10:44)
[2021-03-18] MEDS ORDERED: FENTANYL CITR 100 MCG/2 ML IV ONE (10:44)
[2021-03-18 10:45] LABS: Absolute Lymphocytes (CBC) 2.1 K/uL (0.7-4.9); Basophils % 0.4 % (0-1.3); Hematocrit 35.2 % (36.0-45.0); MPV 10.7 fL (7.6-11.3); RBC Red Blood Cell Count 4.13 M/uL (3.86-4.86)
[2021-03-18 10:47] LABS: Urine Appearance CLOUDY (Clear); Urine Bilirubin NEGATIVE (Negative); Urine Blood 2+ (Negative); Urine Color YELLOW (Yellow); Urine Glucose NEGATIVE (Negative); Urine Protein NEGATIVE (Negative)
[2021-03-18 11:08] LABS: Urine Bacteria 20-50 /HPF (<20); Urine RBC <5 /HPF (NONE SEEN)
[2021-03-18] MEDS ORDERED: BISACODYL 10 MG RECTAL SUPP RC PRN (13:12)
[2021-03-18] MEDS ORDERED: ACETAMINOPHEN 500 MG TAB PO PRN (13:12)
[2021-03-18] MEDS ORDERED: Oxycodone HCl/Acetaminophen 1 TAB TAB PO PRN ×2 (13:12)
[2021-03-18] MEDS ORDERED: DIPHENHYDRAMINE 25 MG TAB/CAP PO PRN (13:12)
[2021-03-18] MEDS ORDERED: DOCUSATE NA/SENNA CONC 1 TAB PO PRN (13:12)
[2021-03-18 13:20] VITALS: BMI 31.1
--- NOTE | 2021-03-18 14:44 | OP ---
Surgeon: Kushal Espana MD Procedure In Detail: This is a 25-year-old, 4, para 2, scheduled for induction tomorrow, cam e in early labor, 3.5 cm on admission, satnam every 4-5 minutes. Given 5 million units of penic illin as she was beta strep positive. Started on light Pitocin. Rupture of membranes at 4.5. The p atient requested and received epidural anesthesia which gave excellent effect. Second stage of 10 mi nutes or less, spontaneous vaginal delivery of a 7-pound female, Apgars 9 and 10. No episiotomy. No laceration. Schultze delivery of the placenta, which inspected and noted to be intact and normal. 150 mL or less blood loss. The patient tolerated all procedures well. Rh positive, immune to rubell a. Positive strep. Negative COVID. Final Diagnoses: Vaginal delivery, 38 weeks 6 days, epidural anesthesia, penicillin prophylaxis. IZZY/MARC Voice ID: [id number] Report ID: [id number]
--- NOTE | 2021-03-18 14:44 | PREOPHP ---
Date of Admission: 03/18/2021 History Of Present Illness: Rossana Monge is a 25-year-old, 4, para 2, AB1, 38 weeks 6 day s, scheduled for induction tomorrow, came in early labor. About 3-4 cm on admission, bloody show, co ntracting every 4-5 minutes. Now is satnam more regularly. Now is 4.5 to 5 cm, 70% effaced, ve rtex, still -1 station. Rupture of membranes, clear fluid. The patient has had her first dose of pe nicillin. She is now being started on Pitocin. Baby looks good on the monitor. Vital signs are all stable. Family History: Noncontributory. Past Medical History: The patient has had Chlamydia and Gonorrhea in the past, but treated. Past Surgical History: No previous surgeries. Medications: No medicines prior to admission other than vitamins and iron. Social History: Does not smoke. Physical Examination: HEENT: Clear. Pupils equal, round, and reactive to light and accommodation. Conjunctivae well perf used. No oral, lingual, or buccal lesions. Chest and Lungs: Clear. Heart: Without murmurs, thrills, heaves, or rubs. Breasts: Without masses on previous visits. Abdomen: Term. Baby is vertex, still -1 station, but the cervix is good to 5 cm. Extremities: Clear without edema, cyanosis, or clubbing. Assessment And Plan: Anticipate delivery relatively soon once the baby starts to descend. We are st arting to hydrate her as she will be requesting epidural. IZZY/MARC Voice ID: [id number]
[2021-03-18] MEDS: IBUPROFEN 600 MG TAB PO PRN (16:46)
[2021-03-19] MEDS ORDERED: INFLUENZA VACCINE (for 6+ mo) 0.5 ML DOSE IMVAC ONE (10:00)
[2021-03-19] MEDS ORDERED: Tdap (Diph,Pertuss(Acell),Tet Vac) 0.5 ML SYR IMVAC ONE (10:00)
[2021-03-19] MEDS: IBUPROFEN 600 MG TAB PO PRN (10:43)
[2021-03-19 12:53] VITALS: BP 126/75; TEMP 97.4
[2021-03-19 21:06] LABS: RPR (Rapid Plasma Reagin) NON-REACT (NON-REACT)
[2021-03-22 18:51] LABS: HBsAG Nonreactive (Nonreactive)
--- NOTE | 2021-03-23 12:53 | DS ---
Date of Discharge: 03/19/2021 Erin Monge is a 25-year-old 3, para 2, 38 weeks 6 days, came in, in early labor. Deli marguerite of a 7-pound female, Apgars 9 and 10. No episiotomy. No laceration. Epidural anesthesia. Pe nicillin prophylaxis. Schultze delivery of the placenta, which inspected and noted to be intact and normal. Less than 150 cc blood loss. afebrile, ambulating, voiding. Lochia is normal. No post epidural problems. She requests flu shot and Tdap shot before she leaves the hospital. COVI D immunization also discussed, but declined. She says she is having cramping and requests stronger a nalgesics and Motrin. We will call in for tramadol 50 mg 1 every 6 to 8 hours, #20. She is Rh posit karen, immune to Rubella. No complaints or problems this morning other than cramping. Final Diagnoses: Term intrauterine at 38 weeks 6 days, vaginal delivery, epidural anesthes ia, penicillin prophylaxis. Immunizations pending. IZZY/MARIOL Voice ID: [id number] Report ID: [id number]
== END 2021-03-19 14:35 | disposition home or self-care (01) | DRG 807 ==
LOC: L&D 08:43 → 2ND-WC 09:40
PROVIDERS: ADMIT Specialist; ATTEND Specialist
PROC: 10E0XZZ Delivery of Products of Conception, External Approach (ICD-10-PCS; principal; 2021-03-18)
PROC: 3E033VJ Introduction of Other Hormone into Peripheral Vein, Percutaneous Approach (ICD-10-PCS; 2021-03-18)
PROC: 10907ZC Drainage of Amniotic Fluid, Therapeutic from Products of Conception, Via Natural or Artificial Opening (ICD-10-PCS; 2021-03-18)
DX: O99.824 Streptococcus B carrier state complicating childbirth (principal); Z37.0 Single live birth; Z3A.38 38 weeks gestation of pregnancy; Z23 Encounter for immunization; Z20.822 Contact with and (suspected) exposure to COVID-19
CPT/HCPCS: 36415; 81001; 85025; 86592; 86901; 87340; 90471; 90715; J2210; J2540; J2590; J3010; J7120; Q2035; U0003

== ENCOUNTER 2021-10-09 21:25 | Emergency (ER) | payer OTHER ==
--- OUTSIDE RECORDS SUMMARY | 2021-10-09 21:28 | XMS REPORT | Continuity of Care Document ---
:1995 Author Organization [facility] t Address [address] [place] [address] [place] [address] Care Team Providers Name Role Phone Michelle GRAY Attending Clinician Unavailable Mike Todd DO Attending Clinician Visit, Nurse Attending Clinician Unavailable Michelle Esquivel Attending Clinician Lab Attending Clinician Unavailable Doctor Unassigned, Name Attending Clinician Unavailable Neli ROSSI Attending Clinician Unavailable Payers Payer Name Policy Type Policy Number Effective Date Expiration Date S gabi [facility] [id number] 2020 00:00:00 MEDICAID [place] [id number] 2020 00:00:00 [facility] [id number] 2020 00:00:00 MEDICAID PENDING PENDING 2019 00:00:00 Problems Condition Condition Condition Status Onset Resolution Last Treating Co mments Source Name Details Category Date Date Treatment Clinician Date GBS (group GBS (group Disease Active Overview : NPI:183 B B -17 Michelle at [id number] streptococ streptococ 00:00: next cus) UTI cus) UTI 00 visit complicati complicati ng ng Susceptibl Susceptibl Disease Active Overview : NPI:183 e to e to 16 Address [id number] varicella varicella 00:00: pp (non-immun (non-immun 00 e), e), currently currently Rubella Rubella Disease Active Overview: NPI: 183 non-immune non-immune 7-16 Address 1 [id number] status, status, 00:00: pp antepartum antepartum 00 Supervisio Supervisio Disease Active N PI:183 n of n of 12-17 [id number] high-risk high-risk 00:00: 00 Vaginal Vaginal Disease Active NPI:183 bleeding bleeding 12-17 [id number] 1 in in 00:00: 00 Tobacco Tobacco Disease Active Overview: NPI: 183 use in use in 12-17 Reports [id number] 00:00: quit x1 00 week ago Over Over Disease Active NPI:183 weight weight 12-17 [id number] 00:00: 00 Multiparit Multiparit Disease Active N PI:183 y y 12-17 [id number] 00:00: 00 Allergies, Adverse Reactions, Alerts Allergy Allergy Status Severity Reaction(s) Onset Inactive Treating Comm ents Source Name Type Date Date Clinician NO KNOWN Drug Active NPI:183 ALLERGIE Class [id number] S Social History Social Habit Start Date Stop Date Quantity Comments Source ASSERTION 2019-11-08 00:00:00 Exposure to Not sure NPI:[id number] 1 SARS-CoV-2 (event) Alcohol intake 2020-05-21 2020-05-21 Current drinker of TRAFFIC ASSISTANT I:[id number] 00:00:00 00:00:00 alcohol (finding) Tobacco use and 2020-05-21 2020-05-21 Never used NPI:[id number] 76681 exposure 00:00:00 00:00:00 History of tobacco 2014-09-08 2019-12-10 Cigarette Smoker use 00:00:00 00:00:00 Tobacco Comment 2017-09-08 2017-09-08 4 cigarretes per NPI :[id number] 00:00:00 00:00:00 day Alcohol Comment 2017-09-08 2017-09-08 social NPI:[id number] 00:00:00 00:00:00 Sex [birth year] At [birth year] NPI:[id number] 00:00:00 00:00:00 Smoking Status Start Date Stop Date Source Former smoker 2020-05-21 00:00:00 2020-05-21 00:00:00 NPI:1831 [id number] Medications Ordered Filled Start Stop Current Ordering Indication Dosage Frequency Signature Comments Components Source Medication Medication Date Date Medication? Clinician (SIG) Name Name cefTRIAXone 2019-06- No 250mg NPI: 183 (ROCEPHIN) 07-22 [id number] injection 21:15: 20:14 250 mg 00 :00 cefTRIAXone 2019-06 2020- No 250mg 250 mg, N PI:183 (ROCEPHIN) 07-22 Intramuscu 13 [id number] injection 21:15: 20:14 lar, ONCE, 250 mg 00 :00 1 dose, Michelle 05/21/20 at 1515, [place]
Re ason for Anti-Infec tive: Documented Infection< br>Documen hanna Infection Site: Other
O ther site: genitoruri nary
Du ration of Therapy: Other (see Comments) cefTRIAXone 2019-06- No 250mg NPI: 183 (ROCEPHIN) [id number] injection 21:15: 20:14 250 mg 00 :00 cefTRIAXone 2019-06- No 250mg 250 mg, N PI:183 (ROCEPHIN) 07-22 Intramuscu 13 [id number] injection 21:15: 20:14 lar, ONCE, 250 mg 00 :00 1 dose, Michelle 05/21/20 at 1515, [place]
Re ason for Anti-Infec tive: Documented Infection< br>Documen hanna Infection Site: Other
O ther site: genitoruri nary
Du ration of Therapy: Other (see Comments) azithromyci 2019- 2020- No [id number] 1000mg Take 2 NPI:183 n 500 mg 2-16 12-17 tablets by 1318 781 tablet 00:00: 05:59 mouth once 00 :00 now for 1 dose. azithromyci 2019- 2020- No [id number] 1000mg Take 2 NPI:183 n 500 mg 2-16 12-17 tablets by 1318 781 tablet 00:00: 05:59 mouth once 00 :00 now for 1 dose. azithromyci 2019- 2020- No [id number] 1000mg Take 2 NPI:183 n 500 mg 2-16 12-17 tablets by 1318 781 tablet 00:00: 05:59 mouth once 00 :00 now for 1 dose. norgestimat 2020-1 Yes [id number] 1{tbl} Take 1 NPI:183 e-ethinyl 2-15 [place] [id number] 81 estradioL 00:00: mouth (ORTHO 00 daily. TRI-CYCLEN LO, 28,) 0.18/0.215/ 0.25 mg-25 mcg tablet norgestimat 2020-1 Yes [id number] 1{tbl} Take 1 NPI:183 e-ethinyl 2-[place] [id number] 81 estradioL 00:00: mouth (ORTHO 00 daily. TRI-CYCLEN , 28,) 0.18/0.215/ 0.25 mg-25 mcg tablet norgestimat 2020-1 Yes [id number] 1{tbl} Take 1 NPI:183 e-ethinyl 2-[place] [id number] 81 estradioL 00:00: mouth (ORTHO 00 daily. TRI-CYCLEN , 28,) 0.18/0.215/ 0.25 mg-25 mcg tablet norgestimat 2019- Yes [id number] 1{tbl} Take 1 NPI:183 e-ethinyl 2-[place] [id number] 81 estradioL 00:00: mouth (ORTHO 00 daily. TRI-CYCLEN , 28,) 0.18/0.215/ 0.25 mg-25 mcg tablet norgestimat 2020-1 Yes [id number] 1{tbl} Take 1 NPI:183 e-ethinyl 2-[place] [id number] 81 estradioL 00:00: mouth (ORTHO 00 daily. TRI-CYCLEN , 28,) 0.18/0.215/ 0.25 mg-25 mcg tablet norgestimat 2019-1 Yes [id number] 1{tbl} Take 1 NPI:183 e-ethinyl 2-[place] [id number] 81 estradioL 00:00: mouth (ORTHO 00 daily. TRI-CYCLEN LO, 28,) 0.18/0.215/ 0.25 mg-25 mcg tablet norgestimat 2019- Yes [id number] 1{tbl} Take 1 NPI:183 e-ethinyl 2-[place] [id number] 81 estradioL 00:00: mouth (ORTHO 00 daily. TRI-CYCLEN LO, 28,) 0.18/0.215/ 0.25 mg-25 mcg tablet norgestimat 2019- Yes [id number] 1{tbl} Take 1 NPI:183 e-ethinyl 2-[place] [id number] 81 estradioL 00:00: mouth (ORTHO 00 daily. TRI-CYCLEN LO, 28,) 0.18/0.215/ 0.25 mg-25 mcg tablet azithromyci 2019-06- No [id number] 1000mg Take 2 NPI:183 n 500 mg 2-15 12-16 tablets by 1318 781 tablet 00:00: 05:59 mouth once 00 :00 now for 1 dose. azithromyci 2019-06- No [id number] 1000mg Take 2 NPI:183 n 500 mg 2-15 12-16 tablets by 1318 781 tablet 00:00: 05:59 mouth once 00 :00 now for 1 dose. ampicillin No [id number] 500mg Take 1 NPI:183 500 mg 7-17 - capsule by [id number] 1 capsule 00:00: 04:59 mouth 4 00 :00 (four) times daily for 10 days. ampicillin No [id number] 500mg Take 1 NPI:183 500 mg 7-17 - capsule by [id number] 1 capsule 00:00: 04:59 mouth 4 00 :00 (four) times daily for 10 days. ampicillin No [id number] 500mg Take 1 NPI:183 500 mg 7-17 - capsule by [id number] 1 capsule 00:00: 04:59 mouth 4 00 :00 (four) times daily for 10 days. ampicillin No [id number] 500mg Take 1 NPI:183 500 mg 7-17 -28 capsule by [id number] 1 capsule 00:00: 04:59 mouth 4 00 :00 (four) times daily for 10 days. ampicillin 2019- No [id number] 500mg Take 1 NPI:183 500 mg 7-17 -28 capsule by [id number] 1 capsule 00:00: 04:59 mouth 4 00 :00 (four) times daily for 10 days. ampicillin No [id number] 500mg Take 1 NPI:183 500 mg 7-17 -28 capsule by [id number] 1 capsule 00:00: 04:59 mouth 4 00 :00 (four) times daily for 10 days. ampicillin 2020-0 2020- No [id number] 500mg Take 1 NPI:183 500 mg 7-17 -28 capsule by [id number] 1 capsule 00:00: 04:59 mouth 4 00 :00 (four) times daily for 10 days. ampicillin 2020-0 2020- No [id number] 500mg Take 1 NPI:183 500 mg 7-17 -28 capsule by [id number] 1 capsule 00:00: 04:59 mouth 4 00 :00 (four) times daily for 10 days. ampicillin 2020-0 2020- No [id number] 500mg Take 1 NPI:183 500 mg 7-19 12-28 capsule by [id number] 1 capsule 00:00: 04:59 mouth 4 00 :00 (four) times daily for 10 days. LACTOBACILL 2020-0 Yes Take by TRAFFIC ASSISTANT I:183 US COMBO 7-15 mouth. [id number] NO.6 15:29: (PROBIOTIC 48 COMPLEX ORAL) LACTOBACILL 2020-0 Yes Take by TRAFFIC ASSISTANT I:183 US COMBO 7-15 mouth. [id number] NO.6 15:29: (PROBIOTIC 48 COMPLEX ORAL) LACTOBACILL 2020-0 Yes Take by TRAFFIC ASSISTANT I:183 US COMBO 7-15 mouth. [id number] NO.6 15:29: (PROBIOTIC 48 COMPLEX ORAL) LACTOBACILL 2020-0 Yes Take by TRAFFIC ASSISTANT I:183 US COMBO 7-15 mouth. [id number] NO.6 15:29: (PROBIOTIC 48 COMPLEX ORAL) LACTOBACILL 2020-0 Yes Take by TRAFFIC ASSISTANT I:183 US COMBO 7-15 mouth. [id number] NO.6 15:29: (PROBIOTIC 48 COMPLEX ORAL) LACTOBACILL 2020-0 Yes Take by TRAFFIC ASSISTANT I:183 US COMBO 7-15 mouth. [id number] NO.6 15:29: (PROBIOTIC 48 COMPLEX ORAL) LACTOBACILL 2020-0 Yes Take by TRAFFIC ASSISTANT I:183 US COMBO 7-15 mouth. [id number] NO.6 15:29: (PROBIOTIC 48 COMPLEX ORAL) LACTOBACILL 2020-0 Yes Take by TRAFFIC ASSISTANT I:183 US COMBO 7-15 mouth. [id number] NO.6 15:29: (PROBIOTIC 48 COMPLEX ORAL) LACTOBACILL 2020-0 Yes Take by TRAFFIC ASSISTANT I:183 US COMBO 7-15 mouth. [id number] NO.6 15:29: (PROBIOTIC 48 COMPLEX ORAL) LACTOBACILL 2020-0 Yes Take by TRAFFIC ASSISTANT I:183 US COMBO 7-15 mouth. [id number] NO.6 15:29: (PROBIOTIC 48 COMPLEX ORAL) LACTOBACILL 2020-0 Yes Take by TRAFFIC ASSISTANT I:183 US COMBO 7-15 mouth. [id number] NO.6 15:29: (PROBIOTIC 48 COMPLEX ORAL) LACTOBACILL 2020-0 Yes Take by TRAFFIC ASSISTANT I:183 US COMBO 7-15 mouth. [id number] NO.6 15:29: (PROBIOTIC 48 COMPLEX ORAL) LACTOBACILL 2020-0 Yes Take by TRAFFIC ASSISTANT I:183 US COMBO 7-15 mouth. [id number] NO.6 15:29: (PROBIOTIC 48 COMPLEX ORAL) LACTOBACILL 2020-0 Yes Take by TRAFFIC ASSISTANT I:183 US COMBO 7-15 mouth. [id number] NO.6 15:29: (PROBIOTIC 48 COMPLEX ORAL) LACTOBACILL 2020-0 Yes Take by TRAFFIC ASSISTANT I:183 US COMBO 7-15 mouth. [id number] NO.6 15:29: (PROBIOTIC 48 COMPLEX ORAL) LACTOBACILL 2020-0 Yes Take by TRAFFIC ASSISTANT I:183 US COMBO 7-15 mouth. [id number] NO.6 15:29: (PROBIOTIC 48 COMPLEX ORAL) LACTOBACILL 2020-0 Yes Take by TRAFFIC ASSISTANT I:183 US COMBO 7-15 mouth. [id number] NO.6 15:29: (PROBIOTIC 48 COMPLEX ORAL) LACTOBACILL 2020-0 Yes Take by TRAFFIC ASSISTANT I:183 US COMBO 7-15 mouth. [id number] NO.6 15:29: (PROBIOTIC 48 COMPLEX ORAL) LACTOBACILL 2020-0 Yes Take by TRAFFIC ASSISTANT I:183 US COMBO 7-15 mouth. [id number] NO.6 15:29: (PROBIOTIC 48 COMPLEX ORAL) LACTOBACILL 2020-0 Yes Take by TRAFFIC ASSISTANT I:183 US COMBO 7-15 mouth. [id number] NO.6 15:29: (PROBIOTIC 48 COMPLEX ORAL) LACTOBACILL 2020-0 Yes Take by TRAFFIC ASSISTANT I:183 US COMBO 7-15 mouth. [id number] NO.6 15:29: (PROBIOTIC 48 COMPLEX ORAL) LACTOBACILL 2020-0 Yes Take by TRAFFIC ASSISTANT I:183 US COMBO 7-15 mouth. [id number] NO.6 15:29: (PROBIOTIC 48 COMPLEX ORAL) LACTOBACILL 2020-0 Yes Take by TRAFFIC ASSISTANT I:183 US COMBO 7-15 mouth. [id number] NO.6 15:29: (PROBIOTIC 48 COMPLEX ORAL) LACTOBACILL 2020-0 Yes Take by TRAFFIC ASSISTANT I:183 US COMBO 7-15 mouth. [id number] NO.6 15:29: (PROBIOTIC 48 COMPLEX ORAL) LACTOBACILL 2020-0 Yes Take by TRAFFIC ASSISTANT I:183 US COMBO 7-15 mouth. [id number] NO.6 15:29: (PROBIOTIC 48 COMPLEX ORAL) LACTOBACILL 2020-0 Yes Take by TRAFFIC ASSISTANT I:183 US COMBO 7-15 mouth. [id number] NO.6 15:29: (PROBIOTIC 48 COMPLEX ORAL) norgestimat 2018-0 Yes [id number] 1{tbl} Take 1 NPI:183 e-ethinyl 4-[place] [id number] 81 estradiol 00:00: mouth (ORTHO 00 daily. TRI-CYCLEN LO, 28,) 0.18/0.215/ 0.25 mg-25 mcg tablet norgestimat 2018-0 Yes [id number] 1{tbl} Take 1 NPI:183 e-ethinyl 4-[place] [id number] 81 estradiol 00:00: mouth (ORTHO 00 daily. TRI-CYCLEN LO, 28,) 0.18/0.215/ 0.25 mg-25 mcg tablet norgestimat 2018-0 Yes [id number] 1{tbl} Take 1 NPI:183 e-ethinyl 4-[place] 10774 81 estradiol 00:00: mouth (ORTHO 00 daily. TRI-CYCLEN LO, 28,) 0.18/0.215/ 0.25 mg-25 mcg tablet norgestimat 2018-0 Yes [id number] 1{tbl} Take 1 NPI:183 e-ethinyl 4-[place] [id number] 81 estradiol 00:00: mouth (ORTHO 00 daily. TRI-CYCLEN LO, 28,) 0.18/0.215/ 0.25 mg-25 mcg tablet norgestimat 2018-0 Yes [id number] 1{tbl} Take 1 NPI:183 e-ethinyl 4-[place] [id number] 81 estradiol 00:00: mouth (ORTHO 00 daily. TRI-CYCLEN LO, 28,) 0.18/0.215/ 0.25 mg-25 mcg tablet norgestimat 2018-0 Yes [id number] 1{tbl} Take 1 NPI:183 e-ethinyl 4-[place] [address] 81 estradiol 00:00: mouth (ORTHO 00 daily. TRI-CYCLEN LO, 28,) 0.18/0.215/ 0.25 mg-25 mcg tablet norgestimat 2017-0 Yes [id number] 1{tbl} Take 1 NPI:183 e-ethinyl 4-[place] [id number] 81 estradiol 00:00: mouth (ORTHO 00 daily. TRI-CYCLEN LO, 28,) 0.18/0.215/ 0.25 mg-25 mcg tablet norgestimat 2017-0 Yes [id number] 1{tbl} Take 1 NPI:183 e-ethinyl 4-[place] [id number] 81 estradiol 00:00: mouth (ORTHO 00 daily. TRI-CYCLEN , 28,) 0.18/0.215/ 0.25 mg-25 mcg tablet norgestimat 2017-0 Yes [id number] 1{tbl} Take 1 NPI:183 e-ethinyl 4-06 [place] [id number] 81 estradiol 00:00: mouth (ORTHO 00 daily. TRI-CYCLEN , 28,) 0.18/0.215/ 0.25 mg-25 mcg tablet norgestimat 2017-0 Yes [id number] 1{tbl} Take 1 NPI:183 e-ethinyl 4-[place] [id number] 81 estradiol 00:00: mouth (ORTHO 00 daily. TRI-CYCLEN , 28,) 0.18/0.215/ 0.25 mg-25 mcg tablet norgestimat 2017-0 Yes [id number] 1{tbl} Take 1 NPI:183 e-ethinyl 4-[place] [id number] 81 estradiol 00:00: mouth (ORTHO 00 daily. TRI-CYCLEN , 28,) 0.18/0.215/ 0.25 mg-25 mcg tablet norgestimat 2017-0 Yes [id number] 1{tbl} Take 1 NPI:183 e-ethinyl 4-[place] [id number] 81 estradiol 00:00: mouth (ORTHO 00 daily. TRI-CYCLEN LO, 28,) 0.18/0.215/ 0.25 mg-25 mcg tablet norgestimat 2017-0 Yes [id number] 1{tbl} Take 1 NPI:183 e-ethinyl 4-[place] [id number] 81 estradiol 00:00: mouth (ORTHO 00 daily. TRI-CYCLEN , 28,) 0.18/0.215/ 0.25 mg-25 mcg tablet norgestimat 2018-0 Yes [id number] 1{tbl} Take 1 NPI:183 e-ethinyl 4-06 tablet by 00542 81 estradiol 00:00: mouth (ORTHO 00 daily. TRI-CYCLEN , 28,) 0.18/0.215/ 0.25 mg-25 mcg tablet norgestimat 2018-0 Yes [id number] 1{tbl} Take 1 NPI:183 e-ethinyl 4-[place] [id number] 81 estradiol 00:00: mouth (ORTHO 00 daily. TRI-CYCLEN , 28,) 0.18/0.215/ 0.25 mg-25 mcg tablet norgestimat 2018-0 Yes [id number] 1{tbl} Take 1 NPI:183 e-ethinyl 4-[place] [id number] 81 estradiol 00:00: mouth (ORTHO 00 daily. TRI-CYCLEN , 28,) 0.18/0.215/ 0.25 mg-25 mcg tablet norgestimat 2017-0 Yes [id number] 1{tbl} Take 1 NPI:183 e-ethinyl 4-[place] [id number] 81 estradiol 00:00: mouth (ORTHO 00 daily. TRI-CYCLEN , 28,) 0.18/0.215/ 0.25 mg-25 mcg tablet norgestimat 2017-0 Yes [id number] 1{tbl} Take 1 NPI:183 e-ethinyl 4-[place] [id number] 81 estradiol 00:00: mouth (ORTHO 00 daily. TRI-CYCLEN , 28,) 0.18/0.215/ 0.25 mg-25 mcg tablet norgestimat 2018-0 2020- No [id number] 1{tbl} Take 1 NPI:183 e-ethinyl 4-06 12-15 tablet by 1318 781 estradiol 00:00: 00:00 mouth (ORTHO 00 :00 daily. TRI-CYCLEN , 28,) 0.18/0.215/ 0.25 mg-25 mcg tablet norgestimat 2020- No [id number] 1{tbl} Take 1 NPI:183 e-ethinyl - 12-15 tablet by 1318 781 estradiol 00:00: 00:00 mouth (ORTHO 00 :00 daily. TRI-CYCLEN LO, 28,) 0.18/0.215/ 0.25 mg-25 mcg tablet Immunizations Ordered Immunization Filled Immunization Date Status Commen Source Name Name HPV9 2017-09-08 Completed 00:00:00 HPV9 2017-09-08 Completed 00:00:00 HPV9 2017-09-08 Completed 00:00:00 HPV9 2017-09-08 Completed 00:00:00 HPV9 2017-09-08 Completed 00:00:00 HPV9 2017-09-08 Completed 00:00:00 HPV9 2017-09-08 Completed 00:00:00 HPV9 2017-09-08 Completed 00:00:00 HPV9 2017-09-08 Completed 00:00:00 HPV9 2017-09-08 Completed 00:00:00 HPV9 2017-09-08 Completed 00:00:00 HPV9 2017-09-08 Completed 00:00:00 HPV9 2017-09-08 Completed 00:00:00 HPV9 2017-09-08 Completed 00:00:00 HPV9 2017-09-08 Completed 00:00:00 HPV9 2017-09-08 Completed 00:00:00 HPV9 2017-09-08 Completed 00:00:00 HPV9 2017-09-08 Completed 00:00:00 HPV9 2017-09-08 Completed 00:00:00 HPV9 2017-09-08 Completed 00:00:00 HPV9 2017-09-08 Completed 00:00:00 HPV9 2017-09-08 Completed 00:00:00 HPV9 2017-09-08 Completed 00:00:00 HPV9 2017-09-08 Completed 00:00:00 HPV9 2017-09-08 Completed 00:00:00 HPV9 2017-09-08 Completed 00:00:00 TDAP 2016-05-18 Completed 00:00:00 TDAP 2016-05-18 Completed 00:00:00 TDAP 2016-05-18 Completed 00:00:00 TDAP 2016-05-18 Completed 00:00:00 TDAP 2016-05-18 Completed 00:00:00 TDAP 2016-05-18 Completed 00:00:00 TDAP 2016-05-18 Completed 00:00:00 TDAP 2016-05-18 Completed 00:00:00 TDAP 2016-05-18 Completed 00:00:00 TDAP 2016-05-18 Completed 00:00:00 TDAP 2016-05-18 Completed 00:00:00 TDAP 2016-05-18 Completed 00:00:00 TDAP 2016-05-18 Completed 00:00:00 TDAP 2016-05-18 Completed 00:00:00 TDAP 2016-05-18 Completed 00:00:00 TDAP 2016-05-18 Completed 00:00:00 TDAP 2016-05-18 Completed 00:00:00 TDAP 2016-05-18 Completed 00:00:00 TDAP 2016-05-18 Completed 00:00:00 TDAP 2016-05-18 Completed 00:00:00 TDAP 2016-05-18 Completed 00:00:00 TDAP 2016-05-18 Completed 00:00:00 TDAP 2016-05-18 Completed 00:00:00 TDAP 2016-05-18 Completed 00:00:00 TDAP 2016-05-18 Completed 00:00:00 TDAP 2016-05-18 Completed 00:00:00 Influenza Virus 2016-03-03 Completed NPI:[id number] Vaccine Quad IM 3+ 00:00:00 YRS Influenza Virus 2016-03-03 Completed NPI:[id number] Vaccine Quad IM 3+ 00:00:00 YRS Influenza Virus 2016-03-03 Completed NPI:[id number] 86266 Vaccine Quad IM 3+ 00:00:00 YRS Influenza Virus 2016-03-03 Completed NPI:[id number] 67266 Vaccine Quad IM 3+ 00:00:00 YRS Influenza Virus 2016-03-03 Completed NPI:[id number] 89708 Vaccine Quad IM 3+ 00:00:00 YRS Influenza Virus 2016-03-03 Completed NPI:12308 74199 Vaccine Quad IM 3+ 00:00:00 YRS Influenza Virus 2016-03-03 Completed NPI:[id number] 79869 Vaccine Quad IM 3+ 00:00:00 YRS Influenza Virus 2016-03-03 Completed NPI:[id number] 40265 Vaccine Quad IM 3+ 00:00:00 YRS Influenza Virus 2016-03-03 Completed NPI:[id number] 88650 Vaccine Quad IM 3+ 00:00:00 YRS Influenza Virus 2016-03-03 Completed NPI:[id number] 78750 Vaccine Quad IM 3+ 00:00:00 YRS Influenza Virus 2016-03-03 Completed NPI:[id number] 99419 Vaccine Quad IM 3+ 00:00:00 YRS Influenza Virus 2016-03-03 Completed NPI:[id number] 21291 Vaccine Quad IM 3+ 00:00:00 YRS Influenza Virus 2016-03-03 Completed NPI:[id number] 51808 Vaccine Quad IM 3+ 00:00:00 YRS Influenza Virus 2016-03-03 Completed NPI:[id number] 04040 Vaccine Quad IM 3+ 00:00:00 YRS Influenza Virus 2016-03-03 Completed NPI:[id number] 23212 Vaccine Quad IM 3+ 00:00:00 YRS Influenza Virus 2016-03-03 Completed NPI:[id number] 44699 Vaccine Quad IM 3+ 00:00:00 YRS Influenza Virus 2016-03-03 Completed NPI:[id number] 01882 Vaccine Quad IM 3+ 00:00:00 YRS Influenza Virus 2016-03-03 Completed NPI:[id number] 92776 Vaccine Quad IM 3+ 00:00:00 YRS Influenza Virus 2016-03-03 Completed NPI:[id number] 07003 Vaccine Quad IM 3+ 00:00:00 YRS Influenza Virus 2016-03-03 Completed NPI:37494 43301 Vaccine Quad IM 3+ 00:00:00 YRS Influenza Virus 2016-03-03 Completed NPI:[id number] 23080 Vaccine Quad IM 3+ 00:00:00 YRS Influenza Virus 2016-03-03 Completed NPI:[id number] 79870 Vaccine Quad IM 3+ 00:00:00 YRS Influenza Virus 2016-03-03 Completed NPI:[id number] 17195 Vaccine Quad IM 3+ 00:00:00 YRS Influenza Virus 2016-03-03 Completed NPI:[id number] 15880 Vaccine Quad IM 3+ 00:00:00 YRS Influenza Virus 2016-03-03 Completed NPI:83604 32518 Vaccine Quad IM 3+ 00:00:00 YRS Influenza Virus 2016-03-03 Completed NPI:06036 87898 Vaccine Quad IM 3+ 00:00:00 YRS Vital Signs Vital Name Observation Time Observation Value Comments Source Systolic blood pressure 2020-05-21 19:55:00 118 mm[Hg] Diastolic blood 2020-05-21 19:55:00 72 mm[Hg] NPI:1 [id number] pressure Heart rate 2020-05-21 19:55:00 64 /min NPI:1831 [id number] Body temperature 2020-05-21 19:55:00 36.56 Divya Respiratory rate 2020-05-21 19:55:00 16 /min Body height 2020-05-21 19:55:00 165.1 cm NPI:1831 [id number] Body weight 2020-05-21 19:55:00 70.506 kg NPI:1831 507476 BMI 2020-05-21 19:55:00 25.87 kg/m2 NPI:1831 868229 Systolic blood pressure 2020-05-21 19:55:00 118 mm[Hg] Diastolic blood 2020-05-21 19:55:00 72 mm[Hg] NPI:1 [id number] pressure Heart rate 2020-05-21 19:55:00 64 /min NPI:1831 [id number] Body temperature 2020-05-21 19:55:00 36.56 Divya Respiratory rate 2020-05-21 19:55:00 16 /min Body height 2020-05-21 19:55:00 165.1 cm NPI:1831 [id number] Body weight 2020-05-21 19:55:00 70.506 kg NPI:1831 142787 BMI 2020-05-21 19:55:00 25.87 kg/m2 NPI:1831 [id number] Systolic blood pressure 2020-05-19 20:09:00 117 mm[Hg] Diastolic blood 2020-05-19 20:09:00 67 mm[Hg] NPI:1 [id number] pressure Heart rate 2020-05-19 20:09:00 67 /min NPI:1831 [id number] Body temperature 2020-05-19 20:09:00 36.11 Divya Respiratory rate 2020-05-19 20:09:00 16 /min Body height 2020-05-19 20:09:00 160 cm NPI:1831 [id number] Body weight 2020-05-19 20:09:00 70.393 kg NPI:1831 576246 BMI 2020-05-19 20:09:00 27.49 kg/m2 NPI:1831 [id number] Systolic blood pressure 2019-12-18 15:21:00 115 mm[Hg] Diastolic blood 2019-12-18 15:21:00 73 mm[Hg] NPI:1 [id number] pressure Heart rate 2019-12-18 15:21:00 80 /min NPI:1831 [id number] Body temperature 2019-12-18 15:21:00 36.22 Divya Respiratory rate 2019-12-18 15:21:00 16 /min Body height 2019-12-18 15:21:00 160 cm NPI:1831 081659 Body weight 2019-12-18 15:21:00 72.349 kg NPI:1831 131909 BMI 2019-12-18 15:21:00 28.25 kg/m2 NPI:1831 [id number] Procedures Procedure Date / Time Performed Performing Clinician Sour e POCT TEST 2020-05-19 22:22:00 Justina Gray C NPI :[id number] GC & CHLAMYDIA AMPLIFIED 2020-05-19 21:01:00 AkinManish luiilola C ASSAY TRICHOMONAS AMPLIFIED 2020-05-19 21:01:00 Justina Gray N PI:[id number] ASSAY HIV 1/2 AG-AB WITH REFLEX 2020-05-19 20:59:00 Justina Gray POCT TEST 2019-12-18 15:12:00 Vince Grayola C NPI :[id number] POCT URINALYSIS W/O 2019-12-18 15:12:00 Justina Gray C NPI :[id number] SPECIFIC GRAVITY REPORT OF 2019-12-18 05:01:00 Doctor Unassigned, No TRAFFIC ASSISTANT I:[id number] Name Encounters Start End Encounter Admission Attending Care Care Encounter Source Date/Time Date/Time Type Type Clinicians Facility Department ID 2020-12-17 2020-12-17 Outpatient R SARA, [facility] [id number] NPI:183 13:15:00 13:15:00 JUSTINA [id number] 2020-12-17 2020-12-17 Outpatient R SARA, [facility] [id number] NPI:183 13:15:00 13:15:00 JUSTINA [id number] 2020-08-27 2020-08-27 Outpatient R SARA, [facility] [id number] NPI:183 09:15:00 09:15:00 JUSTINA [id number] 81 2020-08-27 2020-08-27 Outpatient R SARA, [facility] [id number] NPI:183 09:15:00 09:15:00 JUSTINA [id number] 81 2020-08-25 2020-08-25 Patient Perez [facility] 1.2.840.114 [id number] NPI:183 00:00:00 00:00:00 Outreach [facility] [id number] [id number] [facility] 4.2.7.2.686 [place] [id number] 2020-08-17 2020-08-17 Outpatient R AKINSIPE, [facility] [id number] NPI:183 13:15:00 13:15:00 JUSTINA [id number] 81 2020-08-17 2020-08-17 Outpatient R AKINSIPE, [facility] [id number] NPI:183 13:15:00 13:15:00 JUSTINA [id number] 81 2020-08-17 2020-08-17 Outpatient R AKINSIPE, [facility] [id number] NPI:183 13:15:00 13:15:00 JUSTINA [id number] 81 2020-06-09 2020-06-09 Outpatient R LUCIOSIPE, [facility] [id number] NPI:183 08:30:00 08:30:00 JUSTINA [id number] 2020-05-21 2020-05-21 Outpatient [facility] [id number] NPI:183 15:00:00 15:00:00 [id number] 2020-05-21 2020-05-21 Outpatient R LUCIOSIPE, [facility] [id number] NPI:183 15:00:00 15:00:00 JUSTINA [id number] 81 2020-05-21 2020-05-21 Nurse Visit, Edward-Rmchp Nurse [facility] 1.2 .840.114 [id number] NPI:183 13:49:36 14:14:57 Visit Justina Gray [employer] MANAGER 350.1.13. 10 [id number] [facility] 4.2.7.2.686 MATERNAL [id number] & [address] 2020-05-21 2020-05-21 Nurse Visit, [facility] 1.2.840.114 [id number] 13:49:36 14:14:57 [facility] [employer]ATIONAL [employer] AND SAFETY MANAGER 350.1.13.10 Nurse [facility] 4.2.7.2.686 MATERNAL [id number] & CHILD 107 [facility] [[email or web address]] 2020-05-20 2020-05-20 Telephone Sara, [facility] 1.2.840.114 [id number] NPI:183 00:00:00 00:00:00 Justina C OCCUPATIONAL HEALTH AND SAFETY MANAGER 350.1.13.10 [id number] [place] [id number] MATERNAL [id number] & CHILD 107 [facility] [[email or web address]] 2020-05-19 2020-05-19 Office [facility] 1.2.034.089 [id number] NPI:183 13:54:34 15:00:54 Visit Justina C [employer]CCUPATIONAL HE[employer] AND SAFETY MANAGER 350.1.13.10 [id number] [place] [id number] MATERNAL [id number] & CHILD 107 [facility] [[email or web address]] 2020-05-19 2020-05-19 Outpatient R AKINSIPE, [facility] [id number] NPI:183 13:45:00 13:45:00 JUSTINA [id number] 2020-05-19 2020-05-19 Outpatient R AKINSIPE, [facility] [id number] NPI:183 13:45:00 13:45:00 JUSTINA [id number] 81 2020-03-16 2020-03-16 Outpatient R AKINSIPE, [facility] [id number] NPI:183 10:30:00 10:30:00 JUSTINA [id number] 2020-03-16 2020-03-16 Outpatient R AKINSIPE, [facility] [id number] NPI:183 10:30:00 10:30:00 JUSTINA [id number] 81 2020-03-02 2020-03-02 Letter Luciosipe, [facility] [id number] NPI:183 00:00:00 00:00:00 (Out) Justina C OCCUPATIONAL HEALTH AND SAFETY MANAGER [id number] [id number] [place] [id number] MATERNAL [phone] & CHILD 107 [facility] [[email or web address]] 2020-01-15 2020-01-15 Outpatient R LUCIOSIPERICO, [facility] [id number] NPI:183 15:15:00 15:15:00 JUSTINA [id number] 2020-01-15 2020-01-15 Outpatient R KARINAPE, [facility] [id number] NPI:183 15:15:00 15:15:00 JUSTINA [id number] 81 2020-01-10 2020-01-10 Telephone Luciouh, [facility] [id number] NPI:183 00:00:00 00:00:00 Justina C OCCUPATIONAL HEALTH AND SAFETY MANAGER [id number] [id number] [facility] [id number] MATERNAL [id number] & CHILD 107 [facility] [[email or web address]] 2020-01-10 2020-01-10 Telephone Karinaperico, [facility] [id number] NPI:183 00:00:00 00:00:00 Justina C OCCUPATIONAL HEALTH AND SAFETY MANAGER 350.1.13.10 [id number] [facility] [id number] MATERNAL [id number] & CHILD 107 [facility] [[email or web address]] 2020-01-08 2020-01-08 Nurse Behavioral Health Care Lab, [facility] 1.2.840. 114 [id number] NPI:183 14:53:19 15:09:35 Visit Sara Justina C OCCUPATIONAL HEALTH AND SAFETY MANAGER 350.1.13. 10 [id number] [facility] [id number] MATERNAL [id number] & CHILD 107 [facility] [[email or web address]] 2020-01-08 2020-01-08 Outpatient R [facility] [id number] NPI:183 15:00:00 15:00:00 [id number] 2020-01-08 2020-01-08 Outpatient R LUCIOSIPE, [facility] [id number] NPI:183 15:00:00 15:00:00 JUSTINA [id number] 2020-01-08 2020-01-08 Telephone Luciohu [facility] [id number] NPI:183 00:00:00 00:00:00 Justina C OCCUPATIONAL HEALTH AND SAFETY MANAGER 350.1.13.10 [id number] [facility] [id number] MATERNAL [id number] & CHILD 107 [facility] [[email or web address]] 2020-01-01 2020-01-01 Outpatient R [facility] [id number] NPI:183 08:30:00 08:30:00 [id number] 2020-01-01 2020-01-01 Outpatient R [facility] [id number] NPI:183 08:30:00 08:30:00 [id number] 2019-12-26 2019-12-26 [facility] 1.2.840.114 [id number] NPI:183 00:00:00 00:00:00 Justina C OCCUPATIONAL HEALTH AND SAFETY MANAGER 350.1.13.10 [id number] [facility] [id number] MATERNAL [id number] & CHILD 107 [facility] [[email or web address]] 2019-12-25 2019-12-25 Outpatient R [facility] [id number] NPI:183 08:30:00 08:30:00 [id number] 2019-12-25 2019-12-25 [facility] [id number] NPI:183 08:30:00 08:30:00 JUSTINA [id number] 2019-12-25 2019-12-25 Nurse Behavioral Health Care Lab, [facility] 1.2.840. 114 [id number] NPI:183 08:14:26 08:20:26 Visit Manish Grayilola C OCCUPATIONAL HEALTH AND SAFETY MANAGER 350.1.13. 10 [id number] [place] [id number] MATERNAL [id number] & CHILD 107 [facility] [[email or web address]] 2019-12-20 2019-12-20 Outpatient [facility] [id number] NPI:183 10:30:00 10:30:00 [id number] 2019-12-20 2019-12-20 Outpatient R [facility] [id number] NPI:183 10:30:00 10:30:00 [id number] 2019-12-20 2019-12-20 Telephone Akinsipe, [facility] 1.2.840.114 [id number] NPI:183 00:00:00 00:00:00 Justina C OCCUPATIONAL HEALTH AND SAFETY MANAGER 350.1.13.10 [id number] [facility] [id number] MATERNAL [id number] & CHILD 107 [facility] [[email or web address]] 2019-12-18 2019-12-18 Initial Sara TNSHER [id number] NPI:183 10:06:57 11:32:49 Justina C OCCUPATIONAL HEALTH AND SAFETY MANAGER 350.1.13.10 [id number] Visit [facility] 4.2.7.2.686 MATERNAL [id number] & CHILD 107 [facility] [[email or web address]] 2019-12-18 2019-12-18 Outpatient R SARA [facility] [id number] NPI:183 10:00:00 10:00:00 JUSTINA [id number] 2019-12-18 2019-12-18 Outpatient R [facility] [id number] NPI:183 09:30:00 09:30:00 [id number] 2019-12-18 2019-12-18 Outpatient R SARA [facility] [id number] NPI:183 09:30:00 09:30:00 JUSTINA [id number] 2019-12-18 2019-12-18 Orders Doctor DAMARIS 1.2.840.114 [id number] NPI:183 00:00:00 00:00:00 Only Unassigned, TALON 350.1.13.10 [id number] [place] [address]686 [id number] 2019-10-24 2019-10-24 Outpatient R SARA [facility] [id number] NPI:183 14:45:00 14:45:00 JUSTINA [id number] 2019-10-24 2019-10-24 Outpatient R SARA [facility] [id number] NPI:183 14:45:00 14:45:00 JUSTINA [id number] 2016-07-05 2016-07-05 Outpatient Eric ROSSI [facility] [id number] NPI:183 11:45:00 11:45:00 VICTORINO [id number] Results Test Description Test Time Test Comments Results Result Comments Source TRICHOMONAS AMPLIFIED ASSAY 2020-05-20 19:06:00 Test Item Value Reference Range Interpretation Comme nts Trichomonas Nucleic Acid (test code = Negative Negative 81201-3) SANTA (test code = SANTA) Reliable results are dependent on adequate specimen collection. ? A positive result obtained from a patient after therapeutic treatment cannot be interpreted as indicating the presence of viable organisms. ?For patients on whom a false positive result may have adverse psychosocial impact, retesting is advised. Indeterminate: Unable to generate a valid test result on this specimen. ?Please submit a new specimen for repeat testing if clinically indicated. Trichomonas nucleic acid amplification testing (NAAT) has not been validated for medico-legal specimens (sexual abuse in wanda-pubertal and pre-pubertal children, sexual assault, and legal cases). ?Wet mount with microscopic observation and culture for Trichomonas vaginalis from clinically appropriate sites are the methods of choice in these cases. Results from this testing should be interpreted in conjunction with other laboratory and clinical data available to the clinician. Lab Interpretation (test code = Normal 95632-3) NPI:[id number] AMPLIFIED [id number] 19:06:00 Test Item Value Reference Range Interpretation Comments Trichomonas Nucleic Negative Negative Acid (test code = 85665-5) SANTA (test code = SANTA) Reliable results are dependent on adequate specimen collection. ? A positive result obtained from a patient after therapeutic treatment cannot be interpreted as indicating the presence of viable organisms. ?For patients on whom a false positive result may have adverse psychosocial impact, retesting is advised. Indeterminate: Unable to generate a valid test result on this specimen. ?Please submit a new specimen for repeat testing if clinically indicated. Trichomonas nucleic acid amplification testing (NAAT) has not been validated for medico-legal specimens (sexual abuse in wanda-pubertal and pre-pubertal children, sexual assault, and legal cases). ?Wet mount with microscopic observation and culture for Trichomonas vaginalis from clinically appropriate sites are the methods of choice in these cases. Results from this testing should be interpreted in conjunction with other laboratory and clinical data available to the clinician. Lab Interpretation Normal (test code = 23402-4) NPI:[id number] & CHLAMYDIA AMPLIFIED [id number] 18:51:00 Test Item Value Reference Range Interpretation Comments C. trachomatis Nucleic Positive Negative A Acid (test code = 21852-9) N. gonorrhoeae Nucleic Positive Negative A Acid (test code = 97224-9) SANTA (test code = SANTA) Reliable results are dependent on adequate specimen collection. ? A positive result obtained from a patient after therapeutic treatment cannot be interpreted as indicating the presence of viable organisms. ?For patients on whom a false positive result may have adverse psychosocial impact, retesting is advised. Indeterminate: Unable to generate a valid test result on this specimen. ?Please submit a new specimen for repeat testing if clinically indicated. Chlamydia trachomatis/Neisseria gonorrhoeae nucleic acid amplification testing (NAAT) has not been validated for medico-legal specimens (sexual abuse in wanda-pubertal and pre-pubertal children, sexual assault, and legal cases). ?Culture for Chlamydia trachomatis and/or Neisseria gonorrhoeae from clinically appropriate sites is the method of choice in these cases. ? Results from this testing should be interpreted in conjunction with other laboratory and clinical data available to the clinician.For females in general, a urine specimen is a second-line option because it is considered less sensitive than a cervical swab for Chlamydia trachomatis and/or Neisseria gonorrhoeae NAAT. Lab Interpretation Abnormal (test code = 72468-1) NPI:[id number] & CHLAMYDIA AMPLIFIED [id number] 18:51:00 Test Item Value Reference Range Interpretation Comments C. trachomatis Nucleic Positive Negative A Acid (test code = 52945-7) N. gonorrhoeae Nucleic Positive Negative A Acid (test code = 19459-4) SANTA (test code = SANTA) Reliable results are dependent on adequate specimen collection. ? A positive result obtained from a patient after therapeutic treatment cannot be interpreted as indicating the presence of viable organisms. ?For patients on whom a false positive result may have adverse psychosocial impact, retesting is advised. Indeterminate: Unable to generate a valid test result on this specimen. ?Please submit a new specimen for repeat testing if clinically indicated. Chlamydia trachomatis/Neisseria gonorrhoeae nucleic acid amplification testing (NAAT) has not been validated for medico-legal specimens (sexual abuse in wanda-pubertal and pre-pubertal children, sexual assault, and legal cases). ?Culture for Chlamydia trachomatis and/or Neisseria gonorrhoeae from clinically appropriate sites is the method of choice in these cases. ? Results from this testing should be interpreted in conjunction with other laboratory and clinical data available to the clinician.For females in general, a urine specimen is a second-line option because it is considered less sensitive than a cervical swab for Chlamydia trachomatis and/or Neisseria gonorrhoeae NAAT. Lab Interpretation Abnormal (test code = 88775-7) NPI:[id number] 1/2 AG-AB WITH [id number] 10:58:00 Test Item Value Reference Range Interpretation Comments HIV Negative Negative Semi-quantitative (test code = 54393-9) SANTA (test code = Non-reactive for HIV-1 SANTA) antigen and HIV-1/HIV-2 antibodies. ?No laboratory evidence of HIV infection. ?Repeat in 2-4 weeks if acute HIV infection is suspected. NPI:[id number] 1/2 AG-AB WITH [id number] 10:58:00 Test Item Value Reference Range Interpretation Comments HIV Negative Negative Semi-quantitative (test code = 03819-5) SANTA (test code = Non-reactive for HIV-1 SANTA) antigen and HIV-1/HIV-2 antibodies. ?No laboratory evidence of HIV infection. ?Repeat in 2-4 weeks if acute HIV infection is suspected. NPI:[id number] 22:22:00 Test Item Value Reference Range Interpretation Comments POCT PREG (test code = 1605) Negative On board controls acceptable with C Yes Line (test code = 3574) POCT PREG LOT # (test code = 3575) POCT PREG TEST DATE (test code = 3576) NPI:[id number] 22:22:00 Test Item Value Reference Range Interpretation Comments POCT PREG (test code = 1605) Negative On board controls acceptable with C Yes Line (test code = 3574) POCT PREG LOT # (test code = 3575) POCT PREG TEST DATE (test code = 3576) NPI:[id number] URINALYSIS W/O SPECIFIC [id number] 15:13:00 Test Item Value Reference Range Interpretation Comments POCT PH U (test code = 3254) 9 mg/dl 5-8 A POCT U LEUK EST (test code = 1+ Negative - Negative 3263) POCT U NIT (test code = 3262) Neg Negative - Negative POCT U PROT (test code = 3259) 2+ Negative - Negative POCT U GLU (test code = 3256) Neg Negative - Negative POCT U KETONE (test code = 3258) Neg Negative - Negative POCT U BLD (test code = 3257) Large Negative - Negative Lab Interpretation (test code = Abnormal 58904-0) NPI:[id number] 15:12:00 Test Item Value Reference Range Interpretation Comments POCT PREG (test code = 1605) Positive On board controls acceptable with C Yes Line (test code = 3574) POCT PREG LOT # (test code = 3575) POCT PREG TEST DATE (test code = 3576)
[2021-10-09] MEDS ORDERED: NA CHLORIDE 0.9% 1,000 ML ONE (22:07)
[2021-10-09 22:16] LABS: Urine Blood 3+ (Negative); Urine Glucose Negative (Negative); Urine Protein 1+ (Negative); Urine Specific Gravity 1.025 (1.005-1.030); Urine pH 6.5 (5.0-7.0)
[2021-10-09 22:26] LABS: Absolute Lymphocytes (CBC) 3.6 K/uL (0.7-4.9); Hematocrit 40.6 % (36.0-45.0); Lymphocytes % 39.9 % (15.3-44.8); MPV 8.9 fL (7.6-11.3); RBC Red Blood Cell Count 4.61 M/uL (3.86-4.86)
[2021-10-09 22:30] LABS: Urine Specific Gravity/Preg 1.025 (1.005-1.030)
[2021-10-09 22:35] LABS: Protime INR 0.99
[2021-10-09 22:44] LABS: BUN Blood Urea Nitrogen 9 mg/dL (7-18); Bicarbonate 27 mmol/L (21-32); Glucose Level 104 mg/dL (74-106); HCG, Quantitative < 1 mIU/mL (1-3); Potassium 3.8 mmol/L (3.5-5.1); Sodium Level 139 mmol/L (136-145)
--- NOTE | 2021-10-09 23:54 | RAD REPORT ---
EXAM DESCRIPTION: US - Transvaginal Study Probe - 10/09/2021 11:19 pm CLINICAL HISTORY: VAGINAL BLEEDING COMPARISON: No comparisons FINDINGS: The uterus is normal in size, shape and echotexture. The uterus measures 8.9 cm The endometrial stripe measures 7 mm The right ovary measures 2.7 x 3.9 x 2.9 cm with volume of 15.6 mL. The left ovary measures 2.1 x 3. 3 x 2 cm with volume of 7.1 mL. Small cysts are present within both ovaries, left greater than right. No suspicious adnexal masses. Prominent parauterine veins. Normal Doppler blood flow was demonstrated to both ovaries. Trace free fluid. IMPRESSION: 1. Bilateral ovarian blood flow. 2. Trace free fluid. 3. Prominent parauterine veins could reflect pelvic congestion syndrome in the appropriate clinical s etting.
--- NOTE | 2021-10-10 00:03 | ER ---
Nurse's Notes [facility] Name: Rossana Monge Age: 25 yrs Sex: Female : 1995 Arrival Date: 10/09/2021 Time: 21:29 Bed 6 Private MD: Diagnosis: Other specified abnormal uterine and vaginal bleeding Presentation: 10/09 21:34 Chief complaint: Patient states: I had a baby in March, I didn't get on control ld1 and I ended up getting . I had an in August and I have not stopped bleeding since then. Pt reporting dizziness, vaginal bleeding, and ABD cramping. Coronavirus screen: At this time, the client does not indicate any symptoms associated with coronavirus-19. Ebola Screen: No symptoms or risks identified at this time. Initial Sepsis Screen: Does the patient meet any 2 criteria? No. Patient's initial sepsis screen is negative. Does the patient have a suspected source of infection? No. Patient's initial sepsis screen is negative. Risk Assessment: Do you want to hurt yourself or someone else? Patient reports no desire to harm self or others. Onset of symptoms was October 09, 2021. 21:34 Method Of Arrival: Ambulatory ld1 21:34 Acuity: SHERRIE 4 ld1 Triage Assessment: 21:36 General: Appears in no apparent distress. comfortable, Behavior is calm, cooperative, ld1 appropriate for age. Pain: Complains of pain in abdomen Pain does not radiate. Pain currently is 0 out of 10 on a pain scale. at worst was 10 out of 10 on a pain scale. Quality of pain is described as aching, crampy, Pain began suddenly, Is intermittent. Neuro: Level of Consciousness is awake, alert, obeys commands, Oriented to person, place, time, situation. Respiratory: Airway is patent Respiratory effort is even, unlabored. : Reports pain in suprapubic area vaginal bleeding that is bright red, with clots, heavy flow. 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 - Social history:: Smoking status: Patient reports the use of cigarette tobacco products, smokes one-half pack cigarettes per day, Patient uses alcohol, occasionally. Screenin:18 Abuse screen: Denies threats or abuse. Denies injuries from another. Nutritional as6 screening: No deficits noted. Tuberculosis screening: No symptoms or risk factors identified. Fall Risk None identified. Assessment: 22:17 General: Appears in no apparent distress. Behavior is calm, cooperative. Pain: as6 Complains of pain in abdomen Quality of pain is described as crampy. Neuro: Level of Consciousness is awake, alert, obeys commands, Oriented to person, place, time, situation. Cardiovascular: JVD is absent Patient's skin is warm and dry. Respiratory: Respiratory effort is even, unlabored, Respiratory pattern is regular, symmetrical. : Reports cramping, vaginal bleeding that is bright red, with clots. Vital Signs: 21:34 BP 128 / 72; Pulse 73; Resp 18; Temp 97.9(TE); Pulse Ox 99% on R/A; Weight 72.57 kg; ld1 Height 5 ft. 5 in. (165.10 cm); Pain 2/10; 22:12 BP 115 / 70 Supine; Pulse 66; Pulse Ox 100% on R/A; oe 22:15 BP 124 / 81 Sitting; Pulse 80; Pulse Ox 100% on R/A; oe 22:17 BP 129 / 77 Standing; Pulse 66; Pulse Ox 100% on R/A; oe 23:01 BP 117 / 76; Pulse 65; Resp 18 S; Pulse Ox 100% on R/A; as6 05 00:23 BP 116 / 78; Pulse 67; Resp 18 S; Pulse Ox 98% on R/A; as6 10/09 21:34 Body Mass Index 26.63 (72.57 kg, 165.10 cm) ld1 ED Course: 10/09 21:29 Patient arrived in ED. kz 21:36 Triage completed. ld1 21:36 Arm band placed on left wrist. ld1 21:43 Mikel Koenig PA is PHCP. cp 21:43 Yair Pope MD is Attending Physician. cp 21:49 Jayme Cadena, JOSEPH is Primary Nurse. as6 22:10 Inserted saline lock: 20 gauge in right antecubital area, using aseptic technique. as6 Blood collected. 22:18 Placed in gown. Bed in low position. Call light in reach. Side rails up X2. Pulse ox as6 on. NIBP on. Warm blanket given. 23:21 US Transvaginal Study (Probe) In Process Unspecified. EDMS 10/10 00:02 Kushal Espana MD is Referral Physician. cp 00:23 No provider procedures requiring assistance completed. IV discontinued, intact, as6 bleeding controlled, No redness/swelling at site. Pressure dressing applied. Administered Medications: 10/09 22:13 Drug: NS 0.9% 1000 ml Route: IV; Rate: 1 bolus; Site: right antecubital; as6 05 00:23 Follow up: Response: No adverse reaction; IV Status: Completed infusion; IV Intake: as6 1000ml Intake: 00:23 IV: 1000ml; Total: 1000ml. as6 Outcome: 00:03 Discharge ordered by . cp 00:23 Discharged to home ambulatory. as6 00:23 Condition: stable 00:23 Discharge instructions given to patient, Instructed on discharge instructions, follow up and referral plans. medication usage, control, Demonstrated understanding of instructions, follow-up care, medications, Prescriptions given X 1. 00:24 Patient left the ED. as6 Signatures: Dispatcher [employer] EDCT Mikel Koenig PA PA cp Espinosa, [place] oe Dibbern, Lauren, RN RN ld1 Jayme Cadena RN RN as6 Brandy Stapleton
--- NOTE | 2021-10-10 00:03 | EDPHYS ---
Physician Documentation [facility] Name: Rossana Monge Age: 25 yrs Sex: Female : 1995 Arrival Date: 10/09/2021 Time: 21:29 Bed 6 Private MD: ED Physician Yair Pope HPI: 10/09 21:55 This 25 yrs old Female presents to ER via Ambulatory with complaints of cp Vaginal Bleeding, Pelvic Pain. 21:55 The patient presents with vaginal bleeding that is heavy, with clots. cp 21:55 Onset: The symptoms/episode began/occurred 2 month(s) ago. cp 21:55 Associated signs and symptoms: Pertinent positives: lightheaded, general weakness. The cp patient's method of control includes BCP. 21:55 Patient reports recent elective in August 2021 and vaginal bleeding since. PRE CODER physician is DR Espana and patient reports she has been taking BCP times 1 week. PRE CODER: 21:36 LMP 10/09/2021 ld1 21:55 5, Full Term 3, 2, Living 3 cp Historical: - Allergies: 21:36 No Known Allergies; ld1 - PMHx: 21:36 None; ld1 - PSHx: 21:36 None; ld1 - Immunization history:: Adult Immunizations up to date, Client reports having NOT received the Covid vaccine. - Social history:: Smoking status: Patient reports the use of cigarette tobacco products, smokes one-half pack cigarettes per day, Patient uses alcohol, occasionally. ROS: 22:00 : Positive for vaginal bleeding, Negative for urinary symptoms. cp 22:00 Constitutional: Negative for body aches, chills, fever, poor PO intake. cp 22:00 Cardiovascular: Negative for chest pain, palpitations. 22:00 Respiratory: Negative for cough, shortness of breath, wheezing. cp 22:00 Eyes: Negative for injury, pain, redness, and discharge. cp 22:00 Abdomen/GI: Positive for abdominal cramps, Negative for vomiting, diarrhea, constipation. 22:00 Back: Negative for pain at rest, pain with movement. 22:00 Neuro: Positive for general weakness, Negative for altered mental status, dizziness, headache. 22:00 All other systems are negative. Exam: 22:05 Constitutional: The patient appears in no acute distress, alert, awake, comfortable, cp non-toxic, well developed, well nourished. 22:05 Head/Face: Normocephalic, atraumatic. cp 22:05 Eyes: Periorbital structures: appear normal, Conjunctiva: normal, no exudate, no injection, Sclera: no appreciated abnormality, Lids and lashes: appear normal, bilaterally. 22:05 ENT: External ear(s): are unremarkable, Nose: is normal, Mouth: Lips: moist, Oral mucosa: pink and intact, moist, Posterior pharynx: Airway: no evidence of obstruction, patent. 22:05 Chest/axilla: Inspection: normal. 22:05 Cardiovascular: Rate: normal, Rhythm: regular. 22:05 Respiratory: the patient does not display signs of respiratory distress, Respirations: normal, no use of accessory muscles, no retractions, labored breathing, is not present, Breath sounds: are clear throughout, no decreased breath sounds, no stridor, no wheezing. 22:05 Abdomen/GI: Inspection: abdomen appears normal, Bowel sounds: active, all quadrants, Palpation: soft, in all quadrants, mild abdominal tenderness, in the suprapubic area, rebound tenderness, is not appreciated, voluntary guarding, is not appreciated, involuntary guarding, is not appreciated. 22:05 Back: CVA tenderness, is absent. 22:05 Neuro: Orientation: to person, place \T\ time. Mentation: is normal, Motor: moves all fours, strength is normal. Vital Signs: 21:34 BP 128 / 72; Pulse 73; Resp 18; Temp 97.9(TE); Pulse Ox 99% on R/A; Weight 72.57 kg; ld1 Height 5 ft. 5 in. (165.10 cm); Pain 2/10; 22:12 BP 115 / 70 Supine; Pulse 66; Pulse Ox 100% on R/A; oe 22:15 BP 124 / 81 Sitting; Pulse 80; Pulse Ox 100% on R/A; oe 22:17 BP 129 / 77 Standing; Pulse 66; Pulse Ox 100% on R/A; oe 23:01 BP 117 / 76; Pulse 65; Resp 18 S; Pulse Ox 100% on R/A; as6 0508 00:23 BP 116 / 78; Pulse 67; Resp 18 S; Pulse Ox 98% on R/A; as6 10/09 21:34 Body Mass Index 26.63 (72.57 kg, 165.10 cm) ld1 MDM: 10/09 21:49 Patient medically screened. cp 22:00 Differential diagnosis: ectopic , Neoplasm ruptured ectopic , uterine cp fibroids, urinary tract infection, vaginosis. 10/10 00:01 Data reviewed: vital signs, nurses notes, lab test result(s), radiologic studies, cp ultrasound. Counseling: I had a detailed discussion with the patient and/or guardian regarding: the historical points, exam findings, and any diagnostic results supporting the discharge/admit diagnosis, lab results, radiology results, the need for outpatient follow up, for definitive care, an OB/Gyne specialist, to return to the emergency department if symptoms worsen or persist or if there are any questions or concerns that arise at home. 10/09 21:55 Order name: Abo/rh Typing; Complete Time: 23:13 cp 10/09 21:55 Order name: Basic Metabolic Panel; Complete Time: 23:13 cp 10/09 23:13 Interpretation: Normal except: CL 108; GFR 78. cp 10/09 21:55 Order name: CBC with Diff; Complete Time: 23:13 cp 10/09 23:13 Interpretation: Normal except: EOSINOPHIL % 4.8. cp 10/09 21:55 Order name: Quantitative Hcg; Complete Time: 23:13 cp 10/09 21:55 Order name: PT-INR; Complete Time: 23:13 cp 10/09 21:55 Order name: Ptt, Activated; Complete Time: 23:13 cp 10/09 21:55 Order name: IV Saline Lock; Complete Time: 22:16 cp 10/09 21:55 Order name: Labs collected and sent; Complete Time: 22:16 cp 10/09 21:55 Order name: NPO; Complete Time: 22:17 cp 10/09 21:55 Order name: Urine Dipstick-Ancillary (obtain specimen); Complete Time: 22:17 cp 10/09 22:16 Order name: Urine Dipstick-Ancillary; Complete Time: 23:13 EDMS 10/10 00:01 Interpretation: Normal except: UKET Trace; UBLD 3+; UPROT 1+. cp 10/09 22:18 Order name: Urine --Ancillary (enter results); Complete Time: 23:13 mw2 10/09 22:29 Order name: US Transvaginal Study (Probe); Complete Time: 23:55 cp 10/09 21:55 Order name: Urine Test (obtain specimen); Complete Time: 22:17 cp 10/09 21:55 Order name: Orthostatics; Complete Time: 22:22 cp Administered Medications: 10/09 22:13 Drug: NS 0.9% 1000 ml Route: IV; Rate: 1 bolus; Site: right antecubital; as6 10/10 00:23 Follow up: Response: No adverse reaction; IV Status: Completed infusion; IV Intake: as6 1000ml Disposition: 03:18 Co-signature as Attending Physician, Yair Pope MD. [email or web address] Disposition Summary: 10/10/21 00:03 Discharge Ordered Location: Home cp Problem: an ongoing problem cp Symptoms: have improved cp Condition: Stable cp Diagnosis - Other specified abnormal uterine and vaginal bleeding cp Followup: cp - With: Kushal Espana MD - When: 2 - 3 days - Reason: Recheck today's complaints Discharge Instructions: - Discharge Summary Sheet cp - Abnormal Uterine Bleeding cp - Dysfunctional Uterine Bleeding cp Forms: - Medication Reconciliation Form cp - Thank You Letter cp - Antibiotic Education cp - Prescription Opioid Use cp Prescriptions: - medroxyprogesterone 10 mg Oral tablet - take 1 tablet by ORAL route once daily for 5 days; 10 tablet; Refills: 0, cp Product Selection Permitted Signatures: Dispatcher [employer] Mikel Damian PA PA cp Yair Pope MD MD [email or web address] Teresita Smith RN RN ld1 Jayme Cadena RN RN as6
[2021-10-10 01:12] VITALS: TEMP 97.9
[2021-10-10 01:18] VITALS: BP 116/78; O2SAT 98
== END 2021-10-10 00:24 | disposition home or self-care (01) ==
LOC: ER 21:25
DX: N93.8 Other specified abnormal uterine and vaginal bleeding (principal); F17.210 Nicotine dependence, cigarettes, uncomplicated
CPT/HCPCS: 96361; 85025; 80048; 36415; 86900; 81025; 85610; 86901; 85730; 84702; 81003; 76830; 96360; 99284; J7030

== ENCOUNTER 2022-01-05 10:05 | Emergency (ER) | payer OTHER ==
--- OUTSIDE RECORDS SUMMARY | 2022-01-05 10:10 | XMS REPORT | Continuity of Care Document ---
:1995 Author Organization [facility] t Address [address] [place] [address] [place] [address] Care Team Providers Name Role Phone JUSTINA GRAY Attending Clinician Unavailable Mata Todd DO Attending Clinician Visit, Zev Nurse Attending Clinician Unavailable Justina Esquivel Attending Clinician [phone] Lab, Zev Attending Clinician Unavailable Doctor Unassigned, Monserrate Attending Clinician Unavailable VICTORINO ROSSI Attending Clinician Unavailable Payers Payer Name Policy Type Policy Number Effective Date Expiration Date S gabi [facility] [id number] 2020 00:00:00 [place]ICAID [place] [id number] 2020 00:00:00 [facility] [id number] 2020 00:00:00 MEDICAID PENDING PENDING 2019 00:00:00 Problems Condition Condition Condition Status Onset Resolution Last Treating Co mments Source Name Details Category Date Date Treatment Clinician Date GBS (group GBS (group Disease Active Overview : Univers B B 7-17 Michelle at ity of streptococ streptococ [place] UTI cus) UTI 00 visit Medica l complicati complicati Br anch ng ng Susceptibl Susceptibl Disease Active Overview : Univers e to e to 7-16 Address ity of varicella varicella 00:00: pp [place]na s (non-immun (non-immun 00 Me dical e), e), Branch currently currently Rubella Rubella Disease Active 2020-0 Overview: Univ ers non-immune non-immune 7-16 Address i ty of status, status, 00:00: pp [place] antepartum antepartum 00 Nc dical Branch Supervisio Supervisio Disease Active 2020-0 U nivers n of n of 7-15 [place] high[place] [facility] Vaginal Vaginal Disease Active 2020-0 Univers bleeding bleeding 7-15 ity of in in 00:00: [place] [address] [facility] Tobacco Tobacco Disease Active 2020- Overview: Univ ers use in use in 7-15 Reports ity of 00:00: quit x1 Valeriy as 00 week ago Medical Branch Over Over Disease Active 2020- Univers weight weight 7-15 ity of 00:00: [place] 00 [facility] Multiparit Multiparit Disease Active 2020-0 U nivers y y 7-15 ity of 00:00: [place] 00 [facility] Allergies, Adverse Reactions, Alerts Allergy Allergy Status Severity Reaction(s) Onset Inactive Treating Comm ents Source Name Type Date Date Clinician NO KNOWN Drug Active Univers ALLERGIE Class ity of S [facility] Social History Social Habit Start Date Stop Date Quantity Comments Source ASSERTION 2019-11-08 University of 00:00:00 [facility] Exposure to Not sure [place] of SARS-CoV-2 [facility] [place] (event) [place] Alcohol intake 2020-05-21 2020-05-21 Current drinker Unive rsity of 00:00:00 00:00:00 of alcohol [facility] [place] (finding) [place] Tobacco use and 2020-05-21 2020-05-21 Never used Universit y of exposure 00:00:00 00:00:00 [facility] History of 2014-09-08 2019-12-10 Cigarette Smoker Universi ty of tobacco use 00:00:00 00:00:00 [facility] Tobacco Comment 2017-09-08 2017-09-08 4 cigarretes per Uni versity of 00:00:00 00:00:00 day [facility] Alcohol Comment 2017-09-08 2017-09-08 social Universit y of 00:00:00 00:00:00 [facility] Sex Assigned At [birth year] Universit y of 00:00:00 00:00:00 [facility] Smoking Status Start Date Stop Date Source Former smoker 2020-05-21 00:00:00 2020-05-21 00:00:00 [facility] Medications Ordered Filled Start Stop Current Ordering Indication Dosage Frequency Signature Comments Components Source Medication Medication Date Date Medication? Clinician (SIG) Name Name cefTRIAXone 2019-06- No 250mg Univ ers (ROCEPHIN) 07-22 ity of injection 21:15: 20:14 [place] 250 mg 00 :00 [facility] cefTRIAXone 2019-06- No 250mg 250 mg, U nivers (ROCEPHIN) 07-22 Intramuscu it y of injection 21:15: 20:14 [place], ONCE, [place] 250 mg 00 :00 1 dose, [facility] 05/21/20 at 1515, [place]
Re ason for Anti-Infec tive: Documented Infection< br>Documen hanna Infection Site: Other
O ther site: genitoruri nary
Du ration of Therapy: Other (see Comments) cefTRIAXone 2019-06- No 250mg Univ ers (ROCEPHIN) 07-22 ity of injection 21:15: 20:14 [place] 250 mg 00 :00 [facility] cefTRIAXone 2019-06- No 250mg 250 mg, U nivers (ROCEPHIN) 07-22 Intramuscu it y of injection 21:15: 20:14 [place], ONCE, [place] 250 mg 00 :00 1 dose, [facility] 05/21/20 at 1515, [place]
Re ason for Anti-Infec tive: Documented Infection< br>Documen hanna Infection Site: Other
O ther site: genitoruri nary
Du ration of Therapy: Other (see Comments) azithromyci 2019-06- No [id number] 1000mg Take 2 Univers n 500 mg 2-16 12-17 tablets by ity of tablet 00:00: 05:59 [place] now for 1 Medical dose. Branch azithromyci 2019-06 2020- No [id number] 1000mg Take 2 Univers n 500 mg 2-16 12-17 tablets by ity of tablet 00:00: 05:59 [place] now for 1 Medical dose. Branch azithromyci 2019- 2020- No [id number] 1000mg Take 2 Univers n 500 mg 2-16 12-17 tablets by ity of tablet 00:00: 05:59 [place] now for 1 Medical dose. Branch norgestimat 2019- Yes [id number] 1{tbl} Take 1 Univers e-ethinyl 2-15 tablet by ity o f estradioL 00:00: mouth [place] (ORTHO 00 daily. [facility], ,) 0.18/0.215/ 0.25 mg-25 mcg tablet norgestimat 2019- Yes [id number] 1{tbl} Take 1 Univers e-ethinyl 2-15 tablet by ity o f estradioL 00:00: mouth [place] (ORTHO 00 daily. [facility], ,) 0.18/0.215/ 0.25 mg-25 mcg tablet norgestimat 2019- Yes [id number] 1{tbl} Take 1 Univers e-ethinyl 2-15 tablet by ity o f estradioL 00:00: mouth [place] (ORTHO 00 daily. [facility], ,) 0.18/0.215/ 0.25 mg-25 mcg tablet norgestimat 2019- Yes [id number] 1{tbl} Take 1 Univers e-ethinyl 2-15 tablet by ity o f estradioL 00:00: mouth [place] (ORTHO 00 daily. [facility], ,) 0.18/0.215/ 0.25 mg-25 mcg tablet norgestimat 2019-1 Yes [id number] 1{tbl} Take 1 Univers e-ethinyl 2-15 tablet by ity o f estradioL 00:00: mouth [place] (ORTHO 00 daily. [facility], ,) 0.18/0.215/ 0.25 mg-25 mcg tablet norgestimat 2020-1 Yes [id number] 1{tbl} Take 1 Univers e-ethinyl 2-15 tablet by ity o f estradioL 00:00: mouth [place] (ORTHO 00 daily. [place] [address],) 0.18/0.215/ 0.25 mg-25 mcg tablet norgestimat 2020-1 Yes [id number] 1{tbl} Take 1 Univers e-ethinyl 2-15 tablet by ity o f estradioL 00:00: mouth [place] (ORTHO 00 daily. [facility], 28,) 0.18/0.215/ 0.25 mg-25 mcg tablet norgestimat 2019- Yes [id number] 1{tbl} Take 1 Univers e-ethinyl 2-15 tablet by ity o f estradioL 00:00: mouth [place] (ORTHO 00 daily. [facility], 28,) 0.18/0.215/ 0.25 mg-25 mcg tablet azithromyci 2019-06- No [id number] 1000mg Take 2 Univers n 500 mg 2-15 12-16 tablets by ity of tablet 00:00: 05:59 [place] :[place] now for 1 Medical dose. Branch azithromyci 2019-06- No [id number] 1000mg Take 2 Univers n 500 mg 2-15 12-16 tablets by ity of tablet 00:00: 05:59 [place] :[place] now for 1 Medical dose. Branch ampicillin 2019-0 2020- No [id number] 500mg Take 1 Univers 500 mg 7-17 07-28 capsule by ity of capsule 00:00: 04:59 mouth 4 [place] 00 :00 (four) Medical times Branch daily for 10 days. ampicillin 2019-0 2020- No [id number] 500mg Take 1 Univers 500 mg 7-17 07-28 capsule by ity of capsule 00:00: 04:59 mouth 4 [place] 00 :00 (four) Medical times Branch daily for 10 days. ampicillin 2019-0 2019- No [id number] 500mg Take 1 Univers 500 mg 7-17 07-28 capsule by ity of capsule 00:00: 04:59 mouth 4 [place] 00 :00 (four) Medical times Branch daily for 10 days. ampicillin 2020-0 2020- No [id number] 500mg Take 1 Univers 500 mg 7-17 07-28 capsule by ity of capsule 00:00: 04:59 mouth 4 [place] 00 :00 (four) Medical times Branch daily for 10 days. ampicillin 2019-0 2020- No [id number] 500mg Take 1 Univers 500 mg 7-17 07-28 capsule by ity of capsule 00:00: 04:59 mouth 4 [place] 00 :00 (four) Medical times Branch daily for 10 days. ampicillin 2020-0 2020- No [id number] 500mg Take 1 Univers 500 mg 7-17 07-28 capsule by ity of capsule 00:00: 04:59 mouth 4 [place] 00 :00 (four) Medical times Branch daily for 10 days. ampicillin 2020-0 2020- No [id number] 500mg Take 1 Univers 500 mg 7-17 07-28 capsule by ity of capsule 00:00: 04:59 mouth 4 [place] 00 :00 (four) Medical times Branch daily for 10 days. ampicillin 2020-0 2020- No [id number] 500mg Take 1 Univers 500 mg 7-17 07-28 capsule by ity of capsule 00:00: 04:59 mouth 4 [place] 00 :00 (four) Medical times Branch daily for 10 days. ampicillin 2020-0 2020- No [id number] 500mg Take 1 Univers 500 mg 7-17 07-28 capsule by ity of capsule 00:00: 04:59 mouth 4 [place] 00 :00 (four) Medical times Branch daily for 10 days. LACTOBACILL 2020-0 Yes Take by Uni vers US COMBO 7-15 mouth. ity of NO.6 15:29: [place] (PROBIOTIC 48 Medical COMPLEX Branch ORAL) LACTOBACILL 2020-0 Yes Take by Uni vers US COMBO 7-15 mouth. ity of NO.6 15:29: [place] (PROBIOTIC 48 Medical COMPLEX Branch ORAL) LACTOBACILL 2020-0 Yes Take by Uni vers US COMBO 7-15 mouth. ity of NO.6 15:29: [place] (PROBIOTIC 48 Medical COMPLEX Branch ORAL) LACTOBACILL 2020-0 Yes Take by Uni vers US COMBO 7-15 mouth. ity of NO.6 15:29: [place] (PROBIOTIC 48 Medical COMPLEX Branch ORAL) LACTOBACILL 2020-0 Yes Take by Uni vers US COMBO 7-15 mouth. ity of NO.6 15:29: [place] (PROBIOTIC 48 Medical COMPLEX Branch ORAL) LACTOBACILL 2020-0 Yes Take by Uni vers US COMBO 7-15 mouth. ity of NO.6 15:29: [place] (PROBIOTIC 48 Medical COMPLEX Branch ORAL) LACTOBACILL 2020-0 Yes Take by Uni vers US COMBO 7-15 mouth. ity of NO.6 15:29: [place] (PROBIOTIC 48 Medical COMPLEX Branch ORAL) LACTOBACILL 2020-0 Yes Take by Uni vers US COMBO 7-15 mouth. ity of NO.6 15:29: [place] (PROBIOTIC 48 Medical COMPLEX Branch ORAL) LACTOBACILL 2020-0 Yes Take by Uni vers US COMBO 7-15 mouth. ity of NO.6 15:29: [place] (PROBIOTIC 48 Medical COMPLEX Branch ORAL) LACTOBACILL 2020-0 Yes Take by Uni vers US COMBO 7-15 mouth. ity of NO.6 15:29: [place] (PROBIOTIC 48 Medical COMPLEX Branch ORAL) LACTOBACILL 2020-0 Yes Take by Uni vers US COMBO 7-15 mouth. ity of NO.6 15:29: [place] (PROBIOTIC 48 Medical COMPLEX Branch ORAL) LACTOBACILL 2020-0 Yes Take by Uni vers US COMBO 7-15 mouth. ity of NO.6 15:29: [place] (PROBIOTIC 48 Medical COMPLEX Branch ORAL) LACTOBACILL 2020-0 Yes Take by Uni vers US COMBO 7-15 mouth. ity of NO.6 15:29: [place] (PROBIOTIC 48 Medical COMPLEX Branch ORAL) LACTOBACILL 2020-0 Yes Take by Uni vers US COMBO 7-15 mouth. ity of NO.6 15:29: [place] (PROBIOTIC 48 Medical COMPLEX Branch ORAL) LACTOBACILL 2020-0 Yes Take by Uni vers US COMBO 7-15 mouth. ity of NO.6 15:29: [place] (PROBIOTIC 48 Medical COMPLEX Branch ORAL) LACTOBACILL 2020-0 Yes Take by Uni vers US COMBO 7-15 mouth. ity of NO.6 15:29: [place] (PROBIOTIC 48 Medical COMPLEX Branch ORAL) LACTOBACILL 2020-0 Yes Take by Uni vers US COMBO 7-15 mouth. ity of NO.6 15:29: [place] (PROBIOTIC 48 Medical COMPLEX Branch ORAL) LACTOBACILL 2020-0 Yes Take by Uni vers US COMBO 7-15 mouth. ity of NO.6 15:29: [place] (PROBIOTIC 48 Medical COMPLEX Branch ORAL) LACTOBACILL 2020-0 Yes Take by Uni vers US COMBO 7-15 mouth. ity of NO.6 15:29: [place] (PROBIOTIC 48 Medical COMPLEX Branch ORAL) LACTOBACILL 2020-0 Yes Take by Uni vers US COMBO 7-15 mouth. ity of NO.6 15:29: [place] (PROBIOTIC 48 Medical COMPLEX Branch ORAL) LACTOBACILL 2020-0 Yes Take by Uni vers US COMBO 7-15 mouth. ity of NO.6 15:29: [place] (PROBIOTIC 48 Medical COMPLEX Branch ORAL) LACTOBACILL 2020-0 Yes Take by Uni vers US COMBO 7-15 mouth. ity of NO.6 15:29: [place] (PROBIOTIC 48 Medical COMPLEX Branch ORAL) LACTOBACILL 2020-0 Yes Take by Uni vers US COMBO 7-15 mouth. ity of NO.6 15:29: [place] (PROBIOTIC 48 Medical COMPLEX Branch ORAL) LACTOBACILL 2020-0 Yes Take by Uni vers US COMBO 7-15 mouth. ity of NO.6 15:29: [place] (PROBIOTIC 48 Medical COMPLEX Branch ORAL) LACTOBACILL 2020-0 Yes Take by Uni vers US COMBO 7-15 mouth. ity of NO.6 15:29: [place] (PROBIOTIC 48 Medical COMPLEX Branch ORAL) LACTOBACILL 2020-0 Yes Take by Uni vers US COMBO 7-15 mouth. ity of NO.6 15:29: [place] (PROBIOTIC 48 Medical COMPLEX Branch ORAL) norgestimat 2018-0 Yes [id number] 1{tbl} Take 1 Univers e-ethinyl 4-06 tablet by ity o f estradiol 00:00: mouth [place] (ORTHO 00 daily. [facility] 0.18/0.215/ 0.25 mg-25 mcg tablet norgestimat 2018-0 Yes [id number] 1{tbl} Take 1 Univers e-ethinyl 4-06 tablet by ity o f estradiol 00:00: mouth [place] [facility]O 00 [facility]. [facility] 0.18/0.215/ 0.25 mg-25 mcg tablet norgestimat 2018-0 Yes [id number] 1{tbl} Take 1 Univers e-ethinyl 4-06 tablet by ity o f estradiol 00:00: mouth [place] (ORTHO 00 [facility]. [facility] 0.18/0.215/ 0.25 mg-25 mcg tablet norgestimat 2018-0 Yes [id number] 1{tbl} Take 1 Univers e-ethinyl 4-06 tablet by ity o f estradiol 00:00: mouth [place] (ORTHO 00 [facility]. [facility] 0.18/0.215/ 0.25 mg-25 mcg tablet norgestimat 2018-0 Yes [id number] 1{tbl} Take 1 Univers e-ethinyl 4-06 tablet by ity o f estradiol 00:00: mouth [place] (ORTHO 00 daily. [facility], 28,) 0.18/0.215/ 0.25 mg-25 mcg tablet norgestimat 2018-0 Yes [id number] 1{tbl} Take 1 Univers e-ethinyl 4-06 tablet by ity o f estradiol 00:00: mouth [place] (ORTHO 00 daily. [facility], 28,) 0.18/0.215/ 0.25 mg-25 mcg tablet norgestimat 2018-0 Yes [id number] 1{tbl} Take 1 Univers e-ethinyl 4-06 tablet by ity o f estradiol 00:00: mouth [place] (ORTHO 00 daily. [facility], 28,) 0.18/0.215/ 0.25 mg-25 mcg tablet norgestimat 2018-0 Yes [id number] 1{tbl} Take 1 Univers e-ethinyl 4-06 tablet by ity o f estradiol 00:00: mouth [place] (ORTHO 00 daily. [facility], 28,) 0.18/0.215/ 0.25 mg-25 mcg tablet norgestimat 2018-0 Yes [id number] 1{tbl} Take 1 Univers e-ethinyl 4-06 tablet by ity o f estradiol 00:00: mouth [place] (ORTHO 00 daily. [facility], 28,) 0.18/0.215/ 0.25 mg-25 mcg tablet norgestimat 2018-0 Yes [id number] 1{tbl} Take 1 Univers e-ethinyl 4-06 tablet by ity o f estradiol 00:00: mouth [place] (ORTHO 00 daily. [facility], 28,) 0.18/0.215/ 0.25 mg-25 mcg tablet norgestimat 2018-0 Yes [id number] 1{tbl} Take 1 Univers e-ethinyl 4-06 tablet by ity o f estradiol 00:00: mouth [place] (ORTHO 00 daily. [facility], ,) 0.18/0.215/ 0.25 mg-25 mcg tablet norgestimat 2018-0 Yes [id number] 1{tbl} Take 1 Univers e-ethinyl 4-06 tablet by ity o f estradiol 00:00: mouth [place] (ORTHO 00 daily. [facility], 28,) 0.18/0.215/ 0.25 mg-25 mcg tablet norgestimat 2018-0 Yes [id number] 1{tbl} Take 1 Univers e-ethinyl 4-06 tablet by ity o f estradiol 00:00: mouth [place] (ORTHO 00 daily. [facility], 28,) 0.18/0.215/ 0.25 mg-25 mcg tablet norgestimat 2018-0 Yes [id number] 1{tbl} Take 1 Univers e-ethinyl 4-06 tablet by ity o f estradiol 00:00: mouth [place] (ORTHO 00 daily. [facility], ,) 0.18/0.215/ 0.25 mg-25 mcg tablet norgestimat 2018-0 Yes [id number] 1{tbl} Take 1 Univers e-ethinyl 4-06 tablet by ity o f estradiol 00:00: mouth [place] (ORTHO 00 daily. [facility], 28,) 0.18/0.215/ 0.25 mg-25 mcg tablet norgestimat 2018-0 Yes [id number] 1{tbl} Take 1 Univers e-ethinyl 4-06 tablet by ity o f estradiol 00:00: mouth [place] (ORTHO 00 daily. [facility], ,) 0.18/0.215/ 0.25 mg-25 mcg tablet norgestimat 2018-0 Yes [id number] 1{tbl} Take 1 Univers e-ethinyl 4-06 tablet by ity o f estradiol 00:00: mouth [place] (ORTHO 00 daily. [facility], 28,) 0.18/0.215/ 0.25 mg-25 mcg tablet norgestimat 2018-0 Yes [id number] 1{tbl} Take 1 Univers e-ethinyl 4-06 tablet by ity o f estradiol 00:00: mouth [place] (ORTHO 00 daily. [facility], 28,) 0.18/0.215/ 0.25 mg-25 mcg tablet norgestimat 2020- No [id number] 1{tbl} Take 1 Univers e-ethinyl 4-06 12-15 tablet by ity of estradiol 00:00: 00:00 mouth [place] (ORTHO 00 :00 daily. Medical [facility], 28,) 0.18/0.215/ 0.25 mg-25 mcg tablet norgestimat 2019- No [id number] 1{tbl} Take 1 Univers e-ethinyl 4-06 12-15 tablet by ity of estradiol 00:00: 00:00 mouth [place] (ORTHO 00 :00 daily. [facility], [facility] 0.18/0.215/ 0.25 mg-25 mcg tablet Immunizations Ordered Filled Immunization Date Status Comments [facility] e Immunization Name Name HPV9 2017-09-08 Completed University of 00:00:00 [facility] HPV9 2017-09-08 Completed University of 00:00:00 [facility] HPV9 2017-09-08 Completed University of 00:00:00 [facility] HPV9 2017-09-08 Completed University of 00:00:00 [facility] [place] Branch HPV9 2017-09-08 Completed University of 00:00:00 [facility] [place] Branch HPV9 2017-09-08 Completed University of 00:00:00 [facility] [place] Branch HPV9 2017-09-08 Completed University of 00:00:00 [facility] HPV9 2017-09-08 Completed University of 00:00:00 [facility] [place] Branch HPV9 2017-09-08 Completed University of 00:00:00 [facility] [place] Branch HPV9 2017-09-08 Completed University of 00:00:00 [facility] [place] Branch HPV9 2017-09-08 Completed University of 00:00:00 [facility] [place] Branch HPV9 2017-09-08 Completed University of 00:00:00 [facility] [place] Branch HPV9 2017-09-08 Completed University of 00:00:00 [facility] [place] Branch HPV9 2017-09-08 Completed University of 00:00:00 [facility] [place] [facility] HPV9 2017-09-08 Completed University of 00:00:00 [facility] [place] Branch HPV9 2017-09-08 Completed University of 00:00:00 [facility] [place] Branch HPV9 2017-09-08 Completed University of 00:00:00 [facility] HPV9 2017-09-08 Completed University of 00:00:00 [place] [facility] HPV9 2017-09-08 Completed University of 00:00:00 [place] [facility] HPV9 2017-09-08 Completed University of 00:00:00 [place] [facility] HPV9 2017-09-08 Completed University of 00:00:00 [place] [facility] HPV9 2017-09-08 Completed University of 00:00:00 [place] [facility] HPV9 2017-09-08 Completed University of 00:00:00 [place] [facility] HPV9 2017-09-08 Completed University of 00:00:00 [place] [facility] HPV9 2017-09-08 Completed University of 00:00:00 [place] [facility] HPV9 2017-09-08 Completed University of 00:00:00 [place] [facility] TDAP 2016-05-18 Completed University of 00:00:00 [place] [facility] TDAP 2016-05-18 Completed University of 00:00:00 [place] [facility] TDAP 2016-05-18 Completed University of 00:00:00 [place] [facility] TDAP 2016-05-18 Completed University of 00:00:00 [place] [facility] TDAP 2016-05-18 Completed University of 00:00:00 [place] [facility] TDAP 2016-05-18 Completed University of 00:00:00 [place] [facility] TDAP 2016-05-18 Completed University of 00:00:00 [place] [facility] TDAP 2016-05-18 Completed University of 00:00:00 [place] [facility] TDAP 2016-05-18 Completed University of 00:00:00 [place] [facility] TDAP 2016-05-18 Completed University of 00:00:00 [place] [facility] TDAP 2016-05-18 Completed University of 00:00:00 [place] [facility] TDAP 2016-05-18 Completed University of 00:00:00 [place] [facility] TDAP 2016-05-18 Completed University of 00:00:00 [place] [facility] TDAP 2016-05-18 Completed University of 00:00:00 [place] [facility] TDAP 2016-05-18 Completed University of 00:00:00 [place] [facility] TDAP 2016-05-18 Completed University of 00:00:00 [place] [facility] TDAP 2016-05-18 Completed University of 00:00:00 [place] [facility] TDAP 2016-05-18 Completed University of 00:00:00 [place] [facility] TDAP 2016-05-18 Completed University of 00:00:00 [facility] TDAP 2016-05-18 Completed University of 00:00:00 [facility] TDAP 2016-05-18 Completed University of 00:00:00 [facility] TDAP 2016-05-18 Completed University of 00:00:00 [facility] TDAP 2016-05-18 Completed University of 00:00:00 [facility] TDAP 2016-05-18 Completed University of 00:00:00 [facility] TDAP 2016-05-18 Completed University of 00:00:00 [facility] TDAP 2016-05-18 Completed University of 00:00:00 [facility] Influenza Virus 2016-03-03 Completed Universit y of Vaccine Quad IM 3+ 00:00:00 [facility] Influenza Virus 2016-03-03 Completed Universit y of Vaccine Quad IM 3+ 00:00:00 [facility] Influenza Virus 2016-03-03 Completed Universit y of Vaccine Quad IM 3+ 00:00:00 [facility] Influenza Virus 2016-03-03 Completed Universit y of Vaccine Quad IM 3+ 00:00:00 [facility] Influenza Virus 2016-03-03 Completed Universit y of Vaccine Quad IM 3+ 00:00:00 [facility] Influenza Virus 2016-03-03 Completed Universit y of Vaccine Quad IM 3+ 00:00:00 [facility] Influenza Virus 2016-03-03 Completed Universit y of Vaccine Quad IM 3+ 00:00:00 [facility] Influenza Virus 2016-03-03 Completed Universit y of Vaccine Quad IM 3+ 00:00:00 [facility] Influenza Virus 2016-03-03 Completed Universit y of Vaccine Quad IM 3+ 00:00:00 [facility] Influenza Virus 2016-03-03 Completed Universit y of Vaccine Quad IM 3+ 00:00:00 [facility] Influenza Virus 2016-03-03 Completed Universit y of Vaccine Quad IM 3+ 00:00:00 [facility] Influenza Virus 2016-03-03 Completed Universit y of Vaccine Quad IM 3+ 00:00:00 [facility] Influenza Virus 2016-03-03 Completed Universit y of Vaccine Quad IM 3+ 00:00:00 [facility] Influenza Virus 2016-03-03 Completed Universit y of Vaccine Quad IM 3+ 00:00:00 [facility] Influenza Virus 2016-03-03 Completed Universit y of Vaccine Quad IM 3+ 00:00:00 [facility] Influenza Virus 2016-03-03 Completed Universit y of Vaccine Quad IM 3+ 00:00:00 [facility] Influenza Virus 2016-03-03 Completed Universit y of Vaccine Quad IM 3+ 00:00:00 [facility] Influenza Virus 2016-03-03 Completed Universit y of Vaccine Quad IM 3+ 00:00:00 [facility] Influenza Virus 2016-03-03 Completed Universit y of Vaccine Quad IM 3+ 00:00:00 [facility] Influenza Virus 2016-03-03 Completed Universit y of Vaccine Quad IM 3+ 00:00:00 [facility] Influenza Virus 2016-03-03 Completed Universit y of Vaccine Quad IM 3+ 00:00:00 [facility] Influenza Virus 2016-03-03 Completed Universit y of Vaccine Quad IM 3+ 00:00:00 [facility] Influenza Virus 2016-03-03 Completed Universit y of Vaccine Quad IM 3+ 00:00:00 [facility] Influenza Virus 2016-03-03 Completed Universit y of Vaccine Quad IM 3+ 00:00:00 [facility] Influenza Virus 2016-03-03 Completed Universit y of Vaccine Quad IM 3+ 00:00:00 [facility] Influenza Virus 2016-03-03 Completed Universit y of Vaccine Quad IM 3+ 00:00:00 [facility] Vital Signs Vital Name Observation Time Observation Value Comments Source Systolic blood 2020-05-21 19:55:00 118 mm[Hg] Univer sity of pressure [facility] Diastolic blood 2020-05-21 19:55:00 72 mm[Hg] Unive rsity of pressure [place] [facility] Heart rate 2020-05-21 19:55:00 64 /min [facility] Body temperature 2020-05-21 19:55:00 36.56 Divya [facility] Respiratory rate 2020-05-21 19:55:00 16 /min [facility] Body height 2020-05-21 19:55:00 165.1 cm [facility] Body weight 2020-05-21 19:55:00 70.506 kg [facility] BMI 2020-05-21 19:55:00 25.87 kg/m2 [facility] Systolic blood 2020-05-21 19:55:00 118 mm[Hg] [facility] Diastolic blood 2020-05-21 19:55:00 72 mm[Hg] [facility] Heart rate 2020-05-21 19:55:00 64 /min [facility] Body temperature 2020-05-21 19:55:00 36.56 Divya [facility] Respiratory rate 2020-05-21 19:55:00 16 /min [facility] Body height 2020-05-21 19:55:00 165.1 cm [facility] Body weight 2020-05-21 19:55:00 70.506 kg [facility] BMI 2020-05-21 19:55:00 25.87 kg/m2 [facility] Systolic blood 2020-05-19 20:09:00 117 mm[Hg] [facility] Diastolic blood 2020-05-19 20:09:00 67 mm[Hg] [facility] Heart rate 2020-05-19 20:09:00 67 /min [facility] Body temperature 2020-05-19 20:09:00 36.11 Divya [facility] Respiratory rate 2020-05-19 20:09:00 16 /min [facility] Body height 2020-05-19 20:09:00 160 cm [facility] Body weight 2020-05-19 20:09:00 70.393 kg [facility] BMI 2020-05-19 20:09:00 27.49 kg/m2 [facility] Systolic blood 2019-12-18 15:21:00 115 mm[Hg] [facility] Diastolic blood 2019-12-18 15:21:00 73 mm[Hg] [facility] Heart rate 2019-12-18 15:21:00 80 /min [facility] Body temperature 2019-12-18 15:21:00 36.22 Divya [facility] Respiratory rate 2019-12-18 15:21:00 16 /min [facility] Body height 2019-12-18 15:21:00 160 cm [facility] Body weight 2019-12-18 15:21:00 72.349 kg [facility] BMI 2019-12-18 15:21:00 28.25 kg/m2 [facility] Procedures Procedure Date / Time Performing Clinician Source Performed POCT TEST 2020-05-19 22:22:00 Justina Gray Uni versity [facility] GC & CHLAMYDIA 2020-05-19 21:01:[address] [facility] AMPLIFIED ASSAY [facility] TRICHOMONAS AMPLIFIED 2020-05-19 21:01:00 [facility] HIV 1/2 AG-AB WITH 2020-05-19 20:59:00 Justina Gray [facility] REFLEX [facility] POCT TEST 2019-12-18 15:12:00 Justina Gray Uni [facility] POCT URINALYSIS W/O 2019-12-18 15:12:00 Justina Gray Uni [facility] SPECIFIC GRAVITY [facility] REPORT OF 2019-12-18 05:01:00 [facility] Start End Encounter Admission Attending Care Care Encounter Source Date/Time Date/Time Type Type Clinicians Facility Department ID 2020-12-17 2020-12-17 Outpatient R SARA, [facility] [id number] Univers 13:15:00 13:15:00 JUSTINA [id number] ity o [facility] 2020-12-17 2020-12-17 Outpatient R AKINCHADPE, [facility] [id number] Univers 13:15:00 13:15:00 JUSTINA ity o [facility] 2020-08-27 2020-08-27 Outpatient R AKINTOMASZ, [facility] [id number] Univers 09:15:00 09:15:00 JUSTINA [id number] ity o [facility] 2020-08-27 2020-08-27 Outpatient R SARA, [facility] [id number] Univers 09:15:00 09:15:00 JUSTINA ity o [facility] 2020-08-25 2020-08-[address] [facility] [id number] Univers 00:00:00 00:00:00 Outreach Mata PRIMARY [id number] i [facility] [id number] Brenna SENA [phone] [address] 2020-08-17 2020-08-17 Outpatient R AKINSIPE, [facility] [id number] Univers 13:15:00 13:15:00 JUSTINA [id number] ity o [facility] 2020-08-17 2020-08-17 Outpatient R AKINSIPE, [facility] [id number] Univers 13:15:00 13:15:00 JUSTINA ity o [facility] 2020-08-17 2020-08-17 Outpatient R AKINSIPE, [facility] [id number] Univers 13:15:00 13:15:00 JUSTINA ity o [facility] 2020-06-09 2020-06-09 Outpatient R AKINSIPE, [facility] [id number] Univers 08:30:00 08:30:00 JUSTINA [id number] ity o [facility] 2020-05-21 2020-05-21 Outpatient [facility] [id number] Univers 15:00:00 15:00:00 [id number] ity [facility] 2020-05-21 2020-05-21 Outpatient R AKINSIPE, [facility] [id number] Univers 15:00:00 15:00:00 JUSTINA ity o [facility] 2020-05-21 2020-05-21 Nurse Visit, Ang-Rmchp Nurse [facility] [id number] .[id number] Univers 13:49:36 14:14:57 Visit Justina Gray PERSONNEL PLACEMENT SPECIALIST [id number]. [facility] [id number] Valeriy as MATERNAL [phone] [facility] ical & CHILD [address] [place] [address] 2020-05-21 2020-05-21 Nurse Visit, [facility] [id number] 13:49:36 14:14:57 Visit [facility] PERSONNEL PLACEMENT SPECIALIST [id number] [facility] [id number] MATERNAL [id number] & CHILD [address] [place] [address] 2020-05-20 2020-05-20 [facility] [id number] Univers 00:00:00 00:00:00 Justina C PERSONNEL PLACEMENT SPECIALIST [id number] [facility] [id number] Valeriy as MATERNAL [phone] Med ical & CHILD [address] [place] [address] 2020-05-19 2020-05-19 Office [facility] [id number] Univers 13:54:34 15:00:54 Visit Justina Martinez PERSONNEL PLACEMENT SPECIALIST [id number] [facility] [id number] Valeriy as MATERNAL [phone] Med ical & CHILD [address] [place] [address] 2020-05-19 2020-05-19 Outpatient R AKINSIPE, [facility] [id number] Univers 13:45:00 13:45:00 JUSTINA [id number] ity o [facility] 2020-05-19 2020-05-19 Outpatient R AKINSIPE, [facility] [id number] Univers 13:45:00 13:45:00 JUSTINA ity o [facility] 2020-03-16 2020-03-16 Outpatient R AKINSIPE, [facility] [id number] Univers 10:30:00 10:30:00 JUSTINA [id number] ity o f [facility] 2020-03-16 2020-03-16 Outpatient R AKINSIPE, [facility] [id number] Univers 10:30:00 10:30:00 JUSTINA ity o f [facility] 2020-03-02 2020-03-02 Letter [facility] [id number] Univers 00:00:00 00:00:00 (Out) Justina C PERSONNEL PLACEMENT SPECIALIST [id number] [facility] [id number] Valeriy as MATERNAL [phone] Med ical & CHILD [address] [facility] 2020-01-15 2020-01-15 Outpatient R AKINSIPE, [facility] [id number] Univers 15:15:00 15:15:00 JUSTINA [id number] ity o f [facility] 2020-01-15 2020-01-15 Outpatient R AKINSIPE, [facility] [id number] Univers 15:15:00 15:15:00 JUSTINA ity o [facility] 2020-01-10 2020-01-10 Telephone Sara, [facility] [id number] Univers 00:00:00 00:00:00 Justina C PERSONNEL PLACEMENT SPECIALIST [id number] [facility] [id number] Valeriy as MATERNAL [phone] [facility] & CHILD [address] [place] [address] 2020-01-10 2020-01-10 Telephone Sara, [facility] [id number] Univers 00:00:00 00:00:00 Justina C PERSONNEL PLACEMENT SPECIALIST [id number] [facility] [id number] Valeriy as MATERNAL [phone] [facility] & CHILD [address] [place] [address] 2020-01-08 2020-01-08 Tax Collection Coordinator Lab, Edward-Rmchp [facility] 1.2.840. 114 [id number] Univers 14:53:19 15:09:35 Visit Justina Gray PERSONNEL PLACEMENT SPECIALIST 350.1.13. 10 ity [facility] [id number] Valeriy as MATERNAL [phone] [facility] & [address] 2020-01-08 2020-01-08 Outpatient R [facility] [id number] Univers 15:00:00 15:00:00 ity of [facility] 2020-01-08 2020-01-08 Outpatient R AKINSIPE, [facility] [id number] Univers 15:00:00 15:00:00 JUSTINA itgeorgette o [facility] 2020-01-08 2020-01-08 [facility] 1.2.840.114 [id number] Univers 00:00:00 00:00:00 Justina C PERSONNEL PLACEMENT SPECIALIST [id number] [facility] [id number] Valeriy as MATERNAL [phone] [facility] & CHILD [address] [place] [address] 2020-01-01 2020-01-01 Outpatient R [facility] [id number] Univers 08:30:00 08:30:00 [id number] ity [facility] 2020-01-01 2020-01-01 Outpatient R [facility] [id number] Univers 08:30:00 08:30:00 ity [facility] 2019-12-26 2019-12-26 [facility] 1.2.840.114 [id number] Univers 00:00:00 00:00:00 Justina Martinez PERSONNEL PLACEMENT SPECIALIST [id number] [facility] [id number] Valeriy as MATERNAL [phone] [facility] & [address] 2019-12-25 2019-12-25 Outpatient R [facility] [id number] Univers 08:30:00 08:30:00 [id number] ity [facility] 2019-12-25 2019-12-25 [facility] [id number] Univers 08:30:00 08:30:00 JUSTINA jensen o f [facility] 2019-12-25 2019-12-25 Tax Collection Coordinator Lab, Ang-Rmchp [facility] 1.2.840. 114 [id number] Univers 08:14:26 08:20:26 Visit Justina Gray PERSONNEL PLACEMENT SPECIALIST 350.1.13. [address] [facility] [id number] Valeriy as MATERNAL [phone] [facility] & CHILD [address] [place] [address] 2019-12-20 2019-12-20 Outpatient [facility] [id number] Univers 10:30:00 10:30:00 [id number] ity [facility] 2019-12-20 2019-12-20 Outpatient R [facility] [id number] Univers 10:30:00 10:30:00 ity [facility] 2019-12-20 2019-12-20 Telephone [facility] 1.2.840.114 [id number] Univers 00:00:00 00:00:00 Justina C PERSONNEL PLACEMENT SPECIALIST [id number] ity of [facility] [id number] Valeriy as MATERNAL [phone] [facility] & CHILD [address] [place] [address] 2019-12-18 2019-12-18 Initial [facility] [id number] Univers 10:06:57 11:32:49 Justina C PERSONNEL PLACEMENT SPECIALIST [id number] [facility] [id number] Valeriy as MATERNAL [phone] [facility] & [address] 2019-12-18 2019-12-18 Outpatient R SARA, [facility] [id number] Univers 10:00:00 10:00:00 JUSTINA jensen o f [facility] 2019-12-18 2019-12-18 Outpatient R [facility] [id number] Univers 09:30:00 09:30:00 [id number] ity [facility] 2019-12-18 2019-12-18 Outpatient R AKINSIPE, [facility] [id number] Univers 09:30:00 09:30:00 JUSTINA jensen o [facility] 2019-12-18 2019-12-18 Orders Doctor DAMARIS [id number] Univers 00:00:00 00:00:00 Only Unassigned, TALON 350.1.13.10 ity of [facility] 4.2.7.2.686 Valeriy as [phone] [address] 2019-10-24 2019-10-24 Outpatient R AKINSIPE, [facility] [id number] Univers 14:45:00 14:45:00 JUSTINA [id number] ity o f [facility] 2019-10-24 2019-10-24 Outpatient R AKINSIPE, [facility] [id number] Univers 14:45:00 14:45:00 JUSTINA hoopery o f [facility] 2016-07-05 2016-07-05 Outpatient R ENID, [facility] [id number] Univers 11:45:00 11:45:00 VICTORINO jensen o [facility] Results Test Description Test Time Test Comments Results Result Comments Source TRICHOMONAS AMPLIFIED ASSAY 2020-05-20 19:06:00 Test Item Value Reference Range Interpretation Comme nts Trichomonas Nucleic Acid (test code = Negative Negative 37502-9) SANTA (test code = SANTA) Reliable results [...] clinician. Lab Interpretation (test code = Normal 57564-7) [facility] [id number] 19:06:00 Test Item Value Reference Range Interpretation Comments Trichomonas Nucleic Negative Negative Acid (test code = 79859-7) SANTA (test code = SANTA) Reliable results [...] clinician. Lab Interpretation Normal (test code = 44287-6) [facility] CHLAMYDIA AMPLIFIED [id number] 18:51:00 Test Item Value Reference Range Interpretation Comments C. trachomatis Nucleic Positive Negative A Acid (test code = 57001-5) N. gonorrhoeae Nucleic Positive Negative A Acid (test code = 13870-1) SANTA (test code = SANTA) Reliable results [...] NAAT. Lab Interpretation Abnormal (test code = 13296-2) [facility] AMPLIFIED [id number] 18:51:00 Test Item Value Reference Range Interpretation Comments C. trachomatis Nucleic Positive Negative A Acid (test code = 24043-6) N. gonorrhoeae Nucleic Positive Negative A Acid (test code = 73277-7) SANTA (test code = SANTA) Reliable results [...] NAAT. Lab Interpretation Abnormal (test code = 16673-5) [facility] 1/2 AG-AB WITH [id number] 10:58:00 Test Item Value Reference Range Interpretation Comments HIV Negative Negative Semi-quantitative (test code = 11188-6) SANTA (test code = Non-reactive for HIV-1 SANTA) antigen and HIV-1/HIV-2 antibodies. ?No laboratory evidence of HIV infection. ?Repeat in 2-4 weeks if acute HIV infection is suspected. [facility] 1/2 AG-AB WITH [id number] 10:58:00 Test Item Value Reference Range Interpretation Comments HIV Negative Negative Semi-quantitative (test code = 73569-3) SANTA (test code = Non-reactive for HIV-1 SANTA) antigen and HIV-1/HIV-2 antibodies. ?No laboratory evidence of HIV infection. ?Repeat in 2-4 weeks if acute HIV infection is suspected. [facility] [id number] 22:22:00 Test Item Value Reference Range Interpretation Comments POCT PREG (test code = 1605) Negative On board controls acceptable with C Yes Line (test code = 3574) POCT PREG LOT # (test code = 3575) POCT PREG TEST DATE (test code = 3576) [facility] [id number] 22:22:00 Test Item Value Reference Range Interpretation Comments POCT PREG (test code = 1605) Negative On board controls acceptable with C Yes Line (test code = 3574) POCT PREG LOT # (test code = 3575) POCT PREG TEST DATE (test code = 3576) [facility] URINALYSIS W/O SPECIFIC [id number] 15:13:00 Test Item Value Reference Range Interpretation [...] Negative Lab Interpretation (test code = Abnormal 20511-3) [facility] [id number] 15:12:00 Test Item Value Reference Range Interpretation Comments POCT PREG (test code = 1605) Positive On board controls acceptable with C Yes Line (test code = 3574) POCT PREG LOT # (test code = 3575) POCT PREG TEST DATE (test code = 3576) [facility]
--- NOTE | 2022-01-05 12:13 | EDPHYS ---
Physician Documentation [facility] Name: Rossana Monge Age: 26 yrs Sex: Female : 1995 Arrival Date: 01/05/2022 Time: 10:09 Bed 12 Private MD: ED Physician Mikel Bowden HPI: 01/05 10:18 This 26 yrs old Female presents to ER via Ambulatory with complaints of Fever, jmm Chills. 10:18 The patient reports fever, not measured (subjective). Onset: The symptoms/episode jmm began/occurred gradually, 1 day(s) ago. Modifying factors: there are no obvious modifying factors. Associated signs and symptoms: Pertinent positives: arthralgias, chills, headache. The patient has experienced similar episodes in the past. 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 - Social history:: Smoking status: Reported history of juuling and/or vaping. Patient uses alcohol, occasionally. ROS: 10:18 Cardiovascular: Negative for chest pain, palpitations, and edema, Respiratory: Negative jmm for shortness of breath, cough, wheezing, and pleuritic chest pain. 10:18 Constitutional: Positive for body aches, chills. 10:18 All other systems are negative. Exam: 10:18 Constitutional: This is a well developed, well nourished patient who is awake, alert, jmm and in no acute distress. Head/Face: atraumatic. Eyes: EOMI, no conjunctival erythema appreciated ENT: Moist Mucus Membranes Neck: Trachea midline, Supple Chest/axilla: Normal chest wall appearance and motion. Cardiovascular: Regular rate and rhythm. No edema appreciated Respiratory: Normal respirations, no respiratory distress appreciated Abdomen/GI: Non distended Back: Normal ROM Skin: General appearance color normal MS/ Extremity: Moves all extremities, no obvious deformities appreciated, no edema noted to the lower extremities Neuro: Awake and alert Psych: Behavior is normal, Mood is normal, Patient is cooperative and pleasant Vital Signs: 10:18 BP 125 / 78; Pulse 99; Resp 18; Temp 98.7(TE); Pulse Ox 97% on R/A; Weight 81.65 kg; tw2 Height 5 ft. 5 in. (165.10 cm); 12:27 BP 101 / 67; Pulse 90; Resp 17; Pulse Ox 99% on R/A; tw2 10:18 Body Mass Index 29.95 (81.65 kg, 165.10 cm) tw2 MDM: 11:43 Patient medically screened. [facility] 12:11 Data reviewed: vital signs, nurses notes. Counseling: I had a detailed discussion with eleni the patient and/or guardian regarding: the historical points, exam findings, and any diagnostic results supporting the discharge/admit diagnosis, lab results, the need for outpatient follow up, to return to the emergency department if symptoms worsen or persist or if there are any questions or concerns that arise at home. 01/05 10:18 Order name: Flu; Complete Time: 11:25 tw2 01/05 10:25 Order name: SARS-COV-2 RT PCR (Document "Date of Onset" if Symptomatic); Complete Time: [facility] 11:43 Administered Medications: No medications were administered Disposition Summary: 01/05/22 12:12 Discharge Ordered Location: Home [facility] Condition: Stable [facility] Diagnosis - Coronavirus infection, unspecified [facility] Followup: [facility] - With: Private Physician - When: 2 - 3 days - Reason: Recheck today's complaints, Continuance of care, Re-evaluation by your physician Discharge Instructions: - COVID-19 [facility] - Discharge Summary Sheet tw2 Forms: - Medication Reconciliation Form [facility] - Thank You Letter [facility] - Antibiotic Education [facility] - Work release form tw2 - Prescription Opioid Use [facility] Prescriptions: - Paxlovid (EUA) 150 mg x 2- 100 mg Oral tablet - take 3 tablet by ORAL route 2 times per day for 5 days per package directions; daniela 1 packet; Refills: 0, Product Selection Permitted Signatures: Dispatcher [employer] Corey Kaplan PA PA jmm Wise, Tara, RN RN tw2
--- NOTE | 2022-01-05 12:13 | ER ---
Nurse's Notes [facility] Name: Rossana Monge Age: 26 yrs Sex: Female : 1995 Arrival Date: 01/05/2022 Time: 10:09 Bed 12 Private MD: Diagnosis: Coronavirus infection, unspecified Presentation: 01/05 10:12 Chief complaint: Patient states: i felt like i was getting a headache yesterday and tw2 started to feel like i was getting chills at night time. i have been having super bad body aches and i just feel like crap. Coronavirus screen: chills, cough unrelated to allergies, fever. Ebola Screen: Patient denies travel to an Ebola-affected area in the 21 days before illness onset. Initial Sepsis Screen: Does the patient meet any 2 criteria? No. Patient's initial sepsis screen is negative. Does the patient have a suspected source of infection? No. Patient's initial sepsis screen is negative. Risk Assessment: Do you want to hurt yourself or someone else? Patient reports no desire to harm self or others. Onset of symptoms was January 05, 2022. 10:12 Method Of Arrival: Ambulatory tw2 10:12 Acuity: SHERRIE 4 tw2 Triage Assessment: 10:14 General: Appears in no apparent distress. well developed, Behavior is calm, tw2 cooperative, appropriate for age. General: Reports chills for body aches. Pain: Denies pain. EENT: No signs and/or symptoms were reported regarding the EENT system. Neuro: Level of Consciousness is awake, alert, obeys commands, Oriented to person, place, time, situation. Respiratory: Airway is patent Respiratory effort is even, unlabored, Respiratory pattern is regular, symmetrical. 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 - Social history:: Smoking status: Reported history of juuling and/or vaping. Patient uses alcohol, occasionally. Screenin:19 Abuse screen: Denies threats or abuse. Nutritional screening: No deficits noted. tw2 Tuberculosis screening: No symptoms or risk factors identified. Fall Risk None identified. Assessment: 10:18 Reassessment: pt swabbed in triage and returned to [facility] for results at this time. tw2 11:51 Reassessment: provider at bedside at this time discussing results. tw2 11:52 Reassessment: Patient appears in no apparent distress at this time. No changes from tw2 previously documented assessment. Patient and/or family updated on plan of care and expected duration. Pain level reassessed. Patient is alert, oriented x 3, equal unlabored respirations, skin warm/dry/pink. 12:27 Reassessment: Patient appears in no apparent distress at this time. No changes from tw2 previously documented assessment. Patient and/or family updated on plan of care and expected duration. Pain level reassessed. Patient is alert, oriented x 3, equal unlabored respirations, skin warm/dry/pink. Vital Signs: 10:18 BP 125 / 78; Pulse 99; Resp 18; Temp 98.7(TE); Pulse Ox 97% on R/A; Weight 81.65 kg; tw2 Height 5 ft. 5 in. (165.10 cm); 12:27 BP 101 / 67; Pulse 90; Resp 17; Pulse Ox 99% on R/A; tw2 10:18 Body Mass Index 29.95 (81.65 kg, 165.10 cm) tw2 ED Course: 10:09 Patient arrived in ED. mr 10:09 [facility] 10:09 Mikel Bowden MD is Attending Physician. [facility] 10:14 Triage completed. tw2 10:15 Arm band placed on. tw2 11:45 Elvira Elias, JOSEPH is Primary Nurse. tw2 11:45 Bed in low position. Call light in reach. Pulse ox on. NIBP on. tw2 12:27 No provider procedures requiring assistance completed. Patient did not have IV access tw2 during this emergency room visit. Administered Medications: No medications were administered Medication: 11:52 VIS not applicable for this client. tw2 Outcome: 12:12 Discharge ordered by . [facility] 12:27 Discharged to home ambulatory. tw2 12:27 Condition: stable 12:27 Discharge instructions given to patient, Instructed on discharge instructions, follow up and referral plans. medication usage, Demonstrated understanding of instructions, follow-up care, medications, Prescriptions given X 1. 12:27 Patient left the ED. tw2 Signatures: Corey Hightower PA PA jmm Rivera Debra Elvira Dang RN RN tw2
[2022-01-05 12:32] VITALS: TEMP 98.7
[2022-01-05 12:35] VITALS: BP 101/67; O2SAT 99
== END 2022-01-05 12:27 | disposition home or self-care (01) ==
LOC: ER 10:05
DX: U07.1 COVID-19 (principal)
CPT/HCPCS: 87804 ×2; U0003

== ENCOUNTER 2022-07-24 16:20 | Emergency (ER) | payer OTHER ==
--- OUTSIDE RECORDS SUMMARY | 2022-07-24 16:26 | XMS REPORT | Continuity of Care Document ---
:1995 Author Organization [facility] [place] [facility] t Address [address] [place]. [address] [place] [id number] Care Team Providers Name Role Phone JUSTINA GRAY Attending Clinician Unavailable Mata Todd DO Attending Clinician Visit, Zev Nurse Attending Clinician Unavailable Justina Esquivel Attending Clinician [phone] Lab, Zev Attending Clinician Unavailable Doctor Unassigned, [place] Attending Clinician Unavailable VICTORINO ROSSI Attending Clinician Unavailable Payers Payer Name Policy Type Policy Number Effective Date Expiration Date S gabi [facility] [id number] 2020 00:00:00 [place]ICAID [place] [id number] 2020 00:00:00 [facility] [id number] 2020 00:00:00 MEDICAID PENDING PENDING 2019 00:00:00 [...] i ty of status, status, 00:00: pp [place] antepartum antepartum 00 Sd dical Branch Supervisio Supervisio Disease Active 2020-0 U nivers n of n of 7-15 it[place] of high[place] [facility] Vaginal Vaginal Disease Active 2020-0 Univers bleeding bleeding 7-15 ity of in in 00:00: [place] 00 [facility] Tobacco Tobacco Disease Active 2020-0 Overview: Univ ers use in use in 7-15 Reports ity of 00:00: quit x1 Valeriy as 00 week ago Medical Branch Over Over Disease Active 2020-0 Univers weight weight 7-15 ity of 00:00: [place] 00 Medical Branch Multiparit Multiparit Disease Active 2020-0 U nivers y y 7-15 ity of 00:00: [place] 00 [facility] H. pylori H. pylori Problem Resolve 2020-10-23 Memoria infection infection d 02:00:52 l Resolved [place] Problem 10/23/2020 Outpatien t Clinical Care Vaginitis Vaginitis Diagnosis Active 2020-10-23 Memoria and and 02:00:52 l vulvovagin vulvovagin He rmann itis, itis, unspecifie unspecifie d d Active Diagnosis 10/23/2020 Outpatien t Clinical Care Chlamydia Chlamydia Diagnosis Active 2020-09-08 Memoria trachomati trachomati 02:04:27 l s of s of [place] unspecifie unspecifie d site d site Active Diagnosis 09/08/2020 Outpatient Clinical Care Thoracic Thoracic Diagnosis Active 2020-10-23 Memoria sprain sprain 02:00:52 l Active [place] Diagnosis 10/23/2020 Outpatient Clinical Care Spasm of Spasm of Diagnosis Active 2020-10-23 Memoria muscle muscle 02:00:52 l Active [place] Diagnosis 10/23/2020 Outpatient Clinical Care Heartburn Heartburn Diagnosis Active 2020-10-23 Memoria Active 02:00:52 l Diagnosis [place] 10/23/2020 Outpatient Clinical Care MENSTRUAL MENSTRUAL Diagnosis Active 2020-10-23 Memoria DISORDER DISORDER 02:00:52 l NEC NEC Active Jonas n Diagnosis 10/23/2020 Outpatient Clinical Care SCREEN SCREEN Diagnosis Active 2020-09-08 Me moria LIPOID LIPOID 02:09:22 l DISORDERS DISORDERS Herm chandler Active Diagnosis 09/08/2020 Outpatient Clinical Care SCREEN-DEF SCREEN-DE Diagnosis Active 2020-09-08 Memoria IC ANEMIA FIC ANEMIA 02:09:22 l NEC NEC Active Jonas n Diagnosis 09/08/2020 Outpatien t Clinical Care SCREEN-END SCREEN-EN Diagnosis Active 2020-09-08 Memoria OC/NUT/MET DOC/NUT/ME 02:09:22 l NEC T NEC [place] Active Diagnosis 09/08/2020 Outpatient Clinical Care Candidal Candidal Diagnosis Active 2020-09-08 Memoria vulvovagin vulvovagin 02:09:22 l itis itis [place] Active Diagnosis 09/08/2020 Outpatient Clinical Care CONTRACEPT CONTRACEP Diagnosis Active 2020-09-08 Memoria MICHELLE MANGMT TIVE 02:04:09 l NOS MANGMT NOS Jonas n Active Diagnosis 09/08/2020 Outpatient Clinical Care Female Female Diagnosis Active 2015-09-15 Me moria pelvic pelvic 02:11:30 l inflammato inflammato He rmann ry ry disease, disease, unspecifie unspecifie d d Active Diagnosis 09/15/2015 Outpatient Clinical Care Acute Acute Diagnosis Active 2015-09-15 Me moria vaginitis vaginitis 02:11:30 l Active [place] Diagnosis 09/15/2015 Outpatien t Clinical Care Amenorrhea Amenorrhe Diagnosis Active 2015-09-15 Memoria , a, 02:11:30 l unspecifie unspecifie He rmann d d Active Diagnosis 09/15/2015 Outpatient Clinical Care Nicotine Nicotine Diagnosis Active 2015-09-15 Memoria dependence dependence 02:11:30 l , , [place] cigarettes cigarettes , , uncomplica uncomplica hanna hanna Active Diagnosis 09/15/2015 Outpatient Clinical Care Fever, Fever, Diagnosis Active 2014-05-13 Me moria unspecifie unspecifie 03:06:49 l d d Active [place] Diagnosis 05/13/2014 Outpatient Clinical Care Viral Viral Diagnosis Active 2014-05-13 Mem oria infection infection 03:06:49 l Active [place] Diagnosis 05/13/2014 Outpatien t Clinical Care Acute Acute Diagnosis Active 2015-07-11 Mem oria upper upper 03:04:31 l respirator respirator He rmann y y infection, infection, unspecifie unspecifie d d Active Diagnosis 07/11/2015 Outpatien t Clinical Care Allergies, Adverse Reactions, Alerts Allergy Allergy Status Severity Reaction(s) Onset Inactive Treating Comm ents Source Name Type Date Date Clinician NO KNOWN Drug Active Univers ALLERGIE Class ity of S [facility] Social History Social Habit Start Date Stop Date Quantity Comments Source ASSERTION 2019-11-08 University of 00:00:00 [facility] Exposure to Not sure University of SARS-CoV-2 [facility] (event) [place] Alcohol intake 2020-05-21 2020-05-21 Current drinker Unive rsity of 00:00:00 00:00:[address] [facility] (finding) [place] Tobacco use and 2020-05-21 2020-05-21 Never used Universit y of exposure 00:00:00 00:00:00 [facility] History of 2014-09-08 2019-12-10 Cigarette Smoker Universi ty of tobacco use 00:00:00 00:00:00 [facility] Tobacco Comment 2017-09-08 2017-09-08 4 cigarretes per Uni versity of 00:00:00 00:00:00 day [facility] Alcohol Comment 2017-09-08 2017-09-08 social Universit y of 00:00:00 00:00:00 [facility] Druguse: 2015-09-09 2015-09-09 [facility] Megan nn 00:00:00 00:00:00 Sex [birth year] Universit y of 00:00:00 00:00:00 [facility] Smoking Status Start Date Stop Date Source Former smoker 2020-05-21 00:00:00 2020-05-21 00:00:00 Universi ty of [facility] Medications Ordered Filled Start Stop Current Ordering Indication Dosage Frequency Signature Comments Components Source Medication Medication Date Date Medication? Clinician (SIG) Name Name fluconazole Yes Danielito 1 tab(s) Memoria 4-06 Paul l 02:09: omeprazole Yes Danielito 1 cap(s) M emoria 4-06 Paul l 02:09: amoxicillin Yes Danielito 2 cap(s) Memoria 4-06 Paul l 02:09: cefTRIAXone 2020-1 2020- No 250mg Univ ers (ROCEPHIN) 07-22 ity of injection 21:15: 20:14 [place] 250 mg 00 :00 [facility] cefTRIAXone 2019-06- No 250mg 250 mg, U nivers (ROCEPHIN) 07-22 Intramuscu it y of injection 21:15: 20:14 [place], [place]CE, [place] 250 mg 00 :00 1 dose, [facility] 05/21/20 at 1515, [place]
Re ason for Anti-Infec tive: Documented Infection< br>Documen hanna Infection Site: Other
O ther site: genitoruri nary
Du ration of Therapy: Other (see Comments) cefTRIAXone 2019-06- No 250mg Univ ers (ROCEPHIN) 07-22 ity of injection 21:15: 20:14 [place] 250 mg 00 :00 [facility] cefTRIAXone 2019-06- No 250mg 250 mg, U nivers (ROCEPHIN) 07-22 Intramuscu it y of injection 21:15: 20:14 [place], ONCE, [place] 250 mg 00 :00 1 dose, [facility] 05/21/20 at 1515, [place]
Re ason for Anti-Infec tive: Documented Infection< br>Documen hanna Infection Site: Other
O ther site: genitoruri nary
Du ration of Therapy: Other (see Comments) azithromyci 2019-06- No [id number] 1000mg Take 2 Univers n 500 mg 2-16 12-17 tablets by ity of tablet 00:00: 05:59 mouth [place] now for 1 Medical dose. [place] azithromyci 2019-06- No [id number] 1000mg Take 2 Univers n 500 mg 2-16 12-17 tablets by ity of tablet 00:00: 05:59 [place] :[place] now for 1 Medical dose. [place] azithromyci 2019-06- No [id number] 1000mg Take 2 Univers n 500 mg 2-16 12-17 tablets by ity of tablet 00:00: 05:59 [place] now for 1 Medical dose. [place] norgestimat 2020-1 Yes [id number] 1{tbl} Take 1 Univers e-ethinyl 2-15 tablet by ity o f estradioL 00:00: mouth [place] (ORTHO 00 daily. [facility], ,) 0.18/0.215/ 0.25 mg-25 mcg tablet norgestimat 2020-1 Yes [id number] 1{tbl} Take 1 Univers e-ethinyl 2-15 tablet by ity o f estradioL 00:00: mouth [place] (ORTHO 00 daily. [facility], ,) 0.18/0.215/ 0.25 mg-25 mcg tablet norgestimat 2020-1 Yes [id number] 1{tbl} Take 1 Univers e-ethinyl 2-15 tablet by ity o f estradioL 00:00: mouth [place] (ORTHO 00 daily. [facility], ,) 0.18/0.215/ 0.25 mg-25 mcg tablet norgestimat 2020-1 Yes [id number] 1{tbl} Take 1 Univers e-ethinyl 2-15 tablet by ity o f estradioL 00:00: mouth [place] (ORTHO 00 daily. [facility], ,) 0.18/0.215/ 0.25 mg-25 mcg tablet norgestimat 2020-1 Yes [id number] 1{tbl} Take 1 Univers e-ethinyl 2-15 tablet by ity o f estradioL 00:00: mouth [place] (ORTHO 00 daily. [facility], ,) 0.18/0.215/ 0.25 mg-25 mcg tablet norgestimat 2020-1 Yes [id number] 1{tbl} Take 1 Univers e-ethinyl 2-15 tablet by ity o f estradioL 00:00: mouth [place] (ORTHO 00 daily. [facility], ,) 0.18/0.215/ 0.25 mg-25 mcg tablet norgestimat 2020-1 Yes [id number] 1{tbl} Take 1 Univers e-ethinyl 2-15 tablet by ity o f estradioL 00:00: mouth [place] (ORTHO 00 daily. [facility], ,) 0.18/0.215/ 0.25 mg-25 mcg tablet norgestimat 2019-06 Yes [id number] 1{tbl} Take 1 Univers e-ethinyl 2-15 tablet by ity o f estradioL 00:00: mouth [place] (ORTHO 00 daily. Medical TRI-CYCLEN Branch LO, 28,) 0.18/0.215/ 0.25 mg-25 mcg tablet azithromyci 2019-06 2020- No [id number] 1000mg Take 2 Univers n 500 mg 2-15 12-16 tablets by ity of tablet 00:00: 05:59 [place] :[place] now for 1 Medical dose. Branch azithromyci 2019-06- No [id number] 1000mg Take 2 Univers n 500 mg 2-15 12-16 tablets by ity of tablet 00:00: 05:59 [place] :[place] now for 1 Medical dose. Branch ampicillin 2019- No [id number] 500mg Take 1 Univers 500 mg 7-17 07-28 capsule by ity of capsule 00:00: 04:59 mouth 4 [place] 00 :00 (four) Medical times Branch daily for 10 days. ampicillin 2019- No [id number] 500mg Take 1 Univers 500 mg 7-17 07-28 capsule by ity of capsule 00:00: 04:59 mouth 4 [place] 00 :00 (four) Medical times Branch daily for 10 days. ampicillin 2019- No [id number] 500mg Take 1 Univers 500 mg 7-17 07-28 capsule by ity of capsule 00:00: 04:59 mouth 4 [place] 00 :00 (four) Medical times Branch daily for 10 days. ampicillin 2019- No [id number] 500mg Take 1 Univers 500 mg 7-17 07-28 capsule by ity of capsule 00:00: 04:59 mouth 4 [place] 00 :00 (four) Medical times Branch daily for 10 days. ampicillin 2019-2019- No [id number] 500mg Take 1 Univers 500 mg 7-17 07-28 capsule by ity of capsule 00:00: 04:59 mouth 4 [place] 00 :00 (four) Medical times Branch daily for 10 days. ampicillin 2019-2019- No [id number] 500mg Take 1 Univers 500 mg 7-17 07-28 capsule by ity of capsule 00:00: 04:59 mouth 4 [place] 00 :00 (four) Medical times Branch daily for 10 days. ampicillin 2020-0 2020- No [id number] 500mg Take 1 Univers 500 mg 7-17 07-28 capsule by ity of capsule 00:00: 04:59 mouth 4 [place] 00 :00 (four) Medical times Branch daily for 10 days. ampicillin 2020-0 2020- No [id number] 500mg Take 1 Univers 500 mg 7-17 07-28 capsule by ity of capsule 00:00: 04:59 mouth 4 [place] 00 :00 (four) Medical times Branch daily for 10 days. ampicillin 2020-0 2020- No [id number] 500mg Take 1 Univers 500 mg 7-17 07-28 capsule by ity of capsule 00:00: 04:59 mouth 4 [place] 00 :00 (four) Medical times [place] daily for 10 days. LACTOBACILL 2020-0 Yes Take by Uni vers US COMBO 7-15 mouth. ity of NO.6 15:29: [place] (PROBIOTIC 48 Medical COMPLEX Branch ORAL) LACTOBACILL [...] Medical COMPLEX Branch ORAL) norgestimat 2018-0 Yes [id number] 1{tbl} Take 1 Univers e-ethinyl 4-06 tablet by ity o f estradiol 00:00: mouth [place] [facility] 0.18/0.215/ 0.25 mg-25 mcg tablet norgestimat 2018-0 Yes [id number] 1{tbl} Take 1 Univers e-ethinyl 4-06 tablet by ity o f estradiol 00:00: mouth [place] ([facility]O 00 [facility]. [facility], [facility] 0.18/0.215/ 0.25 mg-25 mcg tablet norgestimat 2018-0 Yes [id number] 1{tbl} Take 1 Univers e-ethinyl 4-06 tablet by ity o f estradiol 00:00: mouth [place] ([facility] 00 [facility]. [facility], [facility] 0.18/0.215/ 0.25 mg-25 mcg tablet norgestimat 2018-0 Yes [id number] 1{tbl} Take 1 Univers e-ethinyl 4-06 tablet by ity o f estradiol 00:00: mouth [place] ([facility]O 00 [facility]. [facility], [facility] 0.18/0.215/ 0.25 mg-25 mcg tablet norgestimat 2018-0 Yes [id number] 1{tbl} Take 1 Univers e-ethinyl 4-06 tablet by ity o f estradiol 00:00: mouth [place] ([facility] 00 [facility]. [facility], [facility] 0.18/0.215/ 0.25 mg-25 mcg tablet norgestimat 2018-0 Yes [id number] 1{tbl} Take 1 Univers e-ethinyl 4-06 tablet by ity o f estradiol 00:00: mouth [place] (ORTHO 00 daily. [facility], 28,) 0.18/0.215/ 0.25 mg-25 mcg tablet norgestimat 2018-0 Yes [id number] 1{tbl} Take 1 Univers e-ethinyl 4-06 tablet by ity o f estradiol 00:00: mouth [place] (ORTHO 00 daily. [facility], 28,) 0.18/0.215/ 0.25 mg-25 mcg tablet norgestimat 2018-0 Yes [id number] 1{tbl} Take 1 Univers e-ethinyl 4-06 tablet by ity o f estradiol 00:00: mouth [place] (ORTHO 00 daily. [facility], 28,) 0.18/0.215/ 0.25 mg-25 mcg tablet norgestimat 2018-0 Yes [id number] 1{tbl} Take 1 Univers e-ethinyl 4-06 tablet by ity o f estradiol 00:00: mouth [place] (ORTHO 00 daily. [facility], 28,) 0.18/0.215/ 0.25 mg-25 mcg tablet norgestimat 2018-0 Yes [id number] 1{tbl} Take 1 Univers e-ethinyl 4-06 tablet by ity o f estradiol 00:00: mouth [place] (ORTHO 00 daily. [facility], 28,) 0.18/0.215/ 0.25 mg-25 mcg tablet norgestimat 2018-0 Yes [id number] 1{tbl} Take 1 Univers e-ethinyl 4-06 tablet by ity o f estradiol 00:00: mouth [place] (ORTHO 00 daily. [facility], 28,) 0.18/0.215/ 0.25 mg-25 mcg tablet norgestimat 2017-0 Yes [id number] 1{tbl} Take 1 Univers e-ethinyl 4-06 tablet by ity o f estradiol 00:00: mouth [place] (ORTHO 00 daily. [facility], 28,) 0.18/0.215/ 0.25 mg-25 mcg tablet norgestimat 2018-0 Yes [id number] 1{tbl} Take 1 Univers e-ethinyl 4-06 tablet by ity o f estradiol 00:00: mouth [place] (ORTHO 00 daily. [facility], 28,) 0.18/0.215/ 0.25 mg-25 mcg tablet norgestimat 2018-0 Yes [id number] 1{tbl} Take 1 Univers e-ethinyl 4-06 tablet by ity o f estradiol 00:00: mouth [place] (ORTHO 00 daily. [facility], 28,) 0.18/0.215/ 0.25 mg-25 mcg tablet norgestimat 2018-0 Yes [id number] 1{tbl} Take 1 Univers e-ethinyl 4-06 tablet by ity o f estradiol 00:00: mouth [place] (ORTHO 00 daily. [facility], 28,) 0.18/0.215/ 0.25 mg-25 mcg tablet norgestimat 2018-0 Yes [id number] 1{tbl} Take 1 Univers e-ethinyl 4-06 tablet by ity o f estradiol 00:00: mouth [place] (ORTHO 00 daily. [facility], 28,) 0.18/0.215/ 0.25 mg-25 mcg tablet norgestimat 2018-0 Yes [id number] 1{tbl} Take 1 Univers e-ethinyl 4-06 tablet by ity o f estradiol 00:00: mouth [place] (ORTHO 00 daily. [facility], 28,) 0.18/0.215/ 0.25 mg-25 mcg tablet norgestimat 2018-0 Yes [id number] 1{tbl} Take 1 Univers e-ethinyl 4-06 tablet by ity o f estradiol 00:00: mouth [place] (ORTHO 00 daily. [facility], 28,) 0.18/0.215/ 0.25 mg-25 mcg tablet norgestimat 2018-0 2020- No [id number] 1{tbl} Take 1 Univers e-ethinyl 4-06 12-15 tablet by ity of estradiol 00:00: 00:00 mouth [place] (ORTHO 00 :00 daily. Medical TRI[facility]CYCL[facility] Branch , 28,) 0.18/0.215/ 0.25 mg-25 mcg tablet norgestimat 2018 2020- No [id number] 1{tbl} Take 1 Univers e-ethinyl 4- 12-15 tablet by ity of estradiol 00:00: 00:00 mouth [place] (ORTHO 00 :00 daily. [facility] 0.18/0.215/ 0.25 mg-25 mcg tablet MedroxyPROG 2016-0 Yes Danielito 1 tab(s) Memoria ESTERone 4-06 Paul l Acetate 00:00: [place] 00 ibuprofen 2015-0 Yes Danielito 1 tab(s) Me moria 3-23 Paul l 00:00: azithromyci 2015-0 Yes Danielito 1 tab(s) Memoria n 3-23 Paul l 00:00: ciprofloxac 2015-0 Yes Danielito 1 tab(s) Memoria in 3-23 Paul l 00:00: [place] 00 Bromfed DM 2015-1 Yes Danielito 10 mL Michael mani 2-15 Paul l 00:00: [place] 00 Bromfed DM 2014-1 Yes Danielito 10 mL Michael mani 2-02 Paul l 00:00: ibuprofen 2013-1 Yes Danielito 1 tab(s) Me moria 2-02 Paul l 00:00: [place] 00 clarithromy 2013-0 Yes Danielito 10 ml Mem oria dayna 7-09 Paul l 00:00: [place] 00 pantoprazol 2013-0 Yes Danielito 1 tab(s) Memoria e 6-25 Paul l 00:00: [place] 00 pantoprazol 2013-0 Yes Danielito 1 tab(s) Memoria e 6-25 Paul l 00:00: [place] 00 omeprazole 2013-0 No Danielito 1 cap(s) M emoria 6-21 Paul l 00:00: omeprazole 2013-0 Yes Danielito 1 cap(s) M emoria 6-21 Paul l 00:00: [place] 00 Cryselle 28 2013-0 Yes Danielito 1 tab(s) Memoria 6-21 Paul l 00:00: [place] 00 doxycycline 2013-0 Yes Danielito 1 tab Mem oria 6-21 Paul l 00:00: [place] 00 MetroNIDAZO 2014-0 Yes Danieilto 1 appful Memoria LE Vaginal 6-21 Paul l 00:00: [place] 00 azithromyci 2014-0 Yes Danielito 1 tab(s) Memoria n 4-15 Paul l 00:00: [place] 00 Azurette 2014-0 Yes Danielito 1 tab(s) Mem oria 4-09 Paul l 00:00: [place] 00 Immunizations Ordered Filled Immunization Date Status Comments Sour e Immunization Name Name HPV9 2017-09-08 Completed University of 00:00:00 [facility] HPV9 2017-09-08 Completed University of 00:00:00 [facility] HPV9 2017-09-08 Completed University of 00:00:00 [facility] HPV9 2017-09-08 Completed University of 00:00:00 [facility] HPV9 2017-09-08 Completed University of 00:00:00 [place] [facility] HPV9 2017-09-08 Completed University of 00:00:00 [place] [facility] HPV9 2017-09-08 Completed University of 00:00:00 [place] [facility] HPV9 2017-09-08 Completed University of 00:00:00 [facility] HPV9 2017-09-08 Completed University of 00:00:00 [place] [facility] HPV9 2017-09-08 Completed University of 00:00:00 [place] [facility] HPV9 2017-09-08 Completed University of 00:00:00 [facility] HPV9 2017-09-08 Completed University of 00:00:00 [place] [facility] HPV9 2017-09-08 Completed University of 00:00:00 [place] [facility] HPV9 2017-09-08 Completed University of 00:00:00 [place] [facility] HPV9 2017-09-08 Completed University of 00:00:00 [place] [facility] HPV9 2017-09-08 Completed University of 00:00:00 [place] [facility] HPV9 2017-09-08 Completed University of 00:00:00 [place] [facility] HPV9 2017-09-08 Completed University of 00:00:00 [place] [facility] HPV9 2017-09-08 Completed University of 00:00:00 [place] [facility] HPV9 2017-09-08 Completed University of 00:00:00 [place] [facility] HPV9 2017-09-08 Completed University of 00:00:00 [facility] HPV9 2017-09-08 Completed University of 00:00:00 [place] [facility] HPV9 2017-09-08 Completed University of 00:00:00 [place] [facility] HPV9 2017-09-08 Completed University of 00:00:00 [place] [facility] HPV9 2017-09-08 Completed University of 00:00:00 [place] [facility] HPV9 2017-09-08 Completed University of 00:00:00 [place] [facility] TDAP 2016-05-18 Completed University of 00:00:00 [place] [facility] TDAP 2016-05-18 Completed University of 00:00:00 [place] [facility] TDAP 2016-05-18 Completed University of 00:00:00 [place] [facility] TDAP 2016-05-18 Completed University of 00:00:00 [place] [facility] TDAP 2016-05-18 Completed University of 00:00:00 [place] [facility] TDAP 2016-05-18 Completed University of 00:00:00 [place] [facility] TDAP 2016-05-18 Completed University of 00:00:00 [place] [facility] TDAP 2016-05-18 Completed University of 00:00:00 [place] [facility] TDAP 2016-05-18 Completed University of 00:00:00 [place] [facility] TDAP 2016-05-18 Completed University of 00:00:00 [place] [facility] TDAP 2016-05-18 Completed University of 00:00:00 [place] [facility] TDAP 2016-05-18 Completed University of 00:00:00 [place] [facility] TDAP 2016-05-18 Completed University of 00:00:00 [place] [facility] TDAP 2016-05-18 Completed University of [...] Branch TDAP 2016-05-18 Completed University of 00:00:00 [place] [facility] TDAP 2016-05-18 Completed University of 00:00:00 [place] [facility] TDAP 2016-05-18 Completed University of 00:00:00 [place] [facility] TDAP 2016-05-18 Completed University of 00:00:00 [facility] TDAP 2016-05-18 Completed University of 00:00:00 [facility] TDAP 2016-05-18 Completed University of 00:00:00 [facility] Influenza Virus 2016-03-03 Completed Universit y of Vaccine Quad IM 3+ 00:00:00 [facility] Influenza Virus 2016-03-03 Completed Universit y of Vaccine Quad IM 3+ 00:00:00 [facility] Influenza Virus 2016-03-03 Completed Universit y of Vaccine Quad IM 3+ 00:00:00 [facility] Influenza Virus 2016-03-03 Completed Universit y of Vaccine Quad IM 3+ 00:00:00 [facility] Influenza Virus 2016-03-03 Completed Universit y of Vaccine Quad IM 3+ 00:00:00 [facility] Influenza Virus 2016-03-03 Completed Universit y of Vaccine Quad IM 3+ 00:00:00 [facility] Influenza Virus 2016-03-03 Completed Universit y of Vaccine Quad IM 3+ 00:00:00 [facility] Influenza Virus 2016-03-03 Completed Universit y of Vaccine Quad IM 3+ 00:00:00 [facility] Influenza Virus 2016-03-03 Completed Universit y of Vaccine Quad IM 3+ 00:00:00 [facility] Influenza Virus 2016-03-03 Completed Universit y of Vaccine Quad IM 3+ 00:00:00 [facility] Influenza Virus 2016-03-03 Completed Universit y of Vaccine Quad IM 3+ 00:00:00 [facility] Influenza Virus 2016-03-03 Completed Universit y of Vaccine Quad IM 3+ 00:00:00 [facility] Influenza Virus 2016-03-03 Completed Universit y of Vaccine Quad IM 3+ 00:00:00 [facility] Influenza Virus 2016-03-03 Completed Universit y of Vaccine Quad IM 3+ 00:00:00 [facility] Influenza Virus 2016-03-03 Completed Universit y of Vaccine Quad IM 3+ 00:00:00 [facility] Influenza Virus 2016-03-03 Completed Universit y of Vaccine Quad IM 3+ 00:00:00 [facility] Influenza Virus 2016-03-03 Completed Universit y of Vaccine Quad IM 3+ 00:00:00 [facility] Influenza Virus 2016-03-03 Completed Universit y of Vaccine Quad IM 3+ 00:00:00 [facility] Influenza Virus 2016-03-03 Completed Universit y of Vaccine Quad IM 3+ 00:00:00 [facility] Influenza Virus 2016-03-03 Completed Universit y of Vaccine Quad IM 3+ 00:00:00 [facility] Influenza Virus 2016-03-03 Completed Universit y of Vaccine Quad IM 3+ 00:00:00 [facility] Influenza Virus 2016-03-03 Completed Universit y of Vaccine Quad IM 3+ 00:00:00 [facility] Influenza Virus 2016-03-03 Completed Universit y of Vaccine Quad IM 3+ 00:00:00 [facility] Influenza Virus 2016-03-03 Completed Universit y of Vaccine Quad IM 3+ 00:00:00 [facility] Influenza Virus 2016-03-03 Completed Universit y of Vaccine Quad IM 3+ 00:00:00 [facility] Influenza Virus 2016-03-03 Completed Universit y of Vaccine Quad IM 3+ 00:00:00 [facility] Vital Signs Vital Name Observation Time Observation Value Comments Source Systolic blood 2020-05-21 19:55:00 118 mm[Hg] Univer sity of pressure [facility] Diastolic blood 2020-05-21 19:55:00 72 mm[Hg] Unive rsity of [facility] Heart rate 2020-05-21 19:55:00 64 /min Universi ty [facility] Body temperature 2020-05-21 19:55:00 36.56 Divya [facility] [facility] rate 2020-05-21 19:55:00 16 /min [facility] Body height 2020-05-21 19:55:00 165.1 cm [facility] ty [facility] Body weight 2020-05-21 19:55:00 70.506 kg [facility] BMI 2020-05-21 19:55:00 25.87 kg/m2 [facility] Systolic blood 2020-05-21 19:55:00 118 mm[Hg] Univer sity of pressure [facility] Diastolic blood 2020-05-21 19:55:00 72 mm[Hg] Unive rsity of pressure [facility] Heart rate 2020-05-21 19:55:00 64 /min [facility] Body temperature 2020-05-21 19:55:00 36.56 Divya [facility] Respiratory rate 2020-05-21 19:55:00 16 /min [facility] Body height 2020-05-21 19:55:00 165.1 cm [facility] Body weight 2020-05-21 19:55:00 70.506 kg [facility] BMI 2020-05-21 19:55:00 25.87 kg/m2 [facility] Systolic blood 2020-05-19 20:09:00 117 mm[Hg] [facility] Diastolic blood 2020-05-19 20:09:00 67 mm[Hg] [facility] Heart rate 2020-05-19 20:09:00 67 /min [facility] Body temperature 2020-05-19 20:09:00 36.11 Divya [facility] Respiratory rate 2020-05-19 20:09:00 16 /min [facility] Body height 2020-05-19 20:09:00 160 cm [facility] Body weight 2020-05-19 20:09:00 70.393 kg [facility] BMI 2020-05-19 20:09:00 27.49 kg/m2 [facility] Systolic blood 2019-12-18 15:21:00 115 mm[Hg] [facility] Diastolic blood 2019-12-18 15:21:00 73 mm[Hg] [facility] Heart rate 2019-12-18 15:21:00 80 /min [facility] Body temperature 2019-12-18 15:21:00 36.22 Divya [facility] Respiratory rate 2019-12-18 15:21:00 16 /min [facility] Body height 2019-12-18 15:21:00 160 cm [facility] Body weight 2019-12-18 15:21:00 72.349 kg [facility] BMI 2019-12-18 15:21:00 28.25 kg/m2 [facility] Height 2015-09-09 17:00:00 [facility] Diastolic (mm Hg) 2015-09-09 17:00:00 [facility] Systolic (mm Hg) 2015-09-09 17:00:00 Michael [facility] Temperature Oral (F) 2015-09-09 17:00:00 98.2 F [facility] Weight 2015-09-09 17:00:00 [facility] Height 2015-08-26 17:00:00 [facility] Diastolic (mm Hg) 2015-08-26 17:00:00 [facility] Systolic (mm Hg) 2015-08-26 17:00:00 [facility] Temperature Oral (F) 2015-08-26 17:00:00 97.8 F [facility] Weight 2015-08-26 17:00:00 [facility] Height 2015-05-19 20:00:00 [facility] Diastolic (mm Hg) 2015-05-19 20:00:00 [facility] Systolic (mm Hg) 2015-05-19 20:00:00 [facility] Temperature Oral (F) 2015-05-19 20:00:00 98.4 F [facility] Weight 2015-05-19 20:00:00 [facility] Height 2014-05-06 22:45:00 [facility] Diastolic (mm Hg) 2014-05-06 22:45:00 [facility] Systolic (mm Hg) 2014-05-06 22:45:00 [facility] Temperature Oral (F) 2014-05-06 22:45:00 98.6 F [facility] Weight 2014-05-06 22:45:00 [facility] Height 2013-12-11 21:30:00 [facility] Diastolic (mm Hg) 2013-12-11 21:30:00 Mem [facility] Systolic (mm Hg) 2013-12-11 21:30:00 [facility] Temperature Oral (F) 2013-12-11 21:30:00 97.7 F [facility] Weight 2013-12-11 21:30:00 [facility] Height 2013-11-23 16:00:00 [facility] Diastolic (mm Hg) 2013-11-23 16:00:00 [facility] Systolic (mm Hg) 2013-11-23 16:00:00 [facility] Temperature Oral (F) 2013-11-23 16:00:00 97.7 F [facility] Weight 2013-11-23 16:00:00 [facility] Height 2013-09-17 14:00:00 [facility] Diastolic (mm Hg) 2013-09-17 14:00:00 [facility] Systolic (mm Hg) 2013-09-17 14:00:00 [facility] Temperature Oral (F) 2013-09-17 14:00:00 97.7 F [facility] Weight 2013-09-17 14:00:00 [facility] Height 2013-09-11 19:45:00 [facility] Diastolic (mm Hg) 2013-09-11 19:45:00 [facility] Systolic (mm Hg) 2013-09-11 19:45:00 [facility] Temperature Oral (F) 2013-09-11 19:45:00 97.6 F [facility] Weight 2013-09-11 19:45:00 [facility] Procedures Procedure Date / Time Performing Clinician Source Performed POCT TEST 2020-05-19 22:22:00 Justina Gray Uni versity of [facility] GC & CHLAMYDIA 2020-05-19 21:01:00 Justina Gray [facility] [place] AMPLIFIED ASSAY [facility] TRICHOMONAS AMPLIFIED 2020-05-19 21:01:00 [facility] HIV 1/2 AG-AB WITH 2020-05-19 20:59:00 Justina Gray Univ ersity [facility] REFLEX [facility] POCT TEST 2019-12-18 15:12:00 Justina Gray Uni versity of [facility] POCT URINALYSIS W/O 2019-12-18 15:12:00 [facility] REPORT OF 2019-12-18 05:01:00 Doctor Unassigned, No [facility] [place] Name Medical [facility] Encounters Start End Encounter Admission Attending Care Care Encounter Source Date/Time Date/Time Type Type Clinicians Facility Department ID 2020-12-17 2020-12-17 Outpatient R SARA [facility] [id number] Univers 13:15:00 13:15:00 JUSTINA jensen o f [facility] 2020-08-27 2020-08-27 Outpatient R AKINSIPERICO, [facility] [id number] Univers 09:15:00 09:15:00 JUSTINA jensen o f [facility] 2020-08-25 2020-08-25 [facility] [id number] Univers 00:00:00 00:00:00 Outreach Mata PRIMARY [id number] i ty [facility] [id number] Valeriybarbara RUBYMILADY [phone] [address] 2020-08-17 2020-08-17 Outpatient R AKINSIPE, [facility] [id number] Univers 13:15:00 13:15:00 JUSTINA jensen o [facility] 2020-08-17 2020-08-17 Outpatient R AKINSIPERICO, [facility] [id number] Univers 13:15:00 13:15:00 JUSTINA jensen o [facility] 2020-05-21 2020-05-21 Outpatient R AKINSIPE, [facility] [id number] Univers 15:00:00 15:00:00 JUSTINA jensen o [facility] 2020-05-21 2020-05-21 Nurse Visit, RUST [id number] 13:49:36 14:14:57 Visit Zev [employer] [id number] Nurse [facility] [id number] MATERNAL [phone] & CHILD [address] [place] [address] 2020-05-21 2020-05-21 Nurse Visit, Edward-Arturo Nurse [facility] 1.2 .840.114 [id number] Univers 13:49:36 14:14:57 Visit Justina Gray [employer] 350.1.13. 10 mikey [facility] [id number] Valeriy as MATERNAL [phone] Med ical & CHILD 107 [facility] 2020-05-20 2020-05-20 Telephone Sara RUST [id number] Univers 00:00:00 00:00:00 Justina C [employer] [id number] ity of [facility] [id number] Valeriy as MATERNAL [phone] [facility] & CHILD [address] [place] [address] 2020-05-19 2020-05-19 Office [facility] [id number] Univers 13:54:34 15:00:54 Visit Justina C [employer] [id number] ity of [facility] [id number] Valeriy as MATERNAL [phone] [address] 2020-05-19 2020-05-19 [facility] [id number] Univers 13:45:00 13:45:00 JUSTINA montiel [facility] 2020-03-16 2020-03-16 Outpatient [facility] [id number] Univers 10:30:00 10:30:00 JUSTINAANNE MARIE jensen o [facility] 2020-03-02 2020-03-02 Letter [facility] [id number] Univers 00:00:00 00:00:00 (Out) Justina C [employer] [id number] ity of [id number] Valeriy as MATERNAL [phone] [address] 2020-01-15 2020-01-15 Outpatient R [facility] [id number] Univers 15:15:00 15:15:00 JUSTINA jensen o stuart [facility] 2020-01-10 2020-01-10 Telephone [facility] 1.2.840.114 [id number] Univers 00:00:00 00:00:00 Justina C [employer] [id number] ity of [facility] [id number] Valeriy as MATERNAL [phone] [facility] & CHILD [address] [place] [address] 2020-01-10 2020-01-10 Telephone [facility] 1.2.840.114 [id number] Univers 00:00:00 00:00:00 Justina C [employer] [id number] ity of [facility] [id number] Valeriy as MATERNAL [phone] [facility] & CHILD [address] [place] [address] 2020-01-08 2020-01-08 Alarm Investigator Lab, [facility] 1.2.840. 114 [id number] Univers 14:53:19 15:09:35 Visit Justina Gray [employer] 350.1.13. 10 ity of [facility] [id number] Valeriy as MATERNAL [phone] [facility] & CHILD [address] [place] [address] 2020-01-08 2020-01-08 [id number] Univers 15:00:00 15:00:00 JUSTINA itgeorgette o f [facility] 2020-01-08 2020-01-08 Telephone [facility] 1.2.840.114 [id number] Univers 00:00:00 00:00:00 Justina Michelle [employer] [id number] ity of [facility] [id number] Valeriy as MATERNAL [phone] [facility] CHILD [address] [place] [address] 2020-01-01 2020-01-01 Outpatient R [facility] [id number] Univers 08:30:00 08:30:00 ity of [facility] 2019-12-26 2019-12-26 Telephone [facility] 1.2.840.114 [id number] Univers 00:00:00 00:00:00 Justina Michelle [employer] [id number] ity of [facility] [id number] Valeriy as MATERNAL [phone] [address] 2019-12-25 2019-12-25 [facility] [id number] Univers 08:30:00 08:30:00 JUSTINA ity o f [facility] 2019-12-25 2019-12-25 Alarm Investigator Lab, [facility] 1.2.840. 114 [id number] Univers 08:14:26 08:20:26 Visit Justina Gray [employer] 350.1.13. 10 ity of REGION[facility] [id number] Valeriy as MATERNAL [phone] [facility] & CHILD [address] [place] [address] 2019-12-20 2019-12-20 Outpatient R [facility] [id number] Univers 10:30:00 10:30:00 ity of [facility] 2019-12-20 2019-12-20 Telephone [facility] 1.2.840.114 [id number] Univers 00:00:00 00:00:00 Justina C [employer] [id number] ity of [facility] [id number] Valeriy as MATERNAL [phone] [facility] & CHILD [address] [place] [address] 2019-12-18 2019-12-18 Initial [facility] [id number] Univers 10:06:57 11:32:49 Justina Martinez [employer] 350.1.13.10 ity of Visit REGIONAL [id number] Valeriy as MATERNAL [phone] [facility] & CHILD [address] [place] [address] 2019-12-18 2019-12-18 Outpatient R SARA, [facility] [id number] Univers 10:00:00 10:00:00 JUSTINA montiel [facility] 2019-12-18 2019-12-18 Outpatient R SARA, [facility] [id number] Univers 09:30:00 09:30:00 JUSTINA montiel [facility] 2019-12-18 2019-12-18 Orders Doctor OCAMPO 1.2.840.114 [id number] Univers 00:00:00 00:00:00 Only Unassigned, TALON 350.1.13.10 ity of [place] [facility] [id number] Valeriy as [phone] [address] 2019-10-24 2019-10-24 Outpatient R SARA, [facility] [id number] Univers 14:45:00 14:45:00 JUSTINA davidson [facility] 2016-07-05 2016-07-05 Outpatient R ENID, [facility] [id number] Univers 11:45:00 11:45:00 VICTORINO davidson [facility] 2015-09-09 2015-09-09 Labs & T nullFlavo Outpatient [id number] Memoria 17:00:00 17:00:00 Rvw r Clinical [id number] l Care, PA [id number] Herm chandler [id number] 2015-09-09 2015-09-09 Outpatient Outpatien Outpatient [id number] eClinic 12:00:00 12:00:00 t Clinical Eron booker Clinical Care, PA Monika, PA 2015-08-26 2015-08-26 ER t rvw nullFlavo Outpatient [id number] [id number] Memoria 17:00:00 17:00:00 w/ labs r Clinical 6p7-77e8-7 l Care, PA [id number] Herm chandler [id number] 2015-08-26 2015-08-26 ER t rvw nullFlavo Outpatient [id number] Memoria 17:00:00 17:00:00 w/ labs r Clinical 0ed-4da0-8 l Care, NIMA [id number] Herm chandler [id number] 2015-08-26 2015-08-26 Outpatient Outpatien Outpatient [id number] eClinic 12:00:00 12:00:00 t Clinical Eron booker Clinical Care, PA NIMA Frank 2015-05-19 2015-05-19 ENT nullFlavo Outpatient [id number] Memoria 20:00:00 20:00:00 Consult r Clinical [id number] l Care, PA [id number] Herm chandler [id number] 2015-05-19 2015-05-19 ENT nullFlavo Outpatient [id number] [id number] Memoria 19:00:00 19:00:00 Consult r Clinical y01-0199-0 l Care, PA [id number] Herm chandler [id number] 2015-05-19 2015-05-19 ENT nullFlavo Outpatient [id number] [id number] Memoria 19:00:00 19:00:00 Consult r Clinical [id number]-z l Care, NIMA [id number] Herm chandler [id number] 2015-05-19 2015-05-19 Outpatient Outpatien Outpatient [id number] eClinic 14:00:00 14:00:00 t Clinical Eron booker Clinical Care, PA Monika PA 2014-05-06 2014-05-06 Consult nullFlavo Outpatient [id number] bf8-b Memoria 22:45:00 22:45:00 r Clinical 4da-4ff5-8 l Care, NIMA [id number] Herm chandler [id number] 2014-05-06 2014-05-06 Consult nullFlavo Outpatient [id number] [id number] Memoria 22:45:00 22:45:00 r Clinical 6bf-4bbc-b l Care, NIMA [id number] Herm chandler [id number] 2014-05-06 2014-05-06 Consult nullFlavo Outpatient [id number] [id number] Memoria 21:45:00 21:45:00 r Clinical 843-40d0-b l Care, NIMA [id number] Herm chandler [id number] 2014-05-06 2014-05-06 Consult nullFlavo Outpatient [id number] 8ed-7 Memoria 21:45:00 21:45:00 r Clinical g52-833k-7 l Care, NIMA [id number] Herm chandler [id number] 2014-05-06 2014-05-06 Outpatient Outpatien Outpatient [id number] eClinic 16:45:00 16:45:00 t Clinical alWor ks Clinical Care, NIMA Lowery 2013-12-11 2013-12-11 Outpatient Outpatien Outpatient [id number] eClinic 16:30:00 16:30:00 t Clinical alRosy ks Clinical Care PA 2 Care PA 2 2013-11-27 2013-11-27 Unknown nullFlavo Outpatient [id number] [id number] Memoria 16:44:00 16:44:00 r Clinical ff4-4c14-a l Care, NIMA [id number] Herm chandler [id number] 2013-11-27 2013-11-27 Unknown nullFlavo Outpatient [id number] [id number] Memoria 16:44:00 16:44:00 r Clinical 41e-4b05-8 l Care, NIMA [id number] Herm chandler [id number] 2013-11-27 2013-11-27 Unknown nullFlavo Outpatient [id number] Memoria 15:44:00 15:44:00 r Clinical cb0-48fa-8 l Care, NIMA [id number] Herm chandler [id number] 2013-11-27 2013-11-27 Unknown nullFlavo Outpatient [id number] 4d9-3 Memoria 15:44:00 15:44:00 r Clinical 0bf-41db-9 l Care, PA [id number] Herm chandler [id number] 2013-11-27 2013-11-27 Unknown nullFlavo Outpatient [id number] c52-c Memoria 15:44:00 15:44:00 r Clinical a52-88s0-9 NIMA Rolon [id number] Herm chandler [id number] 2013-11-27 2013-11-27 Outpatient Outpatien Outpatient [id number] eClinic 10:44:00 10:44:00 [facility] NIMA Frank 2013-11-23 2013-11-23 Outpatient Outpatien Outpatient [id number] eClinic 11:00:00 11:00:00 t [facility] PA 2 Care PA 2 2013-09-17 2013-09-17 Outpatient Outpatien Outpatient [id number] eClinic 09:00:00 09:00:00 t [facility] Care PA 2 2013-09-11 2013-09-11 Outpatient Outpatien Outpatient [id number] eClinic 14:45:00 14:45:00 t [facility] 2 Care PA 2 Results Test Description Test Time Test Comments Results Result Comments Source TRICHOMONAS AMPLIFIED ASSAY 2020-05-20 19:06:00 Test Item Value Reference Range Interpretation Comme nts Trichomonas Nucleic Acid (test code = Negative Negative 24817-7) SANTA (test code = SANTA) Reliable results [...] clinician. Lab Interpretation (test code = Normal 79719-6) [facility] [id number] 19:06:00 Test Item Value Reference Range Interpretation Comments Trichomonas Nucleic Negative Negative Acid (test code = 61341-4) SANTA (test code = SANTA) Reliable results [...] clinician. Lab Interpretation Normal (test code = 04106-3) [facility] AMPLIFIED [id number] 18:51:00 Test Item Value Reference Range Interpretation Comments C. trachomatis Nucleic Positive Negative A Acid (test code = 32263-8) N. gonorrhoeae Nucleic Positive Negative A Acid (test code = 16925-6) SANTA (test code = SANTA) Reliable results [...] NAAT. Lab Interpretation Abnormal (test code = 38728-0) [facility] AMPLIFIED [id number] 18:51:00 Test Item Value Reference Range Interpretation Comments C. trachomatis Nucleic Positive Negative A Acid (test code = 89830-5) N. gonorrhoeae Nucleic Positive Negative A Acid (test code = 72879-6) SANTA (test code = SANTA) Reliable results [...] NAAT. Lab Interpretation Abnormal (test code = 52936-8) [facility] WITH [id number] 10:58:00 Test Item Value Reference Range Interpretation Comments HIV Negative Negative Semi-quantitative (test code = 65199-5) SANTA (test code = Non-reactive for HIV-1 SANTA) antigen and HIV-1/HIV-2 antibodies. ?No laboratory evidence of HIV infection. ?Repeat in 2-4 weeks if acute HIV infection is suspected. [facility] WITH [id number] 10:58:00 Test Item Value Reference Range Interpretation Comments HIV Negative Negative Semi-quantitative (test code = 35231-5) SANTA (test code = Non-reactive for HIV-1 SANTA) antigen and HIV-1/HIV-2 antibodies. ?No laboratory evidence of HIV infection. ?Repeat in 2-4 weeks if acute HIV infection is suspected. [facility] [id number] 22:22:00 Test Item Value Reference Range Interpretation Comments POCT PREG (test code = 1605) Negative On board controls acceptable with C Yes Line (test code = 3574) POCT PREG LOT # (test code = 3575) POCT PREG TEST DATE (test code = 3576) [facility] [id number] 22:22:00 Test Item Value Reference Range Interpretation Comments POCT PREG (test code = 1605) Negative On board controls acceptable with C Yes Line (test code = 3574) POCT PREG LOT # (test code = 3575) POCT PREG TEST DATE (test code = 3576) [facility] URINALYSIS W/O SPECIFIC [id number] 15:13:00 Test Item Value Reference Range Interpretation [...] Negative Lab Interpretation (test code = Abnormal 27353-7) [facility] [id number] 15:12:00 Test Item Value Reference Range Interpretation Comments POCT PREG (test code = 1605) Positive On board controls acceptable with C Yes Line (test code = 3574) POCT PREG LOT # (test code = 3575) POCT PREG TEST DATE (test code = 3576) [facility]
[2022-07-24 16:52] LABS: Urine Blood 3+ (Negative); Urine Glucose Negative (Negative); Urine Protein 2+ (Negative); Urine Specific Gravity 1.015 (1.005-1.030); Urine pH >=9.0 (5.0-7.0)
[2022-07-24] MEDS ORDERED: ONDANSETRON 4 MG/2 ML VIAL ONE (17:09)
[2022-07-24] MEDS ORDERED: FAMOTIDINE 20 MG/2 ML VIAL IV ONE (17:09)
[2022-07-24] MEDS ORDERED: NA CHLORIDE 0.9% 1,000 ML ONE (17:09)
[2022-07-24 17:25] LABS: Absolute Lymphocytes (CBC) 1.8 K/uL (0.7-4.9); Hematocrit 44.9 % (36.0-45.0); Lymphocytes % 13.4 % (15.3-44.8); MCV 87.9 fL (80-100); MPV 8.3 fL (7.6-11.3)
[2022-07-24 17:35] LABS: Albumin 4.1 g/dL (3.4-5.0); Bilirubin Total 0.4 mg/dL (0.2-1.0); Potassium 3.9 mmol/L (3.5-5.1)
[2022-07-24 17:37] LABS: Urine Specific Gravity/Preg 1.015 (1.005-1.030)
--- NOTE | 2022-07-24 17:53 | ER ---
Nurse's Notes [facility] Name: Rossana Monge Age: 26 yrs Sex: Female : 1995 Arrival Date: 07/24/2022 Time: 16:23 Bed 11 Private MD: Diagnosis: Nausea with vomiting, unspecified Presentation: 07/24 16:28 Chief complaint: Patient states: "me and my sister went to an event and we were aa5 drinking and I can't keep anything down". Pt c/o vomiting, reports lower abd cramping, reports she just started her menstrual cycle. Pt states "it just doesn't feel like a normal hang over". 16:28 Onset of symptoms was July 2022. aa5 16:28 Acuity: SHERRIE 3 aa5 16:28 Risk Assessment: Do you want to hurt yourself or someone else? Patient reports no aa5 desire to harm self or others. 16:28 Coronavirus screen: vomiting. Ebola Screen: Patient denies travel to an Ebola-affected [facility] area in the 21 days before illness onset. Initial Sepsis Screen: Does the patient meet any 2 criteria? No. Patient's initial sepsis screen is negative. Does the patient have a suspected source of infection? No. Patient's initial sepsis screen is negative. 16:28 Method Of Arrival: Ambulatory aa5 MERCHANDISE CARRIER: 16:34 LMP 07/23/2022 aa5 Historical: - Allergies: 16:33 No Known Allergies; aa5 - PMHx: 16:33 None; aa5 - PSHx: 16:33 None; aa5 - Immunization history:: Adult Immunizations unknown. - Social history:: Smoking status: Reported history of juuling and/or vaping. Screenin:26 [facility] ED Fall Risk Assessment (Adult) History of falling in the last 3 months, mb9 including since admission No falls in past 3 months (0 pts) Confusion or Disorientation No (0 pts) Intoxicated or Sedated No (0 pts) Impaired Gait No (0 pts) Mobility Assist Device Used No (0 pt) Altered Elimination No (0 pt) Score/Fall Risk Level 0 - 2 = Low Risk Oriented to surroundings, Maintained a safe environment, Educated pt \\T\\ family on fall prevention, incl call for assistance when getting out of bed. Abuse screen: Denies threats or abuse. Nutritional screening: No deficits noted. Tuberculosis screening: No symptoms or risk factors identified. Assessment: 17:02 Reassessment: pt brought back to ER room. mb9 17:20 General: Appears in no apparent distress. comfortable, Behavior is calm, cooperative, mb9 appropriate for age. Pain: Complains of pain in abdomen Quality of pain is described as aching, crampy, Pain began suddenly, Aggravated by eating, drinking. 17:20 Neuro: Level of Consciousness is awake, alert, obeys commands, Oriented to person, mb9 place, time, situation, Appropriate for age. Cardiovascular: Patient's skin is warm and dry. Respiratory: Airway is patent Respiratory effort is even, unlabored, Respiratory pattern is regular, symmetrical. GI: Abdomen is flat, non-distended, Bowel sounds present X 4 quads. Abd is soft Abdomen is tender to palpation X 4 quads. Reports intolerance of fluids, intolerance of food, nausea, vomiting. : No signs and/or symptoms were reported regarding the genitourinary system. Derm: Skin is pink, warm \\T\\ dry. Musculoskeletal: Range of motion: intact in all extremities. Vital Signs: 16:28 BP 119 / 78; Pulse 83; Resp 18 S; Temp 97.6(TE); Pulse Ox 98% on R/A; aa5 16:34 Weight 63.5 kg (R); Height 5 ft. 5 in. (165.10 cm) (R); aa5 18:13 BP 111 / 84; Pulse 74; Resp 16; Pulse Ox 100% on R/A; Pain 0/10; mb9 16:34 Body Mass Index 23.30 (63.50 kg, 165.10 cm) aa5 ED Course: 16:23 Patient arrived in ED. as 16:25 Zandra Bergeron FNP-C is PHCP. kb 16:25 Carlos Buckley MD is Attending Physician. kb 16:29 Arm band placed on. aa5 16:31 Triage completed. aa5 16:59 Debra Cloud, JOSEPH is Primary Nurse. mb9 17:10 Bed in low position. Call light in reach. Side rails up X 1. Client placed on mb9 continuous cardiac and pulse oximetry monitoring. NIBP monitoring applied. 17:12 Initial lab(s) drawn, by me, sent to lab. Inserted saline lock: 20 gauge in right vg1 antecubital area, using aseptic technique. Blood collected. 17:27 No provider procedures requiring assistance completed. mb9 18:13 IV discontinued, intact, bleeding controlled, No redness/swelling at site. Pressure mb9 dressing applied. Administered Medications: 07:11 Drug: NS 0.9% 1000 ml Route: IV; Rate: 1 bolus; Site: right antecubital; mb9 18:12 Follow up: Response: No adverse reaction; IV Status: Completed infusion mb9 17:12 Drug: Zofran (Ondansetron) 4 mg Route: IVP; Site: right antecubital; mb9 17:42 Follow up: Response: No adverse reaction mb9 18:13 Follow up: Response: No adverse reaction mb9 17:17 Drug: Pepcid (famotidine) 20 mg Route: IVP; Site: right antecubital; mb9 17:43 Follow up: Response: No adverse reaction mb9 18:13 Follow up: Response: No adverse reaction mb9 Medication: 17:27 VIS not applicable for this client. mb9 Outcome: 17:52 Discharge ordered by . kb 18:13 Discharged to home ambulatory. mb9 18:13 Condition: stable 18:13 Discharge instructions given to patient, Instructed on discharge instructions, follow up and referral plans. Demonstrated understanding of instructions, follow-up care, medications, Prescriptions given X 1. 18:19 Patient left the ED. mb9 Signatures: Zandra Bergeron, DIRECTOR BIOINFORMATICS-C DIRECTOR BIOINFORMATICS-Soraida Trammell Audri RN RN aa5 Cindy Olvera RN JOSEPH 1 Debra Cloud, RN RN mb9
--- NOTE | 2022-07-24 17:53 | EDPHYS ---
Physician Documentation [facility] Name: Rossana Monge Age: 26 yrs Sex: Female : 1995 Arrival Date: 07/24/2022 Time: 16:23 Bed 11 Private MD: ED Physician Carlos Buckley HPI: 07/24 18:01 This 26 yrs old Female presents to ER via Ambulatory with complaints of ETOH kb Abuse, Vomiting, Abdominal Pain. 18:01 The patient presents to the emergency department with nausea, vomiting, abdominal pain. kb Onset: The symptoms/episode began/occurred this morning. Possible causes: etoh. The symptoms are aggravated by food , The symptoms are alleviated by nothing. Associated signs and symptoms: Pertinent positives: abdominal pain, nausea, vomiting. Severity of symptoms: At their worst the symptoms were moderate in the emergency department the symptoms are unchanged. The patient has not experienced similar symptoms in the past. The patient has not recently seen a physician. 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 - Social history:: Smoking status: Reported history of juuling and/or vaping. ROS: 18:01 Constitutional: Negative for fever, chills, and weight loss. kb 18:01 Abdomen/GI: Positive for abdominal pain, nausea and vomiting. 18:01 : Positive for vaginal bleeding. 18:01 All other systems are negative. Exam: 18:01 Constitutional: This is a well developed, well nourished patient who is awake, alert, kb and in no acute distress. Head/Face: Normocephalic, atraumatic. ENT: Moist Mucous membranes Cardiovascular: Regular rate and rhythm with a normal S1 and S2. No gallops, murmurs, or rubs. No pulse deficits. Respiratory: Respirations even and unlabored. No increased work of breathing. Talking in full sentences Abdomen/GI: Soft, non-tender. No distention Skin: Warm, dry with normal turgor. Normal color. MS/ Extremity: Pulses equal, no cyanosis. Neurovascular intact. Full, normal range of motion. Neuro: Awake and alert, GCS 15, oriented to person, place, time, and situation. Moves all extremities. Normal gait. Vital Signs: 16:28 BP 119 / 78; Pulse 83; Resp 18 S; Temp 97.6(TE); Pulse Ox 98% on R/A; aa5 16:34 Weight 63.5 kg (R); Height 5 ft. 5 in. (165.10 cm) (R); aa5 18:13 BP 111 / 84; Pulse 74; Resp 16; Pulse Ox 100% on R/A; Pain 0/10; mb9 16:34 Body Mass Index 23.30 (63.50 kg, 165.10 cm) aa5 MDM: 16:25 Patient medically screened. kb 17:58 Differential diagnosis: Gastritis, dysmenorrhea, viral gastroenteritis. Data reviewed: jose vital signs, nurses notes. Counseling: I had a detailed discussion with the patient and/or guardian regarding: the historical points, exam findings, and any diagnostic results supporting the discharge/admit diagnosis, lab results, the need for outpatient follow up, a family practitioner, to return to the emergency department if symptoms worsen or persist or if there are any questions or concerns that arise at home. Response to treatment: the patient's symptoms have resolved after treatment. ED course: Patient is a 26-year-old female who presents for nausea vomiting and lower abdominal pain that started this morning. States she started her menstrual cycle last night and pain is to suprapubic area. Reports she ingested alcohol last night but she feels worse than she normally does with a hangover. No abdominal tenderness on physical exam. Serum labs obtained and reviewed. Patient tolerating p.o. intake. Patient nontoxic in appearance. Patient given return precautions and educated on need to follow-up with PCP. Verbal understanding received. States she feels much better after treatment.. 07/24 16:33 Order name: CBC with Diff kb 07/24 16:33 Order name: CMP kb 07/24 16:33 Order name: Lipase kb 07/24 16:53 Order name: Urine Dipstick-Ancillary; Complete Time: 16:58 EDMS 07/24 16:59 Order name: Urine --Ancillary (enter results) eb 07/24 17:31 Order name: CBC with Automated Diff; Complete Time: 17:35 EDNE 07/24 16:33 Order name: IV Saline Lock; Complete Time: 17:16 kb 07/24 16:33 Order name: Labs collected and sent; Complete Time: 17:16 kb 07/24 17:36 Order name: Comprehensive Metabolic Panel; Complete Time: 17:36 EDMS 07/24 17:36 Order name: Lipase; Complete Time: 17:36 EDMS 07/24 17:37 Order name: Urine --Ancillary; Complete Time: 17:43 EDMS 07/24 16:33 Order name: Urine Dipstick-Ancillary (obtain specimen); Complete Time: 16:57 kb 07/24 16:33 Order name: Urine Test (obtain specimen); Complete Time: 16:57 kb 07/24 17:52 Order name: PO challenge; Complete Time: 18:12 kb Administered Medications: 07:11 Drug: NS 0.9% 1000 ml Route: IV; Rate: 1 bolus; Site: right antecubital; mb9 18:12 Follow up: Response: No adverse reaction; IV Status: Completed infusion mb9 17:12 Drug: Zofran (Ondansetron) 4 mg Route: IVP; Site: right antecubital; mb9 17:42 Follow up: Response: No adverse reaction mb9 18:13 Follow up: Response: No adverse reaction mb9 17:17 Drug: Pepcid (famotidine) 20 mg Route: IVP; Site: right antecubital; mb9 17:43 Follow up: Response: No adverse reaction mb9 18:13 Follow up: Response: No adverse reaction mb9 Disposition Summary: 07/24/22 17:52 Discharge Ordered Location: Home kb Condition: Stable kb Diagnosis - Nausea with vomiting, unspecified kb Followup: kb - With: Emergency Department - When: As needed - Reason: Worsening of condition Followup: kb - With: Private Physician - When: 2 - 3 days - Reason: Recheck today's complaints, Continuance of care, Re-evaluation by your physician Discharge Instructions: - Discharge Summary Sheet kb - Nausea and Vomiting, Adult, [id number] kb Forms: - Medication Reconciliation Form kb - Thank You Letter kb - Antibiotic Education kb - Prescription Opioid Use kb Prescriptions: - Zofran 4 mg Oral Tablet - take 1 tablet by ORAL route every 6 hours As needed; 20 tablet; Refills: 0, kb Product Selection Permitted Signatures: Dispatcher [employer] EDZandra Flowers, DRUM STENCILER-C DRUM STENCILER-Ckb Maxine Nieto, RN RN aa5 Debra Cloud, RN RN mb9
[2022-07-24 18:40] VITALS: TEMP 97.6
[2022-07-24 18:41] VITALS: BP 111/84; O2SAT 100
== END 2022-07-24 18:19 | disposition home or self-care (01) ==
LOC: ER 16:20
DX: R11.2 Nausea with vomiting, unspecified (principal); R10.9 Unspecified abdominal pain
CPT/HCPCS: 96361; 85025; 36415; 81025; 81003; 83690; 80053; 96375; 96374; 99284; J7030; J2405

== ENCOUNTER 2024-03-23 19:04 | Emergency (ER) | payer SELFPAY ==
[2024-03-23] MEDS ORDERED: IBUPROFEN 400 MG TAB ONE (19:54)
[2024-03-23 20:42] LABS: Specific Gravity 1.008 (1.005-1.030)
--- NOTE | 2024-03-23 21:18 | RAD REPORT ---
EXAMINATION: CT ABDOMEN AND PELVIS WITHOUT CONTRAST CLINICAL INDICATION: Female, 28 years old.fall, pelvic pain TECHNIQUE: CT abdomen and pelvis was performed, without IV contrast, as per department protocol. Axia l, sagittal and coronal reconstructions were obtained. One or more of the following dose reduction techniques were used: Automated exposure control, adjustment of the mA and/or kV according to the pat ient size, and/or iterative reconstruction. Unless otherwise specified, incidental findings do not require dedicated imaging follow-up. [id number]. IV CONTRAST: Not administered. COMPARISON: None FINDINGS: The lack of intravenous contrast limits the sensitivity of this exam for evaluation of solid visceral organs, vascular structures, and retroperitoneum. LOWER CHEST: The visualized lung bases are clear. LIVER: Normal in size and contour. No focal lesion. GALLBLADDER/BILE DUCTS: No biliary ductal dilatation.? PANCREAS: No mass, ductal dilation, or wanda-pancreatic fluid. SPLEEN: Normal size. No focal lesion. ADRENALS: Normal; no mass. KIDNEYS AND URETERS: 2 mm stone in the right kidney. URINARY BLADDER: Normal contour. GASTROINTESTINAL TRACT: Stomach is non-dilated. Small bowel has normal course and caliber. No colonic wall thickening or pericolonic inflammatory changes. Normal appendix PERITONEUM: No free fluid. ABDOMINAL AORTA AND OTHER VESSELS: Normal caliber aorta and IVC. REPRODUCTIVE ORGANS: No pathologic process. MUSCULOSKELETAL: No acute or suspicious osseous abnormality. ADDITIONAL FINDINGS: None. IMPRESSION: No acute or significant abnormalities in the abdomen or pelvis, with evaluation limited by lack of IV contrast. Nonobstructive right nephrolithiasis. Normal appendix.
--- NOTE | 2024-03-23 21:20 | RAD REPORT ---
EXAM: Knee Right 3 View INDICATION: right knee pain COMPARISON: None FINDINGS: No acute fracture. No significant knee effusion. No significant focal degenerative changes. Other: n/a IMPRESSION: No evidence of acute osseous abnormality involving the imaged knee.
--- NOTE | 2024-03-23 21:20 | RAD REPORT ---
EXAM: Knee Left 3 View INDICATION: left knee pain COMPARISON: None FINDINGS: No acute fracture. No significant knee effusion. No significant focal degenerative changes. Other: n/a IMPRESSION: No evidence of acute osseous abnormality involving the imaged knee.
--- NOTE | 2024-03-23 21:46 | EDPHYS ---
Physician Documentation [facility] Name: Rossana Monge Age: 28 yrs Sex: Female : 1995 Arrival Date: 03/23/2024 Time: 19:04 Bed 15 Private MD: ED Physician Rohan Dale HPI: 03/23 19:11 This 28 yrs old Female presents to ER via Unassigned with complaints of Fall sp4 Injury, Knee Injury, Abdominal Cramping. 03/24 21:37 Patient presents with acute onset of bilateral knee pain after a fall associated with sp4 acute lower abdominal pain after a fall. . 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 - Infectious Disease History:: Denies. - Social history:: Smoking status: Reported history of juuling and/or vaping. - Family history:: not pertinent. ROS: 03/24 21:37 Constitutional: Negative for fever, chills, and weight loss, positive lower abdominal sp4 pain, positive bilateral knee pain. All other systems are negative, Exam: 21:37 Constitutional: This is a well developed, well nourished patient who is awake, alert, sp4 and in no acute distress. Head/Face: Normocephalic, atraumatic. Eyes: Pupils equal round and reactive to light, extra-ocular motions intact. Lids and lashes normal. Conjunctiva and sclera are not injected. Cornea within normal limits. Periorbital areas with no swelling, redness, or edema. ENT: Nares patent. No nasal discharge, no septal abnormalities noted. Tympanic membranes are normal and external auditory canals are clear. Oropharynx with no redness, swelling, or masses, exudates, or evidence of obstruction, uvula midline. Mucous membranes moist. Neck: Trachea midline, no thyromegaly or masses palpated, and no cervical lymphadenopathy. Supple, full range of motion without nuchal rigidity, or vertebral point tenderness. Chest/axilla: Normal chest wall appearance and motion. Nontender with no deformity. No lesions are appreciated. Cardiovascular: Regular rate and rhythm with a normal S1 and S2. No gallops, murmurs, or rubs. Normal PMI, no JVD. No pulse deficits. Respiratory: Lungs have equal breath sounds bilaterally, clear to auscultation and percussion. No rales, rhonchi or wheezes noted. No increased work of breathing, no retractions or nasal flaring. Abdomen/GI: Soft, with normal bowel sounds. No distension or tympany. No guarding or rebound. there is mild lower bilateral abdominal tenderness Back: No spinal tenderness. No costovertebral tenderness. Skin: Warm, dry with normal turgor. Normal color with no rashes, no lesions, and no evidence of cellulitis. MS/ Extremity: Pulses equal, no cyanosis. Neurovascular intact. Full, normal range of motion. Neuro: Awake and alert, GCS 15, oriented to person, place, time, and situation. Cranial nerves II-XII grossly intact. Motor strength 5/5 in all extremities. Sensory grossly intact. Psych: Awake, alert, with orientation to person, place and time. Behavior, mood, and affect are within normal limits Vital Signs: 03/23 19:49 BP 127 / 73; Pulse 69; Resp 16; Temp 97.6(TE); Pulse Ox 100% ; Weight 88.9 kg; Pain dd2 4/10; 21:52 BP 115 / 74; Pulse 68; Resp 18; Pulse Ox 100% on R/A; mb9 19:49 Pain Scale: Adult dd2 Maria Del Carmen Coma Score: 03/24 21:37 Eye Response: spontaneous(4). Motor Response: obeys commands(6). Verbal Response: sp4 oriented(5). Total: 15. MDM: 03/23 19:13 Medical Screening Exam initiated sp4 03/24 21:37 Differential diagnosis: abrasion, closed head injury, multiple trauma, sprain, strain. sp4 Data reviewed: vital signs, nurses notes, radiologic studies, CT scan, plain films. 21:41 ED course: CT and X rays are negative for sings of acute traumatic injury. . sp4 03/23 19:55 Order name: Test, Urine; Complete Time: 21:40 sp4 03/23 19:55 Order name: CT Abd/Pelvis - Without Contrast; Complete Time: 21:40 sp4 03/23 19:55 Order name: Knee Left 3 View XRAY; Complete Time: 21:40 sp4 03/23 19:55 Order name: Knee Right 3 View XRAY; Complete Time: 21:40 sp4 Administered Medications: 03/23 20:03 Drug: Ibuprofen PO 800 mg PO once Route: PO; mb9 21:08 Follow up: Response: No adverse reaction mb9 Disposition Summary: 03/23/24 21:45 Discharge Ordered Notes: Location: Home sp4 Problem: new sp4 Symptoms: have improved sp4 Condition: Stable sp4 Diagnosis - Acute pelvic pain, acute right knee contusion, acute right knee abrasion, acute sp4 left knee contusion, acute left knee abrasion, Acute fall from standing Followup: sp4 - With: Private Physician - When: 7 - 10 days - Reason: Recheck today's complaints Discharge Instructions: - Discharge Summary Sheet sp4 - Pelvic Pain, Female, [id number] sp4 Forms: - Work release form vc1 - Patient Portal Instructions sp4 Prescriptions: - Ibuprofen 800 mg Oral Tablet - take 1 tablet ORAL route every 8 hours As needed take with food; 30 tablet; sp4 Refills: 0, Product Selection Permitted - methocarbamol 750 mg Oral tablet - take 2 tablet ORAL route every 8 hours for 2 days PRN pain; 60 tablet; Refills: sp4 0, Product Selection Permitted Signatures: Dispatcher [employer] Debra Ames RN RN mb9 Rohan Dale MD MD sp4 TIERNEY HERNANDEZ RN RN dd2 Corrections: (The following items were deleted from the chart) 19:56 19:56 Test, Urine+[id number].LAB.BRZ ordered. EDMS EDMS
--- NOTE | 2024-03-23 21:46 | ER ---
Nurse's Notes [facility] Name: Rossana Monge Age: 28 yrs Sex: Female : 1995 Arrival Date: 03/23/2024 Time: 19:04 Bed 15 Private MD: Diagnosis: Acute pelvic pain, acute right knee contusion, acute right knee abrasion, acute left knee contusion, acute left knee abrasion, Acute fall from standing Presentation: 03/23 19:49 Chief complaint: Patient states: Pt c/o pain to Rt knee, Rt hip/lower back and dd2 suprapubic after a trip and fall outside of a store at approx 5 pm. Denies LOC. Coronavirus screen: At this time, the client does not indicate any symptoms associated with coronavirus-19. Ebola Screen: No symptoms or risks identified at this time. Initial Sepsis Screen: Does the patient meet any 2 criteria? No. Patient's initial sepsis screen is negative. Does the patient have a suspected source of infection? No. Patient's initial sepsis screen is negative. Risk Assessment: Do you want to hurt yourself or someone else? Patient reports no desire to harm self or others. Onset of symptoms was March 23, 2024. 19:49 Method Of Arrival: Ambulatory dd2 19:49 Acuity: SHERRIE 4 dd2 Triage Assessment: 19:53 General: Appears in no apparent distress. Behavior is calm, cooperative, appropriate dd2 for age. Pain: Complains of pain in right low back, suprapubic area, right hip and right knee Pain currently is 4 out of 10 on a pain scale. 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 - Infectious Disease History:: Denies. - Social history:: Smoking status: Reported history of juuling and/or vaping. - Family history:: not pertinent. Screenin:32 [facility] ED Fall Risk Assessment (Adult) History of falling in the last 3 months, mb9 including since admission Yes- single mechanical fall (1 pt) Confusion or Disorientation No (0 pts) Intoxicated or Sedated No (0 pts) Impaired Gait No (0 pts) Mobility Assist Device Used No (0 pt) Altered Elimination No (0 pt) Score/Fall Risk Level 3 or more points = High Risk Oriented to surroundings, Maintained a safe environment, Educated pt \T\ family on fall prevention, incl call for assistance when getting out of bed. Abuse screen: Denies threats or abuse. Nutritional screening: No deficits noted. Tuberculosis screening: No symptoms or risk factors identified. Assessment: 20:31 General: Appears in no apparent distress. Behavior is calm, cooperative. Pain: mb9 Complains of pain in right and left knee Pain does not radiate. Pain currently is 8 out of 10 on a pain scale. Quality of pain is described as throbbing. Neuro: [place] Agitation-Sedation Scale (RASS): 0 - Alert and Calm Level of Consciousness is awake, alert, obeys commands, Oriented to person, place, time, situation, Appropriate for age. Cardiovascular: Patient's skin is warm and dry. Respiratory: Airway is patent Respiratory effort is even, unlabored, Respiratory pattern is regular, symmetrical. GI: No signs and/or symptoms were reported involving the gastrointestinal system. : No signs and/or symptoms were reported regarding the genitourinary system. EENT: No signs and/or symptoms were reported regarding the EENT system. Derm: abrasion noted to bilateral patellas. Musculoskeletal: Range of motion: intact in all extremities. Vital Signs: 19:49 BP 127 / 73; Pulse 69; Resp 16; Temp 97.6(TE); Pulse Ox 100% ; Weight 88.9 kg; Pain dd2 4/10; 21:52 BP 115 / 74; Pulse 68; Resp 18; Pulse Ox 100% on R/A; mb9 19:49 Pain Scale: Adult dd2 Maria Del Carmen Coma Score: 03/24 21:37 Eye Response: spontaneous(4). Motor Response: obeys commands(6). Verbal Response: sp4 oriented(5). Total: 15. ED Course: 03/23 19:06 Patient arrived in ED. mr 19:11 Rohan Dale MD is Attending Physician. sp4 19:53 Triage completed. dd2 19:53 Arm band placed on left wrist. Patient placed in waiting room, Patient notified of wait dd2 time. 20:24 Debra Mcclure, RN is Primary Nurse. mb9 20:33 Bed in low position. Call light in reach. Side rails up X 1. Provided Education on: mb9 press call light if needing anything. Client placed on continuous cardiac and pulse oximetry monitoring. NIBP monitoring applied. Door closed. Noise minimized. Warm blanket given. Pillow given. 21:07 CT Abd/Pelvis - Without Contrast In Process Unspecified. EDMS 21:19 Knee Left 3 View XRAY In Process Unspecified. EDMS 21:19 Knee Right 3 View XRAY In Process Unspecified. EDMS 21:53 No provider procedures requiring assistance completed. Patient did not have IV access la during this emergency room visit. Administered Medications: 20:03 Drug: Ibuprofen PO 800 mg PO once Route: PO; mb9 21:08 Follow up: Response: No adverse reaction mb9 Medication: 20:33 VIS not applicable for this client. [email or web address] Outcome: 21:45 Discharge ordered by MD. slade 21:53 Discharged to home ambulatory, with family, la 21:53 Condition: stable 21:53 Discharge instructions given to patient, Instructed on discharge instructions, follow up and referral plans. Demonstrated understanding of instructions, follow-up care, medications, Prescriptions given X 2, 21:53 Patient left the ED. [email or web address] Signatures: Dispatcher [employer] Debra Snyder, Reg Reg mr McclureDebra, RN RN mb9 Rohan Dale MD MD sp4 TIERNEY HERNANDEZ RN RN dd2
[2024-03-24 02:25] VITALS: TEMP 97.6; O2SAT 100
[2024-03-24 02:26] VITALS: BP 115/74
== END 2024-03-23 21:53 | disposition home or self-care (01) ==
LOC: ER 19:04
DX: R10.2 Pelvic and perineal pain (principal); S80.212A Abrasion, left knee, initial encounter; S80.211A Abrasion, right knee, initial encounter; S80.01XA Contusion of right knee, initial encounter; S80.02XA Contusion of left knee, initial encounter; W18.30XA Fall on same level, unspecified, initial encounter
CPT/HCPCS: 74176; 81025; 99283

== ENCOUNTER 2024-08-05 10:59 | Emergency (ER) | payer SELFPAY ==
[2024-08-05 12:06] LABS: Specific Gravity 1.005 (1.005-1.030)
[2024-08-05 12:09] LABS: Specific Gravity 1.005 (1.005-1.030); Sqamous Epithelial <5 /HPF (None Seen); Urine Bacteria None Seen /HPF (<20); Urine Bilirubin NEGATIVE (Negative); Urine Blood 3+ (OVER) (Negative); Urine Clarity Extremely Turbid (Clear); Urine Color Brown (Yellow); Urine Culture Reflex Order NOT NEEDED; Urine Glucose NEGATIVE (Negative); Urine Ketones NEGATIVE (Negative); Urine Microscopic Reflex YN ORDER UMIC; Urine Mucus Slight /HPF (None Seen); Urine Nitrite NEGATIVE (Negative); Urine Protein TRACE (Negative); Urine RBC >50 /HPF (None Seen); Urine Urobilinogen Normal (Normal); Urine WBC <5 /HPF (<5); Urine pH 8.5 (5.0-7.0)
--- NOTE | 2024-08-05 12:35 | RAD REPORT ---
EXAMINATION: US PELVIS TRANSVAGINAL WITH DOPPLER CLINICAL INDICATION: Female 28 years old. VAGINAL BLEEDING TECHNIQUE: Real-time ultrasonography of the pelvis was performed transvaginally. Color and spectral D oppler evaluation of the ovaries was performed. COMPARISON: No prior exam. FINDINGS: UTERUS AND CERVIX: The uterus measures 8.4 x 4.9 x 5.1 cm (cervix to fundus x AP x transverse). The u terus is normal. No masses seen The endometrium is normal, 3 mm in thickness. RIGHT OVARY: Normal. The right ovary measures 3.4 x 2.4 x 1.9 cm. Normal color and spectral Doppler evaluation of the right ovary.. LEFT OVARY: Normal. The left ovary measures 2.8 x 2.2 x 2.6 cm. Normal color and spectral Doppler evaluation of the left ovary.. FREE FLUID: No free fluid. ADDITIONAL FINDINGS: IMPRESSION: Unremarkable exmaination.
[2024-08-05 13:05] LABS: Absolute Basophils 0.1 K/uL (0-0.5); Absolute Eosinophils 0.2 K/uL (0-0.5); Absolute Lymphocytes (CBC) 2.4 K/uL (0.7-4.9); Absolute Monocytes 0.5 K/uL (0.1-1.3); Absolute Neutrophil 6.5 K/uL (1.8-8.0); Basophils % 0.6 % (0-1.3); Eosinophils % 1.8 % (0-4.4); Hemoglobin 15.1 g/dL (12.0-15.0); Lymphocytes % 24.9 % (15.3-44.8); MCH 30.7 pg (27.0-35.0); MCV 87.6 fL (80-100); MPV 9.2 fL (7.6-11.3); Monocytes % 5.2 % (3.3-12.3); Neutrophils % 67.5 % (41.7-73.7); Platelets 262 thou/uL (152-406); RBC Red Blood Cell Count 4.91 M/uL (3.86-4.86)
[2024-08-05 13:26] LABS: Anion Gap 6.8 mEq/L (5.0-15.0); Potassium 3.8 mEq/L (3.5-5.1); Thyroid Stimulating Hormone 3.09 uIU/mL (0.358-3.740)
--- NOTE | 2024-08-05 13:51 | EDPHYS ---
Physician Documentation [facility] Name: Rossana Monge Age: 28 yrs Sex: Female : 1995 Arrival Date: 08/05/2024 Time: 10:59 Bed DX4 Private MD: ED Physician Ck Liu HPI: 08/05 12:03 This 28 yrs old Female presents to ER via Ambulatory with complaints of sb4 Vaginal Bleeding, Abdominal Cramping. 12:03 Patient reports chronically irregular menstrual cycles. She was on OCPs for some time, sb4 but stopped them about 2 months ago for insurance reasons. States that she stopped her cycle 2 days ago but started experiencing bright red vaginal bleeding this morning. Additionally, she states that she has had a lot of lower abdominal cramping, she has been very fatigued and dizzy. Denies any prior history of anemia or thyroid disorders. Denies any medical history at all. 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 - Infectious Disease History:: Denies. - Social history:: Smoking status: unknown. ROS: 12:03 Positive for pelvic pain, vaginal bleeding, menstrual abnormality, sb4 12:03 Cardiovascular: Negative for chest pain, palpitations, and edema, 12:03 Constitutional: Positive for fatigue, 12:03 Neuro: Positive for dizziness, 12:03 All other systems are negative, Exam: 12:03 Constitutional: This is a well developed, well nourished patient who is awake, alert, sb4 and in no acute distress. Head/Face: Normocephalic, atraumatic. Eyes: Extra-ocular motions intact. Periorbital areas with no swelling, redness, or edema. ENT: Mucous membranes moist. Cardiovascular: Regular rate and rhythm with a normal S1 and S2. Respiratory: No increased work of breathing, no retractions or nasal flaring. Abdomen/GI: Soft, non-tender, no distension. Skin: Warm, dry with normal turgor. Normal color with no rashes, no lesions, and no evidence of cellulitis. Vital Signs: 11:26 BP 130 / 84; Pulse 64; Resp 16; Temp 97.9; Pulse Ox 100% on R/A; Weight 86.18 kg; cm10 Height 5 ft. 5 in. ; Pain 8/10; 11:26 Body Mass Index 31.62 (86.18 kg, 165.1 cm) cm10 11:26 Pain Scale: Adult cm10 MDM: 11:07 Medical Screening Exam initiated sb4 13:50 Data reviewed: vital signs, nurses notes, lab test result(s), radiologic studies, and sb4 as a result, I will discharge patient. Counseling: I had a detailed discussion with the patient and/or guardian regarding the historical points, exam findings, and any diagnostic results supporting the discharge/admit diagnosis, lab results, radiology results, the need for outpatient follow up, an OB/Gyne specialist, to return to the emergency department if symptoms worsen or persist or if there are any questions or concerns that arise at home. 08/05 11:34 Order name: Basic Metabolic Panel; Complete Time: 13:26 sb4 08/05 11:34 Order name: CBC with Diff; Complete Time: 13:10 sb4 08/05 11:34 Order name: Test, Urine; Complete Time: 12:08 sb4 08/05 11:34 Order name: Urinalysis w/ reflexes; Complete Time: 12:11 sb4 08/05 11:34 Order name: TSH; Complete Time: 13:26 sb4 08/05 12:08 Order name: Test, Serum; Complete Time: 13:27 sb4 08/05 11:34 Order name: Transvaginal Study (probe); Complete Time: 12:38 sb4 08/05 11:34 Order name: IV Saline Lock; Complete Time: 12:52 sb4 08/05 11:34 Order name: Labs collected and sent; Complete Time: 12:52 sb4 Administered Medications: No medications were administered Disposition: 16:38 Co-signature as Attending Physician, Ck Liu MD I reviewed the patient's care rn provided by the Advanced Practice Provider and agree with the diagnosis and treatment plan. Disposition Summary: 08/05/24 13:50 Discharge Ordered Notes: Location: Home sb4 Problem: new sb4 Symptoms: are unchanged sb4 Condition: Stable sb4 Diagnosis - Abnormal uterine and vaginal bleeding, unspecified sb4 Followup: sb4 - With: Nerissa Arteaga MD - When: 2 - 3 days - Reason: Further diagnostic work-up, Recheck today's complaints, Re-evaluation by your physician Discharge Instructions: - Discharge Summary Sheet sb4 - Abnormal Uterine Bleeding, [id number]-Ugic sb4 Forms: - Patient Portal Instructions sb4 - Leadership Thank You Letter sb4 Prescriptions: - Sprintec (28) 0.25-35 mg-mcg Oral tablet - take 1 tablet ORAL route daily; 30 tablet; Refills: 0, Product Selection sb4 Permitted Signatures: Dispatcher [employer] EDCk Reed MD MD rn Brown, Sophia, PA-C PAEarline sb4 Lauren Escalera RN RN cm10
--- NOTE | 2024-08-05 13:51 | ER ---
Nurse's Notes [facility] Name: Rossana Monge Age: 28 yrs Sex: Female : 1995 Arrival Date: 08/05/2024 Time: 10:59 Bed DX4 Private MD: Diagnosis: Abnormal uterine and vaginal bleeding, unspecified Presentation: 08/05 11:26 Chief complaint: Patient states: Finished her period 4 days ago and yesterday started cm10 having spotting and today started having vaginal bleeding again. Pt also reports having abdominal cramping. Pt states that she stopped using control in May. Coronavirus screen: Client denies travel out of the [place] in the last 14 days. Ebola Screen: Patient denies travel to an Ebola-affected area in the 21 days before illness onset. Initial Sepsis Screen: Does the patient meet any 2 criteria? No. Patient's initial sepsis screen is negative. Does the patient have a suspected source of infection? No. Patient's initial sepsis screen is negative. Risk Assessment: Do you want to hurt yourself or someone else? Patient reports no desire to harm self or others. Onset of symptoms was August 05, 2024. 11:26 Method Of Arrival: Ambulatory cm10 11:26 Acuity: SHERRIE 3 cm10 Triage Assessment: 11:29 General: Appears in no apparent distress. uncomfortable, Behavior is calm, cooperative. cm10 Pain: Complains of pain in right lower quadrant and left lower quadrant Pain does not radiate. Pain currently is 8 out of 10 on a pain scale. Quality of pain is described as crampy. Neuro: No deficits noted. Level of Consciousness is awake, alert, obeys commands, Oriented to person, place, time, situation, Appropriate for age. Respiratory: No deficits noted. Airway is patent Respiratory effort is even, unlabored, Respiratory pattern is regular, symmetrical. : Reports cramping, in right in left lower quadrant(s) vaginal bleeding that is bright red. 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 - Infectious Disease History:: Denies. - Social history:: Smoking status: unknown. Assessment: 14:20 Reassessment: Patient is alert, oriented x 3, equal unlabored respirations, skin aa5 warm/dry/pink. Vital Signs: 11:26 BP 130 / 84; Pulse 64; Resp 16; Temp 97.9; Pulse Ox 100% on R/A; Weight 86.18 kg; cm10 Height 5 ft. 5 in. ; Pain 8/10; 11:26 Body Mass Index 31.62 (86.18 kg, 165.1 cm) cm10 11:26 Pain Scale: Adult cm10 ED Course: 11:01 Patient arrived in ED. mr 11:05 Sandhya Severino PA-C is PHCP. sb4 11:05 Ck Liu MD is Attending Physician. sb4 11:29 Triage completed. cm10 11:29 Arm band placed on right wrist. Patient placed in waiting room. cm10 11:54 Urinalysis w/ reflexes Sent. cm10 11:54 Test, Urine Sent. cm10 11:54 Urine collected: clean catch specimen, cloudy, blood tinged. cm10 12:16 Transvaginal Study (probe) In Process Unspecified. EDMS 12:52 CBC with Diff Sent. cm10 12:52 Basic Metabolic Panel Sent. cm10 12:52 TSH Sent. cm10 12:52 Test, Serum Sent. cm10 12:52 Initial lab(s) drawn, by ct, sent to lab. Inserted saline lock: 20 gauge in right cm10 antecubital area, using aseptic technique. Blood collected. Flushed with 10 mL NS. 13:50 Nerissa Arteaga MD is Referral Physician. sb4 14:20 No provider procedures requiring assistance completed. IV discontinued, intact, aa5 bleeding controlled, No redness/swelling at site. Pressure dressing applied. Administered Medications: No medications were administered Outcome: 13:50 Discharge ordered by . sb4 14:20 Discharged to home ambulatory, with family, aa5 14:20 Condition: stable 14:20 Discharge instructions given to patient, Instructed on discharge instructions, follow up and referral plans. medication usage, Demonstrated understanding of instructions, follow-up care, medications, Prescriptions given X 1, 14:25 Patient left the ED. aa5 Signatures: Dispatcher [employer] EDMS ArjunDebra, Reg Reg mr Maxine Nieto, RN RN aa5 Sandhya Severino, QUEENIE PAEarline [email or web address] Lauren Escalera RN RN cm10
[2024-08-05 14:33] VITALS: BP 130/84; TEMP 97.9; O2SAT 100
== END 2024-08-05 14:25 | disposition home or self-care (01) ==
LOC: ER 10:59
DX: N93.9 Abnormal uterine and vaginal bleeding, unspecified (principal)
CPT/HCPCS: 36415; 76830; 80048; 81001; 81025; 84443; 84703; 85025; 99284